=== PATIENT | male | born 1980 | race Caucasian/White ===

== ENCOUNTER 2017-08-23 13:15 | Emergency (ER) | payer MEDICAID, SELFPAY ==
[2017-08-23 13:16] VITALS: BP 111/90; PULSE 103; RESP 16; TEMP 36.7; O2SAT 97; BMI 48.2
--- NOTE | 2017-08-23 13:40 | ED.VISSUMM ---
- ER Visit Summary Date of Service: 08/23/17 Chief Complaint: Lump on chest and left hip pain History of Present Illness: The patient is a 37 M no primary care physician. Who reports that he has left hip pain began approximately 5 days ago after helping a friend move heavy stuff. Describes pain is 7 out of 10 severity and aching. It is increased with flexion of his hip. He is not taking anything for pain. He is able to ambulate without any difficulty. He denies any fall or MVA. Patient also complains of a swollen area just below his left pectoralis muscle that he first noticed 2 nights ago. Reports his pain is 6 out of 10 with pushing on is pain-free at rest. He denies any injury. No shortness of breath. No fever, chills, cough, or other complaints. Physical Examination: Vitals: Stable. Afebrile. General: Well-nourished and well-developed. Head: Normocephalic atraumatic. Neck: Supple, no lymphadenopathy. No JVD. Nontender. Cardiovascular: Regular rate and rhythm. No murmurs. Respiratory: No respiratory distress. Clear to auscultation bilaterally. There is a light contusion just inferior to his left pectoralis muscle. There is minimal soft tissue swelling. There is no erythema, warmth, or induration to suggest infection. Abdominal: Soft, nontender, nondistended, normal bowel sounds. No guarding, rebound, or peritoneal signs. Back: Nontender. Extremities: Minimal tenderness to palpation over the left greater trochanter. No pain with internal/external rotation of his hip. Normal gait. Skin: Normal color, no rash. Neurologic: Alert and oriented ?3. Cranial nerves II through XII are intact. Normal strength and sensation. Psych: Normal affect. Emergency Department Course and Treatment: I do not feel x-rays are indicated at this time. The patient is treated with naproxen and is resting comfortably. He ambulated out without any difficulty. Treatment Plan: Patient will be discharged naproxen instructed to follow-up the [facility] 1 week if not improving. Return to the emergency department for any worsening symptoms. Disposition: To home in improved and stable condition. Impression: 1. Chest wall pain. 2. Left hip strain. This note was generated with [employer] software. It may contain incorrect words, spelling, and punctuation that were not noted in review of the chart prior to signing ED Disposition - Plan for ED Patient: Disposition: Home or Assisted Living Chief Complaint: Chest Other Instructions: ED Sprain Hip Prescriptions: Naproxen [Naprosyn] 500 mg PO BID PRN #20 tablet Referrals: [facility] [NON-STAFF] - 1 Week if not improving
[2017-08-23] MEDS: Naproxen 250 MG Tablet 500 MG PO (13:51)
== END 2017-08-23 14:07 | disposition home or self-care (01) ==
PROVIDERS: Emergency Provider Emergency Medicine
DX: R07.89 Other chest pain (principal); S76.012A Strain of muscle, fascia and tendon of left hip, initial encounter; X50.0XXA Overexertion from strenuous movement or load, initial encounter; Y93.9 Activity, unspecified; Y92.9 Unspecified place or not applicable; Y99.9 Unspecified external cause status; Z72.0 Tobacco use
CPT/HCPCS: 99283

== ENCOUNTER 2017-09-23 21:37 | Emergency (ER) | payer MEDICAID, SELFPAY ==
[2017-09-23 21:38] VITALS: BP 163/101; PULSE 101; RESP 18; TEMP 36.7; O2SAT 94; BMI 48.2
--- NOTE | 2017-09-23 22:49 | ED.DCSUM_ITS ---
- ER Visit Summary Date of Service: 09/23/17 Chief Complaint: [Eye redness and swelling] History of Present Illness: The patient is a 37 M [presents to the emergency department with swelling to both eyes that he noticed this morning. Patient states initially he had a lot of itching associated with it. Patient subsequently developed edema of the eyelids. Complaint of some mild hearing and now has a burning sensation to the canthus and upper eyelid on the right. Patient denies any exposures to chemicals or new soaps or detergents. Patient denies any foreign body sensation or significant photophobia. Patient has not had symptoms like this before. Patient does not wear contacts but does wear glasses.] Physical Examination: [HEENT-PERRLA, EOMI. Cranial nerves II through XII grossly intact. TMs clear. Mucous membranes moist. No adenopathy. Patient does have edema of the right upper eyelid with some faint erythema noted to the lateral canthus. Patient has minimal edema of the left upper eyelid. There is no significant conjunctivitis. Cardiovascular-regular rate and rhythm without murmur or ectopy Lungs-clear to auscultation, chest wall stable without crepitus or subcu emphysema Abdomen-normoactive bowel sounds, soft, nontender, no rebound or rigidity, no peritoneal signs. Extremities-intact ?4, normal range of motion, normal pulses, atraumatic] Test Results: [None indicated] Emergency Department Course and Treatment: [Patient was given Benadryl and prednisone.] Treatment Plan: [I suspect an allergic reaction therefore patient will be treated with Benadryl and prednisone. Patient will be referred to ophthalmology for follow-up.] Disposition: [Discharged home in stable condition] Impression: [Allergic reaction] This note was generated with [employer] dictation software. It may contain incorrect words, spelling, and punctuation that were not noted in review of the chart prior to signing ED Disposition - Plan for ED Patient: Chief Complaint: Eye Problem Referrals: Care Physician,No Primary [Primary Care Provider] -
--- NOTE | 2017-09-23 22:49 | ED.DEP ---
ED Disposition - Plan for ED Patient: Chief Complaint: Eye Problem Instructions: ED Allergic Conjunctivitis Prescriptions: Prednisone [Deltasone] 20 mg PO BID #10 tab Referrals: Care Physician,No Primary [Primary Care Provider] - Edgar Olvera MD [STAFF PHYSICIAN] - 3-5 Days
[2017-09-23] MEDS: DiphenhydrAMINE 25 MG Capsule PO (22:54)
[2017-09-23] MEDS: predniSONE 20 MG Tablet 40 MG PO (22:54)
[2017-09-23 22:56] VITALS: BP 151/89; PULSE 89; RESP 14; O2SAT 99
== END 2017-09-23 22:56 | disposition home or self-care (01) ==
LOC: ED 22:52
PROVIDERS: Emergency Provider Emergency Medicine
DX: H02.841 Edema of right upper eyelid (principal); H02.844 Edema of left upper eyelid; T78.40XA Allergy, unspecified, initial encounter; X58.XXXA Exposure to other specified factors, initial encounter; Z86.39 Personal history of other endocrine, nutritional and metabolic disease; Z72.0 Tobacco use
CPT/HCPCS: 99283

== ENCOUNTER → 2017-11-26 16:13 | Outpatient (CLI) | payer MEDICAID, SELFPAY ==
--- NOTE | 2017-11-26 16:20 | RAD_ITS ---
STUDY: X-RAY CHEST REASON FOR EXAM: Male, 37 years old. Cough. TECHNIQUE: PA and lateral views of the chest. COMPARISON: January 10, 2016. FINDINGS: There is a minimally improved inspiratory effort when compared to prior study. There is no new infiltrate or mass. There is no demonstrated pleural abnormality. Normal size heart. Normal mediastinum and ibrahima. Normal visualized pulmonary arteries. Normal visualized aortic arch and descending thoracic aorta. Normal visualized thoracic spine. Normal visualized ribs, clavicles, and shoulders. There is no demonstrated abnormality of the visualized soft tissue structures of the upper abdomen. RAD/Chest PA and Lateral IMPRESSION: No acute cardiopulmonary disease or interval change. Electronically Signed: Reese Juárez DO at 20:47 EDT Tel [phone], Service support ,
== END ==
DX: R05 Cough (principal)
CPT/HCPCS: 71046

== ENCOUNTER 2017-12-01 17:49 | Emergency (ER) | payer MEDICAID, SELFPAY ==
[2017-12-01 17:50] VITALS: BP 160/104; PULSE 108; RESP 22; TEMP 36.3; BMI 50.2
[2017-12-01 17:55] VITALS: BP 173/98; PULSE 104; RESP 18; O2SAT 95
--- NOTE | 2017-12-01 18:25 | RAD_ITS ---
STUDY: X-RAY - LEFT FOOT CLINICAL: Male, 37 years old. A traumatic lateral foot pain. TECHNIQUE: The view(s) of the foot. COMPARISON: None. FINDINGS: Normal talus, calcaneus, and tarsal bones. Normal visualized subtalar, talonavicular, calcaneocuboid, tarsal and tarsometatarsal articulations. There is a separate ossification center for the base of the fifth metatarsal, a normal variant. Normal metatarsophalangeal joint of the great toe. Normal tibial and fibular sesamoid bones. Normal interphalangeal joint of the great toe. Normal phalanges of the great toe. Normal second through fifth metatarsophalangeal joints. Normal interphalangeal joints and phalanges of the lesser toes. The soft tissue structures are unremarkable. RAD/Foot min 3 Views IMPRESSION: No acute osseous abnormality. Electronically Signed: Cosme Lacey MD at 18:56 EDT , Service support ,
--- NOTE | 2017-12-01 19:04 | ED.VISSUMM ---
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 States his hurt all day. He is done no home treatment. Patient states that he thinks that hurt him the other day when he was walking into the shower but he does not recall a specific injury Physical Examination: Afebrile vital signs stable Patient is texting on his phone and chewing tobacco as I attempt to interview him. Patient is tenderness palpation along the fifth metatarsal and then up posterior to lateral malleolus. Neurovascular intact. No significant swelling. Test Results: Foot x-rays were negative for fracture Emergency Department Course and Treatment: Suspect this is more of a strain of his muscle/tendon. Will use Nilesh wrap to help limit motion. I suggest anti-inflammatories. Follow-up with podiatry if not improving Impression: 1. Left foot strain This note was generated with [employer] dictation software. It may contain incorrect words, spelling, and punctuation that were not noted in review of the chart prior to signing ED Disposition - Plan for ED Patient: Disposition: Home or Assisted Living Chief Complaint: Lower Extremity Injury Instructions: ED Sprain Foot Referrals: Marcell Dennis DPM [STAFF PHYSICIAN] - 10-14 Days if not better Additional Instructions: 1. Wear good supportive shoes 2. Nilesh wrap to help limit motion at the ankle joint 3. Motrin 800 mg 3 times a day as needed for pain.
--- NOTE | 2017-12-01 19:07 | ED.DCSUM_ITS ---
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 States his hurt all day. He is done no home treatment. Patient states that he thinks that hurt him the other day when he was walking into the shower but he does not recall a specific injury Physical Examination: Afebrile vital signs stable Patient is texting on his phone and chewing tobacco as I attempt to interview him. Patient is tenderness palpation along the fifth metatarsal and then up posterior to lateral malleolus. Neurovascular intact. No significant swelling. Test Results: Foot x-rays were negative for fracture Emergency Department Course and Treatment: Suspect this is more of a strain of his muscle/tendon. Will use Nilesh wrap to help limit motion. I suggest anti- inflammatories. Follow-up with podiatry if not improving Impression: 1. Left foot strain This note was generated with [employer] dictation software. It may contain incorrect words, spelling, and punctuation that were not noted in review of the chart prior to signing ED Disposition - Plan for ED Patient: Disposition: Home or Assisted Living Chief Complaint: Lower Extremity Injury Instructions: ED Sprain Foot Referrals: Marcell Dennis DPM [STAFF PHYSICIAN] - 10-14 Days if not better Additional Instructions: 1. Wear good supportive shoes 2. Nilesh wrap to help limit motion at the ankle joint 3. Motrin 800 mg 3 times a day as needed for pain.
[2017-12-01 19:17] VITALS: BP 145/94; PULSE 98; RESP 18; O2SAT 99
== END 2017-12-01 19:18 | disposition home or self-care (01) ==
PROVIDERS: Emergency Provider Emergency Medicine
DX: S96.912A Strain of unspecified muscle and tendon at ankle and foot level, left foot, initial encounter (principal); X58.XXXA Exposure to other specified factors, initial encounter; Y93.01 Activity, walking, marching and hiking; Y92.9 Unspecified place or not applicable; Y99.9 Unspecified external cause status; F17.220 Nicotine dependence, chewing tobacco, uncomplicated; E66.9 Obesity, unspecified
CPT/HCPCS: 73630; 99282

== ENCOUNTER 2018-04-07 12:41 | Emergency (ER) | payer MEDICAID, SELFPAY ==
[2018-04-07 12:42] VITALS: BP 141/92; PULSE 97; RESP 16; TEMP 36.6; O2SAT 97; BMI 51.6
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
--- NOTE | 2018-04-07 14:03 | ED.DEP ---
ED Disposition - Plan for ED Patient: Chief Complaint: Headache Instructions: ED Head Injury Closed Prescriptions: Ibuprofen [Motrin] 800 mg PO TID PRN PRN #20 tab PRN Reason: Pain
[2018-04-07 14:07] VITALS: PULSE 93; RESP 18; O2SAT 99
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
== END 2018-04-07 14:10 | disposition home or self-care (01) ==
PROVIDERS: Emergency Provider Emergency Medicine
DX: S06.0X0A Concussion without loss of consciousness, initial encounter (principal); V49.50XA Passenger injured in collision with unspecified motor vehicles in traffic accident, initial encounter; Y93.9 Activity, unspecified; Y92.9 Unspecified place or not applicable; Y99.9 Unspecified external cause status; Z72.0 Tobacco use; Z79.899 Other long term (current) drug therapy
CPT/HCPCS: 70450; 99282

== ENCOUNTER 2018-08-18 00:33 | Emergency (ER) | payer MEDICAID, SELFPAY ==
[2018-07-03 14:34] VITALS: BMI 51.6
[2018-08-18 00:34] VITALS: BP 205/119; PULSE 89; RESP 18; TEMP 36.8; O2SAT 96; BMI 54.2
--- NOTE | 2018-08-18 00:39 | EKG12_ITS ---
Test Reason : CP Blood Pressure : / mmHG Vent. Rate : 094 BPM Atrial Rate : 094 BPM P-R Int : 186 ms QRS Dur : 092 ms QT Int : 342 ms P-R-T Axes : 048 044 046 degrees QTc Int : 427 ms Normal sinus rhythm Normal ECG Confirmed by LEISA CLIFFORD, CAROLYN ([id number]), marketing editor ANGELA RUIZ ([id number]) on 08/21/2018 9:01:59 AM Referred By: COLLEEN Confirmed By:CAROLYN DE LA FUENTE MD
--- NOTE | 2018-08-18 00:39 | RAD_ITS ---
STUDY: X-RAY CHEST REASON FOR EXAM: Male, 38 years old. Chest pain TECHNIQUE: Single frontal view COMPARISON: November 26, 2017 FINDINGS: The lungs are clear and expanded. There is no demonstrated pleural abnormality. Normal size heart. Normal mediastinum and ibrahima. Normal visualized pulmonary arteries. Normal visualized aortic arch and descending thoracic aorta. Normal visualized thoracic spine. Normal visualized ribs, clavicles, and shoulders. There is no demonstrated abnormality of the visualized soft tissue structures of the upper abdomen. RAD/Chest 1 View (Portable) IMPRESSION: Normal x-ray examination of the chest. Electronically Signed: Darryl Roach MD at 1:32 EDT , Service support ,
[2018-08-18 00:46] LABS: Absolute Lymphocyte Count 2.89 X10^3/ul (0.83-4.51); Basophil# 0.08 X10^3/uL; Basophil% 0.7 % (0-1); Eosinophils% 1.8 % (0-5); Hematocrit 47.6 % (40-54); Hemoglobin 16.5 g/dl (13.0-16.5); Lymphocyte # 2.89 X10^3/ul (4.0); Lymphocyte % 26.5 % (19-41); Mean Corp Hgb Conc 34.7 g/gl (32-36); Mean Corpuscular Hgb 30.2 pg (27.0-32.0); Mean Corpuscular Volume 87.2 fL (80-94); Mean Platelet Vol. 9.6 fl (6.2-12.0); Monocyte# 0.74 X10^3/uL; Monocyte% 6.8 % (0-10); Neutrophil # 6.96 X10^3/uL (2.7-7.7); Platelet Count 196 K/mm3 (150-450); RBC Distribution Width CV 13.2 % (11.6-14.6); RBC Distribution Width SD 41.4 fl (35.1-43.9); Red Blood Count 5.46 M/mm3 (4.6-6.2); White Blood Count 10.9 K/mm3 (4.4-11.0)
[2018-08-18 00:51] LABS: POSITIVE COUNT NO; POSITIVE DIFFERENTIAL NO; POSITIVE MORPHOLOGY NO
[2018-08-18 01:08] LABS: Anion Gap 5 (5-15); BUN 12 mg/dL (7-18); BUN/Creat Ratio 11.8 RATIO (10-20); Calcium,Total 8.9 mg/dL (8.5-10.1); Chloride 105 mmol/L (98-107); Creatinine, Serum 1.02 mg/dL (0.70-1.30); EST Glomerular Filtration Rate 88 mL/min (>60); Est Glom Filt Rate - Afr Amer 106 mL/min (>60); Estimated Creatinine Clearance 100.12 ml/min; Glucose 105 mg/dL (74-106); Potassium 3.9 mmol/L (3.5-5.1); Sodium Level 139 mmol/L (136-145)
[2018-08-18 01:24] LABS: Prothrombin Time (Protime)PT. 12.8 SECONDS (11.7-14.9)
--- NOTE | 2018-08-18 02:03 | ED.VISSUMM ---
- ER Visit Summary Date of Service: 08/18/18 Chief Complaint: Chest pain History of Present Illness: The patient is a 38 M who presents with chest pain that began approximately half hour prior to arrival. Patient states the pain is over the right upper chest. Patient describes the pain as stabbing. Patient states the pain is intermittent and lasts for approximately 30-60 minutes. Patient states nothing makes the pain better or worse. Patient admits to some shortness of breath and palpitations with the pain. Patient also admits to a chronic cough. Cardiac risk factors include hypertension, hypercholesterolemia, and smoking. Patient denies any PE risk factors. Physical Examination: Vital signs are stable except for an elevated blood pressure 205/119. Patient is afebrile. Patient is in no acute distress. Oral mucosa is pink and moist. Neck is supple. Trachea is midline. There is no JVD noted. Heart was regular rate and rhythm. Lungs are clear and equal bilateral. There is some mild right upper chest wall tenderness. This is different than the pain that made him come to the emergency department tonight. Abdomen is soft and nontender. Bowel sounds are normal. Cranial nerves II through XII are intact. There are no focal motor or sensory deficits noted. Test Results: EKG showed a sinus rhythm with a rate of 94. There are no acute ST or T wave changes. This was unchanged compared to previous EKG dated 12/22/2015. Portable chest x-ray does not show any acute cardiopulmonary process. CBC, metabolic profile, troponin, PT with INR, were obtained and were all within normal limits. Emergency Department Course and Treatment: Patient was sleeping on reevaluation. Patient's blood pressure improved without treatment. Patient has a HEART score of 2. Patient was advised that this is low risk for acute cardiac event. Patient was advised to follow-up with his primary care physician in 5-7 days for further evaluation. Patient understood and was agreeable with the plan. All questions were answered. Disposition: Discharge home Impression: Chest pain This note was generated with [employer] dictation software. It may contain incorrect words, spelling, and punctuation that were not noted in review of the chart prior to signing ED Disposition - Plan for ED Patient: Disposition: Home or Assisted Living Diagnosis: Right-sided chest pain Instructions: ED Chest Pain Atypical Unkn Cause Referrals: Care Physician,No Primary [Primary Care Provider] - Sanam Barbosa [NON-STAFF] - 3-5 Days
[2018-08-18 02:17] VITALS: BP 166/97; PULSE 84; RESP 16; O2SAT 95
== END 2018-08-18 02:20 | disposition home or self-care (01) ==
PROVIDERS: Emergency Provider Emergency Medicine
DX: R07.9 Chest pain, unspecified (principal); R00.2 Palpitations; R06.00 Dyspnea, unspecified; I10 Essential (primary) hypertension; E78.00 Pure hypercholesterolemia, unspecified; E66.9 Obesity, unspecified; F17.200 Nicotine dependence, unspecified, uncomplicated; Z79.899 Other long term (current) drug therapy
CPT/HCPCS: 71045; 80048; 84484; 85025; 85610; 93005; 99284; A4216

== ENCOUNTER 2018-09-20 21:04 | Emergency (ER) | payer MEDICAID, SELFPAY ==
[2018-09-20 21:06] VITALS: BP 148/83; PULSE 108; RESP 17; TEMP 36.4; O2SAT 96; BMI 50.9
[2018-09-20 21:39] VITALS: RESP 18
--- NOTE | 2018-09-20 21:59 | ED.VISSUMM ---
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 No other injury. Physical Examination: There is superior shoulder tenderness, pain with abduction greater than 90 degrees, pain with placing his hand in his back, neurovascularly intact. Test Results: [] Emergency Department Course and Treatment: [This is rotator cuff syndrome, I will treat as such. Kenalog was given, anti-inflammatories for home.] Treatment Plan: [] Disposition: [Discharge stable condition] Impression: Rotator cuff tendinitis This note was generated with [employer] dictation software. It may contain incorrect words, spelling, and punctuation that were not noted in review of the chart prior to signing ED Disposition - Plan for ED Patient: Disposition: Home or Assisted Living Instructions: ED Tendinitis Rotator Cuff Prescriptions: Naproxen [Naprosyn] 500 mg PO BID PRN #20 tab Referrals: Care Physician,No Primary [Primary Care Provider] - 3-5 Days
[2018-09-20] MEDS: Triamcinolone Acetonide 40 MG/ML Vial IM (22:07)
[2018-09-20 22:26] VITALS: PULSE 103; RESP 18; O2SAT 95
== END 2018-09-20 22:27 | disposition home or self-care (01) ==
PROVIDERS: Emergency Provider Emergency Medicine
DX: M75.102 Unspecified rotator cuff tear or rupture of left shoulder, not specified as traumatic (principal); M75.92 Shoulder lesion, unspecified, left shoulder; X58.XXXA Exposure to other specified factors, initial encounter; Y93.H2 Activity, gardening and landscaping; Y92.9 Unspecified place or not applicable; Y99.9 Unspecified external cause status; F31.9 Bipolar disorder, unspecified; Z79.899 Other long term (current) drug therapy; Z72.0 Tobacco use
CPT/HCPCS: 96374; 99282

== ENCOUNTER 2019-09-12 21:13 | Emergency (ER) | payer MEDICAID, SELFPAY ==
[2019-09-12 21:14] VITALS: BP 173/98; PULSE 105; RESP 20; TEMP 36.4; O2SAT 99; BMI 51.6
--- NOTE | 2019-09-12 21:50 | RAD_ITS ---
STUDY: X-RAY - RIGHT WRIST REASON FOR EXAM: Male, 39 years old. PAIN ALONG THUMB AND DOWN INTO WRIST . NO KNOWN INJURY TECHNIQUE: 3 view(s) of the wrist were obtained. COMPARISON: None. FINDINGS: Normal visualized distal radius and ulna. Normal radiocarpal articulation. Normal distal radioulnar articulation. Normal carpal bones. Normal carpal articulations. Normal carpometacarpal articulation of the thumb. Normal second through fifth carpometacarpal articulations. Normal visualized metacarpal bones. The soft tissue structures are unremarkable. RAD/Wrist min 3 Views IMPRESSION: Normal x-ray examination of the wrist. Electronically Signed: Garrison Sullivan MD at 22:12 EDT , Service support ,
--- NOTE | 2019-09-12 22:11 | ED.VISSUMM ---
- ER Visit Summary Date of Service: 09/12/19 Chief Complaint: Atraumatic right wrist pain History of Present Illness: The patient is a 39 M history of hypertension, bipolar and high cholesterol. [id number]. Denies any falls, injury, trauma, fever or redness. States the last week he has had discomfort, dull ache in his right wrist. No prior history. No prior fracture. No prior surgery. He denies any other complaints. States he is currently not working. He has not been using his hand or wrist more than normally. Physical Examination: Middle-aged male no acute distress vital signs stable afebrile. HEENT exam unremarkable. Neck nontender no lymphadenopathy. Lungs are clear equal symmetrical bilaterally. Heart regular rate and rhythm no murmur. Abdomen soft nontender normal bowel sounds no peritoneal signs. Extremities moves all 4 neurovascular intact. Calves nontender without edema or cords. Specifically right shoulder, right elbow and right wrist no significant tenderness. No redness or warmth. No swelling. No effusions. He has full range of motion to his right elbow and right wrist without any difficulty. Full flexion-extension of the right wrist. There is no redness or warmth. No signs of septic joint or gout. He has a normal radial pulse. 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 Normal sensation. Normal cap refill. There is no gross bony deformity. Neurologically is awake and alert with no focal motor deficits. Test Results: Right wrist x-ray 3 views read by myself shows no acute abnormality. No fracture or dislocation. Emergency Department Course and Treatment: Patient with atraumatic right wrist pain. Clinically does not seem to be a tendinitis. It also does not appear to be a infection. X-ray was obtained and was negative. Treatment Plan: Ice and elevate his right wrist. Motrin for pain. Follow-up if not improving return if worse. Disposition: Discharge Impression: Acute atraumatic right wrist pain musculoskeletal etiology This note was generated with [employer] dictation software. It may contain incorrect words, spelling, and punctuation that were not noted in review of the chart prior to signing ED Disposition - Plan for ED Patient: Referrals: Care Physician,No Primary [Primary Care Provider] -
--- NOTE | 2019-09-12 22:13 | ED.DEP ---
ED Disposition - Plan for ED Patient: Disposition: Home or Assisted Living Referrals: Isaac Dean MD [STAFF PHYSICIAN] - 1 Week if not improving Additional Instructions: Your x-ray was normal. Ice and elevate your right wrist. Motrin and Tylenol for pain and swelling. Follow-up if not improving. Return to the emergency department if increasing pain, swelling, redness or fever.
== END 2019-09-12 22:20 | disposition home or self-care (01) ==
PROVIDERS: Emergency Provider Emergency Medicine
DX: M25.531 Pain in right wrist (principal); I10 Essential (primary) hypertension; E78.00 Pure hypercholesterolemia, unspecified; F31.9 Bipolar disorder, unspecified; Z72.0 Tobacco use; Z79.899 Other long term (current) drug therapy
CPT/HCPCS: 73110; 99282

== ENCOUNTER 2019-11-01 18:19 | Emergency (ER) | payer MEDICAID, SELFPAY ==
[2019-11-01 18:22] VITALS: BP 125/71; PULSE 92; RESP 17; TEMP 36.5; O2SAT 98; BMI 55.3
--- NOTE | 2019-11-01 18:45 | ED.DCSUM_ITS ---
History of Present Illness Chief Complaint: Edema Informant: Patient Onset: Days Context: Gradual Onset Current Severity: Moderate Maximum Severity: Moderate Narrative: Patient presents with bilateral lower extremity edema. He tells me is been ongoing for the last several days to a week or so. He told nursing staff that is been an ongoing chronic issue. Patient does have a few small blisters on his right leg that are covered with bandages. He denies fever or chills. He does report some dyspnea with exertion. - Past Medical History (1) Hypertension Status: Chronic (2) High cholesterol Status: Chronic Past Medical History - Allergies and Home Meds Allergies/Adverse Reactions: Allergies No Known Allergies Allergy (Verified 11/01/19 18:21) Primary Care Physician: Sanam Tapia [Primary Care Provider] - Prior records reviewed: Yes Smoking Status: Current every day smoker Review of Systems General: Denies: Chills, Fever Eyes: Denies: Visual changes - bilaterally ENT: Denies: Bilateral ear pain Cardiovascular: Denies: Chest pain Respiratory: Reports: Dyspnea. Denies: Cough Gastrointestinal: Denies: Abdominal pain, Nausea, Vomiting, Diarrhea Genitourinary: Denies: Dysuria Musculoskeletal: Reports: Swelling Skin: Reports: Wounds Neurological: Denies: Headache Hematologic: Denies: Easy bruising, Easy bleeding Allergy: Denies: Uticaria Physical Exam Vital Signs/Narrative: Vital Signs Temp Pulse Resp BP Pulse Ox 11/01/19 18:22 97.7 F L 92 17 125/71 H 98 Inital Vital Signs reviewed: Yes General: Well nourished, Well developed Head: Normocephalic ENT: Moist mucous membranes Neck: Supple Cardiovascular: Regular rate, Regular rhythm Respiratory: No distress, CTA bilaterally Abdomen: Soft, Nontender Extremities: - - Patient with 3+ edema bilateral lower extremities. Legs are symmetric. There are 3 small (approximate 3 mm diameter) open blisters on the right lower leg. No surrounding cellulitis. Strong distal pulses are noted. Neurological: Alert, Oriented x3 Psychological: Normal affect Diagnostic/Tx/Re-eval Impressions Chest CTA 11/01/19 20:20 IMPRESSION: 1. There is limited enhancement of the main pulmonary artery and right and left pulmonary arteries. There is poor/suboptimal enhancement of the bilateral peripheral pulmonary arteries. No large embolus is seen in the main arteries, but smaller emboli cannot be excluded. Normal thoracic aorta and visualized great vessels. 2. Mild bilateral pulmonary edema. No visualized consolidation. Electronically Signed: Tye Rivera MD at 21:37 EDT , Service support , 11/01/19 20:20 CTA Chest W/WO Contrast [CT] Stat Laboratory Results 11/01/19 11/01/19 11/01/19 18:58 18:58 18:58 WBC 8.3 RBC 4.78 Hgb 14.5 Hct 44.4 MCV 92.9 MCH 30.3 MCHC 32.7 RDW Std Deviation 43.8 RDW Coeff of Thu 13.0 Plt Count 175 MPV 9.0 Immature Gran % (Auto) 0.200 Neut % (Auto) 67.7 Lymph % (Auto) 21.1 [place] % (Auto) 7.6 Eos % (Auto) 2.7 Baso % (Auto) 0.7 Absolute Neuts (auto) 5.6 Absolute Lymphs (auto) 1.75 Nucleated RBC % 0 D-Dimer Quant (PE/DVT) 1.00 H* Sodium 141 Potassium 3.8 Chloride 104 Carbon Dioxide 33.0 H Anion Gap 4 L BUN 13 Creatinine 0.84 Estim Creat Clear Calc 124.32 Est GFR (MDRD) Af Amer 131 Est GFR (MDRD) Non-Af 108 BUN/Creatinine Ratio 15.4 Glucose 106 Calcium 8.5 B-Natriuretic Peptide 11/01/19 18:58 WBC RBC Hgb Hct MCV MCH MCHC RDW Std Deviation RDW Coeff of Thu Plt Count MPV Immature Gran % (Auto) Neut % (Auto) Lymph % (Auto) [place] % (Auto) Eos % (Auto) Baso % (Auto) Absolute Neuts (auto) Absolute Lymphs (auto) Nucleated RBC % D-Dimer Quant (PE/DVT) Sodium Potassium Chloride Carbon Dioxide Anion Gap BUN Creatinine Estim Creat Clear Calc Est GFR (MDRD) Af Amer Est GFR (MDRD) Non-Af BUN/Creatinine Ratio Glucose Calcium B-Natriuretic Peptide 29.1 - Medical Decision Making Test results are discussed with the patient at bedside. He does have a mildly elevated d-dimer. CTA does not reveal obvious central PE. Mild pulmonary edema is noted. Patient will be given a prescription for 3 days of Lasix at home. I will write an outpatient order for a venous ultrasound of his legs that he will come back for tomorrow, Sunday. Patient is to follow with his doctor this week for further treatment and evaluation. ED Disposition - Plan for ED Patient: Disposition: Home or Assisted Living Diagnosis: Edema Instructions: ED Peripheral Edema, Bilateral Prescriptions: Furosemide [Lasix] 40 mg PO DAILY #3 tab Transmission Status: Pending to [facility]/pharmacy #[id number] Referrals: Robb Valdez,Sanam Barbosa [Primary Care Provider] - As soon as possible
[2019-11-01 19:03] LABS: Absolute Lymphocyte Count 1.75 X10^3/uL (0.83-4.51); Absolute Neutrophil Count 5.6 X10^3/uL (2.0-7.7); Basophil# 0.06 X10^3/uL; Basophil% 0.7 % (0-1); Eosinophil# 0.22 X10^3/uL; Eosinophils% 2.7 % (0-5); Hematocrit 44.4 % (40-54); Hemoglobin 14.5 g/dL (13.0-16.5); Lymphocyte # 1.75 X10^3/ul (4.0); Lymphocyte % 21.1 % (19-41); Mean Corp Hgb Conc 32.7 g/dL (32-36); Mean Corpuscular Hgb 30.3 pg (27.0-32.0); Mean Corpuscular Volume 92.9 fL (80-94); Monocyte# 0.63 X10^3/uL; Monocyte% 7.6 % (0-10); NRBC Flagged by Analyzer 0 % (0-5); Neutrophil % 67.7 % (47-70); Platelet Count 175 K/mm3 (150-450); RBC Distribution Width SD 43.8 fl (35.1-43.9); Red Blood Count 4.78 M/mm3 (4.6-6.2); White Blood Count 8.3 K/mm3 (4.4-11.0)
[2019-11-01 19:16] LABS: Anion Gap 4 (5-15); BUN 13 mg/dL (7-18); BUN/Creat Ratio 15.4 RATIO (10-20); Calcium,Total 8.5 mg/dL (8.5-10.1); Chloride 104 mmol/L (98-107); Creatinine, Serum 0.84 mg/dL (0.70-1.30); EST Glomerular Filtration Rate 108 mL/min (>60); Est Glom Filt Rate - Afr Amer 131 mL/min (>60); Estimated Creatinine Clearance 124.32 ml/min; Glucose 106 mg/dL (74-106); Potassium 3.8 mmol/L (3.5-5.1); Sodium Level 141 mmol/L (136-145)
[2019-11-01 19:22] LABS: BNP,B-Type NATRIURETIC PEPTIDE 29.1 pg/mL (0-100)
--- NOTE | 2019-11-01 20:04 | ED.RN ---
D-DIMER OF 1.[address] ROSADO. VERBALIZES UNDERSTANDING
--- NOTE | 2019-11-01 20:20 | CT_ITS ---
STUDY: CTA CHEST REASON FOR EXAM: Male, 39 years old. INCREASED B/L LOWER EXT EDEMA WITH WEIGHT GAIN, -- NO C/O CP OR SOB,HX HTN RADIATION DOSAGE (If Supplied By Facility): CTDIvol = ( 22.08 ) mGy, DLP = ( 486.30 ) mGycm TECHNIQUE: The examination was performed with the intravenous administration of IV 100mL Isovue-370. Post-processing of the angiographic images was performed, with multiplanar reformation and 3D reconstruction. Individualized dose optimization techniques were used for this CT. COMPARISON: None. FINDINGS: There is limited enhancement of the main pulmonary artery and right and left pulmonary arteries. There is poor/suboptimal enhancement of the bilateral peripheral pulmonary arteries. No large embolus is seen in the main arteries, but smaller emboli cannot be excluded. Normal thoracic aorta and visualized great vessels. There is no demonstrated aortic dissection. Normal heart and pericardium. Normal mediastinum. Normal hilar regions. Normal visualized trachea and bronchi. The lungs are well expanded. Mild bilateral pulmonary edema is present. No visualized consolidation. Normal chest wall structures. There are degenerative changes of thoracic spine. Normal visualized upper abdomen. CT/CTA Chest W/WO Contrast IMPRESSION: 1. There is limited enhancement of the main pulmonary artery and right and left pulmonary arteries. There is poor/suboptimal enhancement of the bilateral peripheral pulmonary arteries. No large embolus is seen in the main arteries, but smaller emboli cannot be excluded. Normal thoracic aorta and visualized great vessels. 2. Mild bilateral pulmonary edema. No visualized consolidation. Electronically Signed: Tye Rivera MD at 21:37 EDT , Service support ,
[2019-11-01 21:12] VITALS: BP 122/63; PULSE 88; RESP 17; O2SAT 97
[2019-11-01 22:17] VITALS: BP 128/73; PULSE 78; RESP 16; O2SAT 98
== END 2019-11-01 22:18 | disposition home or self-care (01) ==
PROVIDERS: Emergency Provider Emergency Medicine
DX: R60.0 Localized edema (principal); S80.821A Blister (nonthermal), right lower leg, initial encounter; R79.89 Other specified abnormal findings of blood chemistry; J81.1 Chronic pulmonary edema; X58.XXXA Exposure to other specified factors, initial encounter; Y93.9 Activity, unspecified; Y92.9 Unspecified place or not applicable; I10 Essential (primary) hypertension; E78.00 Pure hypercholesterolemia, unspecified; Z79.899 Other long term (current) drug therapy; F17.200 Nicotine dependence, unspecified, uncomplicated
CPT/HCPCS: 71275; 80048; 83880; 85025; 85379; 99283; Q9967; A4216

== ENCOUNTER 2020-03-16 15:30 | Emergency (ER) | payer MEDICAID, SELFPAY ==
[2020-03-16 15:30] VITALS: BP 139/113; PULSE 93; RESP 19; TEMP 36.4; O2SAT 95; BMI 56.0
--- NOTE | 2020-03-16 15:35 | EKG12_ITS ---
Test Reason : Blood Pressure : / mmHG Vent. Rate : 094 BPM Atrial Rate : 094 BPM P-R Int : 184 ms QRS Dur : 098 ms QT Int : 338 ms P-R-T Axes : 055 050 035 degrees QTc Int : 422 ms Normal sinus rhythm Normal ECG Confirmed by LEISA CLIFFORD, CAROLYN ([id number]), manager editorial SABRINA ROSEN ([id number]) on 03/17/2020 8:38:39 AM Referred By: DEISY Confirmed By:CAROLYN DE LA FUENTE MD
--- NOTE | 2020-03-16 15:35 | RAD_ITS ---
STUDY: X-RAY CHEST REASON FOR EXAM: Male, 40 years old. CHEST PAIN TECHNIQUE: Single AP portable view of the chest. COMPARISON: Comparison is made with prior study dated 08/18/2018. FINDINGS: EKG electrodes are seen. The lungs are clear and expanded. There is no demonstrated pleural abnormality. Normal size heart. Normal mediastinum and ibrahima. Normal visualized pulmonary arteries. Normal visualized aortic arch and descending thoracic aorta. Normal visualized thoracic spine. Normal visualized ribs, clavicles, and shoulders. There is no demonstrated abnormality of the visualized soft tissue structures of the upper abdomen. RAD/Chest 1 View (Portable) IMPRESSION: Normal x-ray examination of the chest. Electronically Signed: Koffi Cortes, at 15:52 EST , Service support ,
--- NOTE | 2020-03-16 16:02 | ED.DCSUM_ITS ---
- ER Visit Summary Date of Service: 03/16/20 Chief Complaint: Chest pain History of Present Illness: The patient is a 40 M 3 of hypertension, high cholesterol bipolar. Mom reportedly had MA at 58. Patient has no known cardiac disease. No prior history of DVT or PE. He denies any recent travel, surgery or immobilization. Denies any leg pain or swelling. He denies any pleuritic chest pain or hemoptysis. States today around 315 while watching TV he got pain develop in his jaw and his chest. He states almost gone currently. He denies any radiation to his arm or back. He denies any abdominal pain. He denies any nausea or vomiting or dyspnea. No recent exertional chest pain. Physical Examination: Middle-aged male vital signs stable initial blood pressure 139/113 however when I am in the room is 121/88. Pulse ox 95% on room air no signs hypoxia. H EENT exam unremarkable. Neck nontender no lymphadenopathy. Lungs clear to auscultation bilaterally. Chest wall nontender. Heart regular rhythm rate about 95 no murmur. Abdomen soft nontender normal bowel sounds no peritoneal signs. No right upper quadrant tenderness. Morbidly obese. Extremities moves all 4. Calves nontender without edema or cords. Equal symmetrical radial pulses. Neurologically is awake alert with no focal motor deficits. Test Results: EKG shows normal sinus rhythm rate of 94 with no acute signs of MA or ischemia. CBC white count 9 hemoglobin 15. Normal. Chemistries unremarkable normal creatinine gap. Troponin normal. D-dimer just above normal footing and abnormal range of 0.50. Chest x-ray normal normal cardiac silhouette mediastinum read both by myself and the radiologist. CTA of the chest shows no acute abnormality. It was read as normal by the radiologist. Reviewed by me. Emergency Department Course and Treatment: Patient with atypical nonexertional chest pain. Not reproducible. No recent travel surgery immobilization or history of DVT or PE. Family history of mom with an MA at 58. Will undergo cardiac work-up. Repeat exam patient is doing well at 5:19 PM. We discussed all his test results. He is awaiting his CTA of the chest. Patient doing well at 6:05 PM will be discharged. Treatment Plan: Follow-up with the [facility]. Return if worse. Disposition: Discharge Impression: Acute chest pain of uncertain etiology This note was generated with [employer] dictation software. It may contain incorrect words, spelling, and punctuation that were not noted in review of the chart prior to signing ED Disposition - Plan for ED Patient: Referrals: [facility],Sanam Barbosa [NON-STAFF] -
[2020-03-16 16:07] VITALS: O2SAT 98
[2020-03-16] MEDS: Aspirin 325 MG Tablet PO (16:10)
[2020-03-16 16:13] LABS: Anion Gap 2 (5-15); BUN 20 mg/dL (7-18); BUN/Creat Ratio 23.8 RATIO (10-20); Calcium,Total 9.6 mg/dL (8.5-10.1); Chloride 107 mmol/L (98-107); Creatinine, Serum 0.84 mg/dL (0.70-1.30); EST Glomerular Filtration Rate 109 mL/min (>60); Est Glom Filt Rate - Afr Amer 131 mL/min (>60); Estimated Creatinine Clearance 119.24 ml/min; Glucose 100 mg/dL (74-106); Potassium 4.3 mmol/L (3.5-5.1); Sodium Level 140 mmol/L (136-145)
[2020-03-16 16:16] LABS: Absolute Lymphocyte Count 2.04 X10^3/uL (0.83-4.51); Absolute Neutrophil Count 6.7 X10^3/uL (2.0-7.7); Basophil# 0.06 X10^3/uL; Basophil% 0.6 % (0-1); Eosinophil# 0.22 X10^3/uL; Eosinophils% 2.3 % (0-5); Hematocrit 47.4 % (40-54); Hemoglobin 15.6 g/dL (13.0-16.5); Lymphocyte # 2.04 X10^3/ul (4.0); Lymphocyte % 20.9 % (19-41); Mean Corp Hgb Conc 32.9 g/dL (32-36); Mean Corpuscular Hgb 29.7 pg (27.0-32.0); Mean Corpuscular Volume 90.1 fL (80-94); Monocyte# 0.67 X10^3/uL; Monocyte% 6.9 % (0-10); NRBC Flagged by Analyzer 0 % (0-5); Neutrophil # 6.72 X10^3/uL (2.7-7.7); Neutrophil % 68.7 % (47-70); Platelet Count 211 K/mm3 (150-450); RBC Distribution Width CV 12.6 % (11.6-14.6); RBC Distribution Width SD 41.1 fl (35.1-43.9); Red Blood Count 5.26 M/mm3 (4.6-6.2); White Blood Count 9.8 K/mm3 (4.4-11.0)
--- NOTE | 2020-03-16 17:18 | CT_ITS ---
STUDY: CTA CHEST REASON FOR EXAM: Male, 40 years old. Chest and jaw pain, elevated D-dimer, HTN RADIATION DOSAGE (If Supplied By Facility): CTDIvol = ( 28.2 ) mGy, DLP = ( 1460.29 ) mGycm TECHNIQUE: The examination was performed with the intravenous administration of IV 100mL Isovue-370. Post-processing of the angiographic images was performed, with multiplanar reformation and 3D reconstruction. Individualized dose optimization techniques were used for this CT. COMPARISON: 11/01/2019 FINDINGS: Normal enhancement of the main pulmonary artery and right and left pulmonary arteries. Normal enhancement of the bilateral peripheral pulmonary arteries. There is no demonstrated pulmonary embolism. Normal thoracic aorta and visualized great vessels. There is no demonstrated aortic dissection. Normal heart and pericardium. Normal mediastinum. Normal hilar regions. Normal visualized trachea and bronchi. The lungs are well expanded. Normal pulmonary parenchyma. Normal pleura. Normal chest wall structures. Normal osseous structures. Cholecystectomy. Stable bilateral adrenal adenomas. CT/CTA Chest W/WO Contrast IMPRESSION: Normal CTA chest examination, without a demonstrated pulmonary embolism or aortic dissection. Electronically Signed: Luis Pichardo MD at 17:57 EST Tel , Service support ,
--- NOTE | 2020-03-16 17:22 | EKG12_ITS ---
Test Reason : Blood Pressure : / mmHG Vent. Rate : 089 BPM Atrial Rate : 089 BPM P-R Int : 204 ms QRS Dur : 084 ms QT Int : 352 ms P-R-T Axes : 051 055 039 degrees QTc Int : 428 ms Normal sinus rhythm Low voltage QRS Borderline ECG Confirmed by LEISA CLIFFORD, CAROLYN ([id number]), restaurant expeditor SABRINA ROSEN ([id number]) on 03/17/2020 8:38:52 AM Referred By: DEISY Confirmed By:CAROLYN DE LA FUENTE MD
--- NOTE | 2020-03-16 18:07 | DCINST.ED_ITS ---
ED Disposition - Plan for ED Patient: Disposition: Home or Assisted Living Instructions: ED Chest Pain Atypical Unkn Cause Referrals: [facility],Sanam Barbosa [NON-STAFF] - 3-5 Days Additional Instructions: Follow-up with your primary care provider. All your test results today were negative. Return if you are feeling worse. Stop smoking.
[2020-03-16 18:17] VITALS: BP 148/74; PULSE 86; PULSE 90; RESP 18; RESP 24; O2SAT 96
== END 2020-03-16 18:21 | disposition home or self-care (01) ==
PROVIDERS: Emergency Provider Emergency Medicine
DX: R07.9 Chest pain, unspecified (principal); I10 Essential (primary) hypertension; E78.00 Pure hypercholesterolemia, unspecified; F31.9 Bipolar disorder, unspecified; Z72.0 Tobacco use; Z79.899 Other long term (current) drug therapy
CPT/HCPCS: 71045; 71275; 80048; 84484; 85025; 85379; 93005; 99285; Q9967; A4216

== ENCOUNTER → 2020-06-15 13:28 | Outpatient (CLI) | payer MEDICAID, SELFPAY ==
[2020-06-15 14:14] LABS: Absolute Lymphocyte Count 1.67 X10^3/uL (0.83-4.51); Absolute Neutrophil Count 5.7 X10^3/uL (2.0-7.7); Basophil# 0.08 X10^3/uL; Eosinophil# 0.25 X10^3/uL; Hematocrit 49.6 % (40-54); Hemoglobin 15.6 g/dL (13.0-16.5); Lymphocyte # 1.67 X10^3/ul (4.0); Lymphocyte % 20.1 % (19-41); Mean Corp Hgb Conc 31.5 g/dL (32-36); Mean Corpuscular Hgb 28.6 pg (27.0-32.0); Mean Corpuscular Volume 90.8 fL (80-94); Mean Platelet Vol. 9.8 fl (6.2-12.0); Monocyte# 0.61 X10^3/uL; Monocyte% 7.4 % (0-10); NRBC Flagged by Analyzer 0 % (0-5); Neutrophil # 5.66 X10^3/uL (2.7-7.7); Neutrophil % 68.3 % (47-70); Platelet Count 185 K/mm3 (150-450); RBC Distribution Width CV 12.7 % (11.6-14.6); RBC Distribution Width SD 42.3 fl (35.1-43.9); Red Blood Count 5.46 M/mm3 (4.6-6.2); White Blood Count 8.3 K/mm3 (4.4-11.0)
[2020-06-15 14:32] LABS: Vitamin D,25 Hydroxy 32.3 ng/mL
[2020-06-15 14:33] LABS: Carbamazepine (Tegretol) 2.1 ug/mL (4.0-12.0)
[2020-06-15 14:35] LABS: Hemoglobin A1c 5.8 % (3.8-5.6)
[2020-06-15 14:43] LABS: ALB/GLOB Ratio 0.9 RATIO (0.9-2.4); AST(SGOT) 23 U/L (15-37); Alanine Aminotransfer ALT/SGPT 53 U/L (16-61); Albumin, Serum 3.6 g/dL (3.2-5.0); Alkaline Phosphatase 97 U/L (45-117); Anion Gap 2 (5-15); BUN 15 mg/dL (7-18); Calcium,Total 8.8 mg/dL (8.5-10.1); Chloride 104 mmol/L (98-107); Cholesterol 210 mg/dL (200); Creatinine, Serum 0.88 mg/dL (0.70-1.30); EST Glomerular Filtration Rate 103 mL/min (>60); Est Glom Filt Rate - Afr Amer 124 mL/min (>60); Globulin 3.9 g/dL (2.2-4.2); Glucose 82 mg/dL (74-106); High Density Lipoprotein 35 mg/dL; Potassium 4.5 mmol/L (3.5-5.1); Protein, Total 7.5 g/dL (6.4-8.2); Sodium Level 140 mmol/L (136-145); Thyroid Stim Hormone (TSH) 1.24 uIU/mL (0.358-3.74); Triglycerides 233 mg/dL; Very Low Density Lipoprotein 47 mg/dL (5-40)
[2020-06-15 15:08] LABS: Microalbumin:Creatinine Ratio 150.2 mg/g CRE (<30 mg/g CRE)
== END ==
PROVIDERS: Referring Provider Registered Nurse; Visit Provider Registered Nurse
DX: F31.9 Bipolar disorder, unspecified (principal); I10 Essential (primary) hypertension; E78.5 Hyperlipidemia, unspecified; E55.9 Vitamin D deficiency, unspecified; R73.03 Prediabetes
CPT/HCPCS: 36415; 80053; 80061; 80156; 82043; 82306; 82570; 83036; 84443; 85025

== ENCOUNTER 2021-10-24 20:15 | Emergency (ER) | payer MEDICAID, SELFPAY ==
[2021-10-24 20:16] VITALS: BP 179/119; PULSE 98; RESP 18; TEMP 36.6; O2SAT 96; BMI 52.4
--- NOTE | 2021-10-24 20:42 | EDS_ITS ---
HPI History of Present Illness Chief Complaint: Back Narrative Narrative: 41-year-old male presenting with right-sided rib pain and right-sided chest wall pain. He states has been working at [employer] trying to work off some of his food stamps. States that a couple of long days there. 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 He states he helped cleaned out a storage unit yesterday. He took ibuprofen today with minimal relief. He does not have any shortness of breath, lightheadedness, diaphoresis, nausea. Patient states he feels he pulled something. Patient denies any direct trauma to his ribs or chest. [facility] Medical History Depression Hypertension Home Medications cyclobenzaprine 10 mg tablet 10 mg PO BID PRN muscle spasm #14 tabs 10/24/21 [Rx Last Taken Unknown] naproxen 500 mg tablet (Naprosyn) 500 mg PO BID PRN pain #20 tabs 10/24/21 [Rx Last Taken Unknown] Allergy/AdvReac Type Severity Reaction Status Date / Time No Known Allergies Allergy Verified 10/24/21 20:16 Family History Brother Asthma Hypertension Sister Asthma Diabetes Mother Asthma Father Asthma Surgical History surgery for undescended testicle Social History Smoking Status: Current every day smoker tobacco type: cigarettes alcohol intake: current alcohol intake frequency: a few times a month substance use type: does not use ROS ROS ED Constitutional Constitutional ED: Denies chills or fever(s) Eyes Eyes: Denies change in vision ENT ENT ED: Denies rhinorrhea or sore throat Cardiovascular Cardiovascular: Reports other Details: Right rib pain/right chest pain Respiratory/Chest Respiratory/Chest: Denies dyspnea or dyspnea on exertion Gastrointestinal Gastrointestinal: Denies abdominal pain or constipation Genitourinary Genitourinary ED: Denies dysuria or hematuria Musculoskeletal Musculoskeletal: Denies arthralgias or back pain Integumentary Denies abscess Neurologic Neurologic: Denies headache(s) or paresthesias Psychiatric Psychiatric: Denies anxiety or depression EXAM Physical Exam Const Vital Signs: 10/24/21 20:16 Temperature 97.8 F Temperature Source Temporal Pulse Rate 98 Respiratory Rate 18 Blood Pressure 179/119 H Blood Pressure Mean 139 Pulse Ox 96 Oxygen Delivery Method Room Air Positive well nourished and obese General Appearance ED: NAD Nutritional Appearance: obese HEENT Reports moist mucous membranes and dry mucous membranes Mouth ED: Yes dry mucous membranes Mouth: dry mucous membranes Eyes PERRL and EOMs intact bilaterally Resp normal respiratory effort Resp Narrative: Tenderness palpation right pectoralis and right ribs in the midaxillary line. No crepitance, deformity. Equal symmetric breath sounds or chest wall rise. Effort and Inspection: pain with movement RUE Auscultation: Negative for rales, rhonchi or wheezes Cardio regular rate and regular rhythm GI normal to inspection, nondistended, normoactive bowel sounds Extremity normal to inspection Neuro Sensorium / Orientation: alert Motor Exam: strength 5/5 throughout Psych mental status grossly normal Skin no rashes or lesions noted MDM MDM MDM Narrative Medical decision making narrative: 18 right rib series and on my interpretation this is negative for acute findings. I believe the patient's pain is likely musculoskeletal given his lifting over the last couple of days. He was given Norflex and Toradol in the ED. He had some relief from this. He is given instructions on using ice and heat and stretching exercises. He will be given Naprosyn and Flexeril for home. Return precautions discussed. Impression: 1. Chest wall strain Lab Data Attestation: I reviewed the patient's lab results. Radiography Diagnostic Testing: Clinical Impression(s) from Imaging Studies Ribs w/Chest X-Ray 10/24/21 21:03 IMPRESSION: Negative chest and right ribs series. Electronically Signed: Sukh Rasmussen MD at 21:29 EDT , Discharge Plan Triage Chief Complaint: Back ED Provider: Scott Lagunas Dx/Rx/DC Orders Instructions: ED Chest Wall Pain, Costochondritis Prescriptions: New naproxen [Naprosyn] 500 mg tablet 500 mg PO BID PRN (Reason: pain) Qty: 20 0RF cyclobenzaprine 10 mg tablet 10 mg PO BID PRN (Reason: muscle spasm) Qty: 14 0RF Primary Care Provider: Medical Sanam Jackson Referrals: [facility] [Primary Care Provider] - Disposition Disposition: Home, Self Care
--- NOTE | 2021-10-24 20:50 | EKG12_ITS ---
Test Reason : BACK PAIN Blood Pressure : / mmHG Vent. Rate : 094 BPM Atrial Rate : 094 BPM P-R Int : 182 ms QRS Dur : 090 ms QT Int : 340 ms P-R-T Axes : 059 048 047 degrees QTc Int : 425 ms Normal sinus rhythm Normal ECG Confirmed by DAMIEN CLIFFORD, THADDEUS ([id number]), clinical editor SABRINA ROSEN ([id number]) on 10/25/2021 9:04:28 AM Referred By: BRIGHT Confirmed By:THADDEUS QUEZADA MD
--- NOTE | 2021-10-24 21:03 | RAD_ITS ---
EXAM: XR RIGHT RIBS AND AP CHEST, 3 OR MORE VIEWS CLINICAL INDICATION: pain TECHNIQUE: Frontal and oblique views of the right ribs and frontal view of the chest. This report was created using [employer] report generation technology. COMPARISON: None. FINDINGS: LUNGS AND PLEURAL SPACES: Unremarkable. No consolidation or edema. No pneumothorax. No effusion. HEART: Unremarkable. Cardiac silhouette not enlarged. MEDIASTINUM: Central airways and mediastinal contour are unremarkable. BONES/JOINTS: Unremarkable. No evidence of displaced rib fractures. RAD/Ribs Uni Min 3V w/PA Chest IMPRESSION: Negative chest and right ribs series. Electronically Signed: Sukh Rasmussen MD at 21:29 EDT ,
[2021-10-24] MEDS: Ketorolac 15 MG/ML Vial IM (21:16)
[2021-10-24] MEDS: Orphenadrine 60 MG/2 ML Ampul IM (21:17)
[2021-10-24] MEDS: Lidocaine 5% Patch 1 PATCH TOPICAL (21:18)
[2021-10-24 21:37] VITALS: PULSE 74; RESP 17; TEMP 36.3; O2SAT 98
== END 2021-10-24 21:41 | disposition home or self-care (01) ==
PROVIDERS: Emergency Provider Student in an Organized Health Care Education/Training Program; Visit Provider Student in an Organized Health Care Education/Training Program
DX: S29.011A Strain of muscle and tendon of front wall of thorax, initial encounter (principal); X50.0XXA Overexertion from strenuous movement or load, initial encounter; Y92.512 Supermarket, store or market as the place of occurrence of the external cause; Y99.0 Civilian activity done for income or pay; I10 Essential (primary) hypertension; F32.A Depression, unspecified; E66.9 Obesity, unspecified; F17.210 Nicotine dependence, cigarettes, uncomplicated; Z79.899 Other long term (current) drug therapy
CPT/HCPCS: 71101; 93005; 96372; 99282

== ENCOUNTER 2021-12-12 09:52 | Emergency (ER) | payer MEDICAID, SELFPAY ==
[2021-12-12 09:54] VITALS: BP 164/108; PULSE 106; RESP 17; TEMP 35.9; O2SAT 97; BMI 52.6
--- NOTE | 2021-12-12 10:41 | EX.ED.UPPERE ---
HPI History of Present Illness HPI Narrative: Patient presents with laceration to his right index finger that occurred today. Patient states he was working at the [employer] when he cut his finger. Patient states he took a piece of tissue off the tip of his finger. Patient is unsure of his last tetanus. Patient states nothing makes it better nothing makes it worse. Patient describes the pain as aching. Patient states the bleeding stopped after several minutes of pressure. Patient denies any fevers or chills. Chief Complaint: Upper Extremity Injury Informant: patient Occured/Mechanism Mechanism/Context: Yes injury and Yes work related Onset/Context/Timing Onset: Today Context: Sudden Onset Timing: Continuous Quality of Pain: Aching Location: Right index finger Associated Symptoms Associated Symptoms: Negative for Parasthesia, Weakness or Loss of Funtion Narrative Tetanus Immunization: Unknown [facility] Medical History Depression Hypertension Home Medications cyclobenzaprine 10 mg tablet 10 mg PO BID PRN muscle spasm #14 tabs 10/24/21 [Rx Last Taken Unknown] naproxen 500 mg tablet (Naprosyn) 500 mg PO BID PRN pain #20 tabs 10/24/21 [Rx Last Taken Unknown] Allergy/AdvReac Type Severity Reaction Status Date / Time No Known Allergies Allergy Verified 12/12/21 09:53 Family History Brother Asthma Hypertension Sister Asthma Diabetes Mother Asthma Father Asthma Surgical History surgery for undescended testicle Social History Smoking Status: Current every day smoker tobacco type: cigarettes alcohol intake: current alcohol intake frequency: a few times a month substance use type: does not use ROS ROS ED Constitutional Constitutional ED: Denies chills or fever(s) Eyes Eyes: Denies blurry vision or change in vision ENT ENT ED: Denies rhinorrhea or sore throat Cardiovascular Cardiovascular: Denies chest pain or palpitations Respiratory/Chest Respiratory/Chest: Denies cough or dyspnea Gastrointestinal Gastrointestinal: Denies nausea or vomiting Genitourinary Genitourinary ED: Denies dysuria or hematuria Musculoskeletal Musculoskeletal: Denies back pain or neck pain Integumentary Denies abscess or rash Neurologic Neurologic: Denies headache(s) or weakness Allergic/Immunologic Allergic/Immunologic ED: Denies mouth swelling or urticaria EXAM Physical Exam Const Vital Signs: 12/12/21 09:54 Temperature 96.6 F L Temperature Source Temporal Pulse Rate 106 H Respiratory Rate 17 Blood Pressure 164/108 H Blood Pressure Mean 126 Pulse Ox 97 Oxygen Delivery Method Room Air Positive well nourished, well developed and obese General Appearance ED: well developed and NAD Nutritional Appearance: obese HEENT Reports moist mucous membranes Extremity Extremity Narrative: There is a 1 cm diameter avulsion laceration over the tip of the right index finger. There is no active bleeding. There are no foreign bodies noted. There is no gapping of the wound margins. Sensation was intact to light touch in all digits. Capillary refill was less than 2 seconds in all digits. Strength is 5/5 in flexion and extension of the MP, PIP, and DIP joints of the right index finger. Neuro oriented x3, CN's II-XII intact bilaterally, moves all extremities, no focal motor deficits and no sensory deficits noted Sensorium / Orientation: alert Motor Exam: strength 5/5 throughout Psych mental status grossly normal MDM MDM MDM Narrative Medical decision making narrative: Patient was given tetanus booster here. The wound was cleaned and dressed with bacitracin dressing. Patient was advised to change the dressing twice daily. Patient was instructed to keep the area clean. Patient was instructed to take Tylenol or ibuprofen as needed for pain. Patient was instructed to follow-up with his primary care physician in 5 to 7 days. Patient understood and was agreeable with the plan. All questions were answered. Discharge Plan Triage Chief Complaint: Upper Extremity Injury ED Provider: Anup Olvera Dx/Rx/DC Orders Clinical Impression: Laceration of right index finger, Morbid obesity with BMI of 50.0-59.9, adult Instructions: ED Laceration Small or ... Prescriptions: No Action naproxen [Naprosyn] 500 mg tablet 500 mg PO BID PRN (Reason: pain) Qty: 20 0RF cyclobenzaprine 10 mg tablet 10 mg PO BID PRN (Reason: muscle spasm) Qty: 14 0RF Primary Care Provider: [facility] Referrals: [facility] Sanam Jackson [Primary Care Provider] - 5-7 Days Disposition Disposition: Home, Self Care
[2021-12-12] MEDS: Diphth,Pertuss(Acell),Tet Vac 0.5 ML Vial IM (10:56)
== END 2021-12-12 11:11 | disposition home or self-care (01) ==
PROVIDERS: Emergency Provider Emergency Medicine; Visit Provider Emergency Medicine
DX: S61.210A Laceration without foreign body of right index finger without damage to nail, initial encounter (principal); E66.01 Morbid (severe) obesity due to excess calories; Z68.43 Body mass index [BMI] 50.0-59.9, adult; Z23 Encounter for immunization; W26.8XXA Contact with other sharp object(s), not elsewhere classified, initial encounter; Y92.512 Supermarket, store or market as the place of occurrence of the external cause; Y99.0 Civilian activity done for income or pay; I10 Essential (primary) hypertension; F17.210 Nicotine dependence, cigarettes, uncomplicated
CPT/HCPCS: 90471; 90715; 99282

== ENCOUNTER 2022-05-19 16:35 | Emergency (ER) | payer MEDICAID, SELFPAY ==
[2022-05-19 16:38] VITALS: BP 175/106; PULSE 97; RESP 17; TEMP 36.7; O2SAT 98; BMI 49.9
--- NOTE | 2022-05-19 17:20 | EKG12_ITS ---
Test Reason : ABD PAIN Blood Pressure : / mmHG Vent. Rate : 084 BPM Atrial Rate : 084 BPM P-R Int : 184 ms QRS Dur : 092 ms QT Int : 358 ms P-R-T Axes : 057 055 032 degrees QTc Int : 423 ms Normal sinus rhythm Low voltage QRS Borderline ECG Confirmed by LEISA CLIFFORD, CAROLYN ([id number]), associate entertainment editor SABRINA ROSEN ([id number]) on 05/22/2022 11:49:44 AM Referred By: Confirmed By:CAROLYN DE LA FUENTE MD
--- NOTE | 2022-05-19 17:20 | US_ITS ---
EXAM: US ABDOMEN LIMITED, RIGHT UPPER QUADRANT CLINICAL INDICATION: PAIN TECHNIQUE: Real-time ultrasound of the right upper quadrant with image documentation. This report was created using [employer] report generation technology. COMPARISON: CT abdomen 09/19/2015. FINDINGS: LIVER: Liver is enlarged, measuring 24.5 cm. Echogenicity is heterogeneous. No focal lesion. No duct dilation. GALLBLADDER: Shadowing stones and sludge in the gallbladder including stone or stones in the gallbladder neck. No gallbladder wall thickening is demonstrated. No pericholecystic fluid. Negative sonographic Byrd''s sign. COMMON BILE DUCT: Unremarkable as visualized. The proximal common bile duct is within normal limits for the patient''s age. PANCREAS: Poorly visualized due to bowel gas.. RIGHT KIDNEY: Right kidney is normal in size and echogenicity measuring 12.2 x 6.7 x 7.3 cm. Renal cortical thickness is normal. No mass, stone, or hydronephrosis. US/Gallbladder IMPRESSION: 1. Cholelithiasis. No evidence of acute cholecystitis. 2. Hepatomegaly. Electronically Signed: Joslyn Sweeney MD at 18:57 EST Reading Location ID and State: [id number] / Tel , Service support ,
--- NOTE | 2022-05-19 17:21 | EDS_ITS ---
HPI History of Present Illness Chief Complaint: Abd Pain Informant: patient Narrative Narrative: Patient states he had an episode at about 330 this afternoon. Where he got pain in the right upper quadrant. It radiated up toward his right shoulder and base of the neck. He denies lightheadedness or presyncope. He denies nausea vomiting diaphoresis or any dyspnea. He states now the only area that is hurting is the right upper quadrant. His shoulder area is normal. He states all of this was in the front and none of it was in his back. He never had numbness tingling weakness. No headaches. No neurologic symptoms. He is not on any blood thinners. Patient states that this is the fifth or sixth episode of this pain he has had just this year. He cannot necessarily associated with any activity or eating. Shortly before this he did eat a barbecue fried chicken wrap and cereal. The pain is improving now on its own but is not completely gone. He is not sure if there is a family history of biliary disease. He denies any abdominal surgeries. He did have surgery as a child for undescended testes. He does have a history of high blood pressure and cholesterol but has not been taking his meds regularly. [facility] Medical History Depression Hypertension Home Medications cyclobenzaprine 10 mg tablet 10 mg PO BID PRN muscle spasm #14 tabs 10/24/21 [Rx Last Taken Unknown] naproxen 500 mg tablet (Naprosyn) 500 mg PO BID PRN pain #20 tabs 10/24/21 [Rx Last Taken Unknown] lisinopril 20 mg-hydrochlorothiazide 12.5 mg tablet 1 tab PO DAILY #30 tabs 05/19/22 [Rx Last Taken Unknown] Allergy/AdvReac Type Severity Reaction Status Date / Time No Known Allergies Allergy Verified 05/19/22 16:37 Family History Brother Asthma Hypertension Sister Asthma Diabetes Mother Asthma Father Asthma Surgical History surgery for undescended testicle Social History Smoking Status: Current every day smoker tobacco type: cigarettes alcohol intake: current alcohol intake frequency: a few times a month substance use type: does not use ROS ROS ED Constitutional Constitutional ED: Denies chills or fever(s) Eyes Eyes: Denies change in vision or diplopia ENT ENT ED: Denies rhinorrhea or sore throat Cardiovascular Cardiovascular: Denies chest pain or palpitations Respiratory/Chest Respiratory/Chest: Denies cough, dyspnea or dyspnea on exertion Gastrointestinal Gastrointestinal: Reports abdominal pain; Denies nausea or vomiting Genitourinary Genitourinary ED: Denies hematuria Musculoskeletal Musculoskeletal: Reports other Details: Pain in the region of his right shoulder and base of the neck as in history of present illness peer Integumentary Denies Abrasions or rash Neurologic Neurologic: Denies headache(s), paresthesias or weakness Endocrine Endocrinology: Denies polydipsia or polyuria Hematologic/Lymphatic Hematologic/Lymphatic: Denies easy bleeding or easy bruising Allergic/Immunologic Allergic/Immunologic ED: Denies urticaria EXAM Physical Exam Const Vital Signs: 05/19/22 16:38 Temperature 98.1 F Temperature Source Temporal Pulse Rate 97 Respiratory Rate 17 Blood Pressure 175/106 H Blood Pressure Mean 129 Pulse Ox 98 Oxygen Delivery Method Room Air Positive well nourished and well developed Constitutional Narrative: Patient is sitting comfortably in bed. He looks nontoxic. He carries on a normal conversation. General Appearance ED: well developed and NAD; Negative for cyanotic or diaphoretic HEENT Reports moist mucous membranes HEENT Narrative: No facial rash or tenderness. Eyes General Eye ED: Negative for scleral icterus Neck no JVD Neck Narrative: No JVD pain with palpation or pain with range of motion. No rash or vesicles noted. No subcu air at the base of the neck. No swelling mass or lymphadenopathy noted. Chest Wall inspection of chest normal Resp normal respiratory effort and clear to auscultation bilaterally Resp Narrative: No pain with a deep breath. His breath sounds are clear. Auscultation: Negative for rales, rhonchi or wheezes Cardio regular rate, regular rhythm and no murmurs Rate: other Other Details: Peripheral pulses are equal x4. GI normal to inspection, nondistended, normoactive bowel sounds GI Narrative: Abdomen is obese but does not appear to be distended. He does have some right upper quadrant tenderness but no rebound or guarding. He has an equivocal Byrd sign. I do not see rashes in the area. Palpation: soft Narrative: No CVA tenderness Back/Spine no CVA tenderness Neuro Sensorium / Orientation: alert Psych mental status grossly normal Skin no rashes or lesions noted and no wounds MDM MDM MDM Narrative Medical decision making narrative: Patient's ultrasound read by radiology and shows cholelithiasis but no evidence of acute cholecystitis. His white count was normal at 10.2. Remainder of CBC is normal. Electrolytes show no acute abnormalities. His glucose was mildly elevated at 136. This can be managed as an outpatient. Liver function test and lipase are normal. Patient was rechecked. His symptoms are gone. This is approximately the sixth episode of this that he has had. I think this is likely biliary in origin's. He is 42-year-old with a BMI of almost 50. It was primary right upper quadrant pain. He has gallstones. But I do not think he needs his gallbladder taken out at this time. He he can follow-up and have HIDA scan or further evaluation. Of note, patient is out of his lisinopril hydrochlorothiazide. I will refill this for him. I will also refer him to primary physician. We discussed reasons to return to the emergency department. Lab Data Attestation: I reviewed the patient's lab results. Labs: Laboratory Results - last 24 hr 05/19/22 05/19/22 16:47 16:47 WBC 10.2 RBC 5.23 Hgb 15.0 Hct 45.8 MCV 87.6 MCH 28.7 MCHC 32.8 RDW Std Deviation 42.6 RDW Coeff of Thu 13.2 Plt Count 218 MPV 10.0 Immature Gran % (Auto) 0.300 Neut % (Auto) 69.3 Lymph % (Auto) 19.6 Leon % (Auto) 7.1 Eos % (Auto) 2.8 Baso % (Auto) 0.9 Absolute Neuts (auto) 7.1 Absolute Lymphs (auto) 2.00 Nucleated RBC % 0 Sodium 139 Potassium 3.9 Chloride 105 Carbon Dioxide 28.0 Anion Gap 6 BUN 15 Creatinine 0.82 Estim Creat Clear Calc 123.64 Est GFR (MDRD) Af Amer 135 Est GFR (MDRD) Non-Af 111 BUN/Creatinine Ratio 18.4 Glucose 136 H Calcium 8.6 Total Bilirubin 0.20 AST 19 ALT 45 Alkaline Phosphatase 91 Troponin I High Sens 15 Total Protein 7.1 Albumin 3.4 Globulin 3.7 Albumin/Globulin Ratio 0.9 Lipase 179 Radiography Diagnostic Testing: Clinical Impression(s) from Imaging Studies Gallbladder Ultrasound 05/19/22 17:20 IMPRESSION: 1. Cholelithiasis. No evidence of acute cholecystitis. 2. Hepatomegaly. Electronically Signed: Joslyn Sweeney MD at 18:57 EST Reading Location ID and State: [id number] / Tel , Service support , EKG Initial EKG: Comments: Independent interpretation was done of the EKG that was done for right upper quadrant pain. This EKG shows a normal sinus rhythm. Overall rate is 84. I see no ectopy. There is no acute ST elevation or depression. This is done during symptomatology. CA interval, QRS duration and QTc are normal. Discharge Plan Triage Chief Complaint: Abd Pain ED Provider: Demetrius Silva Dx/Rx/DC Orders Clinical Impression: Biliary colic, Hypertension, Cholelithiasis Instructions: ED Gallstones with Biliary Colic Prescriptions: New lisinopril-hydrochlorothiazide 20-12.5 mg tablet 1 tab PO DAILY Qty: 30 1RF No Action naproxen [Naprosyn] 500 mg tablet 500 mg PO BID PRN (Reason: pain) Qty: 20 0RF cyclobenzaprine 10 mg tablet 10 mg PO BID PRN (Reason: muscle spasm) Qty: 14 0RF Primary Care Provider: Care Physician,No Primary Referrals: Nay Quinonez DO [Med Staff - Active Staff] - 3-5 Days Care Physician,No Primary [Primary Care Provider] - Disposition Disposition: Home, Self Care
[2022-05-19] MEDS: Ketorolac 15 MG/ML Vial IV (17:30)
[2022-05-19 17:42] LABS: Absolute Neutrophil Count 7.1 X10^3/uL (2.0-7.7); Basophil# 0.09 X10^3/uL; Basophil% 0.9 % (0-1); Eosinophil# 0.29 X10^3/uL; Eosinophils% 2.8 % (0-5); Hematocrit 45.8 % (40-54); Lymphocyte % 19.6 % (19-41); Mean Corp Hgb Conc 32.8 g/dL (32-36); Mean Corpuscular Hgb 28.7 pg (27.0-32.0); Mean Corpuscular Volume 87.6 fL (80-94); Monocyte# 0.72 X10^3/uL; Monocyte% 7.1 % (0-10); NRBC Flagged by Analyzer 0 % (0-5); Neutrophil # 7.08 X10^3/uL (2.7-7.7); Neutrophil % 69.3 % (47-70); Platelet Count 218 K/mm3 (150-450); RBC Distribution Width CV 13.2 % (11.6-14.6); RBC Distribution Width SD 42.6 fl (35.1-43.9); Red Blood Count 5.23 M/mm3 (4.6-6.2); White Blood Count 10.2 K/mm3 (4.4-11.0)
[2022-05-19 18:22] LABS: ALB/GLOB Ratio 0.9 RATIO (0.9-2.4); AST(SGOT) 19 U/L (15-37); Alanine Aminotransfer ALT/SGPT 45 U/L (16-61); Albumin, Serum 3.4 g/dL (3.2-5.0); Alkaline Phosphatase 91 U/L (45-117); Anion Gap 6 (5-15); BUN 15 mg/dL (7-18); BUN/Creat Ratio 18.4 RATIO (10-20); Calcium,Total 8.6 mg/dL (8.5-10.1); Chloride 105 mmol/L (98-107); Creatinine, Serum 0.82 mg/dL (0.70-1.30); EST Glomerular Filtration Rate 111 mL/min (>60); Est Glom Filt Rate - Afr Amer 135 mL/min (>60); Estimated Creatinine Clearance 123.64 ml/min; Globulin 3.7 g/dL (2.2-4.2); Glucose 136 mg/dL (74-106); Lipase 179 U/L (73-393); Potassium 3.9 mmol/L (3.5-5.1); Protein, Total 7.1 g/dL (6.4-8.2); Sodium Level 139 mmol/L (136-145); Troponin-I HS 15 pg/mL (3.0-78.0)
== END 2022-05-19 20:08 | disposition home or self-care (01) ==
PROVIDERS: Emergency Provider Emergency Medicine; Visit Provider Emergency Medicine
DX: K80.70 Calculus of gallbladder and bile duct without cholecystitis without obstruction (principal); K80.50 Calculus of bile duct without cholangitis or cholecystitis without obstruction; F17.210 Nicotine dependence, cigarettes, uncomplicated; I10 Essential (primary) hypertension; R10.11 Right upper quadrant pain; Z79.899 Other long term (current) drug therapy
CPT/HCPCS: 76705; 80053; 83690; 84484; 85025; 93005; 96374; 99283; A4216

== ENCOUNTER 2022-09-07 20:26 | Emergency (ER) | payer MEDICAID, SELFPAY ==
[2022-09-07 20:27] VITALS: BP 167/90; PULSE 102; RESP 18; TEMP 36.6; O2SAT 96; BMI 54.9
--- NOTE | 2022-09-07 20:48 | EX.ED.UPPERE ---
HPI History of Present Illness Chief Complaint: Laceration Informant: patient Narrative Narrative: Patient presents with a laceration of the dorsum of his right dominant hand and ring finger. He got this while washing some dishes and accidentally cut it on the edge of a knife. Tetanus is up-to-date as of the end of 2021. He has no numbness tingling or loss of function with this. Had mild bleeding but that is now stopped. He is not on blood thinners. He has no other injury. [facility] Medical History Depression Hypertension Home Medications cyclobenzaprine 10 mg tablet 10 mg PO BID PRN muscle spasm #14 tabs 10/24/21 [Rx Last Taken Unknown] naproxen 500 mg tablet (Naprosyn) 500 mg PO BID PRN pain #20 tabs 10/24/21 [Rx Last Taken Unknown] lisinopril 20 mg-hydrochlorothiazide 12.5 mg tablet 1 tab PO DAILY #30 tabs 05/19/22 [Rx Last Taken Unknown] Allergy/AdvReac Type Severity Reaction Status Date / Time No Known Allergies Allergy Verified 09/07/22 20:29 Family History Brother Asthma Hypertension Sister Asthma Diabetes Mother Asthma Father Asthma Surgical History surgery for undescended testicle Social History Smoking Status: Current every day smoker tobacco type: cigarettes alcohol intake: current alcohol intake frequency: a few times a month substance use type: does not use ROS ROS ED Constitutional Constitutional ED: Denies chills or fever(s) Gastrointestinal Gastrointestinal: Denies nausea or vomiting Integumentary Reports other Details: Laceration right ring finger as in history of present illness. Neurologic Neurologic: Denies paresthesias or weakness Hematologic/Lymphatic Hematologic/Lymphatic: Denies easy bleeding or easy bruising EXAM Physical Exam Narrative Exam Narrative: Patient is awake alert sitting quietly in bed. No acute distress carries on normal conversation. HEENT shows no sign of trauma Cardiorespiratory shows easy unlabored breathing. Abdomen is obese but not benign. Aches extremities examination of his right hand shows a laceration really right across the dorsal aspect of his right ring finger overlying the proximal interphalangeal joint. But his extensor is fully intact. Capillary refill is normal and sensation is all normal. There is no bleeding. But this laceration is about 1.5 cm wide. It does open up when he contracts his fingers. I cannot see any tendon but this will be looked at more closely after we anesthetize and irrigate the area. Const Vital Signs: 09/07/22 20:27 Temperature 97.8 F Temperature Source Temporal Pulse Rate 102 H Respiratory Rate 18 Blood Pressure 167/90 H Blood Pressure Mean 115 Pulse Ox 96 Oxygen Delivery Method Room Air MDM MDM MDM Narrative Medical decision making narrative: Procedure note: Suture laceration right ring finger: Discussed risk benefits and options with the patient. I explained that suturing would be better in this area than tissue adhesive which I do not think would hold. The area was soaked. It was cleansed. I then anesthetized it with 1.5 cc of 1% lidocaine without epi locally. Good anesthesia was achieved. I then thoroughly scrubbed it. I irrigated it with about 70 cc of saline. It was clean. We examined it clean and bloodless. I do not see any extensor tendon involvement. It was then sutured with 4 interrupted 4-0 Ethilon watching each pass of the stool suture to avoid attachment of tendon or or deeper tissues. He tolerated this well. He had excellent range of motion afterwards. I explained signs of infection and reasons to return as well as timing of suture removal. I do not think any blood work or x-rays are needed. This was cut on the edge of a sharp knife and there is no concern for foreign body. Discharge Plan Triage Chief Complaint: Laceration ED Provider: Demetrius Silva Dx/Rx/DC Orders Clinical Impression: Laceration of right ring finger Instructions: ED Laceration, Hand: All Closures Prescriptions: No Action naproxen [Naprosyn] 500 mg tablet 500 mg PO BID PRN (Reason: pain) Qty: 20 0RF cyclobenzaprine 10 mg tablet 10 mg PO BID PRN (Reason: muscle spasm) Qty: 14 0RF lisinopril-hydrochlorothiazide 20-12.5 mg tablet 1 tab PO DAILY Qty: 30 1RF Primary Care Provider: Care Physician,No Primary Referrals: Nhan Garcia MD [Med Staff - [employer] Rep[employer] Technician] - 10-14 Days suture removal Care Physician,No Primary [Primary Care Provider] - Disposition Disposition: Home, Self Care
--- NOTE | 2022-09-07 21:13 | CM.ED ---
Social Work Note Referral Source: CARIN Domínguez Referral Reason: resources CARIN Domínguez informed SW patient reports he is homeless but living with his mother. SW met with patient and introduced herself and role as [facility] Residential Property Consultant. Patient was lying in hospital bed and agreeable to speak with drug abuse social worker. SW inquired about patient's insurance and PCP as his chart indicates he doesn't have a PCP. Patient verified insurance and reports no PCP. SW provided patient with a list of in network providers within 10 miles of [place]. SW then utilized open ended questions to discuss patient's current living arrangements. Patient reports he is living with his mother temporarily. SW reviewed [facility] resources, highlighting the housing resources and provided the phone number for the homeless navigator. SW also reviewed food resources including locations providing free hot meals. Patient was receptive towards information and reports no other needs. SW remains available if additional needs arise. Tammy Rose MSW, MARIA L
[2022-09-07] MEDS: Lidocaine 1% (20 ml mdv) 20 ML Vial INFILT (21:18)
== END 2022-09-07 21:45 | disposition home or self-care (01) ==
PROVIDERS: Emergency Provider Emergency Medicine; Visit Provider Emergency Medicine
DX: S61.411A Laceration without foreign body of right hand, initial encounter (principal); S61.214A Laceration without foreign body of right ring finger without damage to nail, initial encounter; W26.0XXA Contact with knife, initial encounter; Y93.G1 Activity, food preparation and clean up; I10 Essential (primary) hypertension; F17.210 Nicotine dependence, cigarettes, uncomplicated
CPT/HCPCS: 12001; 99282

== ENCOUNTER 2023-03-28 14:47 | Emergency (ER) | payer MEDICAID, SELFPAY ==
[2023-03-28 14:48] VITALS: BP 194/116; PULSE 92; RESP 14; TEMP 37; O2SAT 97; BMI 54.5
--- NOTE | 2023-03-28 15:06 | ED.VIS.DENTA ---
HPI History of Present Illness Chief Complaint: Dental Detail of Chief Complaint: Dental pain Informant: patient Narrative Narrative: Patient presents to the emergency department with complaint of dental pain that started yesterday. He denies any fevers or chills or sweats. He denies any trauma to his teeth. [facility] Medical History Depression Hypertension Home Medications cyclobenzaprine 10 mg tablet 10 mg PO BID PRN muscle spasm #14 tabs 10/24/21 [Rx Last Taken Unknown] naproxen 500 mg tablet (Naprosyn) 500 mg PO BID PRN pain #20 tabs 10/24/21 [Rx Last Taken Unknown] lisinopril 20 mg-hydrochlorothiazide 12.5 mg tablet 1 tab PO DAILY #30 tabs 05/19/22 [Rx Last Taken Unknown] clindamycin HCl 300 mg capsule (Cleocin HCl) 300 mg PO Q6H #40 CAPSULES 03/28/23 [Rx Last Taken Unknown] hydrocodone-acetaminophen 5-325mg 5mg-325mg 1 tab PO Q4H PRN PRN Pain 2 days #10 TABLETS 03/28/23 [Rx Last Taken Unknown] Allergy/AdvReac Type Severity Reaction Status Date / Time No Known Allergies Allergy Verified 09/07/22 20:29 Family History Brother Asthma Hypertension Sister Asthma Diabetes Mother Asthma Father Asthma Surgical History surgery for undescended testicle Social History Smoking Status: Current every day smoker tobacco type: cigarettes alcohol intake: current alcohol intake frequency: a few times a month substance use type: does not use ROS ROS ED Review of Systems ROS Unobtainable: other Constitutional Constitutional ED: Reports lethargy; Denies chills, fever(s), sweats or weight loss Eyes Eyes: Denies blurry vision, change in vision or diplopia ENT ENT ED: Reports other Details: Dental pain ; Denies rhinorrhea or sore throat Cardiovascular Cardiovascular: Denies chest pain, orthopnea or racing heartbeat Respiratory/Chest Respiratory/Chest: Denies cough, dyspnea, dyspnea on exertion, orthopnea or sputum Gastrointestinal Gastrointestinal: Denies abdominal pain, diarrhea, nausea or vomiting Genitourinary Genitourinary ED: Denies dysuria, hematuria or urinary frequency Musculoskeletal Musculoskeletal: Denies arthralgias, back pain, myalgias or neck pain Integumentary Denies abscess, Abrasions or rash Neurologic Neurologic: Denies headache(s) or weakness Psychiatric Psychiatric: Denies anxiety, depression or suicidal thoughts Endocrine Endocrinology: Denies polydipsia, polyphagia or polyuria Hematologic/Lymphatic Hematologic/Lymphatic: Denies easy bleeding, easy bruising or lymphadenopathy Allergic/Immunologic Allergic/Immunologic ED: Denies mouth swelling, tongue swelling or urticaria EXAM Physical Exam Const Vital Signs: 03/28/23 14:48 Temperature 98.6 F Temperature Source Temporal Pulse Rate 92 Respiratory Rate 14 Blood Pressure 194/116 H Blood Pressure Mean 142 Pulse Ox 97 Oxygen Delivery Method Room Air Positive well nourished and well developed General Appearance ED: well developed and NAD HEENT Reports TM's clear and moist mucous membranes HEENT Narrative: Patient with tenderness palpation over right upper molar #2 that reproduces his pain. Minimal gingival erythema. No abscess. No trismus. No facial cellulitis. No adenopathy. normocephalic and atraumatic; Negative for trauma or tenderness Tympanic Membrane ED: Yes TM's clear Eyes PERRL and EOMs intact bilaterally General Eye ED: Negative for pale conjunctiva or scleral icterus Neck no lymphadenopathy, supple and no JVD General: Negative for tenderness Chest Wall inspection of chest normal and palpation of chest normal Chest: Negative for tenderness Resp normal respiratory effort and clear to auscultation bilaterally Effort and Inspection: Negative for respiratory distress or pain with movement Auscultation: Negative for rhonchi, wheezes or diminished lung sounds Cardio regular rate, regular rhythm, S1 normal heart sound, S2 normal heart sound and no murmurs Peripheral Pulses: pulses 2+ throughout GI normal to inspection, nondistended, normoactive bowel sounds, soft to palpation, non-tender, non-distended and no masses Back/Spine no CVA tenderness and no thoracic nor lumbar tenderness Extremity normal to inspection General Extremety ED: Negative for edema General Extremity: Negative for edema Neuro oriented x3, CN's II-XII intact bilaterally, no sensory deficits noted and gait normal Sensorium / Orientation: awake, alert, oriented to person, oriented to place and oriented to time Motor Exam: strength 5/5 throughout and strength abnormal Psych mental status grossly normal Skin no rashes or lesions noted and no wounds MDM MDM MDM Narrative Medical decision making narrative: Patient with 2-day history of dental pain. He will be given a list of dentists in town. Will start on clindamycin and write a prescription for few [place] for pain. Discharge Plan Triage Chief Complaint: Dental ED Provider: Malcolm Bennett Dx/Rx/DC Orders Clinical Impression: Pain, dental Instructions: ED Dental Pain Prescriptions: New clindamycin HCl [Cleocin HCl] 300 mg capsule 300 mg PO Q6H Qty: 40 0RF hydrocodone-acetaminophen [hydrocodone-acetaminophen] 5-325 mg tablet 1 tab PO Q4H PRN PRN (Reason: Pain) 2 Days Qty: 10 0RF No Action naproxen [Naprosyn] 500 mg tablet 500 mg PO BID PRN (Reason: pain) Qty: 20 0RF cyclobenzaprine 10 mg tablet 10 mg PO BID PRN (Reason: muscle spasm) Qty: 14 0RF lisinopril-hydrochlorothiazide 20-12.5 mg tablet 1 tab PO DAILY Qty: 30 1RF Primary Care Provider: Care Physician,No Primary Referrals: Care Physician,No Primary [Primary Care Provider] - Activity Restrictions/Additional Instructions: See a dentist at earliest possible time. Disposition Disposition: Home, Self Care
== END 2023-03-28 16:13 | disposition home or self-care (01) ==
PROVIDERS: Emergency Provider Emergency Medicine; Visit Provider Emergency Medicine
DX: K08.89 Other specified disorders of teeth and supporting structures (principal); I10 Essential (primary) hypertension; F17.210 Nicotine dependence, cigarettes, uncomplicated; Z79.899 Other long term (current) drug therapy
CPT/HCPCS: 99282

== ENCOUNTER 2024-05-03 13:21 | Emergency (ER) | payer MEDICAID, SELFPAY ==
[2024-05-03 13:22] VITALS: BP 185/102; PULSE 104; RESP 24; TEMP 36.8; O2SAT 98
[2024-05-03 13:39] VITALS: BMI 59.3
[2024-05-03 13:44] VITALS: BP 168/85; PULSE 97; RESP 17; O2SAT 96
--- NOTE | 2024-05-03 13:44 | EKG12_ITS ---
Test Reason : EDEMA Blood Pressure : */* mmHG Vent. Rate : 93 BPM Atrial Rate : 93 BPM P-R Int : 198 ms QRS Dur : 84 ms QT Int : 344 ms P-R-T Axes : 56 22 62 degrees QTcB Int : 427 ms Normal sinus rhythm Septal infarct , age undetermined Abnormal ECG Confirmed by CAROLYN DE LA FUENTE MD ([id number]), editor sound TEMITOPE PEREIRA ([id number]) on 05/05/2024 8:37:17 AM Referred By: Confirmed By: CAROLYN DE LA FUENTE MD
[2024-05-03] MEDS: Furosemide 40 MG/4 ML Vial IV (13:50)
[2024-05-03 13:52] VITALS: BP 141/94; PULSE 94; RESP 12; O2SAT 97
[2024-05-03 13:54] LABS: Absolute Lymphocyte Count 1.36 X10^3/uL (0.83-4.51); Absolute Neutrophil Count 5.6 X10^3/uL (2.0-7.7); Basophil# 0.06 X10^3/uL; Basophil% 0.7 % (0-1); Eosinophil# 0.39 X10^3/uL; Eosinophils% 4.7 % (0-5); Hematocrit 41.3 % (40-54); Hemoglobin 12.8 g/dL (13.0-16.5); Lymphocyte # 1.36 X10^3/ul (0.83-4.51); Lymphocyte % 16.5 % (19-41); Mean Corpuscular Hgb 25.9 pg (27.0-32.0); Mean Corpuscular Volume 83.6 fL (80-94); Mean Platelet Vol. 9.5 fl (6.2-12.0); Monocyte# 0.85 X10^3/uL; Monocyte% 10.3 % (0-10); NRBC Flagged by Analyzer 0 % (0-5); Neutrophil # 5.55 X10^3/uL (2.7-7.7); Neutrophil % 67.4 % (47-70); Platelet Count 226 K/mm3 (150-450); RBC Distribution Width CV 14.8 % (11.6-14.6); RBC Distribution Width SD 44.7 fl (35.1-43.9); Red Blood Count 4.94 M/mm3 (4.6-6.2); White Blood Count 8.2 K/mm3 (4.4-11.0)
--- NOTE | 2024-05-03 14:05 | RAD_ITS ---
INDICATION: SOB EXAMINATION/TECHNIQUE: X-RAY - XR Chest 2 Views COMPARISON: None. FINDINGS: Slight increase in interstitial markings. The heart is borderline enlarged. No pleural effusion or pneumothorax. No acute osseous abnormalities. RAD/Chest PA and Lateral IMPRESSION: Slight increase in interstitial markings may represent edema and/or infection. Electronically Signed: Amaury Mueller MD at 16:00 EST ,
--- NOTE | 2024-05-03 14:11 | ED.VIS.LOWEX ---
HPI <AELENA Sullivan - Last Filed: 05/03/24 19:17> History of Present Illness Chief Complaint: Edema Narrative Narrative: Patient presenting today due to lower extremity edema and dyspnea on exertion that have both been going on for years. He does not follow with a PCP, he has not seen a doctor in over 2 years, he did take Lasix for this at one time but has been out of it for a few years. He reports that his mom came to visit him today and saw how large his legs were and encouraged that he come in to be seen. He reports that his dyspnea is not any worse than his baseline, he is a smoker. He denies any history of blood clots or recent surgeries/procedures/travel. He denies fevers, chills, and chest pain. PFSH <ALEENA Sullivan - Last Filed: 05/03/24 19:17> [facility] Medical History Depression Hypertension Home Medications ?Medication ?Instructions ?Recorded ?Last Taken ?Type furosemide 40 mg tablet (Lasix) 40 mg PO QODAY #7 tabs 05/03/24 Unknown Rx Allergy/AdvReac Type Severity Reaction Status Date / Time No Known Allergies Allergy Verified 05/03/24 13:22 Family History Brother Asthma Hypertension Sister Asthma Diabetes Mother Asthma Father Asthma Surgical History surgery for undescended testicle Social History Smoking Status: Current every day smoker tobacco type: cigarettes alcohol intake: current alcohol intake frequency: a few times a month substance use type: does not use ROS <ALEENA Sullivan - Last Filed: 05/03/24 19:17> ROS ED Constitutional Constitutional ED: Denies chills or fever(s) Cardiovascular Cardiovascular: Denies chest pain Respiratory/Chest Respiratory/Chest: Reports dyspnea on exertion; Denies cough Gastrointestinal Gastrointestinal: Denies abdominal pain, nausea or vomiting Musculoskeletal Musculoskeletal: Denies arthralgias or myalgias Integumentary Denies rash Neurologic Neurologic: Denies weakness EXAM <ALEENA Sullivan - Last Filed: 05/03/24 19:17> Physical Exam Const Vital Signs: 05/03/24 13:22 05/03/24 13:44 05/03/24 13:52 Temperature 98.2 F Temperature Source Oral Pulse Rate 104 H 97 94 Respiratory Rate 24 H 17 12 Blood Pressure 185/102 H 168/85 H 141/94 H Blood Pressure Mean 129 112 109 Pulse Ox 98 96 97 Oxygen Delivery Method Room Air Room Air Room Air 05/03/24 16:32 Temperature 97.6 F L Temperature Source Pulse Rate 78 Respiratory Rate 24 H Blood Pressure 139/80 H Blood Pressure Mean 99 Pulse Ox 96 Oxygen Delivery Method Positive well nourished, well developed and no apparent distress General Appearance ED: well developed HEENT Reports normocephalic and head/scalp atraumatic Mouth ED: Yes moist mucous membranes normal Eyes PERRL and EOMs intact bilaterally Neck full ROM and supple Chest Wall inspection of chest normal Resp normal respiratory effort and clear to auscultation bilaterally Cardio regular rate and regular rhythm GI soft to palpation, non-tender, non-distended and no masses Back/Spine normal ROM and normal to inspection Extremity full ROM Extremity Narrative: 4+ pitting edema to the bilateral lower extremities with chronic venous stasis changes, multiple blisters to the anterior lower extremities, no open wounds, lymphangitic streaking, warmth, or signs of infection/cellulitis. Neuro oriented x3, CN's II-XII intact bilaterally, moves all extremities, no focal motor deficits and no sensory deficits noted Sensorium / Orientation: awake and alert Psych mental status grossly normal and thought process normal Skin no rashes or lesions noted and no wounds <Dr. Maria M Tomlin DO - Last Filed: 05/04/24 13:19> Physical Exam Const Vital Signs: 05/03/24 13:22 05/03/24 13:44 05/03/24 13:52 Temperature 98.2 F Temperature Source Oral Pulse Rate 104 H 97 94 Respiratory Rate 24 H 17 12 Blood Pressure 185/102 H 168/85 H 141/94 H Blood Pressure Mean 129 112 109 Pulse Ox 98 96 97 Oxygen Delivery Method Room Air Room Air Room Air 05/03/24 16:32 Temperature 97.6 F L Temperature Source Pulse Rate 78 Respiratory Rate 24 H Blood Pressure 139/80 H Blood Pressure Mean 99 Pulse Ox 96 Oxygen Delivery Method MDM <ALEENA Sullivan - Last Filed: 05/03/24 19:17> [facility] Narrative Medical decision making narrative: Patient presenting today due to bilateral lower extremity edema he has had chronically for years, he has also had chronic dyspnea on exertion for years. Today his mom came to visit him and saw how swollen his legs were and urged him to come in to be seen. He was seen here about 4 years ago for similar symptoms and was given a prescription for Lasix but never followed up after this. He does not currently have a PCP. He has a low Wells score, low suspicion for PE/DVT. Labs obtained, CBC shows a hemoglobin of 12.8, this is slightly decreased from previous labs, he has had no stool changes, melena, or hematochezia. His BMP is unremarkable aside from a glucose of 150, his troponin is negative and BNP is WNL. Patient was given 40 mg IV Lasix here. I will give him a prescription for Lasix for home. Chest x-ray shows slight increase in interstitial markings representing edema versus infiltrate. He is not coughing, he does not have leukocytosis or any infectious symptoms to indicate pneumonia. He has never been worked up for CHF or had an echo, I will refer him to cardiology to have this done. Given the blisters on his legs, I referred him to the wound care center. I have also referred him to a PCP. Discussed the importance of following up with the specialist. Return instructions discussed and patient discharged home in stable condition. Lab Data Attestation: I reviewed the patient's lab results. Labs: Laboratory Results - last 24 hr 05/03/24 13:45 WBC 8.2 RBC 4.94 Hgb 12.8 L Hct 41.3 MCV 83.6 MCH 25.9 L MCHC 31.0 L RDW Std Deviation 44.7 H RDW Coeff of Thu 14.8 H Plt Count 226 MPV 9.5 Immature Gran % (Auto) 0.400 Neut % (Auto) 67.4 Lymph % (Auto) 16.5 L [place] % (Auto) 10.3 H Eos % (Auto) 4.7 Baso % (Auto) 0.7 Absolute Neuts (auto) 5.6 Absolute Lymphs (auto) 1.36 Nucleated RBC % 0 Sodium 138 Potassium 3.9 Chloride 103 Carbon Dioxide 32.0 Anion Gap 3 L BUN 18 Creatinine 0.94 Estim Creat Clear Calc 172.19 Est GFR (MDRD) Af Amer 113 Est GFR (MDRD) Non-Af 93 BUN/Creatinine Ratio 19.1 Glucose 150 H Calcium 9.2 Troponin I High Sens 60 B-Natriuretic Peptide 24.5 Radiography Diagnostic Testing: Clinical Impression(s) from Imaging Studies Chest X-Ray 05/03/24 14:05 IMPRESSION: Slight increase in interstitial markings may represent edema and/or infection. Electronically Signed: Amaury Mueller MD at 16:00 EST , EKG Initial EKG: Comments: 93 bpm, normal sinus rhythm, no ST elevation, interpreted by attending ED physician <Dr. Maria M Tomlin, DO - Last Filed: 05/04/24 13:19> [facility] Lab Data Labs: Laboratory Results - last 24 hr 05/03/24 13:45 WBC 8.2 RBC 4.94 Hgb 12.8 L Hct 41.3 MCV 83.6 MCH 25.9 L MCHC 31.0 L RDW Std Deviation 44.7 H RDW Coeff of Thu 14.8 H Plt Count 226 MPV 9.5 Immature Gran % (Auto) 0.400 Neut % (Auto) 67.4 Lymph % (Auto) 16.5 L [place] % (Auto) 10.3 H Eos % (Auto) 4.7 Baso % (Auto) 0.7 Absolute Neuts (auto) 5.6 Absolute Lymphs (auto) 1.36 Nucleated RBC % 0 Sodium 138 Potassium 3.9 Chloride 103 Carbon Dioxide 32.0 Anion Gap 3 L BUN 18 Creatinine 0.94 Estim Creat Clear Calc 172.19 Est GFR (MDRD) Af Amer 113 Est GFR (MDRD) Non-Af 93 BUN/Creatinine Ratio 19.1 Glucose 150 H Calcium 9.2 Troponin I High Sens 60 B-Natriuretic Peptide 24.5 Radiography Diagnostic Testing: Clinical Impression(s) from Imaging Studies Chest X-Ray 05/03/24 14:05 IMPRESSION: Slight increase in interstitial markings may represent edema and/or infection. Electronically Signed: Amaury Mueller MD at 16:00 EST , Treatment and Re-Evaluation Narrative: I have personally performed a face to face assessment of the patient and have reviewed the DAVIDE Note. I performed a substantive portion of the visit including all aspects of the following. My syed findings include: History is patient is a 44-year-old male with history of chronic lower extremity edema and hypertension presenting for persistent lower extremity edema. This is been going on for years and patient is actually evaluated for this 4 years ago. At that time he had a CTA of the chest which showed mild bilateral pulmonary edema and no PE. He was given a 3-day course of Lasix and encouraged to follow-up outpatient for further evaluation. Patient notes that he never followed up. He is continue to have this leg swelling. He denies any acute change in his breathing, dyspnea on exertion and states he came in today because his mother was concerned. Upon arrival patient is hypertensive and mildly tachycardic. He is 98% on room air. Blood pressure is improved/normalizes in the ER as well as his heart rate with no intervention. Patient has clear breath sounds and no conversational dyspnea. No JVD appreciated. Patient has significant edema of his lower extremities with chronic venous stasis changes, thickening of the skin and intermittent serous filled blisters. It is quite chronic appearing. There is no associated warmth or lymphangitic streaking. A cardiac workup for the cause of his leg swelling is obtained. Patient's is low at 12.8 and below his baseline from a year ago. Patient denies any change in his stools and his abdomen is not had any black or blood in his stools. I question if he is anemia from his chronic wounds of his legs. Platelets are normal as well as his white blood cell count. BMP normal with a normal potassium as well as creatinine. Glucose mildly elevated at 150. He has a normal anion gap and normal bicarb. High sensitive troponin normal at 60. He denies any chest pain. His BNP is normal at 24.5. Chest x-ray reviewed by myself as well as radiology shows slight increased interstitial markings and the heart is borderline enlarged. Patient is ambulated with no hypoxia in the emergency room. Patient is given a dose of Lasix in the ER and we put on a course of Lasix. Is counseled extensively that he needs to follow-up outpatient with cardiology and is also given referral for plastics for wound care for his legs. Concerned that he could have undiagnosed heart failure, diastolic heart failure, pulmonary hypertension or lymphedema. Patient is agreeable with this. Given the chronicity of his complaint with no acute changes or signs of decompensation do not think he requires admission at this time. Other additions or changes: [None] Discharge Plan Triage Chief Complaint: Edema ED Midlevel Provider: Genesis Brown ED Provider: Maria M Tomlin Dx/Rx/DC Orders Clinical Impression: Bilateral lower extremity edema, Tobacco use, PARR (dyspnea on exertion) Instructions: ED Dyspnea, ED Lymphedema Prescriptions: New furosemide [Lasix] 40 mg tablet 40 mg PO QODAY Qty: 7 0RF Primary Care Provider: Care Physician,No Primary Referrals: Kenneth Ruiz MD [Med Staff - Active Staff] - 3-5 Days Care Physician,No Primary [Primary Care Provider] - [facility] [Non-Staff] - 5-7 Days Activity Restrictions/Additional Instructions: Follow up with [facility] and the wound care center. Return for any worsening symptoms. Print Language: Persian Disposition Disposition: Home, Self Care Discharge Date/Time: 05/03/24 16:33
[2024-05-03 14:13] LABS: Anion Gap 3 (5-15); BUN 18 mg/dL (7-18); BUN/Creat Ratio 19.1 RATIO (10-20); Calcium,Total 9.2 mg/dL (8.5-10.1); Chloride 103 mmol/L (98-107); Creatinine, Serum 0.94 mg/dL (0.70-1.30); EST Glomerular Filtration Rate 93 mL/min (>60); Est Glom Filt Rate - Afr Amer 113 mL/min (>60); Estimated Creatinine Clearance 172.19 ml/min; Glucose 150 mg/dL (74-106); Potassium 3.9 mmol/L (3.5-5.1); Sodium Level 138 mmol/L (136-145); Troponin-I HS 60 pg/mL (3.0-78.0)
[2024-05-03 14:34] LABS: BNP,B-Type NATRIURETIC PEPTIDE 24.5 pg/mL (0-100)
[2024-05-03 14:43] VITALS: O2SAT 97
[2024-05-03 16:32] VITALS: BP 139/80; PULSE 78; RESP 24; TEMP 36.4; O2SAT 96
== END 2024-05-03 16:33 | disposition home or self-care (01) ==
PROVIDERS: Physician Assistant; Emergency Provider Emergency Medicine; Visit Provider Emergency Medicine
DX: R60.0 Localized edema (principal); S80.821A Blister (nonthermal), right lower leg, initial encounter; S80.822A Blister (nonthermal), left lower leg, initial encounter; X58.XXXA Exposure to other specified factors, initial encounter; I10 Essential (primary) hypertension; F17.210 Nicotine dependence, cigarettes, uncomplicated
CPT/HCPCS: 71046; 80048; 83880; 84484; 85025; 93005; 96372; 96374; 99284; A4216; J1940

== ENCOUNTER → 2024-06-03 | Outpatient (CLI) | payer MEDICAID, SELFPAY ==
[2024-06-03 17:13] LABS: Absolute Neutrophil Count 8.7 X10^3/uL (2.0-7.7); Basophil# 0.11 X10^3/uL; Eosinophil# 0.33 X10^3/uL; Eosinophils% 2.9 % (0-5); Hematocrit 43.2 % (40-54); Hemoglobin 13.2 g/dL (13.0-16.5); Lymphocyte % 13.2 % (19-41); Mean Corp Hgb Conc 30.6 g/dL (32-36); Mean Corpuscular Hgb 24.7 pg (27.0-32.0); Mean Corpuscular Volume 80.9 fL (80-94); Mean Platelet Vol. 9.2 fl (6.2-12.0); Monocyte# 0.69 X10^3/uL; Monocyte% 6.1 % (0-10); NRBC Flagged by Analyzer 0 % (0-5); Neutrophil # 8.68 X10^3/uL (2.7-7.7); Neutrophil % 76.4 % (47-70); Platelet Count 233 K/mm3 (150-450); RBC Distribution Width CV 15.1 % (11.6-14.6); RBC Distribution Width SD 44.5 fl (35.1-43.9); Red Blood Count 5.34 M/mm3 (4.6-6.2); White Blood Count 11.4 K/mm3 (4.4-11.0)
[2024-06-03 18:56] LABS: ALB/GLOB Ratio 0.8 RATIO (0.9-2.4); AST(SGOT) 29 U/L (15-37); Alanine Aminotransfer ALT/SGPT 46 U/L (16-61); Albumin, Serum 3.3 g/dL (3.2-5.0); Alkaline Phosphatase 93 U/L (45-117); Anion Gap 5 (5-15); BUN 12 mg/dL (7-18); BUN/Creat Ratio 12.8 RATIO (10-20); Calcium,Total 9.3 mg/dL (8.5-10.1); Chloride 101 mmol/L (98-107); Cholesterol 197 mg/dL (200); Creatinine, Serum 0.94 mg/dL (0.70-1.30); EST Glomerular Filtration Rate 94 mL/min (>60); Est Glom Filt Rate - Afr Amer 113 mL/min (>60); Globulin 4.1 g/dL (2.2-4.2); Glucose 123 mg/dL (74-106); High Density Lipoprotein 33 mg/dL; Potassium 4.3 mmol/L (3.5-5.1); Protein, Total 7.4 g/dL (6.4-8.2); Sodium Level 137 mmol/L (136-145); Triglycerides 151 mg/dL; Very Low Density Lipoprotein 30 mg/dL (5-40)
[2024-06-03 20:52] LABS: Hemoglobin A1c 6.1 % (3.8-5.6)
== END | disposition home or self-care (01) ==
DX: Z13.220 Encounter for screening for lipoid disorders (principal); Z13.1 Encounter for screening for diabetes mellitus; I10 Essential (primary) hypertension
CPT/HCPCS: 36415; 80053; 80061; 83036; 84443; 85025

== ENCOUNTER 2024-06-04 12:45 | Outpatient (RCR) | payer MEDICAID, SELFPAY ==
[2024-05-14 12:27] VITALS: BP 181/108; PULSE 102; RESP 18; TEMP 37
--- NOTE | 2024-05-14 13:18 | PN.PCM_ITS ---
History of Present Illness Date of Service: 05/14/24 Subjective Subjective Mr. Saini is a 44-year-old male presented wound care center today for a chief complaint of bilateral leg pain. Patient has full-thickness wounds to bilateral legs that he see is had on and off for the past few months. Patient is currently homeless but able to sleep at his sister's house due to the cold weather outside. Patient does not work. He does not have a job. He is not compliant with his medical care or treatment. He admits his pain to bilateral lower extremity is 4 out of 10 on the pain scale. No treatment thus far to the full-thickness wounds. He denies any trauma. Denies constitutional symptoms. No other pedal complaints at this time. Objective Data Objective Data Vital Signs: Vital Signs Temp Pulse Resp BP 98.6 F 102 H 18 181/108 H 05/14/24 12:27 05/14/24 12:27 05/14/24 12:27 05/14/24 12:27 Physical Exam Narrative Vascular: DP and PT pulses are faintly palpable due to edema. CFT is brisk. +1 pitting edema appreciated bilateral lower extremity. Skin temperature gradient is warm to warm from proximal ankles to distal digits bilateral. No erythema is appreciated. Neurological: Light touch intact. Patient does respond to painful stimuli. Dermatological: Full-thickness ulceration to the right walsh measuring 4.8 x 11.0 x 0.1 cm. Full-thickness ulceration to the left walsh measuring 4.8 x 3.7 x 0.2 cm, left calf measures 0.9 x 0.9 x 0.2 cm. All wounds are fibrogranular nature to bilateral lower extremity. No drainage appreciated. No malodor or probe to bone. No sign of infection. Excisional debridement down to and including subcutaneous tissue with a number 5 mm dermal curette to the right walsh full-thickness wound without incident. Predebridement measurement was 4.5 x 10.8 x 0.1 cm. Postdebridement measurement is 4.8 x 11.0 x 0.1 cm. Excisional debridement down to and including subcutaneous tissue with a number 5 mm dermal curette to the left walsh full-thickness wound without incident. Predebridement measurement is 4.5 x 3.5 x 0.1 cm. Postdebridement measurement is 4.8 x 3.7 x 0.2 cm. Excisional debridement down to and including subcutaneous tissue with a number 5 mm dermal curette to the left calf full-thickness wound without incident. Predebridement measurement was 0.7 x 0.7 x 0.1 cm. Postdebridement measurement is 0.9 x 0.9 x 0.2 cm. Musculoskeletal: Muscle strength is 5 out of 5 in all quadrants bilateral. Mild to moderate palpatory tenderness appreciated bilateral lower extremity full- thickness wound. No pain with calf pressure. Debridement Note Debridement Note Post-Debridement Measurements and Additional Note: Post-Debridement Measurements/Treatment - Nurse 1 - General Ulcer Assessment Start: 05/14/24 12:26 Freq: Status: Active Protocol: DAVID Activity Type Activity Date Activity User E-sign Co-sign Detail Recorded Client Recorded Date Recorded By Document 05/14/24 12:27 [place] [id number] 05/14/24 12:37 [place] 05/14/24 12:27 - Today's Visit Information Type of service Follow-up Visit (Physician/[employer] ) Arrival Mode Ambulatory Accompanied by sister Patient Identification Verified (Name & Yes ) Safety Precautions Fall Prevention Vital Signs Temperature (97.8 F-99.1 F) 98.6 F Temperature Source Temporal Pulse Rate (60-100) 102 H Pulse Location Monitor Respiratory Rate (12-18) 18 Respiratory rate source Observation Blood Pressure (90/60-120/80) 181/108 H Blood Pressure Mean (mm Hg) 132 Source Monitor Position Sitting Blood Pressure Location Left Arm History Since Last Visit- (Skip if this is Patient's initial visit) Has dressing in place as prescribed Yes Has compression in place as prescribed Yes Has offloadiing in place as prescribed Yes Experienced any changes in pain level or Yes management Left Footwear Regular Shoe Right Footwear Regular Shoe Pain Scale: 0-10 Numeric Is Patient Pain Free? Yes - Nurse 1 - General Ulcer Measurement Start: 05/14/24 12:26 Freq: Status: Active Protocol: Activity Type Activity Date Activity User E-sign Co-sign Detail Recorded Client Recorded Date Recorded By Document 05/14/24 12:27 [place] [id number] 05/14/24 12:37 [place] 05/14/24 12:27 Wound Center Nurse 1 #3 Right Walsh Cluster -Current Size (cm) - Length 6 -Current Size (cm) - Width 9.5 -Current Size (cm) - Depth 0.1 -Total Square Cm 57.0 -Date of Last Picture (Recall this 05/14/24 field) -Photo Taken Yes -Tunneling No -Undermining/Tunneling No -Circular Undermining No -Exudate Amt Medium -Exudate Type Serosanguineous -Wound Margin Flat & Intact -Granulation Amt Large (67-100%) -Granulation Quality Pale,[place] -Necrosis Amt Small (1-33%) -Necrotic Tissue Type Adherent Slough -Texture (Lety-wound Skin Appearance) Assessed, Localized Edema -Moisture (Lety-wound Skin Appearance) Assessed, Maceration, Weeping -Color (Lety-wound Skin Appearance) Assessed -Temperature (Lety-wound Skin No Abnormality Appearance) (Pt Warm) -Tenderness on Palpation (Lety-wound No Skin Appearance) -Ulcer Cleansing Soap and Water -Foul Odor after Cleansing No -Anesthetic Used 5% Lidocaine Gel #2 Left Walsh Cluster -Current Size (cm) - Length 5 -Current Size (cm) - Width 8 -Current Size (cm) - Depth 0.1 -Total Square Cm 40 -Date of Last Picture (Recall this 05/14/24 field) -Photo Taken Yes -Tunneling No -Undermining/Tunneling No -Circular Undermining No -Exudate Amt Medium -Exudate Type Serosanguineous -Wound Margin Flat & Intact -Granulation Amt Large (67-100%) -Granulation Quality Pale,[place] -Slough/Fibrin Yes -Necrosis Amt Small (1-33%) -Texture (Lety-wound Skin Appearance) Assessed, Localized Edema -Moisture (Lety-wound Skin Appearance) Assessed, Maceration, Weeping -Color (Lety-wound Skin Appearance) Assessed -Temperature (Lety-wound Skin No Abnormality Appearance) (Pt Warm) -Tenderness on Palpation (Lety-wound No Skin Appearance) -Ulcer Cleansing Soap and Water -Foul Odor after Cleansing No -Anesthetic Used 4% Lidocaine Solution #1 Left posterior calf -Current Size (cm) - Length 1 -Current Size (cm) - Width 1.3 -Current Size (cm) - Depth 0.1 -Total Square Cm 1.3 -Date of Last Picture (Recall this 05/14/24 field) -Photo Taken Yes -Tunneling No -Undermining/Tunneling No -Circular Undermining No -Exudate Amt Small -Exudate Type Serosanguineous -Wound Margin Flat & Intact -Granulation Amt Large (67-100%) -Granulation Quality Pale,[place] -Necrosis Amt Small (1-33%) -Necrotic Tissue Type Adherent Slough -Texture (Lety-wound Skin Appearance) Assessed, Localized Edema -Moisture (Lety-wound Skin Appearance) Assessed, Maceration, Weeping -Color (Lety-wound Skin Appearance) Assessed, Erythema -Temperature (Lety-wound Skin No Abnormality Appearance) (Pt Warm) -Tenderness on Palpation (Lety-wound No Skin Appearance) -Ulcer Cleansing Soap and Water -Foul Odor after Cleansing No -Anesthetic Used 4% Lidocaine Solution Right Calf (cm) 63.2 Right Ankle (cm) 36.2 Left Calf (cm) 63.5 Left Ankle (cm) 39.5 WC - Nurse 2 - General Ulcer CM Notes Start: 05/14/24 12:26 Freq: Status: Active Protocol: Activity Type Activity Date Activity User E-sign Co-sign Detail Recorded Client Recorded Date Recorded By Document 05/14/24 12:42 SHELLIE [id number] 05/14/24 12:48 SHELLIE 05/14/24 12:42 Wound Center Nurse 2 #3 Right Walsh Cluster -Time 12:43 -Correct Patient Yes -Correct Side, Site, Position Yes -Correct Procedure Yes -Procedure Performed Yes -Type of Procedure Debridement -Clinical Debridement Subcutaneous -Tissue Removed Subcutaneous -Post Debridement (cm) - Length 4.8 -Post Debridement (cm) - Width 11 -Post Debridement (cm) - Depth 0.1 -Total Square (Post) (cm) 52.8 -Area of Debridement (cm) - Length 4.8 -Area of Debridement (cm) - Width 11 -Total Square (Area) (cm) 52.8 -Tunneling No -Undermining/Tunneling No -Circular Undermining No -Wound/Ulcer Outcome Not Healed -Ulcer Cleansing Rinsed/ Irrigated with Saline -Foul Odor after Cleansing No -Bioengineered Tissue No -Bleeding Controlled with Pressure -Treatment Response Procedure Tolerated Well -Offloading No -Debridement - Subq, 1st 20sq cm No #2 Left Walsh Cluster -Time 12:43 -Correct Patient Yes -Correct Side, Site, Position Yes -Correct Procedure Yes -Procedure Performed Yes -Type of Procedure Debridement -Clinical Debridement Subcutaneous -Tissue Removed Subcutaneous -Post Debridement (cm) - Length 4.8 -Post Debridement (cm) - Width 3.7 -Post Debridement (cm) - Depth 0.2 -Total Square (Post) (cm) 17.76 -Area of Debridement (cm) - Length 4.8 -Area of Debridement (cm) - Width 3.7 -Total Square (Area) (cm) 17.76 -Tunneling No -Undermining/Tunneling No -Circular Undermining No -Wound/Ulcer Outcome Not Healed -Ulcer Cleansing Rinsed/ Irrigated with Saline -Foul Odor after Cleansing No -Bioengineered Tissue No -Bleeding Controlled with Pressure -Treatment Response Procedure Tolerated Well -Offloading No -Debridement - Subq, 1st 20sq cm No #1 Left posterior calf -Time 12:43 -Correct Patient Yes -Correct Side, Site, Position Yes -Correct Procedure Yes -Procedure Performed Yes -Type of Procedure Debridement -Clinical Debridement Subcutaneous -Tissue Removed Subcutaneous -Post Debridement (cm) - Length 0.9 -Post Debridement (cm) - Width 0.9 -Post Debridement (cm) - Depth 0.2 -Total Square (Post) (cm) 0.81 -Area of Debridement (cm) - Length 0.9 -Area of Debridement (cm) - Width 0.9 -Total Square (Area) (cm) 0.81 -Tunneling No -Undermining/Tunneling No -Circular Undermining No -Wound/Ulcer Outcome Not Healed -Ulcer Cleansing Rinsed/ Irrigated with Saline -Foul Odor after Cleansing No -Bioengineered Tissue No -Bleeding Controlled with Pressure -Treatment Response Procedure Tolerated Well -Offloading No -Debridement - Subq, 1st 20sq cm Yes -Apply Skin Sub - 1st 25 sq cm - Feet 1 -Apply Skin Sub - each addt'l 25 sq cm 3 - Feet Pain Scale: 0-10 Numeric Is Patient Pain Free? Yes WC - Nurse 3 - General Ulcer D/C NN Start: 05/14/24 12:26 Freq: Status: Active Protocol: Activity Type Activity Date Activity User E-sign Co-sign Detail Recorded Client Recorded Date Recorded By Document 05/14/24 13:01 [place] [id number] 05/14/24 13:05 [place] 05/14/24 13:01 Wound Care Center Nurse 3 #3 Right Walsh Cluster -Ulcer Cleansing Soap and Water -Foul Odor after Cleansing No -Negative Pressure Wound Therapy N/A -Primary Dressing Applied Optilok 6.5x10, Silvercel -Primary Dressing Covered/Secured with Dry Gauze, Secured with Tape -Optilok 6.5x10 2 -Silvercel 2 Bilateral Lower leg -Multi-Layered Wrap Application Multi-Layer Comp - Bilat ($ ) Pain Scale: 0-10 Numeric Is Patient Pain Free? Yes WC - Visit Discharge Discharge Condition Stable Ambulatory Status Ambulatory Transportation Private Auto Medication Reconcilliation completed & No provided to patient/care provider Clinical Summary of Care Provided Yes Assessment/Plan Assessment/Plan (1) Non-pressure chronic ulcer of other part of right lower leg with fat layer exposed: CODE(S): L97.812 - Non-pressure chronic ulcer of other part of right lower leg with fat layer exposed PLAN: Patient was examined and evaluated. All findings were discussed with the patient. All questions were answered to the patient's satisfaction. Excisional debridement down to and including subcutaneous tissue with a number 5 mm dermal curette to the right walsh full-thickness wound without incident. Predebridement measurement was 4.5 x 10.8 x 0.1 cm. Postdebridement measurement is 4.8 x 11.0 x 0.1 cm. Excisional debridement down to and including subcutaneous tissue with a number 5 mm dermal curette to the left walsh full-thickness wound without incident. Predebridement measurement is 4.5 x 3.5 x 0.1 cm. Postdebridement measurement is 4.8 x 3.7 x 0.2 cm. Excisional debridement down to and including subcutaneous tissue with a number 5 mm dermal curette to the left calf full-thickness wound without incident. Predebridement measurement was 0.7 x 0.7 x 0.1 cm. Postdebridement measurement is 0.9 x 0.9 x 0.2 cm. Bilateral lower extremities were cleaned and patted dry. Silver alginate was applied to all full-thickness wounds of bilateral lower extremity followed by multilayer compression bandage by per the plant protection guard's recommendation. The patient will leave them clean dry and intact and not get them wet. He will follow-up for nursing visit as scheduled. Educated the patient that he will need to make sure to get his life in order so that he will prevent any continued or further breakdown of his legs which can cause infection resulting in loss of limb versus loss of life which she is understanding of. Also educated the patient and he is to follow-up with his primary doctor to be reevaluated to make sure that he is on all the correct medication. Follow-up at the wound care center with Dr. Sommer in 1 week. (2) Non-pressure chronic ulcer of other part of left lower leg with fat layer exposed: CODE(S): L97.822 - Non-pressure chronic ulcer of other part of left lower leg with fat layer exposed (3) Non-pressure chronic ulcer of left calf with fat layer exposed: CODE(S): L97.222 - Non-pressure chronic ulcer of left calf with fat layer exposed
--- NOTE | 2024-05-15 12:29 | WC ---
PHOTO 05/14/24 RIGHT MEDINA CLUSTER
--- NOTE | 2024-05-15 12:30 | WC ---
PHOTO 05/14/24 LEFT MEDINA CLUSTER
--- NOTE | 2024-05-15 12:31 | WC ---
PHOTO 05/14/24 LEFT POST
[2024-05-16 12:10] VITALS: BP 194/100; PULSE 99; RESP 18; TEMP 35.7
[2024-05-21 12:15] VITALS: RESP 18
--- NOTE | 2024-05-21 13:14 | PCM.WC.PN ---
History of Present Illness Date of Service: 05/14/24 Subjective Subjective Mr. Saini is a 44-year-old male presented wound care center today for a chief complaint of bilateral leg pain. Patient has been compliant with his dressings and has left him on clean dry and intact. He does elevate when he remembers. He is walking a little bit but due to the weather is a little difficult. He denies any trauma. Denies constitutional symptoms. No other pedal complaints at this time. Objective Data Objective Data Vital Signs: Vital Signs Temp Pulse Resp BP O2 Del Method 96.2 F L 99 18 194/100 H Room Air 05/16/24 12:10 05/16/24 12:10 05/21/24 12:15 05/16/24 12:10 05/21/24 12:15 Oxygen Delivery Method Room Air Physical Exam Narrative Vascular: DP and PT pulses are faintly palpable due to edema. CFT is brisk. +1 pitting edema appreciated bilateral lower extremity. Skin temperature gradient is warm to warm from proximal ankles to distal digits bilateral. No erythema is appreciated. Neurological: Light touch intact. Patient does respond to painful stimuli. Dermatological: Full-thickness ulceration to the right walsh measuring 4.8 x 11.2 x 0.1 cm. Full-thickness ulceration to the left walsh measuring 3.5 x 2.5 x 0.2 cm left calf measures 1.0 x 1.0 x 0.2 cm. all wounds are fibrogranular nature to bilateral lower extremity. No drainage appreciated. No malodor or probe to bone. No sign of infection. Excisional debridement down to and including subcutaneous tissue with a number 5 mm dermal curette to the right walsh full-thickness wound without incident. Predebridement measurement was 4.5 x 11.0 x 0.1 cm. Postdebridement measurement is 4.8 x 11.2 x 0.1 cm. Excisional debridement down to and including subcutaneous tissue with a number 5 mm dermal curette to the left walsh full-thickness wound without incident. Predebridement measurement is 4 by 3.3 x 2.3 x 0.1 cm. Postdebridement measurement is 3.5 x 2.5 x 0.2 cm. Excisional debridement down to and including subcutaneous tissue with a number 5 mm dermal curette to the left calf full-thickness wound without incident. Predebridement measurement was 0.8 x 0.6 x 0.1 cm. Postdebridement measurement is 1.0 x 1.0 x 0.2 cm. Musculoskeletal: Muscle strength is 5 out of 5 in all quadrants bilateral. Mild to moderate palpatory tenderness appreciated bilateral lower extremity full-thickness wound. No pain with calf pressure. Debridement Note Debridement Note Debridement Free Text: Excisional debridement down to and including subcutaneous tissue with a number 5 mm dermal curette to the right walsh full-thickness wound without incident. Predebridement measurement was 4.5 x 11.0 x 0.1 cm. Postdebridement measurement is 4.8 x 11.2 x 0.1 cm. Excisional debridement down to and including subcutaneous tissue with a number 5 mm dermal curette to the left walsh full-thickness wound without incident. Predebridement measurement is 4 by 3.3 x 2.3 x 0.1 cm. Postdebridement measurement is 3.5 x 2.5 x 0.2 cm. Excisional debridement down to and including subcutaneous tissue with a number 5 mm dermal curette to the left calf full-thickness wound without incident. Predebridement measurement was 0.8 x 0.6 x 0.1 cm. Postdebridement measurement is 1.0 x 1.0 x 0.2 cm. Post-Debridement Measurements and Additional Note: Post-Debridement Measurements/Treatment - Nurse 1 - General Ulcer Assessment Start: 05/14/24 12:26 Freq: Status: Active Protocol: [email or web address].[email or web address] Activity Type Activity Date Activity User E-sign Co-sign Detail Recorded Client Recorded Date Recorded By Document 05/14/24 12:27 MT [id number] 05/14/24 12:37 MT Document 05/16/24 12:10 RB WOUND 05/16/24 12:12 RB Document 05/21/24 12:15 KW [id number] 05/21/24 12:21 KW 05/14/24 05/16/24 05/21/24 12:27 12:10 12:15 - Today's Visit Information Type of service Follow-up Visit Nurse-only Follow-up Visit (Physician/MULTIMEDIA INSTRUCTIONAL DESIGNER Visit (Physician/MULTIMEDIA INSTRUCTIONAL DESIGNER ) ) Arrival Mode Ambulatory Ambulatory Ambulatory Transfer Assistance None Accompanied by sister Patient Identification Verified (Name & Yes Yes Yes ) Patient Requires Transmission-Based No Precautions Safety Precautions Fall Prevention Vital Signs Temperature (97.8 F-99.1 F) 98.6 F 96.2 F L Temperature Source Temporal Temporal Pulse Rate (60-100) 102 H 99 Pulse Location Monitor Monitor Respiratory Rate (12-18) 18 18 18 Respiratory rate source Observation Observation Observation Oxygen Delivery Method Room Air Blood Pressure (90/60-120/80) 181/108 H 194/100 H Blood Pressure Mean (mm Hg) 132 131 Source Monitor Monitor Position Sitting Sitting Blood Pressure Location Left Arm Left Arm History Since Last Visit- (Skip if this is Patient's initial visit) Have you changed medications since your No No last visit? Any new allergies or adverse reactions No No Had a fall/change in ADL's that may No No increase risk of falls Signs or symptoms of abuse and/or No No neglect since last visit Have you been in the hospital since your No No last visit? Has dressing in place as prescribed Yes Yes Yes Has compression in place as prescribed Yes Yes Yes Has offloadiing in place as prescribed Yes N/A N/A Experienced any changes in pain level or Yes No No management Left Footwear Regular Shoe Regular Shoe Right Footwear Regular Shoe Regular Shoe Pain Scale: 0-10 Numeric Is Patient Pain Free? Yes Yes Yes WC - Nurse 1 - General Ulcer Measurement Start: 05/14/24 12:26 Freq: Status: Active Protocol: Activity Type Activity Date Activity User E-sign Co-sign Detail Recorded Client Recorded Date Recorded By Document 05/14/24 12:27 MT [id number] 05/14/24 12:37 MT Document 05/16/24 12:10 RB WOUND 05/16/24 12:12 RB Document 05/21/24 12:15 KW [id number] 05/21/24 12:21 KW 05/14/24 05/16/24 05/21/24 12:27 12:10 12:15 Wound Center Nurse 1 #3 Right Walsh Cluster -Current Size (cm) - Length 6 7 -Current Size (cm) - Width 9.5 10.3 -Current Size (cm) - Depth 0.1 0.1 -Total Square Cm 57.0 72.1 -Date of Last Picture (Recall this 05/14/24 field) -Photo Taken Yes -Tunneling No -Undermining/Tunneling No -Circular Undermining No -Exudate Amt Medium Medium -Exudate Type Serosanguineous Serosanguineous -Wound Margin Flat & Intact Distinct, Outline Attached -Granulation Amt Large (67-100%) Large (67-100%) -Granulation Quality Pale,Rainbow Rainbow,Red -Necrosis Amt Small (1-33%) -Necrotic Tissue Type Adherent Slough -Texture (Lety-wound Skin Appearance) Assessed, Assessed Localized Edema -Moisture (Lety-wound Skin Appearance) Assessed, Assessed Maceration, Weeping -Color (Lety-wound Skin Appearance) Assessed Assessed, Erythema -Temperature (Lety-wound Skin No Abnormality No Abnormality Appearance) (Pt Warm) (Pt Warm) -Tenderness on Palpation (Lety-wound No No Skin Appearance) -Ulcer Cleansing Soap and Water Soap and Water -Foul Odor after Cleansing No No -Anesthetic Used 5% Lidocaine 4% Lidocaine Gel Solution #2 Left Walsh Cluster -Current Size (cm) - Length 5 8 -Current Size (cm) - Width 8 13 -Current Size (cm) - Depth 0.1 0.2 -Total Square Cm 40 104 -Date of Last Picture (Recall this 05/14/24 field) -Photo Taken Yes -Tunneling No -Undermining/Tunneling No -Circular Undermining No -Exudate Amt Medium Medium -Exudate Type Serosanguineous Serosanguineous -Wound Margin Flat & Intact Distinct, Outline Attached -Granulation Amt Large (67-100%) Large (67-100%) -Granulation Quality Pale,Rainbow Rainbow,Red -Slough/Fibrin Yes -Necrosis Amt Small (1-33%) Small (1-33%) -Necrotic Tissue Type Adherent Slough -Texture (Lety-wound Skin Appearance) Assessed, Assessed Localized Edema -Moisture (Lety-wound Skin Appearance) Assessed, Assessed, Maceration, Maceration Weeping -Color (Lety-wound Skin Appearance) Assessed Assessed, Erythema -Temperature (Lety-wound Skin No Abnormality No Abnormality Appearance) (Pt Warm) (Pt Warm) -Tenderness on Palpation (Lety-wound No No Skin Appearance) -Ulcer Cleansing Soap and Water Soap and Water -Foul Odor after Cleansing No No -Anesthetic Used 4% Lidocaine 4% Lidocaine Solution Solution #1 Left posterior calf -Current Size (cm) - Length 1 1 -Current Size (cm) - Width 1.3 1 -Current Size (cm) - Depth 0.1 0.2 -Total Square Cm 1.3 1 -Date of Last Picture (Recall this 05/14/24 field) -Photo Taken Yes -Tunneling No -Undermining/Tunneling No -Circular Undermining No -Exudate Amt Small Medium -Exudate Type Serosanguineous Serosanguineous -Wound Margin Flat & Intact Distinct, Outline Attached -Granulation Amt Large (67-100%) Medium (34-66%) -Granulation Quality Pale,Rainbow Rainbow,Red -Necrosis Amt Small (1-33%) Medium (34-66%) -Necrotic Tissue Type Adherent Slough Adherent Slough -Texture (Lety-wound Skin Appearance) Assessed, Assessed Localized Edema -Moisture (Lety-wound Skin Appearance) Assessed, Assessed Maceration, Weeping -Color (Lety-wound Skin Appearance) Assessed, Assessed Erythema -Temperature (Lety-wound Skin No Abnormality No Abnormality Appearance) (Pt Warm) (Pt Warm) -Tenderness on Palpation (Lety-wound No No Skin Appearance) -Ulcer Cleansing Soap and Water Soap and Water -Foul Odor after Cleansing No No -Anesthetic Used 4% Lidocaine 4% Lidocaine Solution Solution Lower Limb Edema Present Yes Right Calf (cm) 63.2 57 57 Right Ankle (cm) 36.2 35 36 Left Calf (cm) 63.5 63.2 61 Left Ankle (cm) 39.5 35 36 WC - Nurse 2 - General Ulcer CM Notes Start: 05/14/24 12:26 Freq: Status: Active Protocol: Activity Type Activity Date Activity User E-sign Co-sign Detail Recorded Client Recorded Date Recorded By Document 05/14/24 12:42 SHELLIE [id number] 05/14/24 12:48 JF Edit Result 05/14/24 12:42 JF (1) [id number] 05/20/24 14:19 JF Document 05/21/24 12:51 JF [id number] 05/21/24 12:57 JF (1) #1 Left posterior calf - Debridement, SubQ, ea addt'l 20sq cm => 3 or part thereof - Apply Skin Sub - 1st 25 sq cm - Feet 1 => - Apply Skin Sub - each addt'l 25 sq cm 3 => - Feet 05/14/24 05/21/24 12:42 12:51 Wound Center Nurse 2 #3 Right Walsh Cluster -Time 12:43 12:52 -Correct Patient Yes Yes -Correct Side, Site, Position Yes Yes -Correct Procedure Yes Yes -Procedure Performed Yes Yes -Type of Procedure Debridement Debridement -Clinical Debridement Subcutaneous Subcutaneous -Tissue Removed Subcutaneous Subcutaneous -Post Debridement (cm) - Length 4.8 4.8 -Post Debridement (cm) - Width 11 11.2 -Post Debridement (cm) - Depth 0.1 0.1 -Total Square (Post) (cm) 52.8 53.76 -Area of Debridement (cm) - Length 4.8 4.8 -Area of Debridement (cm) - Width 11 11.2 -Total Square (Area) (cm) 52.8 53.76 -Tunneling No No -Undermining/Tunneling No No -Circular Undermining No No -Wound/Ulcer Outcome Not Healed Not Healed -Ulcer Cleansing Rinsed/ Rinsed/ Irrigated with Irrigated with Saline Saline -Foul Odor after Cleansing No No -Bioengineered Tissue No No -Bleeding Controlled with Pressure Pressure -Treatment Response Procedure Procedure Tolerated Well Tolerated Well -Offloading No No -Debridement - Subq, 1st 20sq cm No No #2 Left Walsh Cluster -Time 12:43 12:52 -Correct Patient Yes Yes -Correct Side, Site, Position Yes Yes -Correct Procedure Yes Yes -Procedure Performed Yes Yes -Type of Procedure Debridement Debridement -Clinical Debridement Subcutaneous Subcutaneous -Tissue Removed Subcutaneous Subcutaneous -Post Debridement (cm) - Length 4.8 3.5 -Post Debridement (cm) - Width 3.7 2.5 -Post Debridement (cm) - Depth 0.2 0.2 -Total Square (Post) (cm) 17.76 8.75 -Area of Debridement (cm) - Length 4.8 3.5 -Area of Debridement (cm) - Width 3.7 2.5 -Total Square (Area) (cm) 17.76 8.75 -Tunneling No No -Undermining/Tunneling No No -Circular Undermining No No -Wound/Ulcer Outcome Not Healed Not Healed -Ulcer Cleansing Rinsed/ Rinsed/ Irrigated with Irrigated with Saline Saline -Foul Odor after Cleansing No No -Bioengineered Tissue No No -Bleeding Controlled with Pressure Pressure -Treatment Response Procedure Procedure Tolerated Well Tolerated Well -Offloading No No -Debridement - Subq, 1st 20sq cm No No #1 Left posterior calf -Time 12:43 12:53 -Correct Patient Yes Yes -Correct Side, Site, Position Yes Yes -Correct Procedure Yes Yes -Procedure Performed Yes Yes -Type of Procedure Debridement Debridement -Clinical Debridement Subcutaneous Subcutaneous -Tissue Removed Subcutaneous Subcutaneous -Post Debridement (cm) - Length 0.9 1 -Post Debridement (cm) - Width 0.9 1 -Post Debridement (cm) - Depth 0.2 0.2 -Total Square (Post) (cm) 0.81 1 -Area of Debridement (cm) - Length 0.9 1 -Area of Debridement (cm) - Width 0.9 1 -Total Square (Area) (cm) 0.81 1 -Tunneling No No -Undermining/Tunneling No No -Circular Undermining No No -Wound/Ulcer Outcome Not Healed Not Healed -Ulcer Cleansing Rinsed/ Rinsed/ Irrigated with Irrigated with Saline Saline -Foul Odor after Cleansing No No -Bioengineered Tissue No No -Bleeding Controlled with Pressure Pressure -Treatment Response Procedure Procedure Tolerated Well Tolerated Well -Offloading No No -Debridement - Subq, 1st 20sq cm Yes Yes -Debridement, SubQ, ea addt'l 20sq cm 3 3 or part thereof Pain Scale: 0-10 Numeric Is Patient Pain Free? Yes Yes - Nurse 3 - General Ulcer D/C NN Start: 05/14/24 12:26 Freq: Status: Active Protocol: Activity Type Activity Date Activity User E-sign Co-sign Detail Recorded Client Recorded Date Recorded By Document 05/14/24 13:01 CO [id number] 05/14/24 13:05 CO Document 05/16/24 12:12 RB WOUND 05/16/24 12:14 RB 05/14/24 05/16/24 13:01 12:12 Wound Care Center Nurse 3 #3 Right Walsh Cluster -Ulcer Cleansing Soap and Water -Foul Odor after Cleansing No -Negative Pressure Wound Therapy N/A -Primary Dressing Applied Optilok 6.5x10, Optilok 8x12, Silvercel Silvercel -Primary Dressing Covered/Secured with Dry Gauze, Secured with Tape -Optilok 6.5x10 2 -Optilok 8x12 1 -Silvercel 2 1 #2 Left Walsh Cluster -Primary Dressing Applied Optilok 8x12, Silvercel -Optilok 8x12 1 -Silvercel 1 #1 Left posterior calf -Other Dressing SILVERCEL / GAUZE Lety-Wound Care Lotion Bilateral Lower leg -Multi-Layered Wrap Application Multi-Layer Multi-Layer Comp - Bilat ($ Comp - Bilat ($ ) ) Pain Scale: 0-10 Numeric Is Patient Pain Free? Yes Yes Teaching: Wound Center Compression Wraps & Stockings -Person Taught Patient -Teaching Method Discussion -Response to teaching Verbalize Understanding WC - Visit Discharge Discharge Condition Stable Stable Ambulatory Status Ambulatory Ambulatory Transportation Private Auto Private Auto Medication Reconcilliation completed & No No provided to patient/care provider Clinical Summary of Care Provided Yes Yes Assessment/Plan Assessment/Plan (1) Non-pressure chronic ulcer of other part of right lower leg with fat layer exposed: CODE(S): L97.812 - Non-pressure chronic ulcer of other part of right lower leg with fat layer exposed PLAN: Patient was examined and evaluated. All findings were discussed with the patient. All questions were answered to the patient's satisfaction. Excisional debridement down to and including subcutaneous tissue with a number 5 mm dermal curette to the right walsh full-thickness wound without incident. Predebridement measurement was 4.5 x 11.0 x 0.1 cm. Postdebridement measurement is 4.8 x 11.2 x 0.1 cm. Excisional debridement down to and including subcutaneous tissue with a number 5 mm dermal curette to the left walsh full-thickness wound without incident. Predebridement measurement is 4 by 3.3 x 2.3 x 0.1 cm. Postdebridement measurement is 3.5 x 2.5 x 0.2 cm. Excisional debridement down to and including subcutaneous tissue with a number 5 mm dermal curette to the left calf full-thickness wound without incident. Predebridement measurement was 0.8 x 0.6 x 0.1 cm. Postdebridement measurement is 1.0 x 1.0 x 0.2 cm. Bilateral lower extremities were cleaned and patted dry. Silver alginate was applied to all full-thickness wounds of bilateral lower extremity followed by multilayer compression bandage by per the dipper clock and watch hands's recommendation. The patient will leave them clean dry and intact and not get them wet. He will follow-up for nursing visit as scheduled. Patient states he has not followed up with primary doctor but recommended for him to do that soon as possible. Educated patient continue to elevate his feet as instructed. The patient will follow-up to wound care center with nursing staff and then with Dr. Sommer in 2 weeks. (2) Non-pressure chronic ulcer of other part of left lower leg with fat layer exposed: CODE(S): L97.822 - Non-pressure chronic ulcer of other part of left lower leg with fat layer exposed (3) Non-pressure chronic ulcer of left calf with fat layer exposed: CODE(S): L97.222 - Non-pressure chronic ulcer of left calf with fat layer exposed (4) Other specified peripheral vascular diseases: CODE(S): I73.89 - Other specified peripheral vascular diseases
[2024-05-28 13:04] VITALS: BP 180/100; PULSE 98; RESP 18; TEMP 36.1
[2024-06-04 12:44] VITALS: BP 162/109; PULSE 96; RESP 18
--- NOTE | 2024-06-04 13:33 | PN.PCM_ITS ---
History of Present Illness Date of Service: 06/04/24 Chief Complaint: Bilateral leg swelling and ulceration. History of Wound: Bilateral leg swelling and ulceration chronic Progress of Wound: Stable bilateral leg ulceration and chronic swelling Subjective Subjective Mr. Saini is a 44-year-old male presented wound care center today for a chief complaint of bilateral leg pain. Patient has been compliant with his dressings and has left him on clean dry and intact. He does elevate when he remembers. He is walking a little bit but due to the weather is a little difficult. He denies any trauma. Denies constitutional symptoms. No other pedal complaints at this time. Objective Data Objective Data Vital Signs: Vital Signs Temp Pulse Resp BP O2 Del Method 97 F L 96 18 162/109 H Room Air 05/28/24 13:04 06/04/24 12:44 06/04/24 12:44 06/04/24 12:44 06/04/24 12:44 Oxygen Delivery Method Room Air Physical Exam Narrative Vascular: DP and PT pulses are faintly palpable due to edema. CFT is brisk. +1 pitting edema appreciated bilateral lower extremity. Skin temperature gradient is warm to warm from proximal ankles to distal digits bilateral. No erythema is appreciated. Neurological: Light touch intact. Patient does respond to painful stimuli. Dermatological: Full-thickness ulceration to the right walsh measuring 4.2 x 7.0 x 0.1 cm. Full-thickness ulceration to the left walsh measuring 2.6 x 2.8 x 0.1 cm, left calf full-thickness wound is healed. All wounds are fibrogranular nature to bilateral lower extremity. No drainage appreciated. No malodor or probe to bone. No sign of infection. Excisional debridement down to and including subcutaneous tissue with a number 5 mm dermal curette to the right walsh full-thickness wound without incident. Predebridement measurement was 4.0 x 6.8 x 0.1 cm. Postdebridement measurement is 4.2 x 7.0 x 0.1 cm. Excisional debridement down to and including subcutaneous tissue with a number 5 mm dermal curette to the left walsh full-thickness wound without incident. Predebridement measurement is 4 by 2.4 x 2.6 x 0.1 cm. Postdebridement measurement is 2.6 x 2.8 x 0.1 cm. Musculoskeletal: Muscle strength is 5 out of 5 in all quadrants bilateral. Mild to moderate palpatory tenderness appreciated bilateral lower extremity full- thickness wound. No pain with calf pressure. Debridement Note Debridement Note Debridement Free Text: Excisional debridement down to and including subcutaneous tissue with a number 5 mm dermal curette to the right walsh full-thickness wound without incident. Predebridement measurement was 4.0 x 6.8 x 0.1 cm. Postdebridement measurement is 4.2 x 7.0 x 0.1 cm. Excisional debridement down to and including subcutaneous tissue with a number 5 mm dermal curette to the left walsh full-thickness wound without incident. Predebridement measurement is 4 by 2.4 x 2.6 x 0.1 cm. Postdebridement measurement is 2.6 x 2.8 x 0.1 cm. Post-Debridement Measurements and Additional Note: Post-Debridement Measurements/Treatment - Nurse 1 - General Ulcer Assessment Start: 05/14/24 12:26 Freq: Status: Active Protocol: DAVID Activity Type Activity Date Activity User E-sign Co-sign Detail Recorded Client Recorded Date Recorded By Document 05/14/24 12:27 MT [id number] 05/14/24 12:37 MT Document 05/16/24 12:10 RB WOUND 05/16/24 12:12 RB Document 05/21/24 12:15 KW [id number] 05/21/24 12:21 KW Document 05/28/24 13:04 RB [id number] 05/28/24 13:09 RB Document 06/04/24 12:44 KW [id number] 06/04/24 12:53 KW 05/14/24 05/16/24 05/21/24 12:27 12:10 12:15 - Today's Visit Information Type of service Follow-up Visit Nurse-only Follow-up Visit (Physician/PHARMACY BILLING ADJUDICATOR Visit (Physician/PHARMACY BILLING ADJUDICATOR ) ) Arrival Mode Ambulatory Ambulatory Ambulatory Transfer Assistance None Accompanied by sister Patient Identification Verified (Name & Yes Yes Yes ) Patient Requires Transmission-Based No Precautions Safety Precautions Fall Prevention Vital Signs Temperature (97.8 F-99.1 F) 98.6 F 96.2 F L Temperature Source Temporal Temporal Pulse Rate (60-100) 102 H 99 Pulse Location Monitor Monitor Respiratory Rate (12-18) 18 18 18 Respiratory rate source Observation Observation Observation Oxygen Delivery Method Room Air Blood Pressure (90/60-120/80) 181/108 H 194/100 H Blood Pressure Mean (mm Hg) 132 131 Source Monitor Monitor Position Sitting Sitting Blood Pressure Location Left Arm Left Arm History Since Last Visit- (Skip if this is Patient's initial visit) Have you changed medications since your No No last visit? Any new allergies or adverse reactions No No Had a fall/change in ADL's that may No No increase risk of falls Signs or symptoms of abuse and/or No No neglect since last visit Have you been in the hospital since your No No last visit? Has dressing in place as prescribed Yes Yes Yes Has compression in place as prescribed Yes Yes Yes Has offloadiing in place as prescribed Yes N/A N/A Experienced any changes in pain level or Yes No No management Left Footwear Regular Shoe Regular Shoe Right Footwear Regular Shoe Regular Shoe Pain Scale: 0-10 Numeric Is Patient Pain Free? Yes Yes Yes 05/28/24 06/04/24 13:04 12:44 WC - Today's Visit Information Type of service Nurse-only Follow-up Visit Visit (Physician/PHARMACY BILLING ADJUDICATOR ) Arrival Mode Ambulatory Ambulatory Transfer Assistance None Accompanied by Patient Identification Verified (Name & Yes Yes ) Patient Requires Transmission-Based No Precautions Safety Precautions Vital Signs Temperature (97.8 F-99.1 F) 97 F L Temperature Source Temporal Pulse Rate (60-100) 98 96 Pulse Location Monitor Monitor Respiratory Rate (12-18) 18 18 Respiratory rate source Observation Observation Oxygen Delivery Method Room Air Blood Pressure (90/60-120/80) 180/100 H 162/109 H Blood Pressure Mean (mm Hg) 126 126 Source Monitor Monitor Position Semi-Fowlers Semi-Fowlers Blood Pressure Location Left Arm Left Arm History Since Last Visit- (Skip if this is Patient's initial visit) Have you changed medications since your No No last visit? Any new allergies or adverse reactions No No Had a fall/change in ADL's that may No No increase risk of falls Signs or symptoms of abuse and/or No No neglect since last visit Have you been in the hospital since your No No last visit? Has dressing in place as prescribed Yes Yes Has compression in place as prescribed Yes Yes Has offloadiing in place as prescribed N/A N/A Experienced any changes in pain level or No No management Left Footwear Regular Shoe Slipper Right Footwear Regular Shoe Slipper Pain Scale: 0-10 Numeric Is Patient Pain Free? Yes Yes WC - Nurse 1 - General Ulcer Measurement Start: 05/14/24 12:26 Freq: Status: Active Protocol: Activity Type Activity Date Activity User E-sign Co-sign Detail Recorded Client Recorded Date Recorded By Document 05/14/24 12:27 MT [id number] 05/14/24 12:37 MT Document 05/16/24 12:10 RB WOUND 05/16/24 12:12 RB Document 05/21/24 12:15 KW [id number] 05/21/24 12:21 KW Document 05/28/24 13:04 RB [id number] 05/28/24 13:09 RB Document 06/04/24 12:44 KW [id number] 06/04/24 12:53 KW 05/14/24 05/16/24 05/21/24 12:27 12:10 12:15 Wound Center Nurse 1 #1 Left posterior calf -Current Size (cm) - Length 1 1 -Current Size (cm) - Width 1.3 1 -Current Size (cm) - Depth 0.1 0.2 -Total Square Cm 1.3 1 -Date of Last Picture (Recall this 05/14/24 field) -Photo Taken Yes -Tunneling No -Undermining/Tunneling No -Circular Undermining No -Exudate Amt Small Medium -Exudate Type Serosanguineous Serosanguineous -Wound Margin Flat & Intact Distinct, Outline Attached -Granulation Amt Large (67-100%) Medium (34-66%) -Granulation Quality Pale,[place],Red -Necrosis Amt Small (1-33%) Medium (34-66%) -Necrotic Tissue Type Adherent Slough Adherent Slough -Texture (Lety-wound Skin Appearance) Assessed, Assessed Localized Edema -Moisture (Lety-wound Skin Appearance) Assessed, Assessed Maceration, Weeping -Color (Lety-wound Skin Appearance) Assessed, Assessed Erythema -Temperature (Lety-wound Skin No Abnormality No Abnormality Appearance) (Pt Warm) (Pt Warm) -Tenderness on Palpation (Lety-wound No No Skin Appearance) -Ulcer Cleansing Soap and Water Soap and Water -Foul Odor after Cleansing No No -Anesthetic Used 4% Lidocaine 4% Lidocaine Solution Solution #3 Right Walsh Cluster -Current Size (cm) - Length 6 7 -Current Size (cm) - Width 9.5 10.3 -Current Size (cm) - Depth 0.1 0.1 -Total Square Cm 57.0 72.1 -Date of Last Picture (Recall this 05/14/24 field) -Photo Taken Yes -Tunneling No -Undermining/Tunneling No -Circular Undermining No -Exudate Amt Medium Medium -Exudate Type Serosanguineous Serosanguineous -Wound Margin Flat & Intact Distinct, Outline Attached -Granulation Amt Large (67-100%) Large (67-100%) -Granulation Quality Pale,[place],Red -Necrosis Amt Small (1-33%) -Necrotic Tissue Type Adherent Slough -Texture (Lety-wound Skin Appearance) Assessed, Assessed Localized Edema -Moisture (Lety-wound Skin Appearance) Assessed, Assessed Maceration, Weeping -Color (Lety-wound Skin Appearance) Assessed Assessed, Erythema -Temperature (Lety-wound Skin No Abnormality No Abnormality Appearance) (Pt Warm) (Pt Warm) -Tenderness on Palpation (Lety-wound No No Skin Appearance) -Ulcer Cleansing Soap and Water Soap and Water -Foul Odor after Cleansing No No -Anesthetic Used 5% Lidocaine 4% Lidocaine Gel Solution #2 Left Walsh Cluster -Current Size (cm) - Length 5 8 -Current Size (cm) - Width 8 13 -Current Size (cm) - Depth 0.1 0.2 -Total Square Cm 40 104 -Date of Last Picture (Recall this 05/14/24 field) -Photo Taken Yes -Tunneling No -Undermining/Tunneling No -Circular Undermining No -Exudate Amt Medium Medium -Exudate Type Serosanguineous Serosanguineous -Wound Margin Flat & Intact Distinct, Outline Attached -Granulation Amt Large (67-100%) Large (67-100%) -Granulation Quality Pale,[place],Red -Slough/Fibrin Yes -Necrosis Amt Small (1-33%) Small (1-33%) -Necrotic Tissue Type Adherent Slough -Texture (Lety-wound Skin Appearance) Assessed, Assessed Localized Edema -Moisture (Lety-wound Skin Appearance) Assessed, Assessed, Maceration, Maceration Weeping -Color (Lety-wound Skin Appearance) Assessed Assessed, Erythema -Temperature (Lety-wound Skin No Abnormality No Abnormality Appearance) (Pt Warm) (Pt Warm) -Tenderness on Palpation (Lety-wound No No Skin Appearance) -Ulcer Cleansing Soap and Water Soap and Water -Foul Odor after Cleansing No No -Anesthetic Used 4% Lidocaine 4% Lidocaine Solution Solution Lower Limb Edema Present Yes Right Calf (cm) 63.2 57 57 Right Ankle (cm) 36.2 35 36 Left Calf (cm) 63.5 63.2 61 Left Ankle (cm) 39.5 35 36 05/28/24 06/04/24 13:04 12:44 Wound Center Nurse 1 #1 Left posterior calf -Current Size (cm) - Length 1.5 -Current Size (cm) - Width 2 -Current Size (cm) - Depth 0.1 -Total Square Cm 3.0 -Date of Last Picture (Recall this field) -Photo Taken -Tunneling -Undermining/Tunneling -Circular Undermining -Exudate Amt Large Small -Exudate Type Serosanguineous Serosanguineous -Wound Margin Distinct, Outline Attached -Granulation Amt -Granulation Quality -Necrosis Amt -Necrotic Tissue Type -Texture (Lety-wound Skin Appearance) Assessed -Moisture (Lety-wound Skin Appearance) Assessed,Dry/ Scaly -Color (Lety-wound Skin Appearance) Assessed -Temperature (Lety-wound Skin No Abnormality Appearance) (Pt Warm) -Tenderness on Palpation (Lety-wound No Skin Appearance) -Ulcer Cleansing Soap and Water -Foul Odor after Cleansing No -Anesthetic Used 5% Lidocaine Gel #3 Right Walsh Cluster -Current Size (cm) - Length 5.3 -Current Size (cm) - Width 10.5 -Current Size (cm) - Depth 0.1 -Total Square Cm 55.65 -Date of Last Picture (Recall this field) -Photo Taken -Tunneling -Undermining/Tunneling -Circular Undermining -Exudate Amt Large Small -Exudate Type Serosanguineous Serosanguineous -Wound Margin -Granulation Amt Large (67-100%) -Granulation Quality [place] -Necrosis Amt -Necrotic Tissue Type -Texture (Lety-wound Skin Appearance) Assessed -Moisture (Lety-wound Skin Appearance) Assessed,Dry/ Scaly -Color (Lety-wound Skin Appearance) Assessed -Temperature (Lety-wound Skin No Abnormality Appearance) (Pt Warm) -Tenderness on Palpation (Lety-wound No Skin Appearance) -Ulcer Cleansing Soap and Water -Foul Odor after Cleansing -Anesthetic Used 4% Lidocaine Solution #2 Left Walsh Cluster -Current Size (cm) - Length 5.3 -Current Size (cm) - Width 8 -Current Size (cm) - Depth 0.1 -Total Square Cm 42.4 -Date of Last Picture (Recall this field) -Photo Taken -Tunneling -Undermining/Tunneling -Circular Undermining -Exudate Amt Large Small -Exudate Type Serosanguineous Serosanguineous -Wound Margin Distinct, Outline Attached -Granulation Amt -Granulation Quality -Slough/Fibrin -Necrosis Amt -Necrotic Tissue Type -Texture (Lety-wound Skin Appearance) Assessed -Moisture (Lety-wound Skin Appearance) Assessed,Dry/ Scaly -Color (Lety-wound Skin Appearance) Assessed -Temperature (Lety-wound Skin No Abnormality Appearance) (Pt Warm) -Tenderness on Palpation (Lety-wound No Skin Appearance) -Ulcer Cleansing Soap and Water -Foul Odor after Cleansing No -Anesthetic Used 4% Lidocaine Solution Lower Limb Edema Present Yes Right Calf (cm) 62 61 Right Ankle (cm) 36.2 30.5 Left Calf (cm) 64.5 65.5 Left Ankle (cm) 37.1 35.5 WC - Nurse 2 - General Ulcer CM Notes Start: 05/14/24 12:26 Freq: Status: Active Protocol: Activity Type Activity Date Activity User E-sign Co-sign Detail Recorded Client Recorded Date Recorded By Document 05/14/24 12:42 SHELLIE [id number] 05/14/24 12:48 Edit Result 05/14/24 12:42 JF (1) [id number] 05/20/24 14:19 Document 05/21/24 12:51 [id number] 05/21/24 12:57 Document 06/04/24 13:03 [id number] 06/04/24 13:06 JF (1) #1 Left posterior calf - Debridement, SubQ, ea addt'l 20sq cm => 3 or part thereof - Apply Skin Sub - 1st 25 sq cm - Feet 1 => - Apply Skin Sub - each addt'l 25 sq cm 3 => - Feet 05/14/24 05/21/24 06/04/24 12:42 12:51 13:03 Wound Center Nurse 2 #1 Left posterior calf -Time 12:43 12:53 -Correct Patient Yes Yes No -Correct Side, Site, Position Yes Yes No -Correct Procedure Yes Yes No -Procedure Performed Yes Yes No -Type of Procedure Debridement Debridement -Clinical Debridement Subcutaneous Subcutaneous -Tissue Removed Subcutaneous Subcutaneous -Post Debridement (cm) - Length 0.9 1 0 -Post Debridement (cm) - Width 0.9 1 0 -Post Debridement (cm) - Depth 0.2 0.2 0 -Total Square (Post) (cm) 0.81 1 0 -Area of Debridement (cm) - Length 0.9 1 0 -Area of Debridement (cm) - Width 0.9 1 0 -Total Square (Area) (cm) 0.81 1 0 -Tunneling No No -Undermining/Tunneling No No -Circular Undermining No No -Wound/Ulcer Outcome Not Healed Not Healed Healed- Epithelialized -Ulcer Cleansing Rinsed/ Rinsed/ Irrigated with Irrigated with Saline Saline -Foul Odor after Cleansing No No -Bioengineered Tissue No No -Bleeding Controlled with Pressure Pressure -Treatment Response Procedure Procedure Tolerated Well Tolerated Well -Offloading No No -Debridement - Subq, 1st 20sq cm Yes Yes -Debridement, SubQ, ea addt'l 20sq cm 3 3 or part thereof #3 Right Walsh Cluster -Time 12:43 12:52 13:04 -Correct Patient Yes Yes Yes -Correct Side, Site, Position Yes Yes Yes -Correct Procedure Yes Yes Yes -Procedure Performed Yes Yes Yes -Type of Procedure Debridement Debridement Debridement -Clinical Debridement Subcutaneous Subcutaneous Subcutaneous -Tissue Removed Subcutaneous Subcutaneous Subcutaneous -Post Debridement (cm) - Length 4.8 4.8 4.2 -Post Debridement (cm) - Width 11 11.2 7 -Post Debridement (cm) - Depth 0.1 0.1 0.1 -Total Square (Post) (cm) 52.8 53.76 29.4 -Area of Debridement (cm) - Length 4.8 4.8 4.2 -Area of Debridement (cm) - Width 11 11.2 7 -Total Square (Area) (cm) 52.8 53.76 29.4 -Tunneling No No No -Undermining/Tunneling No No No -Circular Undermining No No No -Wound/Ulcer Outcome Not Healed Not Healed Not Healed -Ulcer Cleansing Rinsed/ Rinsed/ Rinsed/ Irrigated with Irrigated with Irrigated with Saline Saline Saline -Foul Odor after Cleansing No No No -Bioengineered Tissue No No No -Bleeding Controlled with Pressure Pressure Pressure -Treatment Response Procedure Procedure Procedure Tolerated Well Tolerated Well Tolerated Well -Offloading No No No -Debridement - Subq, 1st 20sq cm No No No #2 Left Walsh Cluster -Time 12:43 12:52 13:04 -Correct Patient Yes Yes Yes -Correct Side, Site, Position Yes Yes Yes -Correct Procedure Yes Yes Yes -Procedure Performed Yes Yes Yes -Type of Procedure Debridement Debridement Debridement -Clinical Debridement Subcutaneous Subcutaneous Subcutaneous -Tissue Removed Subcutaneous Subcutaneous Subcutaneous -Post Debridement (cm) - Length 4.8 3.5 2.6 -Post Debridement (cm) - Width 3.7 2.5 2.8 -Post Debridement (cm) - Depth 0.2 0.2 0.1 -Total Square (Post) (cm) 17.76 8.75 7.28 -Area of Debridement (cm) - Length 4.8 3.5 2.6 -Area of Debridement (cm) - Width 3.7 2.5 2.8 -Total Square (Area) (cm) 17.76 8.75 7.28 -Tunneling No No No -Undermining/Tunneling No No No -Circular Undermining No No No -Wound/Ulcer Outcome Not Healed Not Healed Not Healed -Ulcer Cleansing Rinsed/ Rinsed/ Rinsed/ Irrigated with Irrigated with Irrigated with Saline Saline Saline -Foul Odor after Cleansing No No No -Bioengineered Tissue No No No -Bleeding Controlled with Pressure Pressure Pressure -Treatment Response Procedure Procedure Procedure Tolerated Well Tolerated Well Tolerated Well -Offloading No No No -Debridement - Subq, 1st 20sq cm No No Yes -Debridement, SubQ, ea addt'l 20sq cm 1 or part thereof Pain Scale: 0-10 Numeric Is Patient Pain Free? Yes Yes Yes WC - Nurse 3 - General Ulcer D/C NN Start: 05/14/24 12:26 Freq: Status: Active Protocol: Activity Type Activity Date Activity User E-sign Co-sign Detail Recorded Client Recorded Date Recorded By Document 05/14/24 13:01 IN [id number] 05/14/24 13:05 MT Document 05/16/24 12:12 RB WOUND 05/16/24 12:14 RB Document 05/21/24 13:09 IN [id number] 05/21/24 13:30 MT Document 05/28/24 13:04 RB [id number] 05/28/24 13:09 RB 05/14/24 05/16/24 05/21/24 13:01 12:12 13:09 Wound Care Center Nurse 3 #1 Left posterior calf -Other Dressing SILVERCEL / GAUZE -Primary Dressing Covered/Secured with #3 Right Walsh Cluster -Ulcer Cleansing Soap and Water Soap and Water -Foul Odor after Cleansing No No -Negative Pressure Wound Therapy N/A N/A -Primary Dressing Applied Optilok 6.5x10, Optilok 8x12, Silvercel Silvercel -Primary Dressing Applied Optilok 6.5x10, Silvercel -Primary Dressing Covered/Secured with Dry Gauze, Dry Gauze, Secured with Secured with Tape Tape -Optilok 6.5x10 2 3 -Optilok 8x12 1 -Silvercel 2 1 1 #2 Left Walsh Cluster -Primary Dressing Applied Optilok 8x12, Silvercel -Primary Dressing Applied -Other Dressing -Optilok 8x12 1 -Silvercel 1 Lety-Wound Care Lotion Bilateral Lower leg -Multi-Layered Wrap Application Multi-Layer Multi-Layer Multi-Layer Comp - Bilat ($ Comp - Bilat ($ Comp - Bilat ($ ) ) ) Treatment Response Vital Signs Temperature (97.8 F-99.1 F) Temperature Source Pulse Rate (60-100) Pulse Location Respiratory Rate (12-18) Respiratory rate source Blood Pressure (90/60-120/80) Blood Pressure Mean (mm Hg) Source Position Blood Pressure Location Pain Scale: 0-10 Numeric Is Patient Pain Free? Yes Yes Yes Teaching: Wound Center Compression Wraps & Stockings -Person Taught Patient -Teaching Method Discussion -Response to teaching Verbalize Understanding WC - Visit Discharge Discharge Condition Stable Stable Ambulatory Status Ambulatory Ambulatory Transportation Private Auto Private Auto Medication Reconcilliation completed & No No provided to patient/care provider Clinical Summary of Care Provided Yes Yes 05/28/24 13:04 Wound Care Center Nurse 3 #1 Left posterior calf -Other Dressing SILVERCEL -Primary Dressing Covered/Secured with Dry Gauze & Roll Gauze, Secured with Tape #3 Right Walsh Cluster -Ulcer Cleansing Rinsed/ Irrigated with Saline -Foul Odor after Cleansing -Negative Pressure Wound Therapy -Primary Dressing Applied -Primary Dressing Applied Optilok 8x12, Silvercel -Primary Dressing Covered/Secured with -Optilok 6.5x10 -Optilok 8x12 1 -Silvercel 1 #2 Left Walsh Cluster -Primary Dressing Applied -Primary Dressing Applied Optilok 8x12 -Other Dressing SILVERCEL -Optilok 8x12 1 -Silvercel Lety-Wound Care Bilateral Lower leg -Multi-Layered Wrap Application Multi-Layer Comp - Bilat ($ ) Treatment Response Procedure Tolerated Well Vital Signs Temperature (97.8 F-99.1 F) 97 F L Temperature Source Temporal Pulse Rate (60-100) 98 Pulse Location Monitor Respiratory Rate (12-18) 18 Respiratory rate source Observation Blood Pressure (90/60-120/80) 180/100 H Blood Pressure Mean (mm Hg) 126 Source Monitor Position Semi-Fowlers Blood Pressure Location Left Arm Pain Scale: 0-10 Numeric Is Patient Pain Free? Yes Teaching: Wound Center Compression Wraps & Stockings -Person Taught -Teaching Method -Response to teaching WC - Visit Discharge Discharge Condition Stable Ambulatory Status Ambulatory Transportation Private Auto Medication Reconcilliation completed & No provided to patient/care provider Clinical Summary of Care Provided Yes Assessment/Plan Assessment/Plan (1) Non-pressure chronic ulcer of other part of right lower leg with fat layer exposed: CODE(S): L97.812 - Non-pressure chronic ulcer of other part of right lower leg with fat layer exposed PLAN: Patient was examined and evaluated. All findings were discussed with the patient. All questions were answered to the patient's satisfaction. Excisional debridement down to and including subcutaneous tissue with a number 5 mm dermal curette to the right walsh full-thickness wound without incident. Predebridement measurement was 4.0 x 6.8 x 0.1 cm. Postdebridement measurement is 4.2 x 7.0 x 0.1 cm. Excisional debridement down to and including subcutaneous tissue with a number 5 mm dermal curette to the left walsh full-thickness wound without incident. Predebridement measurement is 4 by 2.4 x 2.6 x 0.1 cm. Postdebridement measurement is 2.6 x 2.8 x 0.1 cm. Bilateral lower extremities were cleaned and patted dry. Silver alginate was applied to all full-thickness wounds of bilateral lower extremity followed by multilayer compression bandage by per the web page designer's recommendation. The patient will leave them clean dry and intact and not get them wet. He will follow-up for nursing visit as scheduled. Educated patient continue to elevate his feet as instructed. The patient will follow-up to wound care center with nursing staff and then with Dr. Sommer in 2 weeks. (2) Non-pressure chronic ulcer of other part of left lower leg with fat layer exposed: CODE(S): L97.822 - Non-pressure chronic ulcer of other part of left lower leg with fat layer exposed (3) Other specified peripheral vascular diseases: CODE(S): I73.89 - Other specified peripheral vascular diseases
== END 2024-06-06 23:59 | disposition home or self-care (01) ==
LOC: WC 12:45
PROVIDERS: Visit Provider Podiatrist Foot & Ankle Surgery
DX: L97.222 Non-pressure chronic ulcer of left calf with fat layer exposed (principal); L97.822 Non-pressure chronic ulcer of other part of left lower leg with fat layer exposed; L97.812 Non-pressure chronic ulcer of other part of right lower leg with fat layer exposed; M79.89 Other specified soft tissue disorders; Z79.899 Other long term (current) drug therapy; Z59.01 Sheltered homelessness
CPT/HCPCS: 11042; 11045; 15275; 15276; 29581; 99213; G0463

== ENCOUNTER 2024-07-02 12:45 | Outpatient (RCR) | payer MEDICAID, SELFPAY ==
[2024-06-07 01:35] VITALS: BP 162/109; PULSE 96; RESP 18; TEMP 36.1
[2024-06-11 12:32] VITALS: BP 160/100; PULSE 94; RESP 18; TEMP 36.1
[2024-06-18 12:37] VITALS: BP 165/109; PULSE 109; RESP 18
--- NOTE | 2024-06-18 14:57 | PN.PCM_ITS ---
History of Present Illness Date of Service: 06/18/24 Chief Complaint: Bilateral leg swelling and ulceration. History of Wound: Bilateral leg swelling and ulceration chronic Progress of Wound: Stable full-thickness wound to the left lower extremity. Has been following up for nursing visits for changing of multilayer compression bandage to bilateral extremity. Subjective Subjective Mr. Saini is a 44-year-old male presented wound care center today for follow-up evaluation of full-thickness wound to the bilateral extremity. He has been presenting for nursing visits for changing of his multilayer compression bandage. He notices great improvement to his swelling and wounds. Denies trauma. Denies constitutional symptoms. No other pedal complaints at this time. Objective Data Objective Data Vital Signs: Vital Signs Temp Pulse Resp BP O2 Del Method 97 F L 109 H 18 165/109 H Room Air 06/11/24 12:32 06/18/24 12:37 06/18/24 12:37 06/18/24 12:37 06/18/24 12:37 Oxygen Delivery Method Room Air Physical Exam Narrative Vascular: DP and PT pulses are faintly palpable due to edema. CFT is brisk. +1 pitting edema appreciated bilateral lower extremity. Skin temperature gradient is warm to warm from proximal ankles to distal digits bilateral. No erythema is appreciated. Neurological: Light touch intact. Patient does respond to painful stimuli. Dermatological: Full-thickness ulceration to the right walsh is healed. Full-thickness ulceration to the left walsh measuring 0.7 x 0.7 x 0.1 cm. Wound is fibrogranular nature to bilateral lower extremity. No drainage appreciated. No malodor or probe to bone. No sign of infection. Excisional debridement down to and including subcutaneous tissue with a number 5 mm dermal curette to the left walsh full-thickness wound without incident. Predebridement measurement is callus postdebridement measurement is 0.7 x 0.7 x 0.1 cm. Musculoskeletal: Muscle strength is 5 out of 5 in all quadrants bilateral. Mild to moderate palpatory tenderness appreciated bilateral lower extremity full- thickness wound. No pain with calf pressure. Debridement Note Debridement Note Debridement Free Text: Excisional debridement down to and including subcutaneous tissue with a number 5 mm dermal curette to the left walsh full-thickness wound without incident. Predebridement measurement is callus postdebridement measurement is 0.7 x 0.7 x 0.1 cm. 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 ) Arrival Mode Ambulatory Ambulatory Transfer Assistance None Patient Identification Verified (Name & Yes Yes ) Patient Requires Transmission-Based No Precautions Vital Signs Temperature (97.8 F-99.1 F) 97 F L Temperature Source Temporal Pulse Rate (60-100) 94 109 H Pulse Location Monitor Monitor Respiratory Rate (12-18) 18 18 Respiratory rate source Observation Observation Oxygen Delivery Method Room Air Blood Pressure (90/60-120/80) 160/100 H 165/109 H Blood Pressure Mean (mm Hg) 120 127 Source Monitor Monitor Position Sitting Semi-Fowlers Blood Pressure Location Right Arm Left Forearm History Since Last Visit- (Skip if this is Patient's initial visit) Have you changed medications since your No last visit? Any new allergies or adverse reactions No Had a fall/change in ADL's that may No increase risk of falls Signs or symptoms of abuse and/or No neglect since last visit Have you been in the hospital since your No last visit? Has dressing in place as prescribed Yes Has compression in place as prescribed Yes Has offloadiing in place as prescribed N/A Experienced any changes in pain level or No management Left Footwear Regular Shoe Right Footwear Regular Shoe Pain Scale: 0-10 Numeric Is Patient Pain Free? Yes Yes - Nurse 1 - General Ulcer Measurement Start: 06/11/24 12:32 Freq: Status: Active Protocol: Activity Type Activity Date Activity User E-sign Co-sign Detail Recorded Client Recorded Date Recorded By Document 06/11/24 12:32 RB [id number] 06/11/24 13:00 RB Document 06/18/24 12:37 KW [id number] 06/18/24 12:49 KW 06/11/24 06/18/24 12:32 12:37 Wound Center Nurse 1 #3 Right Walsh Cluster -Current Size (cm) - Length 0.1 -Current Size (cm) - Width 0.1 -Current Size (cm) - Depth 0 -Total Square Cm 0.01 -Date of Last Picture (Recall this 06/18/24 field) -Epithelialization Large 67-100% -Exudate Amt None Present -Texture (Lety-wound Skin Appearance) Assessed -Moisture (Lety-wound Skin Appearance) Assessed -Color (Lety-wound Skin Appearance) Assessed -Temperature (Lety-wound Skin No Abnormality Appearance) (Pt Warm) -Tenderness on Palpation (Lety-wound No Skin Appearance) -Ulcer Cleansing Soap and Water -Foul Odor after Cleansing No -Anesthetic Used 4% Lidocaine Solution #2 Left Walsh Cluster -Current Size (cm) - Length 0.1 -Current Size (cm) - Width 0.1 -Current Size (cm) - Depth 0 -Total Square Cm 0.01 -Date of Last Picture (Recall this 06/18/24 field) -Epithelialization Large 67-100% -Exudate Amt None Present -Texture (Lety-wound Skin Appearance) Assessed -Moisture (Lety-wound Skin Appearance) Assessed -Color (Lety-wound Skin Appearance) Assessed -Temperature (Lety-wound Skin No Abnormality Appearance) (Pt Warm) -Tenderness on Palpation (Lety-wound No Skin Appearance) -Ulcer Cleansing Soap and Water -Foul Odor after Cleansing No -Anesthetic Used 4% Lidocaine Solution Lower Limb Edema Present Yes Right Calf (cm) 61 54.5 Right Ankle (cm) 30.5 33 Left Calf (cm) 65 61.5 Left Ankle (cm) 33.2 33 WC - Nurse 2 - General Ulcer CM Notes Start: 06/11/24 12:32 Freq: Status: Active Protocol: Activity Type Activity Date Activity User E-sign Co-sign Detail Recorded Client Recorded Date Recorded By Document 06/18/24 13:16 [facility] [id number] 06/18/24 13:22 [facility] 06/18/24 13:16 Wound Center Nurse 2 #3 Right Walsh Cluster -Time 13:17 -Post Debridement (cm) - Length 0 -Post Debridement (cm) - Width 0 -Post Debridement (cm) - Depth 0 -Total Square (Post) (cm) 0 -Area of Debridement (cm) - Length 0 -Area of Debridement (cm) - Width 0 -Total Square (Area) (cm) 0 -Wound/Ulcer Outcome Healed- Epithelialized #2 Left Walsh Cluster -Time 13:17 -Correct Patient Yes -Correct Side, Site, Position Yes -Correct Procedure Yes -Procedure Performed Yes -Type of Procedure Debridement -Clinical Debridement Subcutaneous -Tissue Removed Subcutaneous -Post Debridement (cm) - Length 0.7 -Post Debridement (cm) - Width 0.7 -Post Debridement (cm) - Depth 0.1 -Total Square (Post) (cm) 0.49 -Area of Debridement (cm) - Length 0.7 -Area of Debridement (cm) - Width 0.7 -Total Square (Area) (cm) 0.49 -Tunneling No -Undermining/Tunneling No -Circular Undermining No -Wound/Ulcer Outcome Not Healed -Ulcer Cleansing Rinsed/ Irrigated with Saline -Foul Odor after Cleansing No -Bioengineered Tissue No -Bleeding Controlled with Pressure -Treatment Response Procedure Tolerated Well -Debridement - Subq, 1st 20sq cm Yes Pain Scale: 0-10 Numeric Is Patient Pain Free? Yes - Nurse 3 - General Ulcer D/C NN Start: 06/11/24 12:32 Freq: Status: Active Protocol: Activity Type Activity Date Activity User E-sign Co-sign Detail Recorded Client Recorded Date Recorded By Document 06/11/24 13:00 RB [id number] 06/11/24 13:01 RB Document 06/18/24 13:49 DS [id number] 06/18/24 13:49 DS 06/11/24 06/18/24 13:00 13:49 Wound Care Center Nurse 3 #3 Right Walsh Cluster -Ulcer Cleansing Wound Cleanser -Primary Dressing Applied Silvercel -Other Dressing ABD -Primary Dressing Covered/Secured with Dry Gauze & Roll Gauze -Silvercel 1 #2 Left Walsh Cluster -Primary Dressing Applied Aquacel AG 2x2 -Other Dressing sivercel/ABD abd -Primary Dressing Covered/Secured with Dry Gauze & Secured with Roll Gauze Tape -Aquacel AG 2x2 1 Lety-Wound Care Lotion Bilateral Lower leg -Multi-Layered Wrap Application Multi-Layer Multi-Layer Comp - Bilat ($ Comp - Bilat ($ ) ) Pain Scale: 0-10 Numeric Is Patient Pain Free? 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 All findings were discussed with the patient. All questions were answered to the patient's satisfaction. Excisional debridement down to and including subcutaneous tissue with a number 5 mm dermal curette to the left walsh full-thickness wound without incident. Predebridement measurement is callus postdebridement measurement is 0.7 x 0.7 x 0.1 cm. Left lower extremities are clean and patted dry. Aquacel Ag followed by dry sterile dressing and 3M multilayer compression wrap was donned to the bilateral lower extremity. The patient will follow-up for nursing visits weekly Follow-up at the wound care center with Dr. Sommer in 2 week.
--- NOTE | 2024-06-18 15:26 | NURSING ---
PHOTO 06/18/24 RIGHT MEDINA CLUSTER
--- NOTE | 2024-06-18 15:27 | NURSING ---
PHOTO 06/18/24 LEFT MEDINA CLUSTER
[2024-06-25 12:18] VITALS: BP 188/108; PULSE 94; RESP 20; TEMP 36.6
[2024-07-02 12:30] VITALS: BP 180/100; PULSE 85; RESP 18; TEMP 35.7
--- NOTE | 2024-07-02 13:25 | PN.PCM_ITS ---
History of Present Illness Date of Service: 07/02/24 Chief Complaint: Bilateral leg swelling and ulceration. History of Wound: Bilateral leg swelling and ulceration chronic Progress of Wound: Stable full-thickness wound to the left lower extremity. Has been following up for nursing visits for changing of multilayer compression bandage to bilateral extremity. Subjective Subjective Mr. Saini is a 44-year-old male presenting to wound care center follow-up evaluation of full-thickness wound to left leg. Has been compliant with compression wraps. Denies any trauma. Denies constitutional symptoms. No pedal complaints at this time. Objective Data Objective Data Vital Signs: Vital Signs Temp Pulse Resp BP O2 Del Method 96.2 F L 85 18 180/100 H Room Air 07/02/24 12:30 07/02/24 12:30 07/02/24 12:30 07/02/24 12:30 06/18/24 12:37 Oxygen Delivery Method Room Air Physical Exam Narrative Vascular: DP and PT pulses are faintly palpable due to edema. CFT is brisk. +1 pitting edema appreciated bilateral lower extremity. Skin temperature gradient is warm to warm from proximal ankles to distal digits bilateral. No erythema is appreciated. Neurological: Light touch intact. Patient does respond to painful stimuli. Dermatological: Full-thickness ulceration to the left walsh measuring 0.3 x 0.2 x 0.1 cm. Wound is fibrogranular nature to bilateral lower extremity. No drainage appreciated. No malodor or probe to bone. No sign of infection. Excisional debridement down to and including subcutaneous tissue with a number 5 mm dermal curette to the left walsh full-thickness wound without incident. Predebridement measurement is callus postdebridement measurement is 0.3 x 0.2 x 0.1 cm. Musculoskeletal: Muscle strength is 5 out of 5 in all quadrants bilateral. Mild to moderate palpatory tenderness appreciated bilateral lower extremity full- thickness wound. No pain with calf pressure. Debridement Note Debridement Note Post-Debridement Measurements and Additional Note: Post-Debridement Measurements/Treatment WC - Nurse 1 - General Ulcer Assessment Start: 06/11/24 12:32 Freq: Status: Active Protocol: HUMPHREYEXT Activity Type Activity Date Activity User E-sign Co-sign Detail Recorded Client Recorded Date Recorded By Document 06/11/24 12:32 RB [id number] 06/11/24 13:00 RB Document 06/18/24 12:37 KW [id number] 06/18/24 12:49 KW Document 06/25/24 12:18 DL [id number] 06/25/24 12:46 DL Document 07/02/24 12:30 RB [id number] 07/02/24 12:31 RB 06/11/24 06/18/24 06/25/24 12:32 12:37 12:18 WC - Today's Visit Information Type of service Nurse-only Follow-up Visit 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 ) Arrival Mode Ambulatory Ambulatory Ambulatory Transfer Assistance None None Patient Identification Verified (Name & Yes Yes Yes ) Patient Requires Transmission-Based No No Precautions Vital Signs Temperature (97.8 F-99.1 F) 97 F L 97.8 F Temperature Source Temporal Temporal Pulse Rate (60-100) 94 109 H 94 Pulse Location Monitor Monitor Apical Respiratory Rate (12-18) 18 18 20 H Respiratory rate source Observation Observation Observation Oxygen Delivery Method Room Air Blood Pressure (90/60-120/80) 160/100 H 165/109 H 188/108 H Blood Pressure Mean (mm Hg) 120 127 134 Source Monitor Monitor Monitor Position Sitting Semi-Fowlers Blood Pressure Location Right Arm Left Forearm History Since Last Visit- (Skip if this is Patient's initial visit) Have you changed medications since your No No last visit? Any new allergies or adverse reactions No No Had a fall/change in ADL's that may No No increase risk of falls Signs or symptoms of abuse and/or No No neglect since last visit Have you been in the hospital since your No No last visit? Has dressing in place as prescribed Yes Yes Has compression in place as prescribed Yes Yes Has offloadiing in place as prescribed N/A N/A Experienced any changes in pain level or No No management Left Footwear Regular Shoe Right Footwear Regular Shoe Pain Scale: 0-10 Numeric Is Patient Pain Free? 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 ) Arrival Mode Ambulatory Transfer Assistance None Patient Identification Verified (Name & Yes ) Patient Requires Transmission-Based No Precautions Vital Signs Temperature (97.8 F-99.1 F) 96.2 F L Temperature Source Temporal Pulse Rate (60-100) 85 Pulse Location Monitor Respiratory Rate (12-18) 18 Respiratory rate source Observation Oxygen Delivery Method Blood Pressure (90/60-120/80) 180/100 H Blood Pressure Mean (mm Hg) 126 Source Monitor Position Sitting Blood Pressure Location Right Arm History Since Last Visit- (Skip if this is Patient's initial visit) Have you changed medications since your No last visit? Any new allergies or adverse reactions No Had a fall/change in ADL's that may No increase risk of falls Signs or symptoms of abuse and/or No neglect since last visit Have you been in the hospital since your No last visit? Has dressing in place as prescribed Yes Has compression in place as prescribed Yes Has offloadiing in place as prescribed N/A Experienced any changes in pain level or No management Left Footwear Right Footwear Pain Scale: 0-10 Numeric Is Patient Pain Free? Yes WC - Nurse 1 - General Ulcer Measurement Start: 06/11/24 12:32 Freq: Status: Active Protocol: Activity Type Activity Date Activity User E-sign Co-sign Detail Recorded Client Recorded Date Recorded By Document 06/11/24 12:32 RB [id number] 06/11/24 13:00 RB Document 06/18/24 12:37 KW [id number] 06/18/24 12:49 KW Document 06/25/24 12:18 DL [id number] 06/25/24 12:46 DL Document 07/02/24 12:30 RB [id number] 07/02/24 12:31 RB 06/11/24 06/18/24 06/25/24 12:32 12:37 12:18 Wound Center Nurse 1 #3 Right Walsh Cluster -Current Size (cm) - Length 0.1 -Current Size (cm) - Width 0.1 -Current Size (cm) - Depth 0 -Total Square Cm 0.01 -Date of Last Picture (Recall this 06/18/24 field) -Epithelialization Large 67-100% -Exudate Amt None Present -Texture (Lety-wound Skin Appearance) Assessed -Moisture (Lety-wound Skin Appearance) Assessed -Color (Lety-wound Skin Appearance) Assessed -Temperature (Lety-wound Skin No Abnormality Appearance) (Pt Warm) -Tenderness on Palpation (Lety-wound No Skin Appearance) -Ulcer Cleansing Soap and Water -Foul Odor after Cleansing No -Anesthetic Used 4% Lidocaine Solution #2 Left Walsh Cluster -Combined with other wound -Current Size (cm) - Length 0.1 -Current Size (cm) - Width 0.1 -Current Size (cm) - Depth 0 -Total Square Cm 0.01 -Date of Last Picture (Recall this 06/18/24 field) -Photo Taken -Epithelialization Large 67-100% -Tunneling -Undermining/Tunneling -Circular Undermining -Exudate Amt None Present None Present -Exudate Type -Wound Margin Distinct, Outline Attached -Granulation Amt None Present (0 %) -Granulation Quality -Slough/Fibrin -Necrosis Amt Small (1-33%) -Necrotic Tissue Type Eschar -Structure Exposed N/A -Texture (Lety-wound Skin Appearance) Assessed Scarring -Moisture (Lety-wound Skin Appearance) Assessed No Abnormality, Dry/Scaly -Color (Lety-wound Skin Appearance) Assessed No Abnormality -Temperature (Lety-wound Skin No Abnormality No Abnormality Appearance) (Pt Warm) (Pt Warm) -Tenderness on Palpation (Lety-wound No No Skin Appearance) -Ulcer Cleansing Soap and Water Soap and Water -Foul Odor after Cleansing No No -Anesthetic Used 4% Lidocaine Solution Lower Limb Edema Present Yes Right Calf (cm) 61 54.5 61 Right Ankle (cm) 30.5 33 35 Left Calf (cm) 65 61.5 66 Left Ankle (cm) 33.2 33 37.5 07/02/24 12:30 Wound Center Nurse 1 #3 Right Walsh Cluster -Current Size (cm) - Length -Current Size (cm) - Width -Current Size (cm) - Depth -Total Square Cm -Date of Last Picture (Recall this field) -Epithelialization -Exudate Amt -Texture (Lety-wound Skin Appearance) -Moisture (Lety-wound Skin Appearance) -Color (Lety-wound Skin Appearance) -Temperature (Lety-wound Skin Appearance) -Tenderness on Palpation (Lety-wound Skin Appearance) -Ulcer Cleansing -Foul Odor after Cleansing -Anesthetic Used #2 Left Walsh Cluster -Combined with other wound No -Current Size (cm) - Length 0.1 -Current Size (cm) - Width 0.1 -Current Size (cm) - Depth 0.1 -Total Square Cm 0.01 -Date of Last Picture (Recall this field) -Photo Taken Yes -Epithelialization -Tunneling No -Undermining/Tunneling No -Circular Undermining No -Exudate Amt Medium -Exudate Type Serosanguineous -Wound Margin Distinct, Outline Attached -Granulation Amt Medium (34-66%) -Granulation Quality [place] -Slough/Fibrin Yes -Necrosis Amt Medium (34-66%) -Necrotic Tissue Type Adherent Slough -Structure Exposed N/A -Texture (Lety-wound Skin Appearance) Assessed -Moisture (Lety-wound Skin Appearance) Dry/Scaly -Color (Lety-wound Skin Appearance) Assessed -Temperature (Lety-wound Skin No Abnormality Appearance) (Pt Warm) -Tenderness on Palpation (Lety-wound No Skin Appearance) -Ulcer Cleansing Wound Cleanser -Foul Odor after Cleansing No -Anesthetic Used 5% Lidocaine Gel Lower Limb Edema Present Yes Right Calf (cm) 57.5 Right Ankle (cm) 36.3 Left Calf (cm) 65.5 Left Ankle (cm) 37.2 WC - Nurse 2 - General Ulcer CM Notes Start: 06/11/24 12:32 Freq: Status: Active Protocol: Activity Type Activity Date Activity User E-sign Co-sign Detail Recorded Client Recorded Date Recorded By Document 06/18/24 13:16 [facility] [id number] 06/18/24 13:22 [facility] Document 07/02/24 12:54 [id number] 07/02/24 12:55 06/18/24 07/02/24 13:16 12:54 Wound Center Nurse 2 #3 Right Walsh Cluster -Time 13:17 -Post Debridement (cm) - Length 0 -Post Debridement (cm) - Width 0 -Post Debridement (cm) - Depth 0 -Total Square (Post) (cm) 0 -Area of Debridement (cm) - Length 0 -Area of Debridement (cm) - Width 0 -Total Square (Area) (cm) 0 -Wound/Ulcer Outcome Healed- Epithelialized #2 Left Walsh Cluster -Time 13:17 12:55 -Correct Patient Yes Yes -Correct Side, Site, Position Yes Yes -Correct Procedure Yes Yes -Procedure Performed Yes Yes -Type of Procedure Debridement Debridement -Clinical Debridement Subcutaneous Subcutaneous -Tissue Removed Subcutaneous Subcutaneous -Post Debridement (cm) - Length 0.7 0.3 -Post Debridement (cm) - Width 0.7 0.2 -Post Debridement (cm) - Depth 0.1 0.1 -Total Square (Post) (cm) 0.49 0.06 -Area of Debridement (cm) - Length 0.7 0.3 -Area of Debridement (cm) - Width 0.7 0.2 -Total Square (Area) (cm) 0.49 0.06 -Tunneling No No -Undermining/Tunneling No No -Circular Undermining No No -Wound/Ulcer Outcome Not Healed Not Healed -Ulcer Cleansing Rinsed/ Rinsed/ Irrigated with Irrigated with Saline Saline -Foul Odor after Cleansing No No -Bioengineered Tissue No No -Bleeding Controlled with Pressure Pressure -Treatment Response Procedure Procedure Tolerated Well Tolerated Well -Offloading No -Debridement - Subq, 1st 20sq cm Yes Yes Pain Scale: 0-10 Numeric Is Patient Pain Free? Yes Yes WC - Nurse 3 - General Ulcer D/C NN Start: 06/11/24 12:32 Freq: Status: Active Protocol: Activity Type Activity Date Activity User E-sign Co-sign Detail Recorded Client Recorded Date Recorded By Document 06/11/24 13:00 RB [id number] 06/11/24 13:01 RB Document 06/18/24 13:49 DS [id number] 06/18/24 13:49 DS Document 06/25/24 12:18 DL [id number] 06/25/24 12:46 DL 06/11/24 06/18/24 06/25/24 13:00 13:49 12:18 Wound Care Center Nurse 3 #3 Right Walsh Cluster -Ulcer Cleansing Wound Cleanser -Primary Dressing Applied Silvercel -Other Dressing ABD -Primary Dressing Covered/Secured with Dry Gauze & Roll Gauze -Silvercel 1 #2 Left Walsh Cluster -Ulcer Cleansing Soap and Water -Foul Odor after Cleansing No -Primary Dressing Applied Aquacel AG 2x2 Silvercel -Other Dressing sivercel/ABD abd -Primary Dressing Covered/Secured with Dry Gauze & Secured with Dry Gauze Roll Gauze Tape -Aquacel AG 2x2 1 -Silvercel 1 Lety-Wound Care Lotion Left -Multi-Layered Wrap Application Multi-Layer Comp - Left ($) Bilateral Lower leg -Multi-Layered Wrap Application Multi-Layer Multi-Layer Multi-Layer Comp - Bilat ($ Comp - Bilat ($ Comp - Bilat ($ ) ) ) Treatment Response Procedure Tolerated Well Vital Signs Temperature (97.8 F-99.1 F) 97.8 F Temperature Source Temporal Pulse Rate (60-100) 94 Pulse Location Apical Respiratory Rate (12-18) 20 H Respiratory rate source Observation Blood Pressure (90/60-120/80) 188/108 H Blood Pressure Mean (mm Hg) 134 Source Monitor Pain Scale: 0-10 Numeric Is Patient Pain Free? Yes Yes Yes WC - Visit Discharge Discharge Condition Stable Stable Stable Ambulatory Status Ambulatory Ambulatory Ambulatory Transportation Private Auto Private Auto Private Auto Medication Reconcilliation completed & No provided to patient/care provider Clinical Summary of Care Provided Yes Notes: Used 3 3M wraps today due to size of legs . Assessment/Plan Assessment/Plan (1) Non-pressure chronic ulcer of other part of left lower leg with fat layer exposed: CODE(S): L97.822 - Non-pressure chronic ulcer of other 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 All findings were discussed with the patient. All questions were answered to the patient's satisfaction. Excisional debridement down to and including subcutaneous tissue with a number 5 mm dermal curette to the left walsh full-thickness wound without incident. Predebridement measurement is callus postdebridement measurement is 0.3 x 0.2 x 0.1 cm. Left lower extremities are clean and patted dry. Betadine paint followed by dry sterile dressing and 3M multilayer compression wrap was donned to the bilateral lower extremity. Will begin authorization for a CircAid to the left lower extremity. Did educate patient that he will need to either purchase or procure a compression stocking/wrap to the right lower extremity. The patient will follow-up for nursing visits weekly Follow-up at the wound care center with Dr. Sommer in 2 week.
--- NOTE | 2024-07-03 09:37 | WC ---
PHOTO 07/02/24 LEFT MEDINA
== END 2024-07-04 23:59 | disposition home or self-care (01) ==
LOC: WC 12:45
PROVIDERS: Visit Provider Podiatrist Foot & Ankle Surgery
DX: L97.822 Non-pressure chronic ulcer of other part of left lower leg with fat layer exposed (principal); M79.89 Other specified soft tissue disorders; R60.0 Localized edema; Z79.899 Other long term (current) drug therapy
CPT/HCPCS: 11042; 29581; 99213; G0463

== ENCOUNTER 2024-07-30 10:30 | Outpatient (RCR) | payer MEDICAID, SELFPAY ==
[2024-07-05 01:01] VITALS: BP 180/100; PULSE 85; RESP 18; TEMP 35.7
[2024-07-16 10:08] VITALS: BP 157/85; PULSE 111; RESP 22; TEMP 36.1
[2024-07-23 09:50] VITALS: BP 165/105; PULSE 87; RESP 18; TEMP 36.6
--- NOTE | 2024-07-23 11:29 | PCM.WC.PN ---
History of Present Illness Date of Service: 07/23/24 Chief Complaint: Bilateral leg swelling and ulceration. History of Wound: Bilateral leg swelling and ulceration chronic Subjective Subjective Mr. Saini is a 44-year-old male presenting the wound care center today for follow-up evaluation of bilateral edema and full-thickness wound to the right lower extremity. Patient has been compliant with his multilayer compression bandage to left lower extremity. He was wearing his CircAid on the right which should be for the left leg. Patient states that he has some breakdown of skin and new wounds that needs to be treated today. Patient has not found a place to live and is still residing in his sister's house but will most likely be released in the next 30 days or sooner. He denies trauma. Denies constitutional symptoms. No other pedal complaints at this time. Objective Data Objective Data Vital Signs: Vital Signs Temp Pulse Resp BP O2 Del Method 98 F 87 18 165/105 H Room Air 07/23/24 09:50 07/23/24 09:50 07/23/24 09:50 07/23/24 09:50 07/23/24 09:50 Oxygen Delivery Method Room Air Physical Exam Narrative Vascular: DP and PT pulses are faintly palpable due to edema. CFT is brisk. +1 pitting edema appreciated bilateral lower extremity. Skin temperature gradient is warm to warm from proximal ankles to distal digits bilateral. No erythema is appreciated. Neurological: Light touch intact. Patient does respond to painful stimuli. Dermatological: Full-thickness ulceration cluster to the right leg measuring 3.0 x 2.8 x 0.1 cm wound is fibrogranular nature to bilateral lower extremity. No drainage appreciated. No malodor or probe to bone. No sign of infection. Excisional debridement down to and including subcutaneous tissue with a number 5 mm dermal curette to the left walsh full-thickness wound without incident. Predebridement measurement is 1.5 x 1.0 x 0.1 cm. Postdebridement measurement is 3.0 x 2.8 x 0.1 cm. Musculoskeletal: Muscle strength is 5 out of 5 in all quadrants bilateral. Mild to moderate palpatory tenderness appreciated bilateral lower extremity full-thickness wound. No pain with calf pressure. Debridement Note Debridement Note Debridement Free Text: Excisional debridement down to and including subcutaneous tissue with a number 5 mm dermal curette to the left walsh full-thickness wound without incident. Predebridement measurement is 1.5 x 1.0 x 0.1 cm. Postdebridement measurement is 3.0 x 2.8 x 0.1 cm. Post-Debridement Measurements and Additional Note: Post-Debridement Measurements/Treatment WC - Nurse 1 - General Ulcer Assessment Start: 07/09/24 12:11 Freq: Status: Active Protocol: DAVID Activity Type Activity Date Activity User E-sign Co-sign Detail Recorded Client Recorded Date Recorded By Document 07/16/24 10:08 DL [id number] 07/16/24 10:13 DL Document 07/23/24 09:50 CP [id number] 07/23/24 10:04 CP 07/16/24 07/23/24 10:08 09:50 WC - Today's Visit Information Type of service Nurse-only Follow-up Visit Visit (Physician/TANNING [employer]UTION [employer]KER ) Arrival Mode Ambulatory Ambulatory Transfer Assistance None Patient Identification Verified (Name & Yes Yes ) Patient Requires Transmission-Based No No Precautions Vital Signs Temperature (97.8 F-99.1 F) 97 F L 98 F Temperature Source Temporal Temporal Pulse Rate (60-100) 111 H 87 Pulse Location Monitor Monitor Respiratory Rate (12-18) 22 H 18 Respiratory rate source Observation Observation Oxygen Delivery Method Room Air Blood Pressure (90/60-120/80) 157/85 H 165/105 H Blood Pressure Mean (mm Hg) 109 125 Source Monitor Monitor Position Sitting Blood Pressure Location Right Forearm History Since Last Visit- (Skip if this is Patient's initial visit) Have you changed medications since your No No last visit? Any new allergies or adverse reactions No No Had a fall/change in ADL's that may No No increase risk of falls Signs or symptoms of abuse and/or No No neglect since last visit Have you been in the hospital since your No No last visit? Has dressing in place as prescribed No Yes Has compression in place as prescribed Yes Yes Has offloadiing in place as prescribed N/A N/A Experienced any changes in pain level or No No management Pain Scale: 0-10 Numeric Is Patient Pain Free? Yes Yes [email or web address] - Nurse 1 - General Ulcer Measurement Start: 07/09/24 12:11 Freq: Status: Active Protocol: Activity Type Activity Date Activity User E-sign Co-sign Detail Recorded Client Recorded Date Recorded By Document 07/16/24 10:08 DL [id number] 07/16/24 10:13 DL Document 07/23/24 09:50 CP [id number] 07/23/24 10:04 CP 07/16/24 07/23/24 10:08 09:50 Wound Center Nurse 1 #2 Left Walsh Cluster -Current Size (cm) - Length 0 0 -Current Size (cm) - Width 0 0 -Current Size (cm) - Depth 0 0 -Total Square Cm 0 0 -Epithelialization Large 67-100% -Exudate Amt None Present -Wound Margin Flat & Intact -Granulation Amt None Present (0 %) -Necrosis Amt None Present (0 %) -Texture (Lety-wound Skin Appearance) Scarring No Abnormality -Moisture (Lety-wound Skin Appearance) Dry/Scaly No Abnormality -Color (Lety-wound Skin Appearance) No Abnormality No Abnormality -Temperature (Lety-wound Skin No Abnormality Appearance) (Pt Warm) -Tenderness on Palpation (Lety-wound No Skin Appearance) -Ulcer Cleansing Soap and Water Soap and Water -Foul Odor after Cleansing No Right Calf (cm) 54 Right Ankle (cm) 38 Left Calf (cm) 59 Left Ankle (cm) 37.5 WC - Nurse 2 - General Ulcer CM Notes Start: 07/09/24 12:11 Freq: Status: Active Protocol: Activity Type Activity Date Activity User E-sign Co-sign Detail Recorded Client Recorded Date Recorded By Document 07/23/24 10:18 [id number] 07/23/24 10:22 07/23/24 10:18 Wound Center Nurse 2 #3 Right Walsh Cluster -Time 10:20 -Correct Patient Yes -Correct Side, Site, Position Yes -Correct Procedure Yes -Procedure Performed Yes -Type of Procedure Debridement -Clinical Debridement Subcutaneous -Tissue Removed Subcutaneous -Post Debridement (cm) - Length 3.0 -Post Debridement (cm) - Width 2.8 -Post Debridement (cm) - Depth 0.1 -Total Square (Post) (cm) 8.40 -Area of Debridement (cm) - Length 3.0 -Area of Debridement (cm) - Width 2.8 -Total Square (Area) (cm) 8.40 -Tunneling No -Undermining/Tunneling No -Circular Undermining No -Wound/Ulcer Outcome Not Healed -Ulcer Cleansing Rinsed/ Irrigated with Saline -Foul Odor after Cleansing No -Bioengineered Tissue No -Bleeding Controlled with Pressure -Treatment Response Procedure Tolerated Well -Offloading No -Debridement - Subq, 1st 20sq cm Yes Pain Scale: 0-10 Numeric Is Patient Pain Free? Yes - Nurse 3 - General Ulcer D/C NN Start: 07/09/24 12:11 Freq: Status: Active Protocol: Activity Type Activity Date Activity User E-sign Co-sign Detail Recorded Client Recorded Date Recorded By Document 07/09/24 12:11 ML [id number] 07/09/24 12:12 ML Edit Result 07/09/24 12:11 ML (1) [id number] 07/15/24 10:37 ML Document 07/16/24 10:08 DL [id number] 07/16/24 10:13 DL Document 07/23/24 10:39 GM [id number] 07/23/24 10:40 GM (1) LEFT LEG - Multi-Layer Compression Left (Qty 2 => 1 applied) 07/09/24 07/16/24 07/23/24 12:11 10:08 10:39 Wound Care Center Nurse 3 #2 Left Walsh Cluster -Ulcer Cleansing Soap and Water -Foul Odor after Cleansing No -Other Dressing betadine betadine #3 Right Walsh Cluster -Ulcer Cleansing Not Cleansed -Foul Odor after Cleansing No -Primary Dressing Applied Aquacel AG 4x4, Optilok 8x12 -Primary Dressing Covered/Secured with Dry Gauze & Roll Gauze, Secured with Tape -Aquacel AG 4x4 1 -Optilok 8x12 1 RLE -Lotion applied to leg before No compression wrap -Multi-Layered Wrap Application Multi-Layer Comp - Right ($ ) -Multi-Layer Compression Right (Qty 1 applied) LEFT LEG -Lotion applied to leg before No compression wrap -Multi-Layered Wrap Application Multi-Layer Comp - Left ($) -Compression Wrap Nilesh Wrap -Stockings Yes -Multi-Layer Compression Left (Qty 1 1 applied) Treatment Response Procedure Tolerated Well Pain Scale: 0-10 Numeric Is Patient Pain Free? Yes Yes Yes - Visit Discharge Discharge Condition Stable Stable Ambulatory Status Ambulatory Ambulatory Transportation [facility] Trans Private Auto Notes: Applied 3M to LLE only today, pt has obtained CircAid for RLE . Pt Did not wear CircAid this morning, instructed to apply this as soon has he gets home. Pt confused on when he was supposed to wear them, was educated on when to apply his CircAid. Waiting on another pair for LLE. Assessment/Plan Assessment/Plan (1) Non-pressure chronic ulcer of other part of right lower leg with fat layer exposed: CODE(S): L97.812 - Non-pressure chronic ulcer of other part of right lower leg with fat layer exposed PLAN: Patient was examined and evaluated. All findings were discussed with the patient. All questions were answered to the patient's satisfaction. Excisional debridement down to and including subcutaneous tissue with a number 5 mm dermal curette to the left walsh full-thickness wound without incident. Predebridement measurement is 1.5 x 1.0 x 0.1 cm. Postdebridement measurement is 3.0 x 2.8 x 0.1 cm. Right lower extremities are clean and patted dry. The patient ulceration were dressed with Aquacel Ag, superabsorber and a 3M multilayer compression bandage donned to right lower extremity. CircAid was donned to left lower extremity. Will begin authorization to the patient insurance for a new CircAid to the right lower extremity. Follow-up at the wound care center with Dr. Sommer in 1 week.
--- NOTE | 2024-07-24 08:43 | WC ---
PHOTO 07/23/24 RIGHT LEG
--- NOTE | 2024-07-24 08:45 | WC ---
PHOTO 07/23/24 LEFT LEG
[2024-07-30 10:22] VITALS: BP 180/96; PULSE 92; RESP 18; TEMP 36.2
--- NOTE | 2024-07-30 14:10 | PCM.WC.PN ---
History of Present Illness Date of Service: 07/30/24 Chief Complaint: Bilateral leg swelling and ulceration. History of Wound: Bilateral leg swelling and ulceration chronic Progress of Wound: Bilateral leg swelling with full-thickness wound to the right leg stable no sign of infection. Subjective Subjective Mr. Saini is a 44-year-old male presented wound care center today for follow-up evaluation of bilateral leg swelling and full-thickness wound to the right leg. He has been compliant with his multilayer compression bandage to the left lower extremity. He is also been compliant with the 3M multilayer compression bandage to the right leg. Patient does not elevate is much as he should. He has not secured a dwelling when he leaves his sister's house in the next few weeks to few months. He denies trauma. Denies constitutional symptoms. No other pedal complaints at this time. Objective Data Objective Data Vital Signs: Vital Signs Temp Pulse Resp BP O2 Del Method 97.2 F L 92 18 180/96 H Room Air 07/30/24 10:22 07/30/24 10:22 07/30/24 10:22 07/30/24 10:22 07/30/24 10:22 Oxygen Delivery Method Room Air Physical Exam Narrative Vascular: DP and PT pulses are faintly palpable due to edema. CFT is brisk. +1 pitting edema appreciated bilateral lower extremity. Skin temperature gradient is warm to warm from proximal ankles to distal digits bilateral. No erythema is appreciated. Neurological: Light touch intact. Patient does respond to painful stimuli. Dermatological: Full-thickness ulceration cluster to the right leg measuring 6.0 x 2.0 x 0.1 cm. Wound base is granular in nature to the right lower extremity. No drainage appreciated. No malodor or probe to bone. No sign of infection. Excisional debridement down to and including subcutaneous tissue with a number 5 mm dermal curette to the left walsh full-thickness wound without incident. Predebridement measurement is 5.0 x 1.5 x 0.1 cm. Postdebridement measurement is 6.0 x 2.0 x 0.1 cm. Musculoskeletal: Muscle strength is 5 out of 5 in all quadrants bilateral. Mild to moderate palpatory tenderness appreciated bilateral lower extremity full-thickness wound. No pain with calf pressure. Debridement Note Debridement Note Debridement Free Text: Excisional debridement down to and including subcutaneous tissue with a number 5 mm dermal curette to the left walsh full-thickness wound without incident. Predebridement measurement is 5.0 x 1.5 x 0.1 cm. Postdebridement measurement is 6.0 x 2.0 x 0.1 cm. Post-Debridement Measurements and Additional Note: Post-Debridement Measurements/Treatment WC - Nurse 1 - General Ulcer Assessment Start: 07/09/24 12:11 Freq: Status: Active Protocol: DAVID Activity Type Activity Date Activity User E-sign Co-sign Detail Recorded Client Recorded Date Recorded By Document 07/16/24 10:08 DL [id number] 07/16/24 10:13 DL Document 07/23/24 09:50 CP [id number] 07/23/24 10:04 CP Document 07/30/24 10:22 KW [id number] 07/30/24 10:34 KW 07/16/24 07/23/24 07/30/24 10:08 09:50 10:22 WC - Today's Visit Information Type of service Nurse-only Follow-up Visit Follow-up Visit Visit (Physician/CABIN SERVICE AGENT (Physician/CABIN SERVICE AGENT ) ) Arrival Mode Ambulatory Ambulatory Ambulatory Transfer Assistance None Patient Identification Verified (Name & Yes Yes Yes ) Patient Requires Transmission-Based No No Precautions Vital Signs Temperature (97.8 F-99.1 F) 97 F L 98 F 97.2 F L Temperature Source Temporal Temporal Temporal Pulse Rate (60-100) 111 H 87 92 Pulse Location Monitor Monitor Monitor Respiratory Rate (12-18) 22 H 18 18 Respiratory rate source Observation Observation Observation Oxygen Delivery Method Room Air Room Air Blood Pressure (90/60-120/80) 157/85 H 165/105 H 180/96 H Blood Pressure Mean (mm Hg) 109 125 124 Source Monitor Monitor Monitor Position Sitting Semi-Fowlers Blood Pressure Location Right Forearm Right Forearm History Since Last Visit- (Skip if this is Patient's initial visit) Have you changed medications since your No No No last visit? Any new allergies or adverse reactions No No No Had a fall/change in ADL's that may No No No increase risk of falls Signs or symptoms of abuse and/or No No No neglect since last visit Have you been in the hospital since your No No No last visit? Has dressing in place as prescribed No Yes Yes Has compression in place as prescribed Yes Yes Yes Has offloadiing in place as prescribed N/A N/A N/A Experienced any changes in pain level or No No No management Left Footwear Regular Shoe Right Footwear Regular Shoe Pain Scale: 0-10 Numeric Is Patient Pain Free? Yes Yes Yes WC - Nurse 1 - General Ulcer Measurement Start: 07/09/24 12:11 Freq: Status: Active Protocol: Activity Type Activity Date Activity User E-sign Co-sign Detail Recorded Client Recorded Date Recorded By Document 07/16/24 10:08 DL [id number] 07/16/24 10:13 DL Document 07/23/24 09:50 CP [id number] 07/23/24 10:04 CP Document 07/30/24 10:22 KW [id number] 07/30/24 10:34 KW 07/16/24 07/23/24 07/30/24 10:08 09:50 10:22 Wound Center Nurse 1 #2 Left Walsh Cluster -Current Size (cm) - Length 0 0 -Current Size (cm) - Width 0 0 -Current Size (cm) - Depth 0 0 -Total Square Cm 0 0 -Epithelialization Large 67-100% -Exudate Amt None Present -Wound Margin Flat & Intact -Granulation Amt None Present (0 %) -Necrosis Amt None Present (0 %) -Texture (Lety-wound Skin Appearance) Scarring No Abnormality -Moisture (Lety-wound Skin Appearance) Dry/Scaly No Abnormality -Color (Lety-wound Skin Appearance) No Abnormality No Abnormality -Temperature (Lety-wound Skin No Abnormality Appearance) (Pt Warm) -Tenderness on Palpation (Lety-wound No Skin Appearance) -Ulcer Cleansing Soap and Water Soap and Water -Foul Odor after Cleansing No #3 Right Walsh Cluster -Current Size (cm) - Length 0.1 -Current Size (cm) - Width 0.1 -Current Size (cm) - Depth 0.1 -Total Square Cm 0.01 -Date of Last Picture (Recall this 07/30/24 field) -Exudate Amt Medium -Exudate Type Serosanguineous -Wound Margin Distinct, Outline Attached -Granulation Amt Large (67-100%) -Granulation Quality [place],Red -Necrosis Amt Small (1-33%) -Necrotic Tissue Type Adherent Slough -Texture (Lety-wound Skin Appearance) Assessed -Moisture (Lety-wound Skin Appearance) Assessed, Maceration -Color (Lety-wound Skin Appearance) Assessed, Erythema -Temperature (Lety-wound Skin No Abnormality Appearance) (Pt Warm) -Tenderness on Palpation (Lety-wound No Skin Appearance) -Ulcer Cleansing Soap and Water -Foul Odor after Cleansing No -Anesthetic Used 5% Lidocaine Gel -Wound Comment(s) not measured during nurse 1 Right Calf (cm) 54 58.5 Right Ankle (cm) 38 36 Left Calf (cm) 59 63 Left Ankle (cm) 37.5 41 - Nurse 2 - General Ulcer CM Notes Start: 07/09/24 12:11 Freq: Status: Active Protocol: Activity Type Activity Date Activity User E-sign Co-sign Detail Recorded Client Recorded Date Recorded By Document 07/23/24 10:18 [id number] 07/23/24 10:22 Document 07/30/24 10:56 [id number] 07/30/24 10:58 07/23/24 07/30/24 10:18 10:56 Wound Center Nurse 2 #3 Right Walsh Cluster -Time 10:20 -Correct Patient Yes Yes -Correct Side, Site, Position Yes Yes -Correct Procedure Yes Yes -Procedure Performed Yes Yes -Type of Procedure Debridement Debridement -Clinical Debridement Subcutaneous Subcutaneous -Tissue Removed Subcutaneous Subcutaneous -Post Debridement (cm) - Length 3.0 6 -Post Debridement (cm) - Width 2.8 2 -Post Debridement (cm) - Depth 0.1 0.1 -Total Square (Post) (cm) 8.40 12 -Area of Debridement (cm) - Length 3.0 6.0 -Area of Debridement (cm) - Width 2.8 2 -Total Square (Area) (cm) 8.40 12.0 -Tunneling No No -Undermining/Tunneling No No -Circular Undermining No No -Wound/Ulcer Outcome Not Healed Not Healed -Ulcer Cleansing Rinsed/ Rinsed/ Irrigated with Irrigated with Saline Saline -Foul Odor after Cleansing No No -Bioengineered Tissue No No -Bleeding Controlled with Pressure Pressure -Treatment Response Procedure Procedure Tolerated Well Tolerated Well -Offloading No No -Debridement - Subq, 1st 20sq cm Yes Yes Pain Scale: 0-10 Numeric Is Patient Pain Free? Yes Yes - Nurse 3 - General Ulcer D/C NN Start: 07/09/24 12:11 Freq: Status: Active Protocol: Activity Type Activity Date Activity User E-sign Co-sign Detail Recorded Client Recorded Date Recorded By Document 07/09/24 12:11 ML [id number] 07/09/24 12:12 ML Edit Result 07/09/24 12:11 ML (1) [id number] 07/15/24 10:37 ML Document 07/16/24 10:08 DL [id number] 07/16/24 10:13 DL Document 07/23/24 10:39 GM [id number] 07/23/24 10:40 GM Document 07/30/24 11:53 JF [id number] 07/30/24 11:54 JF (1) LEFT LEG - Multi-Layer Compression Left (Qty 2 => 1 applied) 07/09/24 07/16/24 07/23/24 12:11 10:08 10:39 Wound Care Center Nurse 3 #2 Left Walsh Cluster -Ulcer Cleansing Soap and Water -Foul Odor after Cleansing No -Other Dressing betadine betadine #3 Right Walsh Cluster -Ulcer Cleansing Not Cleansed -Foul Odor after Cleansing No -Primary Dressing Applied Aquacel AG 4x4, Optilok 8x12 -Other Dressing -Primary Dressing Covered/Secured with Dry Gauze & Roll Gauze, Secured with Tape -Aquacel AG 4x4 1 -Optilok 8x12 1 RLE -Lotion applied to leg before No compression wrap -Multi-Layered Wrap Application Multi-Layer Comp - Right ($ ) -Multi-Layer Compression Right (Qty 1 applied) LEFT LEG -Lotion applied to leg before No compression wrap -Multi-Layered Wrap Application Multi-Layer Comp - Left ($) -Compression Wrap Nilesh Wrap -Stockings Yes -Multi-Layer Compression Left (Qty 1 1 applied) Treatment Response Procedure Tolerated Well Pain Scale: 0-10 Numeric Is Patient Pain Free? Yes Yes Yes WC - Visit Discharge Discharge Condition Stable Stable Ambulatory Status Ambulatory Ambulatory Transportation [facility] Auto Medication Reconcilliation completed & provided to patient/care provider Clinical Summary of Care Provided Notes: Applied 3M to LLE only today, pt has obtained CircAid for RLE . Pt Did not wear CircAid this morning, instructed to apply this as soon has he gets home. Pt confused on when he was supposed to wear them, was educated on when to apply his CircAid. Waiting on another pair for LLE. 07/30/24 11:53 Wound Care Center Nurse 3 #2 Left Walsh Cluster -Ulcer Cleansing -Foul Odor after Cleansing -Other Dressing #3 Right Walsh Cluster -Ulcer Cleansing Rinsed/ Irrigated with Saline -Foul Odor after Cleansing No -Primary Dressing Applied -Other Dressing bacitracin -Primary Dressing Covered/Secured with -Aquacel AG 4x4 -Optilok 8x12 RLE -Lotion applied to leg before compression wrap -Multi-Layered Wrap Application Multi-Layer Comp - Right ($ ) -Multi-Layer Compression Right (Qty 2 applied) LEFT LEG -Lotion applied to leg before compression wrap -Multi-Layered Wrap Application Multi-Layer Comp - Left ($) -Compression Wrap -Stockings -Multi-Layer Compression Left (Qty 1 applied) Treatment Response Pain Scale: 0-10 Numeric Is Patient Pain Free? Yes WC - Visit Discharge Discharge Condition Stable Ambulatory Status Ambulatory Transportation Private Auto Medication Reconcilliation completed & Yes provided to patient/care provider Clinical Summary of Care Provided Yes Notes: Assessment/Plan Assessment/Plan (1) Non-pressure chronic ulcer of other part of right lower leg with fat layer exposed: CODE(S): L97.812 - Non-pressure chronic ulcer of other part of right lower leg with fat layer exposed PLAN: Patient was examined and evaluated. All findings were discussed with the patient. All questions were answered to the patient's satisfaction. Excisional debridement down to and including subcutaneous tissue with a number 5 mm dermal curette to the left walsh full-thickness wound without incident. Predebridement measurement is 5.0 x 1.5 x 0.1 cm. Postdebridement measurement is 6.0 x 2.0 x 0.1 cm. The right lower extremities are clean and patted dry. Triple antibiotic was applied to the full-thickness wound followed by dry sterile dressing and 3M compression wrap to right lower extremity. Left lower extremity was dressed with 3M multilayer compression wrap. He is leaving clean dry and intact. Follow-up at the wound care center with Dr. Sommer in 1 week. (2) Other specified peripheral vascular diseases: CODE(S): I73.89 - Other specified peripheral vascular diseases
--- NOTE | 2024-07-30 15:15 | WC ---
PHOTO 07/30/24 GLENYS ALATORRE
[2024-07-30 19:10] LABS: Anion Gap 11 (5-15); BUN 16 mg/dL (4-19); BUN/Creat Ratio 17.6 RATIO (10-20); Calcium,Total 8.2 mg/dL (7.6-11.0); Carbon Dioxide 27.7 mmol/L (21.0-32.0); Chloride 103 mmol/L (98-108); Creatinine, Serum 0.89 mg/dL (0.70-1.20); EST Glomerular Filtration Rate 110 (>60); Glucose 136 mg/dL (70-99); Potassium 3.9 mmol/L (3.3-5.1); Sodium Level 142 mmol/L (133-145)
== END 2024-08-04 23:59 | disposition home or self-care (01) ==
LOC: WC 10:30
PROVIDERS: Visit Provider Podiatrist Foot & Ankle Surgery
DX: I73.89 Other specified peripheral vascular diseases (principal); L97.812 Non-pressure chronic ulcer of other part of right lower leg with fat layer exposed; M79.89 Other specified soft tissue disorders; R60.0 Localized edema
CPT/HCPCS: 11042; 29581; 36415; 80048

== ENCOUNTER 2024-09-03 10:00 | Outpatient (RCR) | payer MEDICAID, SELFPAY ==
[2024-08-05 00:43] VITALS: BP 180/96; PULSE 92; RESP 18; TEMP 36.2
[2024-08-06 09:55] VITALS: BP 187/119; PULSE 85; RESP 18; TEMP 36.1
--- NOTE | 2024-08-06 11:44 | PN.PCM_ITS ---
History of Present Illness Date of Service: 08/06/24 Chief Complaint: Bilateral leg swelling and ulceration. History of Wound: Bilateral leg swelling and ulceration chronic Progress of Wound: Bilateral swelling and chronic ulceration stable with no sign of infection. Subjective Subjective Mr. Saini is a 44-year-old male presented wound care center today for follow-up evaluation of full-thickness wound and bilateral leg swelling. Patient is left his multilayer compression bandages clean dry and intact. He did get his other CircAid. Patient is not diabetic and has not followed up with primary doctor at this time. Denies trauma. Denies constitutional symptoms. No other pedal complaints at this time. Objective Data Objective Data Vital Signs: Vital Signs Temp Pulse Resp BP O2 Del Method 97.0 F L 85 18 187/119 H Room Air 08/06/24 09:55 08/06/24 09:55 08/06/24 09:55 08/06/24 09:55 08/06/24 09:55 Oxygen Delivery Method Room Air Physical Exam Narrative Vascular: DP and PT pulses are faintly palpable due to edema. CFT is brisk. +1 pitting edema appreciated bilateral lower extremity. Skin temperature gradient is warm to warm from proximal ankles to distal digits bilateral. No erythema is appreciated. Neurological: Light touch intact. Patient does respond to painful stimuli. Dermatological: Full-thickness ulceration cluster to the right leg measuring 5.0 x 4.5 x 0.1 cm. Wound base is granular with no drainage or sign of infection. Full-thickness wound to the left lateral leg measuring 1.5 x 0.2 x 0.1 cm. Wound base is granular. No sign of infection. Excisional debridement down to and including subcutaneous tissue with a number 5 mm dermal curette to the right leg full-thickness wound without incident. Predebridement measurement is 4.5 x 4.0 x 0.1 cm. Postdebridement measurement is 5.0 x 4.5 x 0.1 cm. Excisional debridement down to and including subcutaneous tissue with a number 5 mm dermal curette to the left lateral leg full-thickness wound without incident. Predebridement measurement was 1.0 x 0.1 x 0.1 cm. Post right measurement was 1.5 x 0.2 x 0.1 cm. Musculoskeletal: Muscle strength is 5 out of 5 in all quadrants bilateral. Mild to moderate palpatory tenderness appreciated bilateral lower extremity full- thickness wound. No pain with calf pressure. Debridement Note Debridement Note Debridement Free Text: Excisional debridement down to and including subcutaneous tissue with a number 5 mm dermal curette to the right leg full-thickness wound without incident. Predebridement measurement is 4.5 x 4.0 x 0.1 cm. Postdebridement measurement is 5.0 x 4.5 x 0.1 cm. Excisional debridement down to and including subcutaneous tissue with a number 5 mm dermal curette to the left lateral leg full-thickness wound without incident. Predebridement measurement was 1.0 x 0.1 x 0.1 cm. Post right measurement was 1.5 x 0.2 x 0.1 cm. Post-Debridement Measurements and Additional Note: Post-Debridement Measurements/Treatment WC - Nurse 1 - General Ulcer Assessment Start: 08/06/24 09:55 Freq: Status: Active Protocol: WOLFGANG.LOWEXT Activity Type Activity Date Activity User E-sign Co-sign Detail Recorded Client Recorded Date Recorded By Document 08/06/24 09:55 [id number] 08/06/24 10:04 08/06/24 09:55 WC - Today's Visit Information Type of service Follow-up Visit (Physician/TOLL TICKET CLERK ) Arrival Mode Ambulatory Patient Identification Verified (Name & Yes ) Vital Signs Temperature (97.8 F-99.1 F) 97.0 F L Temperature Source Temporal Pulse Rate (60-100) 85 Pulse Location Monitor Respiratory Rate (12-18) 18 Respiratory rate source Observation Oxygen Delivery Method Room Air Blood Pressure (90/60-120/80) 187/119 H Blood Pressure Mean (mm Hg) 141 Source Monitor Position Semi-Fowlers Blood Pressure Location Left Arm History Since Last Visit- (Skip if this is Patient's initial visit) Have you changed medications since your No last visit? Any new allergies or adverse reactions No Had a fall/change in ADL's that may No increase risk of falls Signs or symptoms of abuse and/or No neglect since last visit Have you been in the hospital since your No last visit? Has dressing in place as prescribed Yes Has compression in place as prescribed Yes Has offloadiing in place as prescribed N/A Experienced any changes in pain level or No management Left Footwear Slipper Right Footwear Slipper Pain Scale: 0-10 Numeric Is Patient Pain Free? Yes - Nurse 1 - General Ulcer Measurement Start: 08/06/24 09:55 Freq: Status: Active Protocol: Activity Type Activity Date Activity User E-sign Co-sign Detail Recorded Client Recorded Date Recorded By Document 08/06/24 09:55 ESPERANZA [id number] 08/06/24 10:04 08/06/24 09:55 Wound Center Nurse 1 #3 Right [place] Cluster -Current Size (cm) - Length 0.1 -Current Size (cm) - Width 0.1 -Current Size (cm) - Depth 0 -Total Square Cm 0.01 -Date of Last Picture (Recall this 08/06/24 field) -Exudate Amt None Present -Wound Margin Distinct, Outline Attached -Texture (Lety-wound Skin Appearance) Assessed -Moisture (Lety-wound Skin Appearance) Assessed -Color (Lety-wound Skin Appearance) Assessed, Erythema -Temperature (Lety-wound Skin No Abnormality Appearance) (Pt Warm) -Tenderness on Palpation (Lety-wound No Skin Appearance) -Ulcer Cleansing Soap and Water -Anesthetic Used 5% Lidocaine Gel Right Calf (cm) 57.5 Right Ankle (cm) 36.5 Left Calf (cm) 63.5 Left Ankle (cm) 36 WC - Nurse 2 - General Ulcer CM Notes Start: 08/06/24 09:55 Freq: Status: Active Protocol: Activity Type Activity Date Activity User E-sign Co-sign Detail Recorded Client Recorded Date Recorded By Document 08/06/24 10:34 SHELLIE [id number] 08/06/24 10:37 SHELLIE 08/06/24 10:34 Wound Center Nurse 2 4-left leg cluster -Time 10:36 -Correct Patient Yes -Correct Side, Site, Position Yes -Correct Procedure Yes -Procedure Performed Yes -Type of Procedure Debridement -Clinical Debridement Subcutaneous -Tissue Removed Subcutaneous -Post Debridement (cm) - Length 1.5 -Post Debridement (cm) - Width 0.2 -Post Debridement (cm) - Depth 0.1 -Total Square (Post) (cm) 0.30 -Area of Debridement (cm) - Length 1.5 -Area of Debridement (cm) - Width 0.2 -Total Square (Area) (cm) 0.30 -Tunneling No -Undermining/Tunneling No -Circular Undermining No -Wound/Ulcer Outcome Not Healed -Ulcer Cleansing Rinsed/ Irrigated with Saline -Foul Odor after Cleansing No -Bioengineered Tissue No -Bleeding Controlled with Pressure -Treatment Response Procedure Tolerated Well -Offloading No -Debridement - Subq, 1st 20sq cm No #3 Right [place] Cluster -Time 10:34 -Correct Patient Yes -Correct Side, Site, Position Yes -Correct Procedure Yes -Procedure Performed Yes -Type of Procedure Debridement -Clinical Debridement Subcutaneous -Tissue Removed Subcutaneous -Post Debridement (cm) - Length 5.0 -Post Debridement (cm) - Width 4.5 -Post Debridement (cm) - Depth 0.1 -Total Square (Post) (cm) 22.50 -Area of Debridement (cm) - Length 5 -Area of Debridement (cm) - Width 4.5 -Total Square (Area) (cm) 22.5 -Tunneling No -Undermining/Tunneling No -Circular Undermining No -Wound/Ulcer Outcome Not Healed -Ulcer Cleansing Rinsed/ Irrigated with Saline -Foul Odor after Cleansing No -Bioengineered Tissue No -Bleeding Controlled with Pressure -Treatment Response Procedure Tolerated Well -Offloading No -Debridement - Subq, 1st 20sq cm Yes -Debridement, SubQ, ea addt'l 20sq cm 1 or part thereof Pain Scale: 0-10 Numeric Is Patient Pain Free? Yes - Nurse 3 - General Ulcer D/C NN Start: 08/06/24 09:55 Freq: Status: Active Protocol: Activity Type Activity Date Activity User E-sign Co-sign Detail Recorded Client Recorded Date Recorded By Document 08/06/24 10:48 MT [id number] 08/06/24 10:52 MT Edit Result 08/06/24 10:48 MT (1) [id number] 08/06/24 10:53 MT (1) BLE - Multi-Layer Compression Bilat (Qty 2 => 3 applied) 08/06/24 10:48 Wound Care Center Nurse 3 4-left leg cluster -Other Dressing betadine to wounds than 3Ms -Primary Dressing Covered/Secured with Dry Gauze BLE -Multi-Layered Wrap Application Multi-Layer Comp - Bilat ($ ) -Multi-Layer Compression Bilat (Qty 3 applied) Pain Scale: 0-10 Numeric Is Patient Pain Free? Yes WC - Visit Discharge Discharge Condition Stable Ambulatory Status Ambulatory Transportation Private Auto Medication Reconcilliation completed & No provided to patient/care provider Clinical Summary of Care Provided Yes Assessment/Plan Assessment/Plan (1) Non-pressure chronic ulcer of other part of right lower leg with fat layer exposed: CODE(S): L97.812 - Non-pressure chronic ulcer of other part of right lower leg with fat layer exposed PLAN: Patient was examined and evaluated. All findings were discussed with the patient. All questions were answered to the patient's satisfaction. Excisional debridement down to and including subcutaneous tissue with a number 5 mm dermal curette to the right leg full-thickness wound without incident. Predebridement measurement is 4.5 x 4.0 x 0.1 cm. Postdebridement measurement is 5.0 x 4.5 x 0.1 cm. Excisional debridement down to and including subcutaneous tissue with a number 5 mm dermal curette to the left lateral leg full-thickness wound without incident. Predebridement measurement was 1.0 x 0.1 x 0.1 cm. Post right measurement was 1.5 x 0.2 x 0.1 cm. The bilateral lower extremities were cleaned and patted dry. Culture was taken from bilateral full-thickness wounds to be sent off for microbiology and culture sensitivity. Antibiotics will be prescribed as needed. Betadine soaked gauze followed by dry sterile dressing and 3M multilayer compression wrap was donned to the by the lower extremity. The patient will follow-up in 1 week for nursing visit. And follow-up with Dr. Carlson for evaluation in 2 weeks. Educated the patient needs to follow-up with a primary doctor to establish care. He is continue to rest and elevate his bilateral lower extremity is much as he can which she is also understanding of. Follow-up at the wound care center with Dr. Sommer in 2 week. (2) Non-pressure chronic ulcer of other part of left lower leg with fat layer exposed: CODE(S): L97.822 - Non-pressure chronic ulcer of other part of left lower leg with fat layer exposed
--- NOTE | 2024-08-07 10:14 | WC ---
PHOTO 08/06/24 LEFT POST CALF
--- NOTE | 2024-08-07 10:16 | WC ---
PHOTO 08/06/24 RIGHT MEDINA
[2024-08-13 11:29] VITALS: BP 180/100; PULSE 86; RESP 18; TEMP 36.8
[2024-08-20 10:06] VITALS: BP 192/119; PULSE 93; RESP 18; TEMP 36.8
--- NOTE | 2024-08-20 11:12 | PCM.WC.PN ---
History of Present Illness Date of Service: 08/20/24 Chief Complaint: Bilateral leg swelling and ulceration. History of Wound: Bilateral leg swelling and ulceration chronic Progress of Wound: Bilateral swelling and chronic ulceration stable with no sign of infection. Subjective Subjective Mr. Saini is a 44-year-old male presenting weakness and a follow-up evaluation of full-thickness wound to the lateral aspect of the left lower extremity. He has left the multilayer dressings clean dry and intact. He states that the left one was getting a little loose. He is presenting today with his CircAid's at bedside today. He has not worn them at this time. He denies trauma. Denies constitutional symptoms. No other pedal complaints at this time. Objective Data Objective Data Vital Signs: Vital Signs Temp Pulse Resp BP O2 Del Method 98.2 F 93 18 192/119 H Room Air 08/20/24 10:06 08/20/24 10:06 08/20/24 10:06 08/20/24 10:08/06/24 09:55 Oxygen Delivery Method Room Air Lab / Micro Data Micro: Microbiology 08/06/24 10:33 Ulcer, Decubitus - Other Gram Stain - Final 08/06/24 10:33 Ulcer, Decubitus - Other Wound Culture - Final Streptococcus agalactiae (B) Staphylococcus aureus 08/06/24 10:33 Ulcer, Decubitus - Other Anaerobic Culture - Final Anaerobic cocci Physical Exam Narrative Vascular: DP and PT pulses are faintly palpable due to edema. CFT is brisk. +1 pitting edema appreciated bilateral lower extremity. Skin temperature gradient is warm to warm from proximal ankles to distal digits bilateral. No erythema is appreciated. Neurological: Light touch intact. Patient does respond to painful stimuli. Dermatological: Full-thickness ulceration cluster to the left leg measuring 0.5 x 1.2 x 0.1 cm. Wound base is granular with no drainage or sign of infection. Full-thickness wound to the right leg is now healed. Evidence of moccasin distribution appreciated to plantar feet bilateral. Excisional debridement down to including subcutaneous tissue with a number 3 mm dermal curette to the left leg full-thickness wound and without incident. Predebridement measurement was callus. Postdebridement measurement was 0.5 x 1.2 x 0.1 cm. Musculoskeletal: Muscle strength is 5 out of 5 in all quadrants bilateral. Mild pain to palp patient to the full-thickness wound to left leg. No pain with calf pressure. Debridement Note Debridement Note Debridement Free Text: Excisional debridement down to including subcutaneous tissue with a number 3 mm dermal curette to the left leg full-thickness wound and without incident. Predebridement measurement was callus. Postdebridement measurement was 0.5 x 1.2 x 0.1 cm. Post-Debridement Measurements and Additional Note: Post-Debridement Measurements/Treatment - Nurse 1 - General Ulcer Assessment Start: 08/06/24 09:55 Freq: Status: Active Protocol: DAVID Activity Type Activity Date Activity User E-sign Co-sign Detail Recorded Client Recorded Date Recorded By Document 08/06/24 09:55 KW [id number] 08/06/24 10:04 KW Document 08/13/24 11:29 RB [id number] 08/13/24 11:34 RB Document 08/20/24 10:06 RB [id number] 08/20/24 10:10 RB 08/06/24 08/13/24 08/20/24 09:55 11:29 10:06 - Today's Visit Information Type of service Follow-up Visit Follow-up Visit Follow-up Visit (Physician/SUPERVISOR FURNACE ROOM (Physician/SUPERVISOR FURNACE ROOM (Physician/SUPERVISOR FURNACE ROOM ) ) ) Arrival Mode Ambulatory Ambulatory Ambulatory Transfer Assistance None None Patient Identification Verified (Name & Yes Yes Yes ) Patient Requires Transmission-Based No No Precautions Vital Signs Temperature (97.8 F-99.1 F) 97.0 F L 98.2 F 98.2 F Temperature Source Temporal Temporal Temporal Pulse Rate (60-100) 85 86 93 Pulse Location Monitor Monitor Monitor Respiratory Rate (12-18) 18 18 18 Respiratory rate source Observation Observation Observation Oxygen Delivery Method Room Air Blood Pressure (90/60-120/80) 187/119 H 180/100 H 192/119 H Blood Pressure Mean (mm Hg) 141 126 143 Source Monitor Monitor Monitor Position Semi-Fowlers Sitting Semi-Fowlers Blood Pressure Location Left Arm Left Arm Left Arm History Since Last Visit- (Skip if this is Patient's initial visit) Have you changed medications since your No No No last visit? Any new allergies or adverse reactions No No No Had a fall/change in ADL's that may No No No increase risk of falls Signs or symptoms of abuse and/or No No No neglect since last visit Have you been in the hospital since your No No No last visit? Has dressing in place as prescribed Yes Yes Yes Has compression in place as prescribed Yes Yes Yes Has offloadiing in place as prescribed N/A N/A N/A Experienced any changes in pain level or No No No management Left Footwear Slipper Regular Shoe Regular Shoe Right Footwear Slipper Regular Shoe Regular Shoe Pain Scale: 0-10 Numeric Is Patient Pain Free? Yes Yes Yes WC - Nurse 1 - General Ulcer Measurement Start: 08/06/24 09:55 Freq: Status: Active Protocol: Activity Type Activity Date Activity User E-sign Co-sign Detail Recorded Client Recorded Date Recorded By Document 08/06/24 09:55 KW [id number] 08/06/24 10:04 KW Document 08/13/24 11:29 RB [id number] 08/13/24 11:34 RB Document 08/20/24 10:06 RB [id number] 08/20/24 10:10 RB 08/06/24 08/13/24 08/20/24 09:55 11:29 10:06 Wound Center Nurse 1 #3 Right [place] Cluster -Combined with other wound No -Current Size (cm) - Length 0.1 0.1 -Current Size (cm) - Width 0.1 0.1 -Current Size (cm) - Depth 0 0.1 -Total Square Cm 0.01 0.01 -Date of Last Picture (Recall this 08/06/24 field) -Photo Taken Yes -Tunneling No -Undermining/Tunneling No -Circular Undermining No -Exudate Amt None Present Medium -Exudate Type Serosanguineous -Wound Margin Distinct, Distinct, Outline Outline Attached Attached -Granulation Amt Medium (34-66%) -Granulation Quality [place] -Slough/Fibrin Yes -Necrosis Amt Small (1-33%) -Necrotic Tissue Type Adherent Slough -Structure Exposed N/A -Texture (Lety-wound Skin Appearance) Assessed Assessed, Localized Edema -Moisture (Lety-wound Skin Appearance) Assessed Assessed -Color (Lety-wound Skin Appearance) Assessed, Assessed Erythema -Temperature (Lety-wound Skin No Abnormality No Abnormality Appearance) (Pt Warm) (Pt Warm) -Tenderness on Palpation (Lety-wound No No Skin Appearance) -Ulcer Cleansing Soap and Water Wound Cleanser -Foul Odor after Cleansing No -Anesthetic Used 5% Lidocaine 5% Lidocaine Gel Gel 4-left leg cluster -Combined with other wound No -Current Size (cm) - Length 0.1 -Current Size (cm) - Width 0.1 -Current Size (cm) - Depth 0.1 -Total Square Cm 0.01 -Photo Taken Yes -Tunneling No -Undermining/Tunneling No -Circular Undermining No -Exudate Amt Large Large -Exudate Type Serosanguineous Serosanguineous -Wound Margin Distinct, Outline Attached -Granulation Amt Medium (34-66%) -Granulation Quality [place] -Slough/Fibrin Yes -Necrosis Amt Medium (34-66%) -Necrotic Tissue Type Adherent Slough -Structure Exposed N/A -Texture (Lety-wound Skin Appearance) Localized Edema -Moisture (Lety-wound Skin Appearance) Assessed -Color (Lety-wound Skin Appearance) Assessed, Erythema -Temperature (Lety-wound Skin No Abnormality Appearance) (Pt Warm) -Tenderness on Palpation (Lety-wound No Skin Appearance) -Ulcer Cleansing Wound Cleanser -Foul Odor after Cleansing No -Anesthetic Used 5% Lidocaine Gel -Wound Comment(s) pt encouraged to to make appointment at PCP for elevated BP Lower Limb Edema Present Yes Yes Right Calf (cm) 57.5 52 60 Right Ankle (cm) 36.5 32.2 30.5 Left Calf (cm) 63.5 67 67.5 Left Ankle (cm) 36 35.5 34.6 WC - Nurse 2 - General Ulcer CM Notes Start: 08/06/24 09:55 Freq: Status: Active Protocol: Activity Type Activity Date Activity User E-sign Co-sign Detail Recorded Client Recorded Date Recorded By Document 08/06/24 10:34 SHELLIE [id number] 08/06/24 10:37 Document 08/20/24 10:18 JF [id number] 08/20/24 10:21 JF 08/06/24 08/20/24 10:34 10:18 Wound Center Nurse 2 #3 Right [place] Cluster -Time 10:34 -Correct Patient Yes Yes -Correct Side, Site, Position Yes No -Correct Procedure Yes No -Procedure Performed Yes No -Type of Procedure Debridement -Clinical Debridement Subcutaneous -Tissue Removed Subcutaneous -Post Debridement (cm) - Length 5.0 0 -Post Debridement (cm) - Width 4.5 0 -Post Debridement (cm) - Depth 0.1 0 -Total Square (Post) (cm) 22.50 0 -Area of Debridement (cm) - Length 5 0 -Area of Debridement (cm) - Width 4.5 0 -Total Square (Area) (cm) 22.5 0 -Tunneling No -Undermining/Tunneling No -Circular Undermining No -Wound/Ulcer Outcome Not Healed Healed- Epithelialized -Ulcer Cleansing Rinsed/ Irrigated with Saline -Foul Odor after Cleansing No -Bioengineered Tissue No -Bleeding Controlled with Pressure -Treatment Response Procedure Tolerated Well -Offloading No -Debridement - Subq, 1st 20sq cm Yes -Debridement, SubQ, ea addt'l 20sq cm 1 or part thereof 4-left leg cluster -Time 10:36 10:20 -Correct Patient Yes Yes -Correct Side, Site, Position Yes Yes -Correct Procedure Yes Yes -Procedure Performed Yes Yes -Type of Procedure Debridement Debridement -Clinical Debridement Subcutaneous Subcutaneous -Tissue Removed Subcutaneous Subcutaneous -Post Debridement (cm) - Length 1.5 0.5 -Post Debridement (cm) - Width 0.2 1.2 -Post Debridement (cm) - Depth 0.1 0.1 -Total Square (Post) (cm) 0.30 0.60 -Area of Debridement (cm) - Length 1.5 0.5 -Area of Debridement (cm) - Width 0.2 1.2 -Total Square (Area) (cm) 0.30 0.60 -Tunneling No No -Undermining/Tunneling No No -Circular Undermining No No -Wound/Ulcer Outcome Not Healed Not Healed -Ulcer Cleansing Rinsed/ Rinsed/ Irrigated with Irrigated with Saline Saline -Foul Odor after Cleansing No No -Bioengineered Tissue No No -Bleeding Controlled with Pressure Pressure -Treatment Response Procedure Procedure Tolerated Well Tolerated Well -Offloading No No -Debridement - Subq, 1st 20sq cm No Yes Pain Scale: 0-10 Numeric Is Patient Pain Free? Yes Yes WC - Nurse 3 - General Ulcer D/C NN Start: 08/06/24 09:55 Freq: Status: Active Protocol: Activity Type Activity Date Activity User E-sign Co-sign Detail Recorded Client Recorded Date Recorded By Document 08/06/24 10:48 MT [id number] 08/06/24 10:52 MT Edit Result 08/06/24 10:48 MT (1) [id number] 08/06/24 10:53 MT Edit Result 08/06/24 10:48 MT (2) [id number] 08/19/24 10:35 DS Document 08/13/24 11:29 RB [id number] 08/13/24 11:34 RB Document 08/20/24 10:42 CP [id number] 08/20/24 10:43 CP (1) BLE - Multi-Layer Compression Bilat (Qty 2 => 3 applied) (2) BLE - Multi-Layer Compression Bilat (Qty 3 => 1 applied) 08/06/24 08/13/24 08/20/24 10:48 11:29 10:42 Wound Care Center Nurse 3 #3 Right [place] Cluster -Other Dressing betadine moistened gauze /ABD 4-left leg cluster -Ulcer Cleansing Not Cleansed -Other Dressing betadine to betadine wounds than 3Ms moistened gauze /ABD -Primary Dressing Covered/Secured with Dry Gauze Dry Gauze & Roll Gauze, Secured with Tape BLE -Multi-Layered Wrap Application Multi-Layer Multi-Layer Comp - Bilat ($ Comp - Bilat ($ ) ) -Multi-Layer Compression Bilat (Qty 1 1 applied) Treatment Response Procedure Tolerated Well Pain Scale: 0-10 Numeric Is Patient Pain Free? Yes Yes Yes WC - Visit Discharge Discharge Condition Stable Stable Stable Ambulatory Status Ambulatory Ambulatory Ambulatory Transportation Private Auto Private Auto Private Auto Medication Reconcilliation completed & No No provided to patient/care provider Clinical Summary of Care Provided Yes Yes Yes Notes: 3 boxes of 3M used bilaterally Assessment/Plan Assessment/Plan (1) Non-pressure chronic ulcer of other part of left lower leg with fat layer exposed: CODE(S): L97.822 - Non-pressure chronic ulcer of other 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 All findings were discussed with the patient. All questions were answered to the patient's satisfaction. Excisional debridement down to including subcutaneous tissue with a number 3 mm dermal curette to the left leg full-thickness wound and without incident. Predebridement measurement was callus. Postdebridement measurement was 0.5 x 1.2 x 0.1 cm. The left lower extremities were cleaned and patted dry. Triple antibiotic was applied to the full-thickness wound followed by dry sterile dressing. The patient was wrapped in his CircAid's with nursing staff assistance. Patient educated on the importance of getting the compression right in a gradual compression from distal to proximal with the card provided by the third shift lieutenant. He was understanding this. The patient will follow-up with nursing visit on Sunday. Then he will follow-up with Dr. Carlson in 2 weeks. The patient will also be placed on Augmentin due to his wound culture growing strep agalactiae and Staph aureus. The patient will also be placed on clotrimazole antifungal medication to be applied twice daily to the plantar feet for 1 month. Follow-up at the wound care center with Dr. Sommer in 2 week. (2) Tinea pedis: CODE(S): B35.3 - Tinea pedis QUALIFIERS: Laterality: bilateral Qualified Code(s): B35.3 - Tinea pedis
--- NOTE | 2024-08-21 09:41 | WC ---
PHOTO 08/20/24 KIRK
--- NOTE | 2024-08-21 09:45 | WC ---
PHOTO 08/20/24 GLENYS
[2024-08-22 09:34] VITALS: BP 203/115; PULSE 91; RESP 20; TEMP 36.7
[2024-09-03 10:06] VITALS: BP 165/104; PULSE 95; RESP 18; TEMP 36.6
--- NOTE | 2024-09-08 12:10 | PCM.WC.PN ---
History of Present Illness Date of Service: 09/03/24 Chief Complaint: Bilateral leg swelling and ulceration. History of Wound: Bilateral leg swelling and ulceration chronic Progress of Wound: Bilateral swelling and chronic ulceration stable with no sign of infection. Subjective Subjective Patient is a 44-year-old male presenting to wound care center today for follow-up evaluation of bilateral leg swelling and full-thickness wound to the left leg. Patient has gotten his multilayer compression wraps and has been using them as instructed. He admits to some swelling left greater than right but overall is doing well. He has not followed up with his primary doctor nor has he secured a place to live once he leaves his sister's house. Denies trauma. Denies constitutional symptoms. No other pedal complaints at this time. Objective Data Objective Data Vital Signs: Vital Signs Temp Pulse Resp BP O2 Del Method 98 F 95 18 165/104 H Room Air 09/03/24 10:06 09/03/24 10:06 09/03/24 10:06 09/03/24 10:06 08/22/24 09:34 Oxygen Delivery Method Room Air Lab / Micro Data Micro: Microbiology 08/06/24 10:33 Ulcer, Decubitus - Other Gram Stain - Final 08/06/24 10:33 Ulcer, Decubitus - Other Wound Culture - Final Streptococcus agalactiae (B) Staphylococcus aureus 08/06/24 10:33 Ulcer, Decubitus - Other Anaerobic Culture - Final Anaerobic cocci Physical Exam Narrative Vascular: DP and PT pulses are faintly palpable due to edema. CFT is brisk. +1 pitting edema appreciated bilateral lower extremity. Skin temperature gradient is warm to warm from proximal ankles to distal digits bilateral. No erythema is appreciated. Neurological: Light touch intact. Patient does respond to painful stimuli. Dermatological: Full-thickness ulceration cluster to the left leg measuring 1.3 x 1.2 x 0.1 cm. Wound base is granular with no drainage or sign of infection. Excisional debridement down to including subcutaneous tissue with a number 3 mm dermal curette to the left leg full-thickness wound and without incident. Predebridement measurement was callus. Postdebridement measurement was 1.3 x 1.2 x 0.1 cm. Musculoskeletal: Muscle strength is 5 out of 5 in all quadrants bilateral. Mild pain to palp patient to the full-thickness wound to left leg. No pain with calf pressure. Debridement Note Debridement Note Debridement Free Text: Excisional debridement down to including subcutaneous tissue with a number 3 mm dermal curette to the left leg full-thickness wound and without incident. Predebridement measurement was callus. Postdebridement measurement was 1.3 x 1.2 x 0.1 cm. Assessment/Plan Assessment/Plan (1) Non-pressure chronic ulcer of other part of left lower leg with fat layer exposed: CODE(S): L97.822 - Non-pressure chronic ulcer of other 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 All findings were discussed with the patient. All questions were answered to the patient's satisfaction. Excisional debridement down to including subcutaneous tissue with a number 3 mm dermal curette to the left leg full-thickness wound and without incident. Predebridement measurement was callus. Postdebridement measurement was 1.3 x 1.2 x 0.1 cm. The left lower extremities were cleaned and patted dry. Triple antibiotic was applied to the full-thickness wound followed by dry sterile dressing. The patient was wrapped in his CircAid's with nursing staff assistance. Patient educated on the importance of getting the compression right in a gradual compression from distal to proximal with the card provided by the cutting department supervisor. He was understanding this. The patient will follow-up with nursing visits PRN until follow up with Dr Sommer. Follow-up at the wound care center with Dr. Sommer in 3 week.
== END 2024-09-03 23:59 | disposition home or self-care (01) ==
LOC: WC 10:00
PROVIDERS: Visit Provider Podiatrist Foot & Ankle Surgery
DX: L97.812 Non-pressure chronic ulcer of other part of right lower leg with fat layer exposed (principal); L97.822 Non-pressure chronic ulcer of other part of left lower leg with fat layer exposed; B35.3 Tinea pedis; R60.0 Localized edema; Z79.899 Other long term (current) drug therapy
CPT/HCPCS: G0463; 11042; 11045; 29581; 87070; 87075; 87077; 87186; 87205; 99212; 99213

== ENCOUNTER → 2024-09-05 | Outpatient (CLI) | payer MEDICAID, SELFPAY ==
--- NOTE | 2024-09-05 10:42 | ECHOCS_ITS ---
Reason For Study : Dyspnea Procedure This was a 2D Doppler, Color Flow transthoracic echocardiogram. The study was technically difficult. Contrast injection was performed. Exam performed in department. Left Ventricle Normal LV size. Mild concentric left ventricular hypertrophy. The left ventricular ejection fraction is 50 %. Left ventricular systolic function is lower limits of normal. Stage 1 diastolic dysfunction. The rest of the wall segments are normal. Right Ventricle Normal RV size. Normal systolic function. Mitral Valve Normal mitral valve. Tricuspid Valve Normal tricuspid valve. Mild tricuspid valve insufficiency. Aortic Valve Trisinus/trileaflet aortic valve. Pericardium/Pleural No pericardial effusion. Medication 22 gauge I.V. with prn adaptor inserted into right arm. Diluted definity 2.5ml given slow IV push to enhance endocardial definition. MMode/2D Measurements & Calculations LVIDd: 5.5 cm IVSd: 1.3 cm LA dimension: 4.9 cm LVIDs: 4.5 cm LVPWd: 1.3 cm FS: 18.9 % LAV(MOD-bp): 95.3 ml SV(MOD-sp4): 69.7 ml LVAd ap4: 40.3 cm2 LAV(MOD-bp) Indexed: 33.3 ml/m2 LVLd ap4: 9.3 cm SI(MOD-sp4): 24.4 ml/m2 LAV(MOD-sp2): 81.5 ml EDV(MOD-sp4): 135.1 ml LAV(MOD-sp4): 101.3 ml EDV(sp4-el): 147.5 ml LVAs ap4: 25.5 cm2 LVLs ap4: 7.9 cm ESV(MOD-sp4): 65.4 ml ESV(sp4-el): 70.1 ml EF(MOD-sp4): 51.6 % EF(sp4-el): 52.5 % SV(sp4-el): 77.4 ml TAPSE: 2.5 cm LA A4 area: 27.7 cm2 Doppler Measurements & Calculations MV E max izzy: 97.6 cm/sec MV V2 max: 128.3 cm/sec Ao V2 max: 111.7 cm/sec MV A max izzy: 111.2 cm/sec MV max P.6 mmHg Ao max P.0 mmHg MV E/A: 0.88 MV V2 mean: 90.6 cm/sec Ao V2 mean: 86.3 cm/sec MV mean P.9 mmHg Ao mean P.3 mmHg MV V2 VTI: 21.0 cm Ao V2 VTI: 21.9 cm AV (velocity ratio): 0.87 LV V1 max: 101.6 cm/sec PA V2 max: 108.7 cm/sec TR max izzy: 204.0 cm/sec LV V1 max P.1 mmHg TR max P.6 mmHg LV V1 mean P.4 mmHg LV V1 mean: 72.8 cm/sec LV V1 VTI: 19.0 cm ECHO/Echo Complete W/ Contrast Interpretation Summary Normal LV size. Mild concentric left ventricular hypertrophy. The left ventricular ejection fraction is 50 %. Left ventricular systolic function is lower limits of normal. Stage 1 diastolic dysfunction. Contrast injection was performed. Ordering Physician: Kellie Gudino Referring Physician: Kellie Gudino Performed By: Rafael Cheng RCS
== END | disposition home or self-care (01) ==
LOC: CVS 10:41
DX: R06.00 Dyspnea, unspecified (principal)
CPT/HCPCS: 93306; Q9957; A4216; C8929

== ENCOUNTER 2024-10-01 09:49 | Outpatient (RCR) | payer MEDICAID, SELFPAY ==
[2024-09-04 00:16] VITALS: BP 165/104; PULSE 95; RESP 18; TEMP 36.6
[2024-10-01 09:52] VITALS: BP 195/113; PULSE 94; RESP 18; TEMP 36.2
--- NOTE | 2024-10-01 18:23 | PCM.WC.PN ---
History of Present Illness Date of Service: 10/01/24 Chief Complaint: Bilateral leg swelling and ulceration. History of Wound: Bilateral leg swelling and ulceration chronic Progress of Wound: Bilateral swelling and chronic ulceration stable with no sign of infection. Subjective Subjective Patient is a 44-year-old male presenting to wound care center today for follow-up evaluation of bilateral leg swelling and full-thickness wound to the left leg. Excisional debridement down to and including subcutaneous tissue, fascia and muscle with a number 3 mm dermal curette to the left anterior leg without incident. Predebridement measurement was 0.5 x 0.1 x 0.8 cm. Postdebridement measurement is 0.7 x 0.2 x 1.2 cm. Objective Data Objective Data Vital Signs: Vital Signs Temp Pulse Resp BP 97.2 F L 94 18 195/113 H 10/01/24 09:52 10/01/24 09:52 10/01/24 09:52 10/01/24 09:52 Lab / Micro Data Micro: Microbiology 08/06/24 10:33 Ulcer, Decubitus - Other Gram Stain - Final 08/06/24 10:33 Ulcer, Decubitus - Other Wound Culture - Final Streptococcus agalactiae (B) Staphylococcus aureus 08/06/24 10:33 Ulcer, Decubitus - Other Anaerobic Culture - Final Anaerobic cocci Physical Exam Narrative Vascular: DP and PT pulses are faintly palpable due to edema. CFT is brisk. +1 pitting edema appreciated bilateral lower extremity. Skin temperature gradient is warm to warm from proximal ankles to distal digits bilateral. No erythema is appreciated. Neurological: Light touch intact. Patient does respond to painful stimuli. Dermatological: Full-thickness ulceration cluster to the left leg measuring 0.3 x 0.3 x 0.1 cm. Wound base is granular with no drainage or sign of infection. Excisional debridement down to including subcutaneous tissue with a number 3 mm dermal curette to the left leg full-thickness wound and without incident. Predebridement measurement was callus. Postdebridement measurement was 0.3 x 0.3 x 0.1 cm. Musculoskeletal: Muscle strength is 5 out of 5 in all quadrants bilateral. Mild pain to palp patient to the full-thickness wound to left leg. No pain with calf pressure. Debridement Note Debridement Note Debridement Free Text: Excisional debridement down to including subcutaneous tissue with a number 3 mm dermal curette to the left leg full-thickness wound and without incident. Predebridement measurement was callus. Postdebridement measurement was 0.3 x 0.3 x 0.1 cm. Post-Debridement Measurements and Additional Note: Post-Debridement Measurements/Treatment - Nurse 1 - General Ulcer Assessment Start: 10/01/24 09:51 Freq: Status: Active Protocol: DAVID Activity Type Activity Date Activity User E-sign Co-sign Detail Recorded Client Recorded Date Recorded By Document 10/01/24 09:52 ANIL [id number] 10/01/24 09:56 DL 10/01/24 09:52 - Today's Visit Information Type of service Follow-up Visit (Physician/UNIVERSITY ADMINISTRATIVE ASSISTANT ) Arrival Mode Ambulatory Transfer Assistance None Patient Identification Verified (Name & Yes ) Vital Signs Temperature (97.8 F-99.1 F) 97.2 F L Temperature Source Temporal Pulse Rate (60-100) 94 Pulse Location Monitor Respiratory Rate (12-18) 18 Blood Pressure (90/60-120/80) 195/113 H Blood Pressure Mean (mm Hg) 140 Source Monitor History Since Last Visit- (Skip if this is Patient's initial visit) Have you changed medications since your No last visit? Any new allergies or adverse reactions No Had a fall/change in ADL's that may No increase risk of falls Signs or symptoms of abuse and/or No neglect since last visit Have you been in the hospital since your No last visit? Has dressing in place as prescribed Yes Has compression in place as prescribed Yes Has offloadiing in place as prescribed Yes Experienced any changes in pain level or No management Pain Scale: 0-10 Numeric Is Patient Pain Free? Yes [facility] Nurse 1 - General Ulcer Measurement Start: 10/01/24 09:51 Freq: Status: Active Protocol: Activity Type Activity Date Activity User E-sign Co-sign Detail Recorded Client Recorded Date Recorded By Document 10/01/24 09:52 DL [id number] 10/01/24 09:56 DL 10/01/24 09:52 Wound Center Nurse 1 4-left leg cluster -Current Size (cm) - Length 0.1 -Current Size (cm) - Width 0.1 -Current Size (cm) - Depth 0.1 -Total Square Cm 0.01 -Photo Taken Yes -Exudate Amt None Present -Wound Margin Flat & Intact -Granulation Amt Small (1-33%) -Granulation Quality [place] -Necrosis Amt Small (1-33%) -Necrotic Tissue Type Eschar -Structure Exposed N/A -Texture (Lety-wound Skin Appearance) Scarring -Moisture (Lety-wound Skin Appearance) Dry/Scaly -Color (Lety-wound Skin Appearance) No Abnormality -Temperature (Lety-wound Skin No Abnormality Appearance) (Pt Warm) -Ulcer Cleansing Rinsed/ Irrigated with Saline -Foul Odor after Cleansing No -Anesthetic Used 5% Lidocaine Gel Right Calf (cm) 58.5 Right Ankle (cm) 41 Left Calf (cm) 64.5 Left Ankle (cm) 45.5 WC - Nurse 2 - General Ulcer CM Notes Start: 10/01/24 09:51 Freq: Status: Active Protocol: Activity Type Activity Date Activity User E-sign Co-sign Detail Recorded Client Recorded Date Recorded By Document 10/01/24 10:14 SHELLIE [id number] 10/01/24 10:15 SHELLIE 10/01/24 10:14 Wound Center Nurse 2 4-left leg cluster -Time 10:14 -Correct Patient Yes -Correct Side, Site, Position Yes -Correct Procedure Yes -Procedure Performed Yes -Type of Procedure Debridement -Clinical Debridement Subcutaneous -Tissue Removed Subcutaneous -Post Debridement (cm) - Length 0.3 -Post Debridement (cm) - Width 0.3 -Post Debridement (cm) - Depth 0.1 -Total Square (Post) (cm) 0.09 -Area of Debridement (cm) - Length 0.3 -Area of Debridement (cm) - Width 0.3 -Total Square (Area) (cm) 0.09 -Tunneling No -Undermining/Tunneling No -Circular Undermining No -Wound/Ulcer Outcome Not Healed -Ulcer Cleansing Rinsed/ Irrigated with Saline -Foul Odor after Cleansing No -Bioengineered Tissue No -Bleeding Controlled with Pressure -Treatment Response Procedure Tolerated Well -Offloading No -Debridement - Subq, 1st 20sq cm Yes Pain Scale: 0-10 Numeric Is Patient Pain Free? Yes - Nurse 3 - General Ulcer D/C NN Start: 10/01/24 09:51 Freq: Status: Active Protocol: Activity Type Activity Date Activity User E-sign Co-sign Detail Recorded Client Recorded Date Recorded By Document 10/01/24 10:31 DL [id number] 10/01/24 10:34 DL 10/01/24 10:31 Wound Care Center Nurse 3 4-left leg cluster -Ulcer Cleansing Soap and Water -Foul Odor after Cleansing No -Other Dressing Bacitracin/ABD -Primary Dressing Covered/Secured with Dry Gauze & Roll Gauze, Secured with Tape -Wound Comment(s) Dressing applied per Ngoc Barron today. BLE -Multi-Layered Wrap Application Multi-Layer Comp - Bilat ($ ) -Multi-Layer Compression Bilat (Qty 1 applied) Treatment Response Procedure Tolerated Well Pain Scale: 0-10 Numeric Is Patient Pain Free? Yes WC - Visit Discharge Discharge Condition Stable Ambulatory Status Ambulatory Transportation Private Auto Assessment/Plan Assessment/Plan (1) Non-pressure chronic ulcer of other part of left lower leg with fat layer exposed: CODE(S): L97.822 - Non-pressure chronic ulcer of other 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 All findings were discussed with the patient. All questions were answered to the patient's satisfaction. Excisional debridement down to including subcutaneous tissue with a number 3 mm dermal curette to the left leg full-thickness wound and without incident. Predebridement measurement was callus. Postdebridement measurement was 0.3 x 0.3 x 0.1 cm. Left lower extremities were cleaned and patted dry. Due to the patient's uncontrolled edema he will be placed in bilateral 3M multilayer compression wraps with nursing changes in between his next follow-up. Educated the patient to follow-up with a primary doctor at his next scheduled appointment which will be next month. Educated the patient on the importance of watching his caloric intake as well as to stop drinking soda which she was understanding of. We will send a referral over due to the patient's uncontrolled weight gain I will screen a hospital, program why weight. Follow-up at the wound care center with Dr. Sommer in 3 week. (2) Morbid obesity: CODE(S): E66.01 - Morbid (severe) obesity due to excess calories
--- NOTE | 2024-10-02 11:47 | WC ---
PHOTO 10/01/24 LEFT LEG CLUSTER
== END 2024-10-04 23:59 | disposition home or self-care (01) ==
LOC: WC 09:49
PROVIDERS: Visit Provider Podiatrist Foot & Ankle Surgery
DX: L97.822 Non-pressure chronic ulcer of other part of left lower leg with fat layer exposed (principal); E66.01 Morbid (severe) obesity due to excess calories; R60.0 Localized edema; Z79.899 Other long term (current) drug therapy
CPT/HCPCS: 11042; 29581

== ENCOUNTER 2024-10-15 10:00 | Outpatient (RCR) | payer MEDICAID, SELFPAY ==
[2024-10-05 00:30] VITALS: BP 195/113; PULSE 94; RESP 18; TEMP 36.2
[2024-10-08 10:12] VITALS: BP 225/114; PULSE 101; RESP 16
[2024-10-15 09:53] VITALS: BP 171/101; PULSE 88; RESP 18; TEMP 36.2
--- NOTE | 2024-10-15 13:16 | PN.PCM_ITS ---
History of Present Illness Date of Service: 10/15/24 Chief Complaint: Bilateral leg swelling and ulceration. History of Wound: Bilateral leg swelling and ulceration chronic Progress of Wound: Full-thickness wound left leg Subjective Subjective Mr. Saini is a 44-year-old male presented wound care center today for follow-up evaluation of full-thickness wound to the left leg. Patient is left his multilayer compression bandage clean dry and intact. He did find an appointment with a primary doctor and will be seeing them on the of this month. He has been very grateful for his care. Denies trauma. Denies constitutional symptoms. No other pedal complaints at this time. Objective Data Objective Data Vital Signs: Vital Signs Temp Pulse Resp BP O2 Del Method 97.2 F L 88 18 171/101 H Room Air 10/15/24 09:53 10/15/24 09:53 10/15/24 09:53 10/15/24 09:53 10/15/24 09:53 Oxygen Delivery Method Room Air Weight: 189.148 kg Lab / Micro Data Micro: Microbiology 08/06/24 10:33 Ulcer, Decubitus - Other Gram Stain - Final 08/06/24 10:33 Ulcer, Decubitus - Other Wound Culture - Final Streptococcus agalactiae (B) Staphylococcus aureus 08/06/24 10:33 Ulcer, Decubitus - Other Anaerobic Culture - Final Anaerobic cocci Physical Exam Narrative Vascular: DP and PT pulses are faintly palpable due to edema. CFT is brisk. +1 pitting edema appreciated bilateral lower extremity. Skin temperature gradient is warm to warm from proximal ankles to distal digits bilateral. No erythema is appreciated. Neurological: Light touch intact. Patient does respond to painful stimuli. Dermatological: Full-thickness wound to left leg is now healed. Musculoskeletal: Muscle strength is 5 out of 5 in all quadrants bilateral. Mild pain to palp patient to the full-thickness wound to left leg. No pain with calf pressure. Debridement Note Debridement Note Debridement Free Text: Excisional debridement down to including subcutaneous tissue with a number 3 mm dermal curette to the left leg full-thickness wound and without incident. Predebridement measurement was callus. Postdebridement measurement was 0.3 x 0.3 x 0.1 cm. Post-Debridement Measurements and Additional Note: Post-Debridement Measurements/Treatment WC - Nurse 1 - General Ulcer Assessment Start: 10/08/24 10:12 Freq: Status: Active Protocol: DAVID Activity Type Activity Date Activity User E-sign Co-sign Detail Recorded Client Recorded Date Recorded By Document 10/08/24 10:12 KW [id number] 10/08/24 10:38 KW Document 10/15/24 09:53 KW [id number] 10/15/24 09:55 KW 10/08/24 10/15/24 10:12 09:53 - Today's Visit Information Type of service Nurse-only Follow-up Visit Visit (Physician/MAINTENANCE PARTS TECHNICIAN ) Arrival Mode Ambulatory Ambulatory Patient Identification Verified (Name & Yes Yes ) Vital Signs Temperature (97.8 F-99.1 F) 97.2 F L Temperature Source Temporal Temporal Pulse Rate (60-100) 101 H 88 Pulse Location Monitor Monitor Respiratory Rate (12-18) 16 18 Respiratory rate source Observation Observation Oxygen Delivery Method Room Air Room Air Blood Pressure (90/60-120/80) 225/114 H 171/101 H Blood Pressure Mean (mm Hg) 151 124 Source Monitor Monitor Position Semi-Fowlers Semi-Fowlers Blood Pressure Location Left Forearm Left Arm History Since Last Visit- (Skip if this is Patient's initial visit) Have you changed medications since your No No last visit? Any new allergies or adverse reactions No No Had a fall/change in ADL's that may No No increase risk of falls Signs or symptoms of abuse and/or No No neglect since last visit Have you been in the hospital since your No No last visit? Has dressing in place as prescribed Yes Yes Has compression in place as prescribed Yes Yes Has offloadiing in place as prescribed N/A N/A Experienced any changes in pain level or No No management Left Footwear Regular Shoe Regular Shoe Right Footwear Regular Shoe Regular Shoe Pain Scale: 0-10 Numeric Is Patient Pain Free? Yes Yes - Nurse 1 - General Ulcer Measurement Start: 10/08/24 10:12 Freq: Status: Active Protocol: Activity Type Activity Date Activity User E-sign Co-sign Detail Recorded Client Recorded Date Recorded By Document 10/15/24 09:53 KW [id number] 10/15/24 09:55 KW 10/15/24 09:53 Wound Center Nurse 1 4-left leg cluster -Current Size (cm) - Length 0.1 -Current Size (cm) - Width 0.1 -Current Size (cm) - Depth 0 -Total Square Cm 0.01 -Date of Last Picture (Recall this 10/15/24 field) -Texture (Lety-wound Skin Appearance) Assessed -Moisture (Lety-wound Skin Appearance) Assessed,Dry/ Scaly -Color (Lety-wound Skin Appearance) Assessed -Ulcer Cleansing Soap and Water -Wound Comment(s) poss. healed Right Calf (cm) 65 Right Ankle (cm) 32 Left Calf (cm) 73.5 Left Ankle (cm) 35 - Nurse 2 - General Ulcer CM Notes Start: 10/08/24 10:12 Freq: Status: Active Protocol: Activity Type Activity Date Activity User E-sign Co-sign Detail Recorded Client Recorded Date Recorded By Document 10/15/24 10:40 SHELLIE [id number] 10/15/24 10:41 10/15/24 10:40 Wound Center Nurse 2 4-left leg cluster -Correct Patient Yes -Correct Side, Site, Position No -Correct Procedure No -Procedure Performed No -Post Debridement (cm) - Length 0 -Post Debridement (cm) - Width 0 -Post Debridement (cm) - Depth 0 -Total Square (Post) (cm) 0 -Area of Debridement (cm) - Length 0 -Area of Debridement (cm) - Width 0 -Total Square (Area) (cm) 0 -Wound/Ulcer Outcome Healed- Epithelialized Pain Scale: 0-10 Numeric Is Patient Pain Free? Yes - Nurse 3 - General Ulcer D/C NN Start: 10/08/24 10:12 Freq: Status: Active Protocol: Activity Type Activity Date Activity User E-sign Co-sign Detail Recorded Client Recorded Date Recorded By Document 10/08/24 10:12 [id number] 10/08/24 10:38 Document 10/15/24 10:49 [id number] 10/15/24 10:49 10/08/24 10/15/24 10:12 10:49 Pain Scale: 0-10 Numeric Is Patient Pain Free? Yes Yes Wound Care Center Nurse 3 4-left leg cluster -Ulcer Cleansing Soap and Water BLE -Multi-Layered Wrap Application Multi-Layer Comp - Bilat ($ ) -Compression Wrap Nilesh Wrap -Other 2.5 boxes needed -Multi-Layer Compression Bilat (Qty 1 applied) - Visit Discharge Discharge Condition Stable Stable Ambulatory Status Ambulatory Ambulatory Transportation Private Auto Private Auto Medication Reconcilliation completed & No Yes provided to patient/care provider Clinical Summary of Care Provided Yes Yes Assessment/Plan Assessment/Plan (1) Non-pressure chronic ulcer of other part of left lower leg with fat layer exposed: CODE(S): L97.822 - Non-pressure chronic ulcer of other 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 All findings were discussed with the patient. All questions were answered to the patient's satisfaction. At this time the patient's left lower extremity full-thickness wound is now healed. Patient will be placed in bilateral Nilesh wrap's for continued edema control while he washes his CircAid's and dons them later on today. I educated the patient that if he has any breakdown of skin he is to return to the wound care center as needed. He is grateful for his care be discharged today. (2) Morbid obesity: CODE(S): E66.01 - Morbid (severe) obesity due to excess calories
--- NOTE | 2024-10-15 14:25 | WC ---
PHOTO 10/15/24 LEFT LEG
== END 2024-11-03 23:59 | disposition home or self-care (01) ==
LOC: WC 10:00
PROVIDERS: Visit Provider Podiatrist Foot & Ankle Surgery
DX: Z09 Encounter for follow-up examination after completed treatment for conditions other than malignant neoplasm (principal); E66.01 Morbid (severe) obesity due to excess calories; R60.0 Localized edema; M79.89 Other specified soft tissue disorders; Z79.84 Long term (current) use of oral hypoglycemic drugs; Z79.899 Other long term (current) drug therapy
CPT/HCPCS: 29581; 97802; 99214; G0463

== ENCOUNTER → 2024-10-30 | Outpatient (CLI) | payer MEDICAID, SELFPAY ==
[2024-10-30 16:43] LABS: Absolute Lymphocyte Count 1.36 X10^3/uL (0.83-4.51); Absolute Neutrophil Count 6.2 X10^3/uL (2.0-7.7); Basophil# 0.08 X10^3/uL; Basophil% 0.9 % (0-1); Eosinophil# 0.39 X10^3/uL; Eosinophils% 4.5 % (0-5); Hematocrit 41.6 % (40-54); Hemoglobin 12.8 g/dL (13.0-16.5); Lymphocyte # 1.36 X10^3/ul (0.83-4.51); Lymphocyte % 15.6 % (19-41); Mean Corp Hgb Conc 30.8 g/dL (32-36); Mean Corpuscular Hgb 25.2 pg (27.0-32.0); Mean Corpuscular Volume 82.1 fL (80-94); Mean Platelet Vol. 9.3 fl (6.2-12.0); Monocyte# 0.67 X10^3/uL; Monocyte% 7.7 % (0-10); NRBC Flagged by Analyzer 0 % (0-5); Neutrophil # 6.18 X10^3/uL (2.7-7.7); Platelet Count 226 K/mm3 (150-450); Red Blood Count 5.07 M/mm3 (4.6-6.2); White Blood Count 8.7 K/mm3 (4.4-11.0)
[2024-10-30 16:54] LABS: ALB/GLOB Ratio 1.3 RATIO (0.9-2.4); AST(SGOT) 25 U/L (<=37); Alanine Aminotransfer ALT/SGPT 42 U/L (<=46); Albumin, Serum 3.8 g/dL (3.5-5.0); Alkaline Phosphatase 74 U/L (40-129); Anion Gap 11 (5-15); BUN 9 mg/dL (4-19); BUN/Creat Ratio 10.9 RATIO (10-20); Carbon Dioxide 24.6 mmol/L (21.0-32.0); Chloride 106 mmol/L (98-108); Creatinine, Serum 0.79 mg/dL (0.70-1.20); EST Glomerular Filtration Rate 114 (>60); Glucose 111 mg/dL (70-99); Potassium 4.4 mmol/L (3.3-5.1); Pro- Brain NATRIURETIC PEPTIDE 212 pg/mL (<=450); Protein, Total 6.8 g/dL (5.9-8.4); Sodium Level 141 mmol/L (133-145); Total Bilirubin 0.33 mg/dL (0.00-1.30)
== END | disposition home or self-care (01) ==
LOC: VSLAB 15:34
DX: I10 Essential (primary) hypertension (principal); R06.00 Dyspnea, unspecified
CPT/HCPCS: 36415; 80053; 83880; 84443; 85025

== ENCOUNTER → 2024-11-20 | Outpatient (CLI) | payer MEDICAID, SELFPAY | END | disposition home or self-care (01) | LOC: PSN 11:05 | DX: R06.00 Dyspnea, unspecified (principal) | CPT/HCPCS: 94060; 94726; 94729 ==

== ENCOUNTER → 2024-11-21 | Outpatient (CLI) | payer MEDICAID, SELFPAY ==
--- NOTE | 2024-11-21 15:43 | ECHOCS_ITS ---
Reason For Study Reason For Study: DYSPNEA Procedure This was a 2D Doppler, Color Flow transthoracic echocardiogram. The study was technically limited. The study was technically difficult. Due to body habitus. Contrast injection was performed. Exam performed in department. Left Ventricle Normal size and thickness. The LV ejection fraction is 60 %. Unable to assess diastolic function based on available data. Right Ventricle Normal right ventricle. Atria The left and right atria are normal. Mitral Valve Trivial mitral valve insufficiency. Tricuspid Valve Normal tricuspid valve. Aortic Valve The aortic valve is not well visualized in the short axis view. Pulmonic Valve The pulmonic valve is not well visualized. Great Vessels The aortic root is not well visualized. Pericardium/Pleural No pericardial effusion. Medication 22 gauge I.V. with prn adaptor inserted into left arm. Diluted definity 3.5ml given slow IV push to enhance endocardial definition. MMode/2D Measurements & Calculations LVIDd: 4.2 cm IVSd: 1.1 cm Ao root diam: 3.5 cm LVIDs: 3.4 cm LVPWd: 1.1 cm RVDd: 3.9 cm FS: 18.8 % LAV(MOD-bp): 44.0 ml LVAd ap4: 35.9 cm2 SV(MOD-sp4): 65.6 ml LAV(MOD-bp) Indexed: 15.4 ml/m2 LVLd ap4: 8.1 cm SI(MOD-sp4): 22.9 ml/m2 LAV(MOD-sp2): 49.8 ml EDV(MOD-sp4): 128.9 ml LAV(MOD-sp4): 41.7 ml EDV(sp4-el): 135.8 ml LVAs ap4: 23.6 cm2 LVLs ap4: 7.2 cm ESV(MOD-sp4): 63.4 ml ESV(sp4-el): 66.2 ml EF(MOD-sp4): 50.9 % EF(sp4-el): 51.3 % SV(sp4-el): 69.6 ml LA A4 area: 16.1 cm2 LA dimension(2D): 4.8 cm RA A4 area: 14.6 cm2 TAPSE: 2.7 cm Time Measurements MV dec time: 0.15 sec Doppler Measurements & Calculations MV E max izzy: 89.8 cm/sec MV V2 max: 103.5 cm/sec MV P1/2t max izzy: 102.5 cm/sec MV A max izzy: 52.7 cm/sec MV max P.3 mmHg MV P1/2t: 43.8 msec MV E/A: 1.7 MV V2 mean: 46.8 cm/sec MV dec slope: 684.9 cm/sec2 MV mean P.1 mmHg MV V2 VTI: 15.0 cm MVA(P1/2t): 5.0 cm2 Ao V2 max: 122.2 cm/sec LV V1 max: 82.2 cm/sec PA V2 max: 86.9 cm/sec Ao max P.0 mmHg LV V1 max P.7 mmHg PA V2 mean: 57.1 cm/sec Ao V2 mean: 85.2 cm/sec LV V1 mean P.3 mmHg Ao mean P.2 mmHg LV V1 mean: 53.9 cm/sec Ao V2 VTI: 19.0 cm LV V1 VTI: 14.6 cm AV (velocity ratio): 0.77 ECHO/Echo Complete W/ Contrast Interpretation Summary Technically difficult study with suboptimal images. The LV ejection fraction is 60 %. Ordering Physician: Kellie Gudino Referring Physician: Kellie Gudino Performed By: Prachi Knapp, RDCS, RVT
== END | disposition home or self-care (01) ==
LOC: CVS 15:41
DX: R06.00 Dyspnea, unspecified (principal); G47.10 Hypersomnia, unspecified
CPT/HCPCS: 93306; Q9957; A4216; C8929

== ENCOUNTER → 2024-11-25 | Outpatient (CLI) | payer MEDICAID, SELFPAY | END | disposition home or self-care (01) | LOC: SL 14:04 | DX: G47.10 Hypersomnia, unspecified (principal); R06.00 Dyspnea, unspecified | CPT/HCPCS: 95806 ==

== ENCOUNTER 2025-02-03 23:30 | Emergency (ER) | payer MEDICAID, SELFPAY ==
[2025-02-03 23:30] VITALS: BP 159/94; PULSE 100; RESP 18; TEMP 36.7; O2SAT 97; BMI 58.6
--- NOTE | 2025-02-03 23:40 | RAD_ITS ---
PROCEDURE: RIGHT ANKLE MIN 3 VIEWS 02/03/2025 REASON FOR EXAM: TRAUMA TECHNIQUE: Procedure Code: RADANK Modality: DX Procedure: ANKLE MIN 3 VIEWS Laterality: Right COMPARISON: None. FINDINGS: No acute fracture or dislocation. Alignment is anatomic. Preserved joint spaces. No aggressive osseous lesion. No marked focal soft tissue swelling or radiopaque foreign body. RAD/Ankle min 3 Views IMPRESSION: No acute fracture or dislocation. Reading Location: [id number]
--- NOTE | 2025-02-03 23:56 | EDS_ITS ---
HPI History of Present Illness Chief Complaint: Lower Extremity Injury Detail of Chief Complaint: Initial injury to ankle proximal a month ago. Rolled the ankle today walki Informant: patient Onset/Context/Timing Onset: Hours (Rolled ankle walking on railroad ties) and Month(s) (Initial injury 1 month ago.) Mechanism/Context: Blunt Injury (Plantar inversion mechanism of injury.) Location of pain/injuries: Right ankle Quality of Pain: Dull and Aching Location: Predominately lateral side of the right ankle Current Severity: Mild Maximum Severity: Moderate Worsened by: Weightbearing Relieved by: Nothing Associated Symptoms Associated Symptoms: Negative for Parasthesias, Weakness, Loss of function, Inability to ambulate or Loss of consciousness Narrative Narrative: Patient is a 44-year-old male. He has history of venous stasis dermatitis with bilateral lymphedema, hyperinsomnia, prediabetes, obstructive sleep apnea, hypertension, hypercholesterolemia and a BMI of 58.6. He presents because of reinjury to his right ankle. He complains of pain predominantly laterally. Prior similar symptoms: Yes Recent Illness/Hospitalization: No [facility] Medical History Depression Hypertension Home Medications ?Medication ?Instructions ?Recorded ?Last Taken ?Type albuterol sulfate 90 mcg/actuation 1 puff inhalation 0 01/06/25 Unknown History aerosol inhaler hydrochlorothiazide 12.5 mg capsule 12.5 mg PO DAILY 0 01/06/25 Unknown History lisinopril 40 mg tablet 40 mg PO DAILY 01/06/25 Unkn own History metformin 500 mg tablet,extended 500 mg PO DAILY 01/06 Unknown History release 24 hr rosuvastatin 20 mg tablet 20 mg PO QHS 01/06/25 Unknow n History amlodipine 10 mg tablet 10 mg PO QDAY 01/13/25 Unkno wn History varenicline tartrate 0.5 mg (11)-1 tab PO 01/13/25 Unk nown History mg (42) tablets in a dose pack hydrocodone-acetaminophen 5-325mg 1 tab PO Q6H PRN PRN Pain 3 days 02/04/25 Unknown Rx 5mg-325mg #10 TABLETS Allergy/AdvReac Type Severity Reaction Status Date / Time No Known Allergies Allergy Verified 02/03/25 23:31 Family History Brother Asthma Hypertension Sister Asthma Diabetes Hypertension Mother Asthma Cancer Myocardial infarction Father Asthma Surgical History surgery for undescended testicle Social History household members: family current occupational status: unemployed sexually active: Yes Smoking Status: Current every day smoker tobacco type: cigarettes alcohol intake: current alcohol intake frequency: a few times a month substance use type: does not use caffeine: Yes Type: coffee Number of servings: 2 seatbelt use: always ROS ROS ED Constitutional Constitutional ED: Denies chills, fever(s), subjective or sweats Musculoskeletal Musculoskeletal: Denies arthralgias or myalgias Integumentary Denies Abrasions or rash Neurologic Neurologic: Denies paresthesias or weakness EXAM Physical Exam Const Vital Signs: 02/03/25 23:30 Temperature 98.1 F Temperature Source Temporal Pulse Rate 100 Respiratory Rate 18 Blood Pressure 159/94 H Blood Pressure Mean 115 Pulse Ox 97 Oxygen Delivery Method Room Air Positive well nourished and well developed General Appearance ED: well developed and NAD HEENT HEENT Narrative: HEENT exam is grossly unremarkable. Resp normal respiratory effort Cardio regular rhythm Rate: regular rate Extremity full ROM; Negative for normal to inspection Extremity Narrative: Patient does have some swelling noted. There is evidence of dry skin. There is pain palpation over the anterior talofibular ligament and distal fibula. There is minimal tenderness over the deltoid ligament. There is no laxity with anterior drawer testing. There is no pain no patient over the base of the fifth metatarsal. There is no neurovascular compromise. Psych mental status grossly normal and thought process normal Skin no rashes or lesions noted and no wounds MDM MDM MDM Narrative Medical decision making narrative: Per ankle auto will rule per the [place] ankle rule imaging is required to rule out fracture versus sprain. Radiography Chest X-Ray - ED: Read by ED Physician (Three-view x-ray of the ankle was independently interpreted by me at midnight. There is significant soft tissue edema noted. There is no fracture, subluxation dislocation. There is no asymmetry of the mortise. The base of the fifth metatarsal appears normal.) Treatment and Re-Evaluation Narrative: Will treat as a stable ankle sprain of the anterior talofibular ligament. Discharge Plan Triage Chief Complaint: Lower Extremity Injury ED Provider: Vladimir Bustos Dx/Rx/DC Orders Clinical Impression: Sprain of anterior talofibular ligament of right ankle, Hypertension, Body mass index (BMI) greater than 50, Obstructive sleep apnea Instructions: Ankle Inversion (Strength), ED Ankle Sprain (Adult) Prescriptions: New hydrocodone-acetaminophen 5-325 mg tablet 1 tab PO Q6H PRN PRN (Reason: Pain) 3 Days Qty: 10 0RF No Action rosuvastatin 20 mg tablet 20 mg PO QHS metformin 500 mg tablet extended release 24 hr 500 mg PO DAILY lisinopril 40 mg tablet 40 mg PO DAILY hydrochlorothiazide 12.5 mg capsule 12.5 mg PO DAILY albuterol sulfate 90 mcg/actuation HFA aerosol inhaler 1 puff inhalation varenicline tartrate 0.5 mg (11)- 1 mg (42) tablets,dose pack PO amlodipine 10 mg tablet 10 mg PO QDAY Primary Care Provider: Kellie Gudino Referrals: Kellie Gudino, [employer]PERATOR-C [Primary Care Provider, Family Practice] - 1 Week if not improving Print Language: Occitan Disposition Disposition: Home, Self Care
[2025-02-04 00:10] VITALS: BP 131/89; PULSE 90; RESP 18; TEMP 36.6; O2SAT 97
== END 2025-02-04 00:11 | disposition home or self-care (01) ==
LOC: ED 02-04 00:10
PROVIDERS: Emergency Provider Emergency Medicine; Visit Provider Emergency Medicine
DX: S93.491A Sprain of other ligament of right ankle, initial encounter (principal); G47.33 Obstructive sleep apnea (adult) (pediatric); I10 Essential (primary) hypertension; F17.210 Nicotine dependence, cigarettes, uncomplicated; E78.00 Pure hypercholesterolemia, unspecified; X58.XXXA Exposure to other specified factors, initial encounter
CPT/HCPCS: 73610; 99284

== ENCOUNTER 2025-02-11 18:22 | Emergency (ER) | payer MEDICAID, SELFPAY ==
[2025-02-11 18:23] VITALS: BP 171/93; PULSE 99; RESP 22; TEMP 36.8; O2SAT 98; BMI 57.3
--- NOTE | 2025-02-11 18:28 | RAD_ITS ---
PROCEDURE: RIGHT FOOT MIN 3 VIEWS 02/11/2025 REASON FOR EXAM: PAIN TECHNIQUE: Procedure Code: RADFO Modality: DX Procedure: FOOT MIN 3 VIEWS Laterality: Right COMPARISON: None. FINDINGS: No acute fracture or dislocation. Alignment is anatomic. Preserved joint spaces. No aggressive osseous lesion. No marked focal soft tissue swelling or radiopaque foreign body. RAD/Foot min 3 Views IMPRESSION: No acute fracture or dislocation. Reading Location: [id number]
--- NOTE | 2025-02-11 19:49 | EDS_ITS ---
HPI History of Present Illness Chief Complaint: Lower Extremity Injury Narrative Narrative: Patient is a 44-year-old male presenting to the emergency department for right lateral foot pain. Patient has a past medical history of venous stasis dermatitis with bilateral lymphedema, hyperinsomnia, prediabetes, obstructive sleep apnea, HTN and HLD. Patient states that about 3 weeks ago he injured his right ankle/foot. States that has been having continued pain mainly in his right lateral foot. States he feels like he has been putting more weight on the lateral part of the foot causing the pain. He denies taking anything for pain prior to arrival. Denies any other injuries. Denies any numbness or weakness of his foot or leg. [facility] Medical History Depression Hypertension Home Medications ?Medication ?Instructions ?Recorded ?Last Taken ?Type albuterol sulfate 90 mcg/actuation 1 puff inhalation 0 01/06/25 Unknown History aerosol inhaler hydrochlorothiazide 12.5 mg capsule 12.5 mg PO DAILY 0 01/06/25 Unknown History lisinopril 40 mg tablet 40 mg PO DAILY 01/06/25 Unkn own History metformin 500 mg tablet,extended 500 mg PO DAILY 01/06 Unknown History release 24 hr rosuvastatin 20 mg tablet 20 mg PO QHS 01/06/25 Unknow n History amlodipine 10 mg tablet 10 mg PO QDAY 01/13/25 Unkno wn History varenicline tartrate 0.5 mg (11)-1 tab PO 01/13/25 Unk nown History mg (42) tablets in a dose pack hydrocodone-acetaminophen 5-325mg 1 tab PO Q6H PRN PRN Pain 3 days 02/04/25 Unknown Rx 5mg-325mg #10 TABLETS Allergy/AdvReac Type Severity Reaction Status Date / Time No Known Allergies Allergy Verified 02/11/25 18:23 Family History Brother Asthma Hypertension Sister Asthma Diabetes Hypertension Mother Asthma Cancer Myocardial infarction Father Asthma Surgical History surgery for undescended testicle Social History household members: family current occupational status: unemployed sexually active: Yes Smoking Status: Current every day smoker tobacco type: cigarettes alcohol intake: current alcohol intake frequency: a few times a month substance use type: does not use caffeine: Yes Type: coffee Number of servings: 2 seatbelt use: always ROS ROS ED ROS Narrative see HPI EXAM Physical Exam Narrative Exam Narrative: Vital signs: Reviewed General: Alert and orientedx3. No acute distress HEENT: Head is normocephalic and atraumatic, sinuses nontender, pupils equal round and reactive. Nares are patent. Oropharynx and throat exams normal. Neck: Supple without lymphadenopathy nontender Cardiovascular: Regular rate and rhythm, no murmurs. No rubs or gallops. Normal S1 and S2 Respiratory: Clear to auscultation bilaterally. No wheezes, rales, rhonchi Abdominal: Soft and nontender. Normal bowel sounds. No guarding or rebound. Nonsurgical abdomen Extremities: Some mild tenderness to palpation of the right lateral foot. No tenderness to palpation of the 1st or 5th metatarsals. No tenderness to palpation of the medial or lateral malleoli. No edema noted to the foot. No ecchymosis noted to the plantar side of the foot. No erythema. No crepitus. No wounds to the foot. DP and PT pulses intact. Sensation intact. Normal strength with plantar and dorsi flexion. No calf swelling or pain on palpation. Neurological: Cranial nerves II through XII are grossly intact. Normal strength and sensation. Normal cerebellar function The rest of the physical exam is unremarkable Const Vital Signs: 02/11/25 18:23 Temperature 98.3 F Temperature Source Oral Pulse Rate 99 Respiratory Rate 22 H Blood Pressure 171/93 H Blood Pressure Mean 119 Pulse Ox 98 Oxygen Delivery Method Room Air MDM MDM MDM Narrative Medical decision making narrative: Patient is a 44-year-old male presenting to the emergency department for right foot pain for the past 3 weeks. Patient was seen and examined. Vitals are stable. Patient resting in bed comfortably no acute distress. Physical exam is unremarkable. No bony tenderness to palpation. X-ray of the foot was ordered prior to my evaluation of the patient. I independently reviewed this. No fracture dislocations noted. Radiology read in agreement. Patient offered analgesia with Motrin. Offered a postop shoe to help with pain and ambulation. Able to ambulate here in the emergency department. Given podiatry follow-up. Patient discharged from the Emergency Department. I do not feel that the patient's evaluation reveals any acute reason for admission at this time. I instructed them to either follow-up with their primary care physician or promptly return to the Emergency Department for reevaluation should symptoms worsen or new symptoms develop. I explained what symptoms would indicate the need to return to the emergency department. Shared decision making was used. The patient voiced understanding of the treatment plan and is agreeable with it. Clinical impression: Foot pain History & Record Review Discussion w/independent historian: Patient Additional record(s) reviewed:: Prior ED visit Radiography X-Ray: Read by ED Physician, Normal and No Fracture Diagnostic Testing: Clinical Impression(s) from Imaging Studies Foot X-Ray 02/11/25 18:28 IMPRESSION: No acute fracture or dislocation. Reading Location: [facility] Discharge Plan Triage Chief Complaint: Lower Extremity Injury ED Provider: Rosangela Quezada Dx/Rx/DC Orders Clinical Impression: Foot pain, right Instructions: ED Foot Contusion, ED RICE Prescriptions: No Action rosuvastatin 20 mg tablet 20 mg PO QHS metformin 500 mg tablet extended release 24 hr 500 mg PO DAILY lisinopril 40 mg tablet 40 mg PO DAILY hydrochlorothiazide 12.5 mg capsule 12.5 mg PO DAILY albuterol sulfate 90 mcg/actuation HFA aerosol inhaler 1 puff inhalation varenicline tartrate 0.5 mg (11)- 1 mg (42) tablets,dose pack PO amlodipine 10 mg tablet 10 mg PO QDAY hydrocodone-acetaminophen 5-325 mg tablet 1 tab PO Q6H PRN PRN (Reason: Pain) 3 Days Qty: 10 0RF Primary Care Provider: Kellie Gudino Referrals: Marcell Dennis DPM [Med Staff - Active Staff, Podiatry] - As soon as possible Kellie Gudino, [employer]SMAN-C [Primary Care Provider, Family Practice] - As soon as possible Activity Restrictions/Additional Instructions: Refer to the RICE therapy for pain and swelling at home. Wear the postop shoe to help with your pain. I provided follow-up with a foot doctor below. Your evaluation in the Emergency Department did not reveal any acute reason for admission. However, I want to emphasize that you may be early in the course of a disease process or illness even if it is not present. For this reason you should follow-up within 24 hours for reevaluation with either your primary care physician or if necessary back here in the Emergency Department. You should return to the Emergency Department immediately if your symptoms worsen or new symptoms develop. Print Language: Cook Islander Disposition Disposition: Home, Self Care Discharge Date/Time: 02/11/25 19:55
[2025-02-11 19:53] VITALS: BP 159/89; PULSE 99; RESP 22; TEMP 36.8; O2SAT 98
== END 2025-02-11 19:55 | disposition home or self-care (01) ==
LOC: ED 19:54
PROVIDERS: Emergency Provider Student in an Organized Health Care Education/Training Program; Visit Provider Student in an Organized Health Care Education/Training Program
DX: M79.671 Pain in right foot (principal); I10 Essential (primary) hypertension; E78.5 Hyperlipidemia, unspecified; R73.03 Prediabetes; G47.33 Obstructive sleep apnea (adult) (pediatric); F17.210 Nicotine dependence, cigarettes, uncomplicated; Z79.84 Long term (current) use of oral hypoglycemic drugs; Z79.899 Other long term (current) drug therapy
CPT/HCPCS: 73630; 99283

== ENCOUNTER 2025-02-23 15:18 | Emergency (ER) | payer MEDICAID, SELFPAY ==
[2025-02-23 15:19] VITALS: BP 158/113; PULSE 116; RESP 22; TEMP 36.2; O2SAT 98; BMI 58.3
[2025-02-23 16:56] VITALS: BP 158/113; PULSE 116; RESP 22; TEMP 36.2; O2SAT 98
== END 2025-02-23 16:57 | disposition home or self-care (01) ==
LOC: ED 16:48
PROVIDERS: Emergency Provider Emergency Medicine; Visit Provider Emergency Medicine
DX: S92.354A Nondisplaced fracture of fifth metatarsal bone, right foot, initial encounter for closed fracture (principal); E11.9 Type 2 diabetes mellitus without complications; M79.671 Pain in right foot; W18.40XA Slipping, tripping and stumbling without falling, unspecified, initial encounter; I10 Essential (primary) hypertension; F17.200 Nicotine dependence, unspecified, uncomplicated; Z79.84 Long term (current) use of oral hypoglycemic drugs; Z79.899 Other long term (current) drug therapy
CPT/HCPCS: 73630; 99283

== ENCOUNTER 2025-03-01 12:23 | Emergency (ER) | payer MEDICAID, SELFPAY ==
[2025-03-01 12:25] VITALS: BP 160/100; PULSE 103; RESP 18; TEMP 36.4; O2SAT 98; BMI 60.1
--- NOTE | 2025-03-01 12:40 | ED.VIS.LOWEX ---
HPI History of Present Illness Chief Complaint: Lower Extremity Injury Informant: patient Narrative Narrative: 45-year-old male presenting to the emergency room requesting pain medicine for a fracture. Patient was diagnosed with a Trimble fracture of the right foot few days ago. He states he followed up with his primary care doctor. He has been using a cane to help offload his weight. He understands that he is not supposed to be bearing weight but has been doing it anyway as a way to get around. He states that he was not given any pain medication. Pharmacy found that he filled 10 Percocet pills 2 days ago. He states that he is out of those. That was for a 5-day supply. He states he plans on talking to his doctor about possibly getting a knee scooter to get around. He notes that he has been manipulating the splint to limit his feet air and has not been wrapping the legs the way that he should. [facility] Medical History Depression Hypertension Home Medications ?Medication ?Instructions ?Recorded ?Last Taken ?Type albuterol sulfate 90 mcg/actuation 1 puff inhalation 01/06/25 Unknown History aerosol inhaler hydrochlorothiazide 12.5 mg capsule 12.5 mg PO DAILY 01/06/25 Unknown History lisinopril 40 mg tablet 40 mg PO DAILY 01/06/25 Unknown History metformin 500 mg tablet,extended 500 mg PO DAILY 01/06/25 Unknown History release 24 hr rosuvastatin 20 mg tablet 20 mg PO QHS 01/06/25 Unknown History amlodipine 10 mg tablet 10 mg PO QDAY 01/13/25 Unknown History varenicline tartrate 0.5 mg (11)-1 tab PO 01/13/25 Unknown History mg (42) tablets in a dose pack oxycodone-acetaminophen 5 mg-325 1 tab PO BID PRN PRN pain 03/01/25 Unknown History mg tablet oxycodone-acetaminophen 5 mg-325 1 tab PO Q6H PRN pain 3 days #12 03/01/25 Unknown Rx mg tablet (Percocet) tabs Allergy/AdvReac Type Severity Reaction Status Date / Time No Known Allergies Allergy Verified 03/01/25 12:24 Family History Brother Asthma Hypertension Sister Asthma Diabetes Hypertension Mother Asthma Cancer Myocardial infarction Father Asthma Surgical History surgery for undescended testicle Social History household members: family current occupational status: unemployed sexually active: Yes Smoking Status: Heavy Smoker (>10/day) alcohol intake: current alcohol intake frequency: a few times a month substance use type: does not use caffeine: Yes Type: coffee Number of servings: 2 seatbelt use: always ROS ROS ED Constitutional Constitutional ED: Denies chills or weight loss Eyes Eyes: Denies change in vision or diplopia ENT ENT ED: Denies ear pain, rhinorrhea or sore throat Cardiovascular Cardiovascular: Denies chest pain, orthopnea, palpitations or racing heartbeat Respiratory/Chest Respiratory/Chest: Denies cough, dyspnea or orthopnea Gastrointestinal Gastrointestinal: Denies abdominal pain, diarrhea, nausea or vomiting Genitourinary Genitourinary ED: Denies dysuria, hematuria or urinary frequency Musculoskeletal Musculoskeletal: Reports other Details: R foot pain ; Denies arthralgias or myalgias Integumentary Denies abscess or rash Neurologic Neurologic: Denies headache(s) or weakness Psychiatric Psychiatric: Denies anxiety, depression, suicidal ideation or suicidal thoughts Endocrine Endocrinology: Denies polydipsia, polyphagia or polyuria Allergic/Immunologic Allergic/Immunologic ED: Denies mouth swelling, tongue swelling or urticaria EXAM Physical Exam Const Vital Signs: 03/01/25 12:25 Temperature 97.6 F L Temperature Source Temporal Pulse Rate 103 H Respiratory Rate 18 Blood Pressure 160/100 H Blood Pressure Mean 120 Pulse Ox 98 Oxygen Delivery Method Room Air Positive well nourished, well developed and obese General Appearance ED: well developed and NAD Nutritional Appearance: obese HEENT Reports normocephalic, head/scalp atraumatic and moist mucous membranes Eyes PERRL and EOMs intact bilaterally Neck no lymphadenopathy, supple and no JVD Resp normal respiratory effort and clear to auscultation bilaterally Cardio regular rate, regular rhythm and no murmurs GI normal to inspection, nondistended, normoactive bowel sounds and non-tender Palpation: soft Back/Spine no CVA tenderness and normal ROM Extremity Extremity Narrative: There is bilateral lower extremity lymphedema. The right lower leg has a postoperative shoe with a posterior Ortho-Glass splint. The Nilesh bandage has clearly been manipulated and is now antigravity by approximately 2 inches in which feels lymphedema is bulging in between the bands General Extremety ED: Negative for edema General Extremity: Negative for edema Neuro oriented x3 and CN's II-XII intact bilaterally Sensorium / Orientation: alert Motor Exam: strength 5/5 throughout Psych mental status grossly normal Mood & Affect: Negative for depressed or tearful Skin no rashes or lesions noted and no wounds MDM MDM MDM Narrative Medical decision making narrative: Differential diagnosis includes compartment syndrome fracture lymphedema medical noncompliance opioid abuse fracture blisters or skin breakdown neurovascular injury Patient appears neurovascularly intact. He has significant lymphedema. He has been walking on this admitted related to the splint. We will attempt to find in the boot as he plans on continuing to ambulate. Unfortunately we do not have a boot that we will fit the patient. I placed a well-padded posterior Ortho-Glass splint. Neurovascular intact pre and post application would encourage him to limit as much weightbearing as possible but again he does plan on continuing to ambulate. As far as his pain medication I can write for some additional [place] but he may not to be able to fill it till the 5 days is up as far as my understanding is at this time. I would encourage him to follow-up with podiatry as previously directed History & Record Review Discussion w/independent historian: Patient Additional record(s) reviewed:: Prior ED visit Discharge Plan Triage Chief Complaint: Lower Extremity Injury ED Provider: Romel Gunderson Dx/Rx/DC Orders Clinical Impression: Acute foot pain, Trimble fracture Instructions: ED Fracture, Foot Prescriptions: New oxycodone-acetaminophen [Percocet] 5-325 mg tablet 1 tab PO Q6H PRN (Reason: pain) 3 Days Qty: 12 0RF Rx Instructions: Patient filled Percocet prescription at [facility] on 02/27/25. This was a 5-day course. May fill this prescription after that date No Action rosuvastatin 20 mg tablet 20 mg PO QHS metformin 500 mg tablet extended release 24 hr 500 mg PO DAILY lisinopril 40 mg tablet 40 mg PO DAILY hydrochlorothiazide 12.5 mg capsule 12.5 mg PO DAILY albuterol sulfate 90 mcg/actuation HFA aerosol inhaler 1 puff inhalation varenicline tartrate 0.5 mg (11)- 1 mg (42) tablets,dose pack PO amlodipine 10 mg tablet 10 mg PO QDAY oxycodone-acetaminophen 5-325 mg tablet 1 tab PO BID PRN PRN (Reason: pain) Patient Comments: PT STATES TOOK ALL OF MED ALREADY Primary Care Provider: Kellie Gudino Referrals: Landon Gamez DPM [Med Staff - Courtesy Staff, Podiatry] - As soon as possible Kellie Gudino, [facility] [Primary Care Provider, Family Practice] Print Language: Czech Disposition Disposition: Home, Self Care
--- OUTSIDE RECORDS SUMMARY | 2025-03-01 12:40 | XMS RPT_ITS | CCD ---
Author Organization [facility] Care Team Providers Care Rabies Inspector Name Role Phone Care Physician, No Primary Primary Care Provider Unavailable Dr. Maria M Tomlin DO Attending Provider Dr. Maria M Tomlin DO Emergency Provider Beam SHOE REPAIRER HELPER-C, Zebulun Attending Provider Care Physician, No Primary Referring Provider Un available Sommer DPM, Dr. Mtz Attending Provider Care Physician, No Primary Primary Care Provider Unavailable Beam SHOE REPAIRER HELPER-C, Zebulun Primary Care Provider Beam SHOE REPAIRER HELPER-C, Zebulun Referring Provider Sara CLIFFORD, Dr. Cooper Attending Provider Care Physician, No Primary Primary Care Provider Unavailable Care Physician, No Primary Referring Provider Un available Sommer DPM, Dr. Mtz Attending Provider Beam SHOE REPAIRER HELPER-C, [place]ump Attending Provider Care Physician, No Primary Primary Care Provider Unavailable Care Physician, No Primary Referring Provider Un available Sommer DPM, Dr. Mtz Attending Provider Nelson CLIFFORD, Dr. Ly Attending Provider Care Physician, No Primary Referring Provider Un available Sommer DPM, Dr. Mtz Attending Provider Care Physician, No Primary Referring Provider Un available Sommer DPM, Dr. Mtz Attending Provider Beam SHOE REPAIRER HELPER-C, Zebulun Primary Care Provider Beam SHOE REPAIRER HELPER-C, Zebulun Attending Provider Beam SHOE REPAIRER HELPER-C, Zebulun Referring Provider Emani MARTIN-CAsmita Attending Provider Care Physician, No Primary Referring Provider Un available Kemal RASCON, Dr. Mtz Attending Physician Beam SHOE REPAIRER HELPER-C, Zebulun Primary Care Physician Beam SHOE REPAIRER HELPER-C, Zebulun Attending Physician Nelson CLIFFORD, Dr. Ly Attending Physician Emani SHOE REPAIRER HELPER-CAsmita Attending Physician Dr. Vladimir Bustos MD Emergency Department Physician Damien CLIFFORD, Dr. Adames Emergency Department Physici an Unavailable Vladimir Bustos Attending Unavailable Beam VSC, Zebulun Primary Care Unavailable Beam VSC, Zebulun Primary Care Unavailable Rosangela Quezada Attending Unavailable Beam VSC, Zebulun Primary Care Unavailable Kenneth Ruiz Attending Unavailable Smith Sommer Attending Unavailable Care Physician, No Primary Primary Care Unava ilable Care Physician, No Primary Referring Unava ilable Care Physician, No Primary Referring Unava ilable Beam VSC, Zebulun Primary Care Unavailable Smith Sommer Attending Unavailable Beam VSC, Kellie Attending Unavailable Care Physician, No Primary Primary Care Unava ilable Maria M Tomlin Attending Unavailable Care Physician, No Primary Primary Care Unava ilable Smith Sommer Attending Unavailable Care Physician, No Primary Primary Care Unava ilable Care Physician, No Primary Referring Unava ilable Beam VSC, Zebulun Referring Unavailable Michael Christian Attending Unavailable Beam VSC, Zebulun Primary Care Unavailable Aliyah Damon Attending Unavailable Beam VSC, Zebulun Primary Care Unavailable Smith Sommer Attending Unavailable Care Physician, No Primary Primary Care Unava ilable Care Physician, No Primary Referring Unava ilable Smith Sommer Attending Unavailable Beam VSC, Zebulun Primary Care Unavailable Care Physician, No Primary Referring Unava ilable Beam VSC, Zebulun Primary Care Unavailable Beam VSC, Zebulun Referring Unavailable Beam VSC, Zebulun Attending Unavailable Asmita Joaquin Attending Unavailable Beam VSC, Zebulun Referring Unavailable Beam VSC, Zebulun Primary Care Unavailable Care Physician, No Primary Referring Unava ilable Beam VSC, Zebulun Primary Care Unavailable Smith Sommer Attending Unavailable Care Physician, No Primary Referring Unava ilable Beam VSC, Zebulun Primary Care Unavailable Smith Sommer Attending Unavailable Beam VSC, Zebulump Primary Care Unavailable Beam VSC, Zebuwalter Attending Unavailable Beam VSC, Zebulun Attending Unavailable Beam VSC, Zebulun Referring Unavailable Beam VSC, Zebulun Primary Care Unavailable Beam VSC, Zebulun Attending Unavailable Beam VSC, Zebulun Referring Unavailable Beam VSC, Zebumaggyn Attending Unavailable Beam VSC, Zebulun Primary Care Unavailable Beam VSC, Zebulun Primary Care Unavailable Garrett Miller Attending Unavailable Medications Current Medications Medication Drug Class(es) Dates Sig (Normalized) Sig (Original) acetaminophen 325 mg / HYDROcodone bitartrate 5 mg oral tablet (14 sources) Opioid Agonist Start: 02-04-2025 take 1 tablet by mouth every six hours as needed for pain Start: 03-28-2023 End: 05-03-2024 Hydrocodone-Acetaminophen 5- 325 mg tablet Discontinued 1 {tbl} PO EVERY 4 HOURS NEEDED as needed for Pain 10 2 0 March 28, 2023 May 03, 2024 2:40pm Toothache Other specified disorders of teeth and supporting structures Start: 03-28-2023 take 1 tablet by imer th every four hours as needed Hydrocodone-Acetaminophen Active 1 TABLE T PO EVERY 4 HOURS NEEDED 10 2 March 28, 2023 [id number] 200 actuat albuterol 0.09 mg/actuat metered dose inhaler (3 sources) beta2-Adrenergic Agonist Start: 01-06-2025 amLODIPine 10 mg oral tablet (3 sources) Dihydropyridine Calcium Channel Cecille Start: 01-13-2025 take 1 tablet by mouth once daily hydroCHLOROthiazide 12.5 mg oral capsule (3 sources) Thiazide Diuretic Start: 01-06-2025 take 1 capsule by mouth once daily lisinopril 40 mg oral tablet (3 sources) Angiotensin Converting Enzyme Inhibitor Start: 01-06-2025 take 1 tablet by mouth once daily 24 hr metFORMIN hydrochloride 500 mg extended release oral tablet (3 sources) Biguanide Start: 01-06-2025 take 1 tablet by mouth once daily rosuvastatin calcium 20 mg oral tablet (3 sources) HMG-CoA Reductase Inhibitor Start: 01-06-2025 take 1 tablet by mouth at bedtime varenicline 1 mg oral tablet (2 sources) Partial Cholinergic Nicotinic Agonist Start: 01-13-2025 Varenicline Tartrate 0.5 mg (11)- 1 mg (42) tablets,dose pack (1 source) Start: 01-13-2025 Varenicline Tartrate 0.5 mg (11)- 1 mg (42) tablets,dose pack Active {tbl} PO January 13, 2025 12:00am Completed/Discontinued Medications Medication Drug Class(es) Dates Sig (Normalized) Sig (Original) amoxicillin 875 mg / clavulanate 125 mg oral tablet (10 sources) Penicillin-class Antibacterial Start: 08-20-2024 End: 01-06-2025 Amoxicillin-Pot Clavulanate 875-125 mg tablet Discontinued 1 {tbl} PO TWICE A DAY 28 14 0 August 20, 2024 12:00am January 06, 2025 4:06pm clindamycin 300 mg oral capsule (12 sources) Lincosamide Antibacterial Start: 03-28-2023 End: 05-03-2024 take 1 capsule by mouth every six hours Clindamycin Hcl (Cleocin Hcl) 300 mg capsule Discontinued 300 mg PO EVERY 6 HOURS 40 0 March 28, 2023 1:00am May 03, 2024 2:40pm clotrimazole 10 mg/ml topical cream (20 sources) Azole Antifungal Start: 08-20-2024 End: 01-13-2025 Clotrimazole 1 % cream Discontinued 1 NMA TOPICAL TWICE A DAY 30 28 August 20, 2024 12:00am January 13, 2025 2:53pm Start: 07-23-2024 End: 01-06-2025 Clotrimazole 1 % cream Disco ntinued 1 NMA TOPICAL TWICE A DAY 15 28 July 23, 2024 12:00am January 06, 2025 4:07pm Apply to bilateral webspaces 1 through 4, plantar feet bilateral twice daily for 30 days. cyclobenzaprine hydrochloride 10 mg oral tablet (16 sources) Muscle Relaxant Start: 10-24-2021 End: 05-03-2024 take 1 tablet by mouth twice daily as needed for muscle spasms Cyclobenzaprine 10 mg tablet Discontinued 10 mg PO TWICE A DAY as needed for muscle spasm 14 October 24, 2021 12:00am May 03, 2024 2:40pm furosemide 40 mg oral tablet (11 sources) Loop Diuretic Start: 05-03-2024 End: 01-06-2025 take 1 tablet by mouth every other day Furosemide (Lasix) 40 mg tablet Discontinued 40 mg PO EVERY OTHER DAY 7 May 03, 2024 1:00am January 06, 2025 4:07pm hydroCHLOROthiazide 12.5 mg / lisinopril 20 mg oral tablet (14 sources) Thiazide Diuretic, Angiotensin Converting Enzyme Inhibitor Start: 05-19-2022 End: 05-03-2024 Lisinopril-Hydrochl orothiazide 20-12.5 mg tablet Discontinued 1 {tbl} PO DAILY 30 May 19, 2022 1:00am May 03, 2024 2:40pm Start: 05-19-2022 take 1 tablet by imer once daily Lisinopril-Hydrochlorothiazide Active 1 TABLET PO DAILY May 19, 2022 12:00am naproxen 500 mg oral tablet (20 sources) Nonsteroidal Anti-inflammatory Drug Start: 10-24-2021 End: 05-03-2024 take 1 tablet by mouth twice daily as needed for pain Naproxen (Naprosyn) 500 mg tablet Discontinued 500 mg PO TWICE A DAY as needed for pain 20 October 24, 2021 12:00am May 03, 2024 2:40pm Start: 01-18-2017 End: 02-09-2017 take 1 tablet by mouth twice daily as needed Naproxen 500 MG tablet Discontinued 500 mg PO TWICE DAILY NEEDED January 18, 2017 12:00am February 09, 2017 12:42am Problems Active Problems Problem Classification Problem Date Documented Date Episodic/Chronic Biliary tract disease (20 sources) Biliary calculus; Translations: [Calculus of gallbladder without cholecystitis without obstruction] 05-27-2022 Episodic Chronic ulcer of skin (20 sources) Non-pressure chronic ulcer of other part of left lower leg with fat layer exposed; Translations: [Non-pressure chronic ulcer of other part of left lower leg with fat layer exposed] Onset: 07-11-2024 05-14-2024 Chronic Diabetes mellitus without complication (3 sources) Prediabetes; Translations: [Prediabetes] 01-06-2025 Episodic Disorders of lipid metabolism (16 sources) Hypercholesterolemia; Translations: [Pure hypercholesterolemia, unspecified] 11-01-2019 Chronic Disorders of teeth and jaw (12 sources) Toothache; Translations: [Other specified disorders of teeth and supporting structures] 03-28-2023 Episodic Essential hypertension (20 sources) Hypertensive disorder; Translations: [Essential (primary) hypertension] Onset: 11-04-2024 11-01-2019 Chronic Headache; including migraine (16 sources) Headache; Translations: [Headache] 02-11-2016 Episodic Inflammation; infection of eye (except that caused by tuberculosis or sexually transmitteddisease) (16 sources) Conjunctivitis due to adenovirus; Translations: [Conjunctivitis due to adenovirus] 10-25-2015 Episodic Nonspecific chest pain (16 sources) Right sided chest pain; Translations: [Chest pain, unspecified] 08-19-2018 Episodic Open wounds of extremities (20 sources) Laceration of right index finger; Translations: [Laceration without foreign body of right index finger without damage to nail, initial encounter] 12-20-2021 Episodic Other circulatory disease (19 sources) Peripheral vascular disease; Translations: [Other specified peripheral vascular diseases] 05-21-2024 Chronic Other circulatory disease (2 sources) Other specified peripheral vascular diseases; Translations: [Other specified peripheral vascular diseases] Onset: 10-08-2024 Chronic Other connective tissue disease (16 sources) Biceps tendinitis; Translations: [Bicipital tendinitis, left shoulder] 02-14-2017 Episodic Other connective tissue disease (1 source) Pain in right foot; Translations: [Pain in right foot] 02-11-2025 Episodic Other injuries and conditions due to external causes (1 source) Unspecified injury of unspecified lower leg, initial encounter; Translations: [Unspecified injury of unspecified lower leg, initial encounter] Onset: 2025 Episodic Other lower respiratory disease (11 sources) Dyspnea on exertion; Translations: [Other forms of dyspnea] 05-11-2024 Episodic Other lower respiratory disease (3 sources) Dyspnea; Translations: [Dyspnea, unspecified] 01-06-2025 Episodic Other lower respiratory disease (1 source) Dyspnea, unspecified; Translations: [Dyspnea, unspecified] Onset: 01-01-2025 Episodic Other nutritional; endocrine; and metabolic disorders (17 sources) Body mass index 40+ - severely obese; Translations: [Morbid (severe) obesity due to excess calories] 12-20-2021 Chronic Other nutritional; endocrine; and metabolic disorders (20 sources) Morbid obesity; Translations: [Morbid (severe) obesity due to excess calories] 10-01-2024 Chronic Other nutritional; endocrine; and metabolic disorders (1 source) Morbid (severe) obesity due to excess calories; Translations: [Morbid (severe) obesity due to excess calories] Onset: 11-04-2024 Chronic Other skin disorders (16 sources) Disorder of skin; Translations: [Disorder of the skin and subcutaneous tissue, unspecified] 07-08-2018 Episodic Other upper respiratory infections (16 sources) Pharyngitis; Translations: [Acute pharyngitis, unspecified] 10-07-2016 Episodic Residual codes; unclassified (6 sources) Obstructive sleep apnea syndrome; Translations: [Obstructive sleep apnea (adult) (pediatric)] 01-13-2025 Chronic Comment on above: AHI 41.9/h Residual codes; unclassified (3 sources) Hypersomnia; Translations: [Hypersomnia, unspecified] 01-06-2025 Chronic Residual codes; unclassified (1 source) Hypersomnia, unspecified; Translations: [Hypersomnia, unspecified] Onset: 12-01-2024 Chronic Residual codes; unclassified (16 sources) Edema; Translations: [Edema, unspecified] 11-02-2019 Episodic Residual codes; unclassified (11 sources) Bilateral lower limb edema; Translations: [Localized edema] 05-11-2024 Episodic Residual codes; unclassified (11 sources) Tobacco use and exposure - finding; Translations: [Tobacco use] 05-11-2024 Episodic Residual codes; unclassified (3 sources) Bilateral lower leg edema; Translations: [Localized edema] 01-06-2025 Episodic Sprains and strains (3 sources) Sprain of talofibular ligament of right ankle; Translations: [Sprain of other ligament of right ankle, initial encounter] Onset: 02-04-2025 02-04-2025 Episodic Past or Other Problems Problem Classification Problem Date Documented Da te Episodic/Chronic Mycoses (18 sources) Tinea pedis; Translations: [Tinea pedis] Onset: 11-04-2024 08-20-2024 Episodic Other screening for suspected conditions (not mental disorders or infectious disease) (1 source) Encounter for screening for lipoid disorders; Translations: [Encounter for screening for lipoid disorders] Onset: 06-20-2024 Episodic Residual codes; unclassified (1 source) Localized edema; Translations: [Localized edema] Onset: 05-27-2024 Episodic Unclassified (15 sources) surgery for undescended testicle 12-01-2021 Results Test Name Value Interpretation Reference Range Facility Emergency Department Summary on 02-23-2025 Emergency Department Summary [facility] Medical Records Department [address] [place] [address] Emergency Department Summary 02/23/25 MR#: [id number] Acct: [id number] Name: BILLY LOWERY Rep #: [id number] : 1980 45 From: Garrett Miller MD PCP: Kellie Gudino SHOE REPAIRER HELPER-C Status:REG ER Location: ED HPI History of Present Illness HPI Narrative: 45-year-old male history of hypertension diabetes. Tripped on Sunday night causing pain in his right lateral midfoot. No prior history or surgery. No other complaints. Chief Complaint: Lower Extremity Injury Informant: patient Occured/Mechanism Mechanism/Context: Yes injury and Yes blunt trauma Onset/Context/Timing Onset: Days Context: Sudden Onset Timing: Continuous Quality of Pain: Sharp Current Severity: Moderate Maximum Severity: Moderate Associated Symptoms Associated Symptoms: Negative for Parasthesia, Weakness or Loss of Funtion Narrative Narrative: 45-year-old male tripped Sunday night causing pain in his right mid lateral foot at the metatarsal. No prior history or surgery. Prior similar symptoms: No Recent Illness/Hospitalization : No [facility] Medical History Depression Hypertension Home Medications ???Medication ???Instructions ???Recorded ???Last Taken ???Type albuterol sulfate 90 mcg/actuation 1 puff inhalation 01/06/25 Unkno wn History aerosol inhaler hydrochlorothiazide 12.5 mg capsule 12.5 mg PO DAILY 01/06/25 Unkno wn History lisinopril 40 mg tablet 40 mg PO DAILY 01/06/25 Unknown Hi story metformin 500 mg tablet,extended 500 mg PO DAILY 01/06/25 Unknown H istory release 24 hr rosuvastatin 20 mg tablet 20 mg PO QHS 01/06/25 Unknown Hist ory amlodipine 10 mg tablet 10 mg PO QDAY 01/13/25 Unknown His tory varenicline tartrate 0.5 mg (11)-1 tab PO 01/13/25 Unknown History mg (42) tablets in a dose pack hydrocodone-acetaminoph en 5-325mg 1 tab PO Q6H PRN PRN Pain 3 days 02/04/25 Unknown Rx 5mg-325mg #10 TABLETS Allergy/AdvReac Type Severity Reaction Status Date / Time No Known Allergies Allergy Verified 02/23/25 15:19 Family History Brother Asthma Hypertension Sister Asthma Diabetes Hypertension Mother Asthma Cancer Myocardial infarction Father Asthma Surgical History surgery for undescended testicle Social History household members: family current occupational status: unemployed sexually active: Yes Smoking Status: Heavy Smoker (>10/day) alcohol intake: current alcohol intake frequency: a few times a month substance use type: does not use caffeine: Yes Type: coffee Number of servings: 2 seatbelt use: always ROS ROS ED ROS Narrative Denies recent illness. Constitutional Constitutional ED: Denies fever(s) Eyes Eyes: Denies blurry vision ENT ENT ED: Denies ear pain Cardiovascular Cardiovascular: Denies chest pain Respiratory/Chest Respiratory/Chest: Denies cough or dyspnea Gastrointestinal Gastrointestinal: Denies abdominal pain Genitourinary Genitourinary ED: Denies dysuria or hematuria Musculoskeletal Musculoskeletal: Denies arthralgias or back pain Integumentary Denies abscess or Abrasions Neurologic Neurologic: Denies headache(s) Psychiatric Psychiatric: Denies anxiety or depression Endocrine Endocrinology: Denies polydipsia, polyphagia or polyuria Hematologic/Lymphatic Hematologic/Lymphatic: Denies easy bleeding, easy bruising or lymphadenopathy Allergic/Immunologic Allergic/Immunologic ED: Denies mouth swelling, tongue swelling or urticaria EXAM Physical Exam Narrative Exam Narrative: 45-year-old male sitting upright in bed vital signs are stable afebrile. Pressures elevated at 150 and 113. He is in no distress. H EENT exam pupils round react light. Moist mutes membranes. Neck nontender no JVD. Lungs clear to auscultation. Heart tachycardic 110 no murmur. Chest wall ribs nontender. Abdomen nontender. Pelvic girdle intact. Moving all 4 extremities. Right hip knee and ankle nontender nonswollen. He has chronic changes skin of his foot. He has tenderness to his right small toe proximal metatarsal. Skin is closed. He is able to wiggle his toes. Has touch sensation. Has a DP pulse. Skin is intact. Const Vital Signs: 02/23/25 15:19 Temperature 97.1 F L Temperature Source Temporal Pulse Rate 116 H Respiratory Rate 22 H Blood Pressure 158/113 H Blood Pressure Mean 128 Pulse Ox 98 Oxygen Delivery Method Room Air Positive well nourished, well developed and obese; Negative for cachectic, contractures or unkempt General Appearance ED: well developed and (more content not included)... Normal [facility] Foot min 3 Viewson 5 Foot min 3 Views [facility] [address] [place] [address] Foot min 3 Views MR#: [id number] Acct: [id number] Name: BILLY LOWERY Rep #: [id number] : 1980 M 45 From: Yaron Perry MD PCP: Kellie Gudino Linette SHOE REPAIRER HELPER-C Status: PRE ER Study: Foot min 3 Views Date of Exam: 02/23/25 Exam# [id number] Ordering Dr: Provider,Ed P. PROCEDURE: RIGHT FOOT MIN 3 VIEWS 02/23/2025 REASON FOR EXAM: PAIN TECHNIQUE: Procedure Code: RADFO Modality: DX Procedure: FOOT MIN 3 VIEWS Laterality: Right COMPARISON: 02/11/2025 FINDINGS: Acute nondisplaced transverse fracture of the proximal 5th metatarsal metadiaphyseal junction, 2.2 cm from the proximal base. No additional acute fracture or dislocation identified. Varus deformity of the foot. Mild nonspecific generalized soft tissue swelling about the ankle/foot. RAD/Foot min 3 Views IMPRESSION: Acute nondisplaced Trimble fracture of the proximal 5th metatarsal metadiaphysis. Varus foot deformity, unchanged. Reading Location: [facility] CC: ED PHYSICIAN PROVIDER; Kellie LOPEZ SHOE REPAIRER HELPER-C Terese Cable Operator: Signed Normal [facility] Emergency Department Summary on 02-11-2025 Emergency Department Summary [facility] Medical Records Department [address] [place] [address] Emergency Department Summary 02/11/25 MR#: [id number] Acct: [id number] Name: BILLY LOWERY Rep #: [id number] : 1980 44 From: Rosangela Quezada MD PCP: Kellie Gudino Status:DEP ER Location: ED HPI History of Present Illness Chief Complaint: Lower Extremity Injury Narrative Narrative: Patient is a 44-year-old male presenting to the emergency department for right lateral foot pain. Patient has a past medical history of venous stasis dermatitis with bilateral lymphedema, hyperins omnia, prediabetes, obstructive sleep apnea, HTN and HLD. Patient states that about 3 weeks ago he injured his right ankle/foot. States that has been having continued pain mainly in his right lateral foot. States he feels like he has been putting more weight on the lateral part of the foot causing the pain. He denies taking anything for pain prior to arrival. Denies any other injuries. Denies any numbness or weakness of his foot or leg. [facility] Medical History Depression Hypertension Home Medications ???Medication ???Instructions ???Recorded ???Last Taken ???Type albuterol sulfate 90 mcg/actuation 1 puff inhalation 01/06/25 Unkno wn History aerosol inhaler hydrochlorothiazide 12.5 mg capsule 12.5 mg PO DAILY 01/06/25 Unkno wn History lisinopril 40 mg tablet 40 mg PO DAILY 01/06/25 Unknown Hi story metformin 500 mg tablet,extended 500 mg PO DAILY 01/06/25 Unknown H istory release 24 hr rosuvastatin 20 mg tablet 20 mg PO QHS 01/06/25 Unknown Hist ory amlodipine 10 mg tablet 10 mg PO QDAY 01/13/25 Unknown His tory varenicline tartrate 0.5 mg (11)-1 tab PO 01/13/25 Unknown History mg (42) tablets in a dose pack hydrocodone-acetaminoph en 5-325mg 1 tab PO Q6H PRN PRN Pain 3 days 02/04/25 Unknown Rx 5mg-325mg #10 TABLETS Allergy/AdvReac Type Severity Reaction Status Date / Time No Known Allergies Allergy Verified 02/11/25 18:23 Family History Brother Asthma Hypertension Sister Asthma Diabetes Hypertension Mother Asthma Cancer Myocardial infarction Father Asthma Surgical History surgery for undescended testicle Social History household members: family current occupational status: unemployed sexually active: Yes Smoking Status: Current every day smoker tobacco type: cigarettes alcohol intake: current alcohol intake frequency: a few times a month substance use type: does not use caffeine: Yes Type: coffee Number of servings: 2 seatbelt use: always ROS ROS ED ROS Narrative see HPI EXAM Physical Exam Narrative Exam Narrative: Vital signs: Reviewed General: Alert and orientedx3. No acute distress HEENT: Head is normocephalic and atraumatic, sinuses nontender, pupils equal round and reactive. Nares are patent. Oropharynx and throat exams normal. Neck: Supple without lymphadenopathy nontender Cardiovascular: Regular rate and rhythm, no murmurs. No rubs or gallops. Normal S1 and S2 Respiratory: Clear to auscultation bilaterally. No wheezes, rales, rhonchi Abdominal: Soft and nontender. Normal bowel sounds. No guarding or rebound. Nonsurgical abdomen Extremities: Some mild tenderness to palpation of the right lateral foot. No tenderness to palpation of the 1st or 5th metatarsals. No tenderness to palpation of the medial or lateral malleoli. No edema noted to the foot. No ecchymosis noted to the plantar side of the foot. No erythema. No crepitus. No wounds to the foot. DP and PT pulses intact. Sensation intact. Normal strength with plantar and dorsi flexion. No calf swelling or pain on palpation. Neurological: Cranial nerves II through XII are grossly intact. Normal strength and sensation. Normal cerebellar function The rest of the physical exam is unremarkable Const Vital Signs: 02/11/25 18:23 Temperature 98.3 F Temperature Source Oral Pulse Rate 99 Respiratory Rate 22 H Blood Pressure 171/93 H Blood Pressure Mean 119 Pulse Ox 98 Oxygen Delivery Method Room Air MDM MDM MDM Narrative Medical decision making narrative: Patient is a 44-year-old male presenting to the emergency department for right foot pain for the past 3 weeks. Patient was seen and examined. Vitals are stable. Patient resting in bed comfortably no acute distress. Physical exam is unremarkable. No bony tenderness to palpation. X-ray of the foot was ordered prior to my evaluation of the patient. I independently reviewed this. No fracture dislocations noted. Radiology read in agreement. Patient offered analgesia w (more content not included)... Normal [facility] Foot min 3 Viewson Foot min 3 Views [facility] [address] [place] [address] [id number] Foot min 3 Views MR#: [id number] Acct: [id number] Name: BILLY LOWERY Rep #: [id number] : 1980 M 44 From: Yaron Perry MD PCP: Kellie Gudino Status: PRE ER Study: Foot min 3 Views Date of Exam: 02/11/25 Exam# [id number] Ordering Dr: Provider,Ed P. PROCEDURE: RIGHT FOOT MIN 3 VIEWS 02/11/2025 REASON FOR EXAM: PAIN TECHNIQUE: Procedure Code: RADFO Modality: DX Procedure: FOOT MIN 3 VIEWS Laterality: Right COMPARISON: None. FINDINGS: No acute fracture or dislocation. Alignment is anatomic. Preserved joint spaces. No aggressive osseous lesion. No marked focal soft tissue swelling or radiopaque foreign body. RAD/Foot min 3 Views IMPRESSION: No acute fracture or dislocation. Reading Location: [id number] CC: ED PHYSICIAN PROVIDER; Kellie LOPEZ SHOE REPAIRER HELPER-C Terese Cable Operator: Signed Normal [facility] Ankle min 3 Viewson 09-30-20 25 Ankle min 3 Views [facility] [address] [place] [address] Ankle min 3 Views MR#: [id number] Acct: [id number] Name: BILLY LOWERY Rep #: [id number] : 1980 M 44 From: Yaron Perry MD PCP: Kellie Gudino SHOE REPAIRER HELPER-C Status: PRE ER Study: Ankle min 3 Views Date of Exam: 02/03/25 Exam# [id number] Ordering Dr: Vladimir Bustos MD PROCEDURE: RIGHT ANKLE MIN 3 VIEWS 02/03/2025 REASON FOR EXAM: TRAUMA TECHNIQUE: Procedure Code: RADANK Modality: DX Procedure: ANKLE MIN 3 VIEWS Laterality: Right COMPARISON: None. FINDINGS: No acute fracture or dislocation. Alignment is anatomic. Preserved joint spaces. No aggressive osseous lesion. No marked focal soft tissue swelling or radiopaque foreign body. RAD/Ankle min 3 Views IMPRESSION: No acute fracture or dislocation. Reading Location: [id number] CC: Dr. Vladimir Bustos MD; Kellie LOPEZ NP-C Terese Cable Operator: Signed Normal [facility] Emergency Department Summary on 02-03-2025 Emergency Department Summary [facility] Medical Records Department [address] [place] [address] Emergency Department Summary 02/03/25 MR#: [id number] Acct: [id number] Name: BILLY LOWERY Rep #: [id number] : 1980 44 From: Vladimir Bustos MD PCP: Kellie Gudino SHOE REPAIRER HELPER-C Status:PRE ER Location: ED HPI History of Present Illness Chief Complaint: Lower Extremity Injury Detail of Chief Complaint: Initial injury to ankle proximal a month ago. Rolled the ankle today walki Informant: patient Onset/Context/Timing Onset: Hours (Rolled ankle walking on railroad ties) and Month(s) (Initial injury 1 month ago.) Mechanism/Context: Blunt Injury (Plantar inversion mechanism of injury.) Location of pain/injuries: Right ankle Quality of Pain: Dull and Aching Location: Predominately lateral side of the right ankle Current Severity: Mild Maximum Severity: Moderate Worsened by: Weightbearing Relieved by: Nothing Associated Symptoms Associated Symptoms: Negative for Parasthesias, Weakness, Loss of function, Inability to ambulate or Loss of consciousness Narrative Narrative: Patient is a 44-year-old male. He has history of venous stasis dermatitis with bilateral lymphedema, hyperinsomnia, prediabetes, obstructive sleep apnea, hypertension, hypercholesterolemia and a BMI of 58.6. He presents because of reinjury to his right ankle. He complains of pain predominantly laterally. Prior similar symptoms: Yes Recent Illness/Hospitalization : No PFSH PFS Medical History Depression Hypertension Home Medications ???Medication ???Instructions ???Recorded ???Last Taken ???Type albuterol sulfate 90 mcg/actuation 1 puff inhalation 01/06/25 Unkno wn History aerosol inhaler hydrochlorothiazide 12.5 mg capsule 12.5 mg PO DAILY 01/06/25 Unkno wn History lisinopril 40 mg tablet 40 mg PO DAILY 01/06/25 Unknown Hi story metformin 500 mg tablet,extended 500 mg PO DAILY 01/06/25 Unknown H istory release 24 hr rosuvastatin 20 mg tablet 20 mg PO QHS 01/06/25 Unknown Hist ory amlodipine 10 mg tablet 10 mg PO QDAY 01/13/25 Unknown His tory varenicline tartrate 0.5 mg (11)-1 tab PO 01/13/25 Unknown History mg (42) tablets in a dose pack hydrocodone-acetaminoph en 5-325mg 1 tab PO Q6H PRN PRN Pain 3 days 02/04/25 Unknown Rx 5mg-325mg #10 TABLETS Allergy/AdvReac Type Severity Reaction Status Date / Time No Known Allergies Allergy Verified 02/03/25 23:31 Family History Brother Asthma Hypertension Sister Asthma Diabetes Hypertension Mother Asthma Cancer Myocardial infarction Father Asthma Surgical History surgery for undescended testicle Social History household members: family current occupational status: unemployed sexually active: Yes Smoking Status: Current every day smoker tobacco type: cigarettes alcohol intake: current alcohol intake frequency: a few times a month substance use type: does not use caffeine: Yes Type: coffee Number of servings: 2 seatbelt use: always ROS ROS ED Constitutional Constitutional ED: Denies chills, fever(s), subjective or sweats Musculoskeletal Musculoskeletal: Denies arthralgias or myalgias Integumentary Denies Abrasions or rash Neurologic Neurologic: Denies paresthesias or weakness EXAM Physical Exam Const Vital Signs: 02/03/25 23:30 Temperature 98.1 F Temperature Source Temporal Pulse Rate 100 Respiratory Rate 18 Blood Pressure 159/94 H Blood Pressure Mean 115 Pulse Ox 97 Oxygen Delivery Method Room Air Positive well nourished and well developed General Appearance ED: well developed and NAD HEENT HEENT Narrative: HEENT exam is grossly unremarkable. Resp normal respiratory effort Cardio regular rhythm Rate: regular rate Extremity full ROM; Negative for normal to inspection Extremity Narrative: Patient does have some swelling noted. There is evidence of dry skin. There is pain palpation over the anterior talofibular ligament and distal fibula. There is minimal tenderness over the deltoid ligament. There is no laxity with anterior drawer testing. There is no pain no patient over the base of the fifth metatarsal. There is no neurovascular compromise. Psych mental status grossly normal and thought process normal Skin no rashes or lesions noted and no wounds MDM MDM MDM Narrative Medical decision making narrative: Per ankle auto will rule per the [place] ankle rule imaging is required to rule out fracture versus sprain. Radiography Chest X-Ray - ED: Read by ED Physician (Three-view x-ray of the ankle was independently interpreted (more content not included)... Normal [facility] Pulmonary Visit Reporton Pulmonary Visit Report [facility] Pulmonary Medicine of [address] [place] [address] OFFICE VISIT Date of Service: 01/13/25 MR#: [id number] Acct: [id number] Name: BILLY LOWERY Rep #: [id number] : 1980 Provider: Asmita Joaquin NP Age/Sex: 44/M Location: [facility].PMW Status: Signed Assessment and Plan Assessment and Plan (1) Obstructive sleep apnea: Status: Acute Comment: AHI 41.9/h Plan: Severe obstructive sleep apnea has been identified on the recent sleep study. The pathophysiology of obstructive sleep apnea was reviewed at length with patient today. The correlation between sleep apnea and comorbid diseases such as diabetes and hypertension were also reviewed at length with patient including A-fib and stroke. The patient is aware of the importance of treating this disease process. He reports that he is willing to utilize PAP therapy. This is the recommended treatment option. The patient will be set up with AutoPap at 8 to 20 cm. I recommend a follow-up in 8 weeks with a compliance download at that time. The patient is advance his follow-up if he has difficulty adapting to the device. Plan Continue to work on smoking cessation through [employer]. He has been encouraged to avoid all nicotine products. Plan Details Additional Comments: Thank you for your referral and allowing me to participate in this patient's plan of care. This note was generated with [employer] dictation software. It may contain incorrect words, spelling, and punctuation that were not noted in checking the note before signing. Follow Up: 8 Weeks (LMR) HPI HPI Comments Details: Patient is a 44-year-old male who presents today to establish for sleep apnea. He is ambulatory and currently on room air. He underwent an unattended sleep study on November 27, 2024 ordered by his PCP Kellie Gudino which showed an AHI of 41.9. The patient has comorbid history of hypertension, obesity, high cholesterol, STOP- BANG was 7. He is a current smoker at 3 cigarettes a day. He is working to quit smoking and has been utilizing [employer]. He has a [id number] history as he started smoking at age 12 and has smoked 1 pack/day. He has no history of pneumonia or bronchitis. 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 He has a sister who has sleep apnea along with a brother and nephew. His mother recently from lung disease. He reports that he awakens frequently at night to use the bathroom. Nocturia occurs x 5-6. He does nap during the day. He does experience a dry mouth. He is tired throughout the day with an ESS of 15. He does endorse use of a water pill for lower extremity swelling. Intake Vital Signs 10/09/24 10:08 01/13/25 05:29 Height 5 ft 10 in 5 ft 10 in Weight: 400 lb BMI 57.4 BP 131/79 H Blood Pressure Location Rt radial Position Sitting Respiration 22 H Pulse 102 H Pulse Source Monitor Temp 96.6 F L Temperature Source Temporal Artery Pulse Oximetry (%) 96 Oxygen Delivery Method room air Intake Visit Reasons: Sleep problems Automatic Lathe Setter Required: No DME Vendor: n/a Accompanied by: Self Is patient in pain?: No Allergies No Known Allergies Allergy (Verified 01/13/25 14:53) Medications ???Medication ???Instructions ???Recorded ???Confirmed ???Type albuterol sulfate 90 mcg/actuation inhalation 01/06/25 01/06/25 His tory aerosol inhaler hydrochlorothiazide 12.5 mg capsule 12.5 mg PO DAILY 01/06/2501/06 History lisinopril 40 mg tablet 40 mg PO DAILY 01/06/25 01/06/25 H istory metformin 500 mg tablet,extended 500 mg PO DAILY 01/06/25 01/06/25 History release 24 hr rosuvastatin 20 mg tablet 20 mg PO QHS 01/06/25 01/06/25 His tory amlodipine 10 mg tablet 10 mg PO QDAY 01/13/25 01/13/25 Hi story varenicline tartrate 0.5 mg (11)-1 tab PO 01/13/25 01/13/25 History mg (42) tablets in a dose pack PFSH Medical History Depression Hypertension Surgical History surgery for undescended testicle Family History Brother Asthma Hypertension Sister Asthma Diabetes Hypertension Mother Asthma Cancer Myocardial infarction Father Asthma Social History household members: family current occupational status: unemployed sexually active: Yes Smoking Status: Current every day smoker tobacco type: cigarettes alcohol intake: current alcohol intake frequency: a few times a month substance use type: does not use caffeine: Yes Type: coffee Number of servings: 2 seatbelt use: always Questionnaire Basye Sleepiness Scale Basye Sleepiness Scale Sitting a (more content not included)... Normal [facility] Echocardiogram study reportO rdered By: Aliyah Damon on 11-22-2024 Study report [facility] Cardiovascular [place] [address] Echo Complete W/ Contrast 11/21/24 1559 MR#: [id number] Acct: [id number] Name: BILLY LOWERY Rep #:[id number] : 1980 44 From: Aliyah Damon MD Attending Dr: Kellie Gudino Linette SHOE REPAIRER HELPER-C Status: REG CLI Ordering Dr: Kellie Gudino Linette SHOE REPAIRER HELPER-C Sal e: 11/21/24 Location: [facility] Sex: M C Admitted: Reason For Study Reason For Study: DYSPNEA Procedure This was a 2D Doppler, Color Flow transthoracic echocardiogram. The study was technically limited. The study was technically difficult. Due to body habitus. Contrast injection was performed. Exam performed in department. Left Ventricle Normal size and thickness. The LV ejection fraction is 60 %. Unable to assess diastolic function based on available data. Right Ventricle Normal right ventricle. Atria The left and right atria are normal. Mitral Valve Trivial mitral valve insufficiency. Tricuspid Valve Normal tricuspid valve. Aortic Valve The aortic valve is not well visualized in the short axis view. Pulmonic Valve The pulmonic valve is not well visualized. Great Vessels The aortic root is not well visualized. Pericardium/Pleural No pericardial effusion. Medication 22 gauge I.V. with prn adaptor inserted into left arm. Diluted definity 3.5ml given slow IV push to enhance endocardial definition. MMode/2D Measurements & Calculations LVIDd: 4.2 cm IVSd: 1.1 cm Ao root diam: 3.5 cm LVIDs: 3.4 cm LVPWd: 1.1 cm RVDd: 3.9 cm FS: 18.8 % LAV(MOD-bp): 44.0 ml LVAd ap4: 35.9 cm2 SV(MOD-sp4): 65.6 ml LAV(MOD-bp) Indexed: 15.4 ml/m2 LVLd ap4: 8.1 cm SI(MOD-sp4): 22.9 ml/m2 LAV(MOD-sp2): 49.8 ml EDV(MOD-sp4): 128.9 ml LAV(MOD-sp4): 41.7 ml EDV(sp4-el): 135.8 ml LVAs ap4: 23.6 cm2 LVLs ap4: 7.2 cm ESV(MOD-sp4): 63.4 ml ESV(sp4-el): 66.2 ml EF(MOD-sp4): 50.9 % EF(sp4-el): 51.3 % SV(sp4-el): 69.6 ml LA A4 area: 16.1 cm2 LA dimension(2D): 4.8 cm RA A4 area: 14.6 cm2 TAPSE: 2.7 cm Time Measurements MV dec time: 0.15 sec Doppler Measurements & Calculations MV E max izzy: 89.8 cm/sec MV V2 max: 103.5 cm/sec MV P1/2t max izzy: 102.5 cm/sec MV A max izzy: 52.7 cm/sec MV max P.3 mmHg MV P1/2t: 43.8 msec MV E/A: 1.7 MV V2 mean: 46.8 cm/sec MV decslope: 684.9 cm/sec2 MV mean P.1 mmHg MV V2 VTI: 15.0 cm MVA(P1/2t): 5.0 cm2 Ao V2 max: 122.2 cm/sec LV V1 max: 82.2 cm/sec PA V2 max: 86.9 cm/sec Ao max P.0 mmHg LV V1 max P.7 mmHg PA V2 mean: 57.1 cm/sec Ao V2 mean: 85.2 cm/sec LV V1 mean P.3 mmHg Ao mean P.2 mmHg LV V1 mean: 53.9 cm/sec Ao V2 VTI: 19.0 cm LV V1 VTI: 14.6 cm AV (velocity ratio): 0.77 ECHO/Echo Complete W/ Contrast Interpretation Summary Technically difficult study with suboptimal images. The LV ejection fraction is 60 %. Ordering Physician: Kellie Gudino Referring Physician: Kellie Gudino Performed By: Prachi Knapp RDCS, RVT 11/22/24 0933 Date _ Aliyah Damon MD CC: Kellie LOPEZ SHOE REPAIRER HELPER-C Beam ~ Date Dictated: 11/21/24 155 Date Transcribed: 11/22/24932 Cable Operator: Signed [facility] Work Phone: Echo Complete W/ Contraston 11-21-2024 Echo Complete W/ Contrast [facility] Cardiovascular Services [address] [place] [address] Echo Complete W/ Contrast 11/21/24 1559 MR#: [id number] Acct: [id number] Name: BILLY LOWERY Rep #: [id number] : 1980 44 From: Aliyah Damon MD Attending Dr: Kellie Gudino Status: REG CLI Ordering Dr: Kellie Gudino SHOE REPAIRER HELPER-C Date: 11/21/24 Location: [facility] Sex: M C Admitted: Reason For Study Reason For Study: DYSPNEA Procedure This was a 2D Doppler, Color Flow transthoracic echocardiogram. The study was technically limited. The study was technically difficult. Due to body habitus. Contrast injection was performed. Exam performed in department. Left Ventricle Normal size and thickness. The LV ejection fraction is 60 %. Unable to assess diastolic function based on available data. Right Ventricle Normal right ventricle. Atria The left and right atria are normal. Mitral Valve Trivial mitral valve insufficiency. Tricuspid Valve Normal tricuspid valve. Aortic Valve The aortic valve is not well visualized in the short axis view. Pulmonic Valve The pulmonic valve is not well visualized. Great Vessels The aortic root is not well visualized. Pericardium/Pleural No pericardial effusion. Medication 22 gauge I.V. with prn adaptor inserted into left arm. Diluted definity 3.5ml given slow IV push to enhance endocardial definition. MMode/2D Measurements Calculations LVIDd: 4.2 cm IVSd: 1.1 cm Ao root diam: 3.5 cm LVIDs: 3.4 cm LVPWd: 1.1 cm RVDd: 3.9 cm FS: 18.8 % LAV(MOD-bp): 44.0 ml LVAd ap4: 35.9 cm2 SV(MOD-sp4): 65.6 ml LAV(MOD-bp) Indexed: 15.4 ml/m2 LVLd ap4: 8.1 cm SI(MOD-sp4): 22.9 ml/m2 LAV(MOD-sp2): 49.8 ml EDV(MOD-sp4): 128.9 ml LAV(MOD-sp4): 41.7 ml EDV(sp4-el): 135.8 ml LVAs ap4: 23.6 cm2 LVLs ap4: 7.2 cm ESV(MOD-sp4): 63.4 ml ESV(sp4-el): 66.2 ml EF(MOD-sp4): 50.9 % EF(sp4-el): 51.3 % SV(sp4-el): 69.6 ml LA A4 area: 16.1 cm2 LA dimension(2D): 4.8 cm RA A4 area: 14.6 cm2 TAPSE: 2.7 cm Time Measurements MV dec time: 0.15 sec Doppler Measurements Calculations MV E max izzy: 89.8 cm/sec MV V2 max: 103.5 cm/sec MV P1/2t max izzy: 102.5 cm/sec MV A max izzy: 52.7 cm/sec MV max P.3 mmHg MV P1/2t: 43.8 msec MV E/A: 1.7 MV V2 mean: 46.8 cm/sec MV dec slope: 684.9 cm/sec2 MV mean P.1 mmHg MV V2 VTI: 15.0 cm MVA(P1/2t): 5.0 cm2 Ao V2 max: 122.2 cm/sec LV V1 max: 82.2 cm/sec PA V2 max: 86.9 cm/sec Ao max P.0 mmHg LV V1 max P.7 mmHg PA V2 mean: 57.1 cm/sec Ao V2 mean: 85.2 cm/sec LV V1 mean P.3 mmHg Ao mean P.2 mmHg LV V1 mean: 53.9 cm/sec Ao V2 VTI: 19.0 cm LV V1 VTI: 14.6 cm AV (velocity ratio): 0.77 ECHO/Echo Complete W/ Contrast Interpretation Summary Technically difficult study with suboptimal images. The LV ejection fraction is 60 %. Ordering Physician: Kellie Gudino Referring Physician: Kellie Gudino Performed By: Prachi Knapp, ANY, RVT 11/22/24932 Date Aliyah Damon MD CC: Kellie LOPEZ SHOE REPAIRER HELPER-C Beam Date Dictated: 11/21/24 155 Date Transcribed: 11/22/24932 Cable Operator: Signed Normal [facility] Absolute lymphocyte countOrd ered By: Zebulun Beam on 10-30-2024 Lymphocytes Auto (Unsp spec) [#/Vol] 1.36 10*3/uL 0.83-4.51 [facility] Absolute neutrophil countOrd ered By: bulun Beam on 10-30-2024 Neutrophils (Bld) [#/Vol] 6.2 10*3/uL 2.0-7.7 [facility] Anion gap in Serum or Plasma Ordered By: bulun Beam on 10-30-2024 Anion gap [Moles/Vol] 11 mmol/L 5-15 [facility] Automated lymphocyte count a s percentage of total leukocytesOrdered By: Zebulun Beam on 10-30-2024 Lymphocytes/100 WBC Auto (Unsp spec) 15.6 % Low 19-41 [facility] BUN/creatinine ratioOrdered By: bun Beam on 10-30-2024 Urea nitrogen/Creatinine [Mass ratio] 10.9 mg/mg 10-20 [facility] Basophil percentageOrdered B y: Zebulun Beam on 10-30-2024 Basophils/100 WBC (Bld) 0.9 % 0-[address] [facility] Bilirubin, totalOrdered By: bulun Beam on 10-30-2024 Bilirubin [Mass/Vol] 0.33 mg/dL 0.00-1.30 [facility] CBC W/Diff, Automatedon 10-06 Absolute Lymph 1.36 X10 3/uL Normal 0.83-4.51 [facility] Comment on above: Performed By: #### L 100.0100, L501.9520, L503.7505, L500.4050 ####[facility] [address] [place], [address] Absolute Neut 6.2 X10 3/uL Normal 2.0-7.7 [facility] Comment on above: Performed By: #### L 100.0100, L501.9520, L503.7505, L500.4050 ####[facility] [address] [place], [address] Basophils/100 WBC (Bld) 0.9 % Normal 0-[address] [facility] Comment on above: Performed By: #### L 100.0100, L501.9520, L503.7505, L500.4050 ####[facility] [address] [place], [address] Eosinophils/100 WBC (Bld) 4.5 % Normal 0-5 [facility] Comment on above: Performed By: #### L 100.0100, L501.9520, L503.7505, L500.4050 ####[facility] [address] [place], [address] Erythrocyte distribution width (RBC) [Ratio] 16.0 % High 11.6-14.6 [facility] Comment on above: Performed By: #### L 100.0100, L501.9520, L503.7505, L500.4050 ####[facility] [address] [place], [address] Hematocrit (Bld) [Volume fraction] 41.6 % Normal 40-54 [facility] Comment on above: Performed By: #### L 100.0100, L501.9520, L503.7505, L500.4050 ####[facility] [address] [place], [address] Hemoglobin (Bld) [Mass/Vol] 12.8 g/dL Low 13.0-16.5 [facility] Comment on above: Performed By: #### L 100.0100, L501.9520, L503.7505, L500.4050 ####[facility] [address] [place], [address] IG% 0.300 Normal 0.0-0.9 [facility] Comment on above: Result Comment: IG% - Immature Granulocytes (promyelocytes, myelocytes and metamyelocytes) > 1% indicates that a LEFT SHIFT is Present. Performed By: #### L 100.0100, L501.9520, L503.7505, L500.4050 ####[facility] [address] [place], [address] Lymphocytes/100 WBC (Bld) 15.6 % Low 19-41 [facility] Comment on above: Performed By: #### L 100.0100, L501.9520, L503.7505, L500.4050 ####[facility] [address] [place], [address] MCH (RBC) [Entitic mass] 25.2 pg Low 27.0-32.0 [facility] Comment on above: Performed By: #### L 100.0100, L501.9520, L503.7505, L500.4050 ####[facility] [address] [place], [address] MCHC (RBC) [Mass/Vol] 30.8 g/dL Low 32-36 [facility] Comment on above: Performed By: #### L 100.0100, L501.9520, L503.7505, L500.4050 ####[facility] [address] [place], [address] MCV (RBC) [Entitic vol] 82.1 fL Normal 80-[address] [facility] Comment on above: Performed By: #### L 100.0100, L501.9520, L503.7505, L500.4050 ####[facility] [address] [place], [address] Monocytes/100 WBC (Bld) 7.7 % Normal 0-[address] [facility] Comment on above: Performed By: #### L 100.0100, L501.9520, L503.7505, L500.4050 ####[facility] [address] [place], [address] Neutrophils/100 WBC (Bld) 71.0 % High 47-70 [facility] Comment on above: Performed By: #### L 100.0100, L501.9520, L503.7505, L500.4050 ####[facility] [address] [place], [address] Nucleated RBC (Bld) [#/Vol] 0 10*3/uL Normal 0-5 [facility] Comment on above: Performed By: #### L 100.0100, L501.9520, L503.7505, L500.4050 ####[facility] [address] [place], [address] Platelet mean volume (Bld) [Entitic vol] 9.3 fL Normal 6.2-12.0 [facility] Comment on above: Performed By: #### L 100.0100, L501.9520, L503.7505, L500.4050 ####[facility] [address] [place], [address] Platelets (Bld) [#/Vol] 226 10*3/uL Normal 150-450 [facility] Comment on above: Performed By: #### L 100.0100, L501.9520, L503.7505, L500.4050 ####[facility] [address] [place], [address] RBC (Bld) [#/Vol] 5.07 10*6/uL Normal 4.6-6.2 [facility] Comment on above: Performed By: #### L 100.0100, L501.9520, L503.7505, L500.4050 ####[facility] [address] [place], [address] RDW SD 48.0 fl High 35.1-43.9 [facility] Comment on above: Performed By: #### L 100.0100, L501.9520, L503.7505, L500.4050 ####[facility] [address] [place], [address] WBC (Bld) [#/Vol] 8.7 10*3/uL Normal 4.4-11.0 [facility] Comment on above: Performed By: #### L 100.0100, L501.9520, L503.7505, L500.4050 ####[facility] [address] [place], [address] Carbon dioxide, total [Moles /volume] in Central venous bloodOrdered By: Kellie Gudino on 10-30-2024 CO2 [Moles/Vol] 24.6 mmol/L 21.0-32.0 [facility] Chloride assayOrdered By: Praneeth Gudino on 10-30-2024 Chloride [Moles/Vol] 106 mmol/L 98-108 [facility] Comprehensive Metabolic Prof ilon 10-30-2024 Albumin [Mass/Vol] 3.8 g/dL Normal 3.5-5.0 [facility] Comment on above: Performed By: #### L 100.0100, L501.9520, L503.7505, L500.4050 ####[facility] [address] [place], [address] Albumin/Globulin [Mass ratio] 1.3 {ratio} Normal 0.9-2.4 [facility] Comment on above: Performed By: #### L 100.0100, L501.9520, L503.7505, L500.4050 ####[facility] [address] [place], [address] ALK PHOS 74 U/L Normal 40-129 [facility] Comment on above: Performed By: #### L 100.0100, L501.9520, L503.7505, L500.4050 ####[facility] [address] [place], [address] ALT [Catalytic activity/Vol] 42 U/L Normal <=46 [facility] Comment on above: Performed By: #### L 100.0100, L501.9520, L503.7505, L500.4050 ####[facility] [address] [place], [address] AST [Catalytic activity/Vol] 25 U/L Normal <=37 [facility] Comment on above: Performed By: #### L 100.0100, L501.9520, L503.7505, L500.4050 ####[facility] [address] [place], [address] Bilirubin [Mass/Vol] 0.33 mg/dL Normal 0.00-1.30 [facility] Comment on above: Performed By: #### L 100.0100, L501.9520, L503.7505, L500.4050 ####[facility] [address] [place], [address] BUN/CRE 10.9 RATIO Normal 10-20 [facility] Comment on above: Performed By: #### L 100.0100, L501.9520, L503.7505, L500.4050 ####[facility] [address] [place], [address] Calcium [Mass/Vol] 9.0 mg/dL Normal 7.6-11.0 [facility] Comment on above: Performed By: #### L 100.0100, L501.9520, L503.7505, L500.4050 ####[facility] [address] [place], [address] Chloride [Moles/Vol] 106 mmol/L Normal 98-108 [facility] Comment on above: Performed By: #### L 100.0100, L501.9520, L503.7505, L500.4050 ####[facility] [address] [place], [address] CO2 [Moles/Vol] 24.6 mmol/L Normal 21.0-32.0 [facility] Comment on above: Performed By: #### L 100.0100, L501.9520, L503.7505, L500.4050 ####[facility] [address] [place], [address] Creatinine [Mass/Vol] 0.79 mg/dL Normal 0.70-1.20 [facility] Comment on above: Performed By: #### L 100.0100, L501.9520, L503.7505, L500.4050 ####[facility] [address] [place], [address] GAP 11 Normal 5-15 [facility] Comment on above: Performed By: #### L 100.0100, L501.9520, L503.7505, L500.4050 ####[facility] [address] [place], [address] GFR/1.73 sq M.predicted among non-blacks MDRD (S/P/Bld) [Vol rate/Area] 114 mL/min/{1.73_m2} Normal >60 [facility] Comment on above: Result Comment: mL/m in/1.73m2 CKD-EPI Creatinine Equation (2020) Performed By: #### L 100.0100, L501.9520, L503.7505, L500.4050 ####[facility] [address] [place], [address] Globulin (S) [Mass/Vol] 3.0 g/dL Normal 2.2-4.2 [facility] Comment on above: Performed By: #### L 100.0100, L501.9520, L503.7505, L500.4050 ####[facility] [address] [place], [address] Glucose [Mass/Vol] 111 mg/dL High 70-99 [facility] Comment on above: Performed By: #### L 100.0100, L501.9520, L503.7505, L500.4050 ####[facility] [address] [place], [address] Potassium [Moles/Vol] 4.4 mmol/L Normal 3.3-5.1 [facility] Comment on above: Performed By: #### L 100.0100, L501.9520, L503.7505, L500.4050 ####[facility] [address] [place], [address] Sodium [Moles/Vol] 141 mmol/L Normal 133-145 [facility] Comment on above: Performed By: #### L 100.0100, L501.9520, L503.7505, L500.4050 ####[facility] [address] [place], [address] T PROT 6.8 g/dL Normal 5.9-8.4 [facility] Comment on above: Performed By: #### L 100.0100, L501.9520, L503.7505, L500.4050 ####[facility] [address] [place], [address] Urea nitrogen [Mass/Vol] 9 mg/dL Normal 4-19 [facility] Comment on above: Performed By: #### L 100.0100, L501.9520, L503.7505, L500.4050 ####[facility] [address] [place], [address] Eosinophil percentageOrdered By: lillian Gudino on 10-30-2024 Eosinophils/100 WBC (Bld) 4.5 % 0-5 [facility] Erythrocyte distribution wid th ratioOrdered By: [facility] Gudino on 10-30-2024 Erythrocyte distribution width (RBC) [Ratio] 16.0 % High 11.6-14.6 [facility] Erythrocyte distribution wid th standard deviationOrdered By: [facility] Gudino on 10-30-2024 Erythrocyte distribution width (RBC) [Ratio] 48.0 fl High 35.1-43.9 [facility] Glomerular filtration rate ( GFR) estimation/1.73 sq m using serum, plasma, or whole bOrdered By: [facility] Gudino on 10-30-2024 GFR/1.73 sq M.predicted among non-blacks MDRD (S/P/Bld) [Vol rate/Area] 114 mL/min/{1.73_m2} >60 [facility] Comment on above: mL/min/1.73m2 CKD-EP I Creatinine Equation (2020) Hematocrit Auto (Bld) [Volum e fraction]Ordered By: [facility] Gudino on 10-30-2024 Hematocrit (Bld) [Volume fraction] 41.6 % 40-54 [facility] Hemoglobin measurementOrdere d By: lillian Gudino on 10-30-2024 Hemoglobin (Bld) [Mass/Vol] 12.8 g/dL Low 13.0-16.5 [facility] Immature granulocytes/100 WB C Auto (Bld)Ordered By: Kellie Gudino on 10-30-2024 Immature granulocytes/100 WBC (Bld) 0.300 % 0.0-0.9 [facility] Comment on above: IG% - Immature Granu locytes (promyelocytes, myelocytes and metamyelocytes) > 1% indicates that a LEFT SHIFT is Present. L503.7505on 10-30-2024 Natriuretic peptide B (Bld) [Mass/Vol] 212 pg/mL Normal <=450 [facility] Comment on above: Result Comment: Hear t Failure Unlikely: < 300 pg/mL Heart Failure Likely < 50 Years: > 450 pg/mL 50-75 Years: > 900 pg/mL >75 Years: > 1800 pg/mL Performed By: #### L 100.0100, L501.9520, L503.7505, L500.4050 ####[facility] [address] [place], [address] Laboratory - Chemistry and C hemistry - challengeOrdered By: Zebulun Beam on 10-30-2024 AST [Catalytic activity/Vol] 25 U/L <38 [facility] MCV (mean corpuscular volume ) determinationOrdered By: bulun Beam on 10-30-2024 MCV (RBC) [Entitic vol] 82.1 fL 80-[address] [facility] Mean corpuscular hemoglobin (MCH) determinationOrdered By: bulun Beam on 10-30-2024 MCH (RBC) [Entitic mass] 25.2 pg Low 27.0-32.0 [facility] Mean corpuscular hemoglobin concentration (MCHC) determinationOrdered By: bulun Beam on 10-30-2024 MCHC (RBC) [Mass/Vol] 30.8 g/dL Low 32-36 [facility] Mean platelet volume determi nationOrdered By: [facility] Beam on 10-30-2024 Platelet mean volume (Bld) [Entitic vol] 9.3 fL 6.2-12.0 [facility] Monocyte percentageOrdered B y: bulun Beam on 10-30-2024 Monocytes/100 WBC (Bld) 7.7 % 0-[address] [facility] Natriuretic peptide.B prohor diana N-Terminal [Mass/volume] in Serum or PlasmaOrdered By: bulun Beam on 10-30-2024 Natriuretic peptide.B prohormone N-Terminal [Mass/Vol] 212 pg/mL <450 [facility] Comment on above: Heart Failure Unlike ly: < 300 pg/mLHeart Failure Likely< 50 Years: > 450 pg/mL50-75 Years: > 900 pg/mL>75 Years: > 1800 pg/mL Neutrophil percentageOrdered By: bulun Beam on 10-30-2024 Neutrophils/100 WBC (Bld) 71.0 % High 47-70 [facility] Nucleated red blood cell per centageOrdered By: Kellie Gudino on 10-30-2024 Nucleated RBC/100 WBC (Bld) [Ratio] 0 % 0-5 [facility] Platelet countOrdered By: Praneeth Gudino on 10-30-2024 Platelets (Bld) [#/Vol] 226 10*3/uL 150-450 [facility] Potassium measurement (mass/ volume)Ordered By: Kellie Gudino on 10-30-2024 Potassium (Unsp spec) [Mass/Vol] 4.4 mmol/L 3.3-5.1 [facility] RBC Auto (Bld) [#/Vol]Ordere d By: Kellie Gudino on 10-30-2024 RBC (Bld) [#/Vol] 5.07 10*6/uL 4.6-6.2 [facility] Serum creatinine measurement (mass/volume)Ordered By: Kellie Gudino on 10-30-2024 Creatinine [Mass/Vol] 0.79 mg/dL 0.70-1.20 [facility] Serum globulin measurementOr dered By: Kellie Gudino on 10-30-2024 Globulin (S) [Mass/Vol] 3.0 g/dL 2.2-4.[address] [facility] Serum glucose measurement (m ass/volume)Ordered By: Kellie Gudino on 10-30-2024 Glucose [Mass/Vol] 111 mg/dL High 70-99 [facility] Serum or plasma alanine monge otransferase (ALT) measurementOrdered By: Kellie Gudino on 10-30-2024 ALT [Catalytic activity/Vol] 42 U/L <47 [facility] Serum or plasma albumin juanjo urement (mass/volume)Ordered By: Kellie Gudino on 10-30-2024 Albumin [Mass/Vol] 3.8 g/dL 3.5-5.0 [facility] Serum or plasma albumin/glob ulin mass ratioOrdered By: Kellie Gudino on 10-30-2024 Albumin/Globulin [Mass ratio] 1.3 {ratio} 0.9-2.4 [facility] Serum or plasma alkaline solitario sphatase measurementOrdered By: Kellie Gudino on 10-30-2024 ALP [Catalytic activity/Vol] 74 U/L 40-129 [facility] Serum or plasma calcium juanjo urement (mass/volume)Ordered By: Kellie Gudino on 10-30-2024 Calcium [Mass/Vol] 9.0 mg/dL 7.6-11.0 [facility] Serum or plasma urea nitroge n measurement (mass/volume)Ordered By: Kellie Gudino on 10-30-2024 Urea nitrogen [Mass/Vol] 9 mg/dL 4-19 [facility] Sodium levelOrdered By: Vinicius Gudino on 10-30-2024 Sodium [Moles/Vol] 141 mmol/L 133-145 [facility] TSH DL <= 0.005 mIU/L QnOrde red By: Kellie Gudino on 10-30-2024 TSH Qn 1.260 uIU/mL 0.300-4.200 [facility] Thyroid Stim Hormone (TSH)on 10-30-2024 TSH 1.260 uIU/mL Normal 0.300-4.200 [facility] Comment on above: Performed By: #### L 100.0100, L501.9520, L503.7505, L500.4050 ####[facility] [address] [place], [address] Total proteinOrdered By: Jay Gudino on 10-30-2024 Protein [Mass/Vol] 6.8 g/dL 5.9-8.4 [facility] White blood cell (WBC) count Ordered By: Kellie Gudino on 10-30-2024 WBC (Bld) [#/Vol] 8.7 10*3/uL 4.4-11.0 [facility] Echo Complete W/ Contraston 09-05-2024 Echo Complete W/ Contrast [facility] [address] [place] [address] Echo Complete W/ Contrast 09/05/24 1046 MR#: [id number] Acct: [id number] Name: BILLY LOWERY Rep #: [id number] : 1980 44 From: Kenneth Ruiz MD Attending Dr: Kellie Gudino [facility] SHOE REPAIRER HELPER-C Status: REG CLI Ordering Dr: Kellie Gudino [facility] SHOE REPAIRER HELPER-C Date: 09/05/24 Location: [facility] Sex: M C Admitted: Reason For Study : Dyspnea Procedure This was a 2D Doppler, Color Flow transthoracic echocardiogram. The study was technically difficult. Contrast injection was performed. Exam performed in department. Left Ventricle Normal LV size. Mild concentric left ventricular hypertrophy. The left ventricular ejection fraction is 50 %. Left ventricular systolic function is lower limits of normal. Stage 1 diastolic dysfunction. The rest of the wall segments are normal. Right Ventricle Normal RV size. Normal systolic function. Mitral Valve Normal mitral valve. Tricuspid Valve Normal tricuspid valve. Mild tricuspid valve insufficiency. Aortic Valve Trisinus/trileaflet aortic valve. Pericardium/Pleural No pericardial effusion. Medication 22 gauge I.V. with prn adaptor inserted into right arm. Diluted definity 2.5ml given slow IV push to enhance endocardial definition. MMode/2D Measurements Calculations LVIDd: 5.5 cm IVSd: 1.3 cm LA dimension: 4.9 cm LVIDs: 4.5 cm LVPWd: 1.3 cm FS: 18.9 % LAV(MOD-bp): 95.3 ml SV(MOD-sp4): 69.7 ml LVAd ap4: 40.3 cm2 LAV(MOD-bp) Indexed: 33.3 ml/m2 LVLd ap4: 9.3 cm SI(MOD-sp4): 24.4 ml/m2 LAV(MOD-sp2): 81.5 ml EDV(MOD-sp4): 135.1 ml LAV(MOD-sp4): 101.3 ml EDV(sp4-el): 147.5 ml LVAs ap4: 25.5 cm2 LVLs ap4: 7.9 cm ESV(MOD-sp4): 65.4 ml ESV(sp4-el): 70.1 ml EF(MOD-sp4): 51.6 % EF(sp4-el): 52.5 % SV(sp4-el): 77.4 ml TAPSE: 2.5 cm LA A4 area: 27.7 cm2 Doppler Measurements Calculations MV E max izzy: 97.6 cm/sec MV V2 max: 128.3 cm/sec Ao V2 max: 111.7 cm/sec MV A max izzy: 111.2 cm/sec MV max P.6 mmHg Ao max P.0 mmHg MV E/A: 0.88 MV V2 mean: 90.6 cm/sec Ao V2 mean: 86.3 cm/sec MV mean P.9 mmHg Ao mean P.3 mmHg MV V2 VTI: 21.0 cm Ao V2 VTI: 21.9 cm AV (velocity ratio): 0.87 LV V1 max: 101.6 cm/sec PA V2 max: 108.7 cm/sec TR max izzy: 204.0 cm/sec LV V1 max P.1 mmHg TR max P.6 mmHg LV V1 mean P.4 mmHg LV V1 mean: 72.8 cm/sec LV V1 VTI: 19.0 cm ECHO/Echo Complete W/ Contrast Interpretation Summary Normal LV size. Mild concentric left ventricular hypertrophy. The left ventricular ejection fraction is 50 %. Left ventricular systolic function is lower limits of normal. Stage 1 diastolic dysfunction. Contrast injection was performed. Ordering Physician: Kellie Gudino Referring Physician: Kellie Gudino Performed By: Rafael Cheng RCS 09/05/24 1250 Date Kenneth Ruiz MD CC: Kellie LOPEZ SHOE REPAIRER HELPER-C Terese Date Dictated: 09/05/24 1046 Date Transcribed: 09/05/24 1249 Cable Operator: Signed Normal [facility] Echocardiogram study reportO rdered By: Kenneth Ruiz on 09-05-2024 Study report [facility] [address] [place] [id number] Echo Complete W/ Contrast 09/05/24 104 MR#: [id number] Acct: [id number] Name: BILLY LOWERY Rep #:[id number] : 1980 44 From: Kenneth Roque Attending Dr: Kellie Gudino SHOE REPAIRER HELPER-C Status: REG CLI Ordering Dr: Kellie Gudino NP-C Sal e: 09/05/24 Location: [facility] Sex: M C Admitted: Reason For Study : Dyspnea Procedure This was a 2D Doppler, Color Flow transthoracic echocardiogram. The study was technically difficult. Contrast injection was performed. Exam performed in department. Left Ventricle Normal LV size. Mild concentric left ventricular hypertrophy. The left ventricular ejection fraction is 50 %. Left ventricular systolic function is lower limits of normal. Stage 1 diastolic dysfunction. The rest of the wall segments are normal. Right Ventricle Normal RV size. Normal systolic function. Mitral Valve Normal mitral valve. Tricuspid Valve Normal tricuspid valve. Mild tricuspid valve insufficiency. Aortic Valve Trisinus/trileaflet aortic valve. Pericardium/Pleural No pericardial effusion. Medication 22 gauge I.V. with prn adaptor inserted into right arm. Diluted definity 2.5ml given slow IV push to enhance endocardial definition. MMode/2D Measurements & Calculations LVIDd: 5.5 cm IVSd: 1.3 cm LA dimension: 4.9 cm LVIDs: 4.5 cm LVPWd: 1.3 cm FS: 18.9 % LAV(MOD-bp): 95.3 ml SV(MOD-sp4): 69.7 ml LVAd ap4: 40.3 cm2 LAV(MOD-bp) Indexed: 33.3 ml/m2 LVLd ap4: 9.3 cm SI(MOD-sp4): 24.4 ml/m2 LAV(MOD-sp2): 81.5 ml EDV(MOD-sp4): 135.1 ml LAV(MOD-sp4): 101.3 ml EDV(sp4-el): 147.5 ml LVAs ap4: 25.5 cm2 LVLs ap4: 7.9 cm ESV(MOD-sp4): 65.4 ml ESV(sp4-el): 70.1 ml EF(MOD-sp4): 51.6 % EF(sp4-el): 52.5 % SV(sp4-el): 77.4 ml TAPSE: 2.5 cm LA A4 area: 27.7 cm2 Doppler Measurements & Calculations MV E max izzy: 97.6 cm/sec MV V2 max: 128.3 cm/sec AoV2 max: 111.7 cm/sec MV A max izzy: 111.2 cm/sec MV max P.6 mmHg Aomax P.0 mmHg MV E/A: 0.88 MV V2 mean: 90.6 cm/sec AoV2 mean: 86.3 cm/sec MV mean P.9 mmHg Aomean P.3 mmHg MV V2 VTI: 21.0 cm AoV2 VTI: 21.9 cm AV(velocity ratio): 0.87 LV V1 max: 101.6 cm/sec PA V2 max: 108.7 cm/sec TRmax izzy: 204.0 cm/sec LV V1 max P.1 mmHg TRmax P.6 mmHg LV V1 mean P.4 mmHg LV V1 mean: 72.8 cm/sec LV V1 VTI: 19.0 cm ECHO/Echo Complete W/ Contrast Interpretation Summary Normal LV size. Mild concentric left ventricular hypertrophy. The left ventricular ejection fraction is 50 %. Left ventricular systolic function is lower limits of normal. Stage 1 diastolic dysfunction. Contrast injection was performed. Ordering Physician: Kellie Gudino Referring Physician: Kellie Gudino Performed By: Rafael Cheng RCS 09/05/24 1250 Date _ Kenneth Ruiz MD CC: Kellie LOPEZ SHOE REPAIRER HELPER-C Beam ~ Date Dictated: 09/05/24 1046 Date Transcribed: 09/05/24 1249 Cable Operator: Signed [facility] Work Phone: Culture, Anaerobic Any Sourc deanna 08-10-2024 CUAN BILATERAL LEG ULCERS Studies have confirmed that Anaerobic Gram Positive Cocci are routinely SUSCEPTABLE to Penicillin and generally susceptible to Beta-lactams and Beta-lactamase inhibitors, Cephalosporins, Carbapenems and Metronidazole. They are showing increased RESISTANCE to Clindamycin Anaerobic cocci Normal [facility] Comment on above: Performed By: #### M 100.3000, M100.1999, M100.4001 ####[facility] [address] [place], [address] Wound Cultureon 08-09-2024 WC BILATERAL LEG ULCERS Streptococcus agalactiae (B) Amount Growth Rare Staphylococcus aureus Staphylococcus aureus Streptococcus agalactiae (B): REACTION Ampicillin Islt BHAVIN <=0.25 S cefTRIAXone Islt BHAVIN <=0.12 Clindamycin Islt BHAVIN <=0.25 S Clindamycin.induced Susc Islt NEG Linezolid Islt BHAVIN <=2 S Vancomycin Islt BHAVIN 0.5 S Staphylococcus aureus: REACTION cefOXitin Susc Islt NEG Doxycycline Islt BHAVIN <=0.5 Clindamycin Islt BHAVIN 0.25 S Clindamycin.induced Susc Islt NEG Erythromycin Islt BHAVIN <=0.25 S Gentamicin Islt BHAVIN <=0.5 S Linezolid Islt BHAVIN 2 S Moxifloxacin Islt BHAVIN <=0.25 S Oxacillin Susc Islt 0.5 S Tetracycline Islt BHAVIN <=1 S TMP SMX Islt BHAVIN <=10 S Vancomycin Islt BHAVIN 1 S Normal [facility] Comment on above: Performed By: #### M 100.3000, M100.1999, M100.4001 ####[facility] [address] [place], [address] Gram Stainon 08-08-2024 GS BILATERAL LEG ULCERS Gram Stain No organisms seen No cells seen Normal [facility] Comment on above: Performed By: #### M 100.3000, M100.2000, M100.4001 ####[facility] [address] [place], [address] Anaerobic cultureOrdered By: Smith Sommer on 08-06-2024 Bacteria identified Anaer cx Nom (Unsp spec) Anaerobic cocci Abnormal [facility] Gram stainOrdered By: Rosmery Sommer on 08-06-2024 Microscopic observation Gram stain Nom (Unsp spec) [facility] Routine wound cultureOrdered By: Smith Sommer on 08-06-2024 Microbial culture, routine Streptococcus agalactiae (B) Abnormal [facility] Anion gap in Serum or Plasma Ordered By: Smith Sommer on 07-30-2024 Anion gap [Moles/Vol] 11 mmol/L 5-15 [facility] BUN/creatinine ratioOrdered By: Smith Sommer on 07-30-2024 Urea nitrogen/Creatinine [Mass ratio] 17.6 mg/mg - [facility] Basic Metabolic Profile (BMP )on 07-30-2024 BUN/CRE 17.6 RATIO Normal - [facility] Comment on above: Performed By: #### L 500.2500 #### [facility] [address] [facility] [place], [address] Calcium [Mass/Vol] 8.2 mg/dL Normal 7.6-11.0 [facility] Comment on above: Performed By: #### L 500.2500 #### [facility] [address] [place], [address] Chloride [Moles/Vol] 103 mmol/L Normal 98-108 [facility] Comment on above: Performed By: #### L 500.2500 #### [facility] [address] [place], [address] CO2 [Moles/Vol] 27.7 mmol/L Normal 21.0-32.0 [facility] Comment on above: Performed By: #### L 500.2500 #### [facility] [address] [place], [address] Creatinine [Mass/Vol] 0.89 mg/dL Normal 0.70-1.20 [facility] Comment on above: Performed By: #### L 500.2500 #### [facility] [address] [place], [address] GAP 11 Normal 5-15 [facility] Comment on above: Performed By: #### L 500.2500 #### [facility] [address] [place], [address] GFR/1.73 sq M.predicted among non-blacks MDRD (S/P/Bld) [Vol rate/Area] 110 mL/min/{1.73_m2} Normal >60 [facility] Comment on above: Result Comment: mL/m in/1.73m2 CKD-EPI Creatinine Equation (2020) Performed By: #### L 500.2500 #### [facility] [address] [place], [address] Glucose [Mass/Vol] 136 mg/dL High 70-99 [facility] Comment on above: Performed By: #### L 500.2500 #### [facility] [address] [place], [address] Potassium [Moles/Vol] 3.9 mmol/L Normal 3.3-5.1 [facility] Comment on above: Performed By: #### L 500.2500 #### [facility] [address] [place], [address] Sodium [Moles/Vol] 142 mmol/L Normal 133-145 [facility] Comment on above: Performed By: #### L 500.2500 #### [facility] [address] [place], [address] Urea nitrogen [Mass/Vol] 16 mg/dL Normal 4-19 [facility] Comment on above: Performed By: #### L 500.2500 #### [facility] [address] [place], [address] Carbon dioxide, total [Moles /volume] in Central venous bloodOrdered By: Smith Sommer on 07-30-2024 CO2 [Moles/Vol] 27.7 mmol/L 21.0-32.0 [facility] Chloride assayOrdered By: Tati Sommer on 07-30-2024 Chloride [Moles/Vol] 103 mmol/L 98-108 [facility] GFR/1.73 sq M.predicted dione g non-blacks MDRD (S/P/Bld) [Vol rate/Area]Ordered By: Smith Sommer on 07-30-2024 Estimated GFR (MDRD) Non-Af Amer 110 >60 [facility] Comment on above: mL/min/1.73m2 CKD-EP I Creatinine Equation (2020) Glomerular filtration rate ( GFR) estimation/1.73 sq m using serum, plasma, or whole bOrdered By: Smith Sommer on 07-30-2024 GFR/1.73 sq M.predicted among non-blacks MDRD (S/P/Bld) [Vol rate/Area] 110 mL/min/{1.73_m2} >60 [facility] Comment on above: mL/min/1.73m2 CKD-EP I Creatinine Equation (2020) Potassium (Unsp spec) [Mass/ Vol]Ordered By: Smith Sommer on 07-30-2024 Potassium [Moles/Vol] 3.9 mmol/L 3.3-5.1 [facility] Potassium measurement (mass/ volume)Ordered By: Smith Sommer on 07-30-2024 Potassium (Unsp spec) [Mass/Vol] 3.9 mmol/L 3.3-5.1 [facility] Serum creatinine measurement (mass/volume)Ordered By: Smith Sommer on 07-30-2024 Creatinine [Mass/Vol] 0.89 mg/dL 0.70-1.20 [facility] Serum glucose measurement (m ass/volume)Ordered By: Smith Sommer on 07-30-2024 Glucose [Mass/Vol] 136 mg/dL High 70-99 [facility] Serum or plasma calcium juanjo urement (mass/volume)Ordered By: Smith Sommer on 07-30-2024 Calcium [Mass/Vol] 8.2 mg/dL 7.6-11.0 [facility] Serum or plasma urea nitroge n measurement (mass/volume)Ordered By: Smith Smomer on 07-30-2024 Urea nitrogen [Mass/Vol] 16 mg/dL 4-19 [facility] Sodium levelOrdered By: Shon Sommer on 07-30-2024 Sodium [Moles/Vol] 142 mmol/L 133-145 [facility] Absolute lymphocyte countOrd ered By: Kellie Gudino on 06-03-2024 Lymphocytes Auto (Unsp spec) [#/Vol] 1.50 10*3/uL 0.83-4.51 [facility] Absolute neutrophil countOrd ered By: Kellie Gudino on 06-03-2024 Neutrophils (Bld) [#/Vol] 8.7 10*3/uL High 2.0-7.7 [facility] Albumin to globulin ratioOrd ered By: Kellie Gudino on 06-03-2024 Albumin/Globulin [Mass ratio] 0.8 {ratio} Low 0.9-2.4 [facility] Automated lymphocyte count a s percentage of total leukocytesOrdered By: Kellie Gudino on 06-03-2024 Lymphocytes/100 WBC Auto (Unsp spec) 13.2 % Low 19-41 [facility] Basophil percentageOrdered B y: Kellie Gudino on 06-03-2024 Basophils/100 WBC (Bld) 1.0 % 0-[address] [facility] Bilirubin, totalOrdered By: Kellie Gudino on 06-03-2024 Bilirubin [Mass/Vol] 0.30 mg/dL 0.20-1.00 [facility] Comment on above: For patients on eltr ombopag therapy, use of Dimension [place] TBIL is not recommended. Blood urea nitrogen (BUN)/cr eatinine ratioOrdered By: Kellie Beam on 06-03-2024 Urea nitrogen/Creatinine [Mass ratio] 12.8 mg/mg 10- [facility] CBC W/Diff, Automatedon 05-08 Absolute Lymph 1.50 X10 3/uL Normal 0.83-4.51 [facility] Comment on above: Performed By: #### L 100.0100, L500.4050, L501.9520, L501.9985, L500.4100 #### [facility] [address] [place], [place], [address] Absolute Neut 8.7 X10 3/uL High 2.0-7.7 [facility] Comment on above: Performed By: #### L 100.0100, L500.4050, L501.9520, L501.9985, L500.4100 #### [facility] [address] [place], [address] Basophils/100 WBC (Bld) 1.0 % Normal 0-[address] [facility] Comment on above: Performed By: #### L 100.0100, L500.4050, L501.9520, L501.9985, L500.4100 #### [facility] [address] [place], [address] Eosinophils/100 WBC (Bld) 2.9 % Normal 0-5 [facility] Comment on above: Performed By: #### L 100.0100, L500.4050, L501.9520, L501.9985, L500.4100 #### [facility] [address] [place], [address] Erythrocyte distribution width (RBC) [Ratio] 15.1 % High 11.6-14.6 [facility] Comment on above: Performed By: #### L 100.0100, L500.4050, L501.9520, L501.9985, L500.4100 #### [facility] [address] [place], [address] Hematocrit (Bld) [Volume fraction] 43.2 % Normal 40-54 [facility] Comment on above: Performed By: #### L 100.0100, L500.4050, L501.9520, L501.9985, L500.4100 #### [facility] [address] [place], [address] Hemoglobin (Bld) [Mass/Vol] 13.2 g/dL Normal 13.0-16.5 [facility] Comment on above: Performed By: #### L 100.0100, L500.4050, L501.9520, L501.9985, L500.4100 #### [facility] [address] [place], [address] IG% 0.400 Normal 0.0-0.9 [facility] Comment on above: Result Comment: IG% - Immature Granulocytes (promyelocytes, myelocytes and metamyelocytes) > 1% indicates that a LEFT SHIFT is Present. Performed By: #### L 100.0100, L500.4050, L501.9520, L501.9985, L500.4100 #### [facility] [address] [place], [address] Lymphocytes/100 WBC (Bld) 13.2 % Low 19-41 [facility] Comment on above: Performed By: #### L 100.0100, L500.4050, L501.9520, L501.9985, L500.4100 #### [facility] [address] [place], [address] MCH (RBC) [Entitic mass] 24.7 pg Low 27.0-32.0 [facility] Comment on above: Performed By: #### L 100.0100, L500.4050, L501.9520, L501.9985, L500.4100 #### [facility] [address] [place], [address] MCHC (RBC) [Mass/Vol] 30.6 g/dL Low 32-36 [facility] Comment on above: Performed By: #### L 100.0100, L500.4050, L501.9520, L501.9985, L500.4100 #### [facility] [address] [place], [address] MCV (RBC) [Entitic vol] 80.9 fL Normal 80-[address] [facility] Comment on above: Performed By: #### L 100.0100, L500.4050, L501.9520, L501.9985, L500.4100 #### [facility] [address] [place], [address] Monocytes/100 WBC (Bld) 6.1 % Normal 0-[address] [facility] Comment on above: Performed By: #### L 100.0100, L500.4050, L501.9520, L501.9985, L500.4100 #### [facility] [address] [place], [address] Neutrophils/100 WBC (Bld) 76.4 % High 47-70 [facility] Comment on above: Performed By: #### L 100.0100, L500.4050, L501.9520, L501.9985, L500.4100 #### [facility] [address] [place], [address] Nucleated RBC (Bld) [#/Vol] 0 10*3/uL Normal 0-5 [facility] Comment on above: Performed By: #### L 100.0100, L500.4050, L501.9520, L501.9985, L500.4100 #### [facility] [address] [place], [address] Platelet mean volume (Bld) [Entitic vol] 9.2 fL Normal 6.2-12.0 [facility] Comment on above: Performed By: #### L 100.0100, L500.4050, L501.9520, L501.9985, L500.4100 #### [facility] [address] [place], [address] Platelets (Bld) [#/Vol] 233 10*3/uL Normal 150-450 [facility] Comment on above: Performed By: #### L 100.0100, L500.4050, L501.9520, L501.9985, L500.4100 #### [facility] [address] [place], [address] RBC (Bld) [#/Vol] 5.34 10*6/uL Normal 4.6-6.2 [facility] Comment on above: Performed By: #### L 100.0100, L500.4050, L501.9520, L501.9985, L500.4100 #### [facility] [address] [place], [address] RDW SD 44.5 fl High 35.1-43.9 [facility] Comment on above: Performed By: #### L 100.0100, L500.4050, L501.9520, L501.9985, L500.4100 #### [facility] [address] [place], [address] WBC (Bld) [#/Vol] 11.4 10*3/uL High 4.4-11.0 [facility] Comment on above: Performed By: #### L 100.0100, L500.4050, L501.9520, L501.9985, L500.4100 #### [facility] [address] [place], [address] Carbon dioxide measurementOr dered By: Kellie Beam on 06-03-2024 CO2 [Moles/Vol] 31.0 mmol/L 21.0-32.0 [facility] Chloride measurementOrdered By: Kellie Gudino on 06-03-2024 Chloride [Moles/Vol] 101 mmol/L 98-107 [facility] Comprehensive Metabolic Prof ilon 06-03-2024 Albumin [Mass/Vol] 3.3 g/dL Normal 3.2-5.0 [facility] Comment on above: Performed By: #### L 100.0100, L500.4050, L501.9520, L501.9985, L500.4100 #### [facility] [address] [place], [address] Albumin/Globulin [Mass ratio] 0.8 {ratio} Low 0.9-2.4 [facility] Comment on above: Performed By: #### L 100.0100, L500.4050, L501.9520, L501.9985, L500.4100 #### [facility] [address] [place], [address] ALK P 93 U/L Normal 45-117 [facility] Comment on above: Performed By: #### L 100.0100, L500.4050, L501.9520, L501.9985, L500.4100 #### [facility] [address] [place], [address] ALT [Catalytic activity/Vol] 46 U/L Normal 16-61 [facility] Comment on above: Performed By: #### L 100.0100, L500.4050, L501.9520, L501.9985, L500.4100 #### [facility] [address] [place], [address] AST [Catalytic activity/Vol] 29 U/L Normal 15-37 [facility] Comment on above: Performed By: #### L 100.0100, L500.4050, L501.9520, L501.9985, L500.4100 #### [facility] [address] [place], [address] Bilirubin [Mass/Vol] 0.30 mg/dL Normal 0.20-1.00 [facility] Comment on above: Result Comment: For patients on eltrombopag therapy, use of Dimension [place] TBIL is not recommended. Performed By: #### L 100.0100, L500.4050, L501.9520, L501.9985, L500.4100 #### [facility] [address] [place], [address] BUN/CRE 12.8 RATIO Normal 10-20 [facility] Comment on above: Performed By: #### L 100.0100, L500.4050, L501.9520, L501.9985, L500.4100 #### [facility] [address] [place], [address] CA,Total 9.3 mg/dL Normal 8.5-10.1 [facility] Comment on above: Performed By: #### L 100.0100, L500.4050, L501.9520, L501.9985, L500.4100 #### [facility] [address] [place], [address] Chloride [Moles/Vol] 101 mmol/L Normal 98-107 [facility] Comment on above: Performed By: #### L 100.0100, L500.4050, L501.9520, L501.9985, L500.4100 #### [facility] [address] [place], [address] CO2 [Moles/Vol] 31.0 mmol/L Normal 21.0-32.0 [facility] Comment on above: Performed By: #### L 100.0100, L500.4050, L501.9520, L501.9985, L500.4100 #### [facility] [address] [place], [address] Creatinine [Mass/Vol] 0.94 mg/dL Normal 0.70-1.30 [facility] Comment on above: Result Comment: The validity of the calculated GFR GFRAA in patients over 70 years has not been determined. Clinical correlation is essential. Performed By: #### L 100.0100, L500.4050, L501.9520, L501.9985, L500.4100 #### [facility] [address] [place], [address] EST GFR - AA 113 mL/min Normal >60 [facility] Comment on above: Result Comment: Afri can Slovenian GFR Calc Performed By: #### L 100.0100, L500.4050, L501.9520, L501.9985, L500.4100 #### [facility] [address] [place], [address] GAP 5 Normal 5-15 [facility] Comment on above: Performed By: #### L 100.0100, L500.4050, L501.9520, L501.9985, L500.4100 #### [facility] [address] [place], [address] GFR/1.73 sq M.predicted among non-blacks MDRD (S/P/Bld) [Vol rate/Area] 94 mL/min/{1.73_m2} Normal >60 [facility] Comment on above: Result Comment: Non- GFR Calc Performed By: #### L 100.0100, L500.4050, L501.9520, L501.9985, L500.4100 #### [facility] [address] [place], [address] Globulin (S) [Mass/Vol] 4.1 g/dL Normal 2.2-4.[address] [facility] Comment on above: Performed By: #### L 100.0100, L500.4050, L501.9520, L501.9985, L500.4100 #### [facility] [address] [place], [address] Glucose [Mass/Vol] 123 mg/dL High 74-106 [facility] Comment on above: Result Comment: Fast ing Glucose result from 100 to 125 mg/dL suggests IMPAIRED HOMEOSTASIS per A.D.A. criteria. Performed By: #### L 100.0100, L500.4050, L501.9520, L501.9985, L500.4100 #### [facility] [address] [place], [address] Potassium [Moles/Vol] 4.3 mmol/L Normal 3.5-5.1 [facility] Comment on above: Performed By: #### L 100.0100, L500.4050, L501.9520, L501.9985, L500.4100 #### [facility] [address] [place], [address] Sodium [Moles/Vol] 137 mmol/L Normal 136-145 [facility] Comment on above: Performed By: #### L 100.0100, L500.4050, L501.9520, L501.9985, L500.4100 #### [facility] [address] [place], [address] T PROT 7.4 g/dL Normal 6.4-8.2 [facility] Comment on above: Performed By: #### L 100.0100, L500.4050, L501.9520, L501.9985, L500.4100 #### [facility] [address] [place], [address] Urea nitrogen [Mass/Vol] 12 mg/dL Normal 7-18 [facility] Comment on above: Performed By: #### L 100.0100, L500.4050, L501.9520, L501.9985, L500.4100 #### [facility] [address] [place], [address] Eosinophil percentageOrdered By: lillian Gudino on 06-03-2024 Eosinophils/100 WBC (Bld) 2.9 % 0-5 [facility] Erythrocyte distribution wid th ratioOrdered By: [facility] on 06-03-2024 Erythrocyte distribution width (RBC) [Ratio] 15.1 % High 11.6-14.6 [facility] Erythrocyte distribution wid th standard deviationOrdered By: [facility] on 06-03-2024 Erythrocyte distribution width (RBC) [Entitic vol] 44.5 fL High 35.1-43.9 [facility] Erythrocyte distribution width (RBC) [Ratio] 44.5 fl High 35.1-43.9 [facility] Estimated glomerular filtrat ion rate (GFR) AmericanOrdered By: lillian Gudino on 06-03-2024 Estimated GFR (MDRD) Amer 113 mL/min >60 [facility] Comment on above: GFR Calc Glomerular filtration rate ( GFR) estimationOrdered By: lillian Gudino on 06-03-2024 Estimated GFR (MDRD) Non-Af Amer 94 mL/min >60 [facility] Comment on above: Non- GFR Calc GFR/1.73 sq M.predicted among non-blacks MDRD (S/P/Bld) [Vol rate/Area] 94 mL/min/{1.73_m2} >60 [facility] Comment on above: Non- GFR Calc Glucose measurementOrdered B y: Kellie Gudino on 06-03-2024 Glucose [Mass/Vol] 123 mg/dL High 74-106 [facility] Comment on above: Fasting Glucose resu lt from 100 to 125 mg/dL suggests IMPAIRED HOMEOSTASIS per A.D.A. criteria. Hematocrit Auto (Bld) [Volum e fraction]Ordered By: lillian Gudino on 06-03-2024 Hematocrit (Bld) [Volume fraction] 43.2 % 40-54 [facility] Hemoglobin A1con 06-03-2024 HbA1c (Bld) [Mass fraction] 6.1 % High 3.8-5.6 [facility] Comment on above: Result Comment: Norm al < 5.7 % Prediabetic 5.7 - 6.4 % Diabetic >or= 6.5 % Please note range changes. Performed By: #### L 100.0100, L500.4050, L501.9520, L501.9985, L500.4100 ####[facility] [address] [place], [address] Hemoglobin A1c percentageOrd ered By: Kellie Gudino on 06-03-2024 HbA1c (Bld) [Mass fraction] 6.1 % High 3.8-5.6 [facility] Comment on above: Normal < 5.7 % Predi abetic 5.7 - 6.4 % Diabetic >or= 6.5 % Please note range changes. Hemoglobin measurementOrdere d By: Kellie Gudino on 06-03-2024 Hemoglobin (Bld) [Mass/Vol] 13.2 g/dL 13.0-16.5 [facility] High density lipoprotein (HD L) measurementOrdered By: Kellie Gudino on 06-03-2024 Cholesterol in HDL [Mass/Vol] 33 mg/dL Low >40 [facility] Comment on above: The drugs N-Acetylcy steine and Metamizole may falsely depress this assay. Reference Range HDL <40 mg/dL Low HDL Cholesterol HDL >or= 60 mg/dL High HDL Cholesterol Immature granulocytes/100 WB C Auto (Bld)Ordered By: Kellie Gudino on 06-03-2024 Immature granulocytes/100 WBC (Bld) 0.400 % 0.0-0.9 [facility] Comment on above: IG% - Immature Granu locytes (promyelocytes, myelocytes and metamyelocytes) > 1% indicates that a LEFT SHIFT is Present. Laboratory - Chemistry and C hemistry - challengeOrdered By: Kellie Gudino on 06-03-2024 AST [Catalytic activity/Vol] 29 U/L 15-37 [facility] Lipid Profileon 06-03-2024 Cholesterol [Mass/Vol] 197 mg/dL Normal 200 [facility] Comment on above: Result Comment: <200 mg/dL Desirable 200-240 mg/dL Borderline >240 mg/dL High Risk Performed By: #### L 100.0100, L500.4050, L501.9520, L501.9985, L500.4100 ####[facility] [address] [place], [address] Cholesterol in HDL [Mass/Vol] 33 mg/dL Low [facility] Comment on above: Result Comment: The drugs N-Acetylcysteine and Metamizole may falsely depress this assay. Reference Range HDL <40 mg/dL Low HDL Cholesterol HDL >or= 60 mg/dL High HDL Cholesterol Performed By: #### L 100.0100, L500.4050, L501.9520, L501.9985, L500.4100 ####[facility] [address] [place], [address] Cholesterol in LDL [Mass/Vol] 134 mg/dL High 0-130 [facility] Comment on above: Performed By: #### L 100.0100, L500.4050, L501.9520, L501.9985, L500.4100 ####[facility] [address] [place], [address] Cholesterol in VLDL [Mass/Vol] 30 mg/dL Normal 5-40 [facility] Comment on above: Performed By: #### L 100.0100, L500.4050, L501.9520, L501.9985, L500.4100 ####[facility] [address] [place], [address] Triglyceride [Mass/Vol] 151 mg/dL Normal [facility] Comment on above: Result Comment: The drugs N-Acetylcysteine and Metamizole may falsely depress this assay. Serum Triglycerides Reference Interval Normal <150 mg/dL Borderline high 150 - 199 mg/dL High 200 - 499 mg/dL Very High > or = 500 mg/dL Performed By: #### L 100.0100, L500.4050, L501.9520, L501.9985, L500.4100 ####[facility] [address] [place], [address] Low density lipoprotein (LDL ) cholesterol measurementOrdered By: Zebulun Beam on 06-03-2024 Cholesterol in LDL [Mass/Vol] 134 mg/dL High 0-130 [facility] Lymphocytes Auto (Unsp spec) [#/Vol]Ordered By: Zebulun Beam on 06-03-2024 Lymphocytes (Bld) [#/Vol] 1.50 10*3/uL 0.83-4.51 [facility] Lymphocytes/100 WBC Auto (Un sp spec)Ordered By: Zebulun Beam on 06-03-2024 Lymphocytes/100 WBC (Bld) 13.2 % Low 19-41 [facility] MCV (mean corpuscular volume ) determinationOrdered By: Zebulun Beam on 06-03-2024 MCV (RBC) [Entitic vol] 80.9 fL 80-[address] [facility] Mean corpuscular hemoglobin (MCH) determinationOrdered By: Zebulun Beam on 06-03-2024 MCH (RBC) [Entitic mass] 24.7 pg Low 27.0-32.0 [facility] Mean corpuscular hemoglobin concentration (MCHC) determinationOrdered By: Zebulun Beam on 06-03-2024 MCHC (RBC) [Mass/Vol] 30.6 g/dL Low 32-36 [facility] Mean platelet volume determi nationOrdered By: Zebulun Beam on 06-03-2024 Platelet mean volume (Bld) [Entitic vol] 9.2 fL 6.2-12.0 [facility] Monocyte percentageOrdered B y: Zebulun Beam on 06-03-2024 Monocytes/100 WBC (Bld) 6.1 % 0-[address] [facility] Neutrophil percentageOrdered By: Zebulun Beam on 06-03-2024 Neutrophils/100 WBC (Bld) 76.4 % High 47-70 [facility] Nucleated red blood cell per centageOrdered By: Zebulun Beam on 06-03-2024 Nucleated RBC/100 WBC (Bld) [Ratio] 0 % 0-5 [facility] Platelet countOrdered By: Praneeth reddyun Beam on 06-03-2024 Platelets (Bld) [#/Vol] 233 10*3/uL 150-450 [facility] Potassium measurementOrdered By: Kellie Gudino on 06-03-2024 Potassium [Moles/Vol] 4.3 mmol/L 3.5-5.1 [facility] RBC Auto (Bld) [#/Vol]Ordere d By: Kellie Gudino on 06-03-2024 RBC (Bld) [#/Vol] 5.34 10*6/uL 4.6-6.2 [facility] Serum anion gap measurementO rdered By: Kellie Gudino on 06-03-2024 Anion gap [Moles/Vol] 5 mmol/L 5-15 [facility] Serum globulin measurementOr dered By: Kellie Gudino on 06-03-2024 Globulin (S) [Mass/Vol] 4.1 g/dL 2.2-4.[address] [facility] Serum or plasma alanine monge otransferase (ALT) measurementOrdered By: Kellie Gudino on 06-03-2024 ALT [Catalytic activity/Vol] 46 U/L 16-61 [facility] Serum or plasma albumin juanjo urement (mass/volume)Ordered By: Kellie Gudnio on 06-03-2024 Albumin [Mass/Vol] 3.3 g/dL 3.2-5.0 [facility] Serum or plasma alkaline solitario sphatase measurementOrdered By: Kellie Gudino on 06-03-2024 ALP [Catalytic activity/Vol] 93 U/L 45-117 [facility] Serum or plasma calcium juanjo urement (mass/volume)Ordered By: Kellie Gudino on 06-03-2024 Calcium [Mass/Vol] 9.3 mg/dL 8.5-10.1 [facility] Serum or plasma cholesterol measurement (mass/volume)Ordered By: Kellie Gudino on 06-03-2024 Cholesterol [Mass/Vol] 197 mg/dL <200 [facility] Comment on above: <200 mg/dL Desirable 200-240 mg/dL Borderline >240 mg/dL High Risk Serum or plasma creatinine m easurement (mass/volume)Ordered By: Kellie Gudino on 06-03-2024 Creatinine [Mass/Vol] 0.94 mg/dL 0.70-1.30 [facility] Comment on above: The validity of the calculated GFR & GFRAA in patients over 70 years has not been determined. Clinical correlation is essential. Serum or plasma thyroid stim ulating hormone (TSH) measurement (units/volume)Ordered By: Kellie Gudino on 06-03-2024 TSH Qn 2.310 uIU/mL 0.358-3.740 [facility] Serum or plasma urea nitroge n measurement (mass/volume)Ordered By: Kellie Gudino on 06-03-2024 Urea nitrogen [Mass/Vol] 12 mg/dL 7-18 [facility] Sodium levelOrdered By: Vinicius Gudino on 06-03-2024 Sodium [Moles/Vol] 137 mmol/L 136-145 [facility] TSH QnOrdered By: Kellie Be am on 06-03-2024 Thyroid Stimulating Hormone (TSH) 2.310 uIU/mL 0.358-3.740 [facility] Thyroid Stim Hormone (TSH)on 06-03-2024 TSH 2.310 uIU/mL Normal 0.358-3.740 [facility] Comment on above: Performed By: #### L 100.0100, L500.4050, L501.9520, L501.9985, L500.4100 ####[facility] [address] [place], [address] Total proteinOrdered By: Jay Gudino on 06-03-2024 Protein [Mass/Vol] 7.4 g/dL 6.4-8.2 [facility] Triglycerides measurementOrd ered By: Kellie Gudino on 06-03-2024 Triglyceride [Mass/Vol] 151 mg/dL <[address] [facility] Comment on above: The drugs N-Acetylcy steine and Metamizole may falsely depress this assay.Serum Triglycerides Reference Interval Normal <150 mg/dL Borderline high 150 - 199 mg/dL High 200 - 499 mg/dL Very High > or = 500 mg/dL Very low density lipoprotein (VLDL) cholesterol measurementOrdered By: Kellie Gudino on 06-03-2024 Very low density lipoprotein (VLDL) cholesterol measurement 30 mg/dL 5-40 [facility] VLDL Cholesterol 30 mg/dL 5-40 [facility] White blood cell (WBC) count Ordered By: Kellie Gudino on 06-03-2024 WBC (Bld) [#/Vol] 11.4 10*3/uL High 4.4-11.0 [facility] 12 Lead EKGon 05-03-2024 12 Lead EKG [facility] [address] [place] [address] 12 Lead EKG 05/03/24 1354 MR#: [id number] Acct: [id number] Name: BILLY LOWERY Rep #: [id number] : 1980 44 From: Kenneth Ruiz MD Attending Dr: Status: DEP ER Ordering Dr: Genesis Brown Date: 05/03/24 Location: ED Sex: M C Admitted: Test Reason : EDEMA Blood Pressure : */* mmHG Vent. Rate : 93 BPM Atrial Rate : 93 BPM P-R Int : 198 ms QRS Dur : 84 ms QT Int : 344 ms P-R-T Axes : 56 22 62 degrees QTcB Int : 427 ms Normal sinus rhythm Septal infarct , age undetermined Abnormal ECG Confirmed by KENNETH RUIZ MD ([id number]), business editor TEMITPOE PEREIRA ([id number]) on 05/05/2024 8:37:17 AM Referred By: Confirmed By: KENNETH RUIZ MD 05/05/24 0837 Date Kenneth Ruiz MD CC: Dr. Maria M Tomlin DO; ALEENA Sullivan; No Primary Care Physician Signed Normal [facility] Absolute neutrophil countOrd ered By: Genesis Brown on 05-03-2024 Neutrophils (Bld) [#/Vol] 5.6 10*3/uL 2.0-7.7 [facility] BNP (brain natriuretic pepti de measurement)Ordered By: Genesis Brown on 05-03-2024 Natriuretic peptide B (Bld) [Mass/Vol] 24.5 pg/mL 0-100 [facility] BNP,B-Type NATRIURETIC PEPTI Lois 05-03-2024 Natriuretic peptide B (Bld) [Mass/Vol] 24.5 pg/mL Normal 0-100 [facility] Comment on above: Performed By: #### L 503.6620 #### [facility] [address] [place], [address] Basic Metabolic Profile (BMP )on 05-03-2024 BUN/CRE 19.1 RATIO Normal 10-20 [facility] Comment on above: Order Comment: 'TROP ' Serial specimen #1, #2 or #3: 1 Performed By: #### L 501.4020, L500.2500 ####[facility] [address] [place], [address] CA,Total 9.2 mg/dL Normal 8.5-10.1 [facility] Comment on above: Order Comment: 'TROP ' Serial specimen #1, #2 or #3: 1 Performed By: #### L 501.4020, L500.2500 ####[facility] [address] [place], [address] Chloride [Moles/Vol] 103 mmol/L Normal 98-107 [facility] Comment on above: Order Comment: 'TROP ' Serial specimen #1, #2 or #3: 1 Performed By: #### L 501.4020, L500.2500 ####[facility] [address] [place], [address] CO2 [Moles/Vol] 32.0 mmol/L Normal 21.0-32.0 [facility] Comment on above: Order Comment: 'TROP ' Serial specimen #1, #2 or #3: 1 Performed By: #### L 501.4020, L500.2500 ####[facility] [address] [place], [address] Creatinine [Mass/Vol] 0.94 mg/dL Normal 0.70-1.30 [facility] Comment on above: Order Comment: 'TROP ' Serial specimen #1, #2 or #3: 1 Result Comment: The validity of the calculated GFR GFRAA in patients over 70 years has not been determined. Clinical correlation is essential. Performed By: #### L 501.4020, L500.2500 ####[facility] [address] [place], [address] ECRCL 172.19 ml/min Normal [facility] Comment on above: Order Comment: 'TROP ' Serial specimen #1, #2 or #3: 1 Performed By: #### L 501.4020, L500.2500 ####[facility] [address] [place], [address] EST GFR - AA 113 mL/min Normal >60 [facility] Comment on above: Order Comment: 'TROP ' Serial specimen #1, #2 or #3: 1 Result Comment: Afri can Slovenian GFR Calc Performed By: #### L 501.4020, L500.2500 ####[facility] [address] [place], [address] GAP 3 Low 5-15 [facility] Comment on above: Order Comment: 'TROP ' Serial specimen #1, #2 or #3: 1 Performed By: #### L 501.4020, L500.2500 ####[facility] [address] [place], [address] GFR/1.73 sq M.predicted among non-blacks MDRD (S/P/Bld) [Vol rate/Area] 93 mL/min/{1.73_m2} Normal >60 [facility] Comment on above: Order Comment: 'TROP ' Serial specimen #1, #2 or #3: 1 Result Comment: Non- GFR Calc Performed By: #### L 501.4020, L500.2500 ####[facility] [address] [place], [address] Glucose [Mass/Vol] 150 mg/dL High 74-106 [facility] Comment on above: Order Comment: 'TROP ' Serial specimen #1, #2 or #3: 1 Result Comment: Fast ing Glucose result greater than or equal to 126 mg/dL suggests DIABETES MELLITUS per A.D.A. criteria. Performed By: #### L 501.4020, L500.2500 ####[facility] [address] [place], [address] Potassium [Moles/Vol] 3.9 mmol/L Normal 3.5-5.1 [facility] Comment on above: Order Comment: 'TROP ' Serial specimen #1, #2 or #3: 1 Performed By: #### L 501.4020, L500.2500 ####[facility] [address] [place], [address] Sodium [Moles/Vol] 138 mmol/L Normal 136-145 [facility] Comment on above: Order Comment: 'TROP ' Serial specimen #1, #2 or #3: 1 Performed By: #### L 501.4020, L500.2500 ####[facility] [address] [place], [address] Urea nitrogen [Mass/Vol] 18 mg/dL Normal 7-18 [facility] Comment on above: Order Comment: 'TROP ' Serial specimen #1, #2 or #3: 1 Performed By: #### L 501.4020, L500.2500 ####[facility] [address] [place], [address] Basophil percentageOrdered B y: Genesis Brown on 05-03-2024 Basophils/100 WBC (Bld) 0.7 % 0-[address] [facility] Blood urea nitrogen (BUN)/cr eatinine ratioOrdered By: Genesis Brown on 05-03-2024 Urea nitrogen/Creatinine [Mass ratio] 19.1 mg/mg 10-20 [facility] CBC W/Diff, Automatedon 04-07 Absolute Lymph 1.36 X10 3/uL Normal 0.83-4.51 [facility] Comment on above: Performed By: #### L 100.0100 ####[facility] [address] [place], [address] Absolute Neut 5.6 X10 3/uL Normal 2.0-7.7 [facility] Comment on above: Performed By: #### L 100.0100 ####[facility] [address] [place], [address] Basophils/100 WBC (Bld) 0.7 % Normal 0-[address] [facility] Comment on above: Performed By: #### L 100.0100 ####[facility] [address] [place], [address] Eosinophils/100 WBC (Bld) 4.7 % Normal 0-5 [facility] Comment on above: Performed By: #### L 100.0100 ####[facility] [address] [place], [address] Erythrocyte distribution width (RBC) [Ratio] 14.8 % High 11.6-14.6 [facility] Comment on above: Performed By: #### L 100.0100 ####[facility] [address] [place], [address] Hematocrit (Bld) [Volume fraction] 41.3 % Normal 40-54 [facility] Comment on above: Performed By: #### L 100.0100 ####[facility] [address] [place], [address] Hemoglobin (Bld) [Mass/Vol] 12.8 g/dL Low 13.0-16.5 [facility] Comment on above: Performed By: #### L 100.0100 ####[facility] [address] [place], [address] IG% 0.400 Normal 0.0-0.9 [facility] Comment on above: Result Comment: IG% - Immature Granulocytes (promyelocytes, myelocytes and metamyelocytes) > 1% indicates that a LEFT SHIFT is Present. Performed By: #### L 100.0100 ####[facility] [address] [place], [address] Lymphocytes/100 WBC (Bld) 16.5 % Low 19-41 [facility] Comment on above: Performed By: #### L 100.0100 ####[facility] [address] [place], [address] MCH (RBC) [Entitic mass] 25.9 pg Low 27.0-32.0 [facility] Comment on above: Performed By: #### L 100.0100 ####[facility] [address] [place], [address] MCHC (RBC) [Mass/Vol] 31.0 g/dL Low 32-36 [facility] Comment on above: Performed By: #### L 100.0100 ####[facility] [address] [place], [address] MCV (RBC) [Entitic vol] 83.6 fL Normal 80-[address] [facility] Comment on above: Performed By: #### L 100.0100 ####[facility] [address] [place], [address] Monocytes/100 WBC (Bld) 10.3 % High 0-[address] [facility] Comment on above: Performed By: #### L 100.0100 ####[facility] [address] [place], [address] Neutrophils/100 WBC (Bld) 67.4 % Normal 47-70 [facility] Comment on above: Performed By: #### L 100.0100 ####[facility] [address] [place], [address] Nucleated RBC (Bld) [#/Vol] 0 10*3/uL Normal 0-5 [facility] Comment on above: Performed By: #### L 100.0100 ####[facility] [address] [place], [address] Platelet mean volume (Bld) [Entitic vol] 9.5 fL Normal 6.2-12.0 [facility] Comment on above: Performed By: #### L 100.0100 ####[facility] [address] [place], [address] Platelets (Bld) [#/Vol] 226 10*3/uL Normal 150-450 [facility] Comment on above: Performed By: #### L 100.0100 ####[facility] [address] [place], [address] RBC (Bld) [#/Vol] 4.94 10*6/uL Normal 4.6-6.2 [facility] Comment on above: Performed By: #### L 100.0100 ####[facility] [address] [place], [address] RDW SD 44.7 fl High 35.1-43.9 [facility] Comment on above: Performed By: #### L 100.0100 ####[facility] [address] [place], [address] WBC (Bld) [#/Vol] 8.2 10*3/uL Normal 4.4-11.0 [facility] Comment on above: Performed By: #### L 100.0100 ####[facility] [address] [place], [address] Carbon dioxide measurementOr dered By: Genesis Brown on 05-03-2024 CO2 [Moles/Vol] 32.0 mmol/L 21.0-32.0 [facility] Chest PA and Lateralon 05-03 Chest PA and Lateral [facility] [address] [place] [address] Chest PA and Lateral MR#: [id number] Acct: [id number] Name: BILLY LOWERY Rep #: [id number] : 1980 M 44 From: Amaury beach MD PCP: Care Physician,No Primary Status: REG ER Study: Chest PA and Lateral Date of Exam: 05/03/24 Exam# [id number] Ordering Dr: Genesis Brown [id number] INDICATION: SOB EXAMINATION/TECHNIQUE: X-RAY - XR Chest 2 Views COMPARISON: None. FINDINGS: Slight increase in interstitial markings. The heart is borderline enlarged. No pleural effusion or pneumothorax. No acute osseous abnormalities. RAD/Chest PA and Lateral IMPRESSION: Slight increase in interstitial markings may represent edema and/or infection. Electronically Signed: Amaury Mueller MD at 16:00 EST , CC: ALEENA Sullivan; No Primary Care Physician Cable Operator: Signed Normal [facility] Chloride measurementOrdered By: Genesis Brown on 05-03-2024 Chloride [Moles/Vol] 103 mmol/L 98-107 [facility] Emergency Department Summary on 05-03-2024 Emergency Department Summary [facility] Medical Records Department [address] [place] [id number] Emergency Department Summary 05/03/24 MR#: [id number] Acct: [id number] Name: BILLY LOWERY Rep #: [id number] : 1980 44 From: Genesis FLOOD PCP: Marilee Physician,No Primary Status:DEP ER Location: ED HPI History of Present Illness Chief Complaint: Edema Narrative Narrative: Patient presenting today due to lower extremity edema and dyspnea on exertion that have both been going on for years. He does not follow with a PCP, he has not seen a doctor in over 2 years, he did take Lasix for this at one time but has been out of it for a few years. He reports that his mom came to visit him today and saw how large his legs were and encouraged that he come in to be seen. He reports that his dyspnea is not any worse than his baseline, he is a smoker. He denies any history of blood clots or recent surgeries/procedures/tr gisela. He denies fevers, chills, and chest pain. [facility] Medical History Depression Hypertension Home Medications ???Medication ???Instructions ???Recorded ???Last Taken ???Type furosemide 40 mg tablet (Lasix) 40 mg PO QODAY #7 tabs 05/03/24 Unknown Rx Allergy/AdvReac Type Severity Reaction Status Date / Time No Known Allergies Allergy Verified 05/03/24 13:22 Family History Brother Asthma Hypertension Sister Asthma Diabetes Mother Asthma Father Asthma Surgical History surgery for undescended testicle Social History Smoking Status: Current every day smoker tobacco type: cigarettes alcohol intake: current alcohol intake frequency: a few times a month substance use type: does not use ROS ROS ED Constitutional Constitutional ED: Denies chills or fever(s) Cardiovascular Cardiovascular: Denies chest pain Respiratory/Chest Respiratory/Chest: Reports dyspnea on exertion; Denies cough Gastrointestinal Gastrointestinal: Denies abdominal pain, nausea or vomiting Musculoskeletal Musculoskeletal: Denies arthralgias or myalgias Integumentary Denies rash Neurologic Neurologic: Denies weakness EXAM Physical Exam Const Vital Signs: 05/03/24 13:22 05/03/24 13:44 05/03/24 13:52 Temperature 98.2 F Temperature Source Oral Pulse Rate 104 H 97 94 Respiratory Rate 24 H 17 12 Blood Pressure 185/102 H 168/85 H 141/94 H Blood Pressure Mean 129 112 109 Pulse Ox 98 96 97 Oxygen Delivery Method Room Air Room Air Room Air 05/03/24 16:32 Temperature 97.6 F L Temperature Source Pulse Rate 78 Respiratory Rate 24 H Blood Pressure 139/80 H Blood Pressure Mean 99 Pulse Ox 96 Oxygen Delivery Method Positive well nourished, well developed and no apparent distress General Appearance ED: well developed HEENT Reports normocephalic and head/scalp atraumatic Mouth ED: Yes moist mucous membranes normal Eyes PERRL and EOMs intact bilaterally Neck full ROM and supple Chest Wall inspection of chest normal Resp normal respiratory effort and clear to auscultation bilaterally Cardio regular rate and regular rhythm GI soft to palpation, non-tender, non-distended and no masses Back/Spine normal ROM and normal to inspection Extremity full ROM Extremity Narrative: 4+ pitting edema to the bilateral lower extremities with chronic venous stasis changes, multiple blisters to the anterior lower extremities, no open wounds, lymphangitic streaking, warmth, or signs of infection/cellulitis. Neuro oriented x3, CN's II-XII intact bilaterally, moves all extremities, no focal motor deficits and no sensory deficits noted Sensorium / Orientation: awake and alert Psych mental status grossly normal and thought process normal Skin no rashes or lesions noted and no wounds Physical Exam Const Vital Signs: 05/03/24 13:22 05/03/24 13:44 05/03/24 13:52 Temperature 98.2 F Temperature Source Oral Pulse Rate 104 H 97 94 Respiratory Rate 24 H 17 12 Blood Pressure 185/102 H 168/85 H 141/94 H Blood Pressure Mean 129 112 109 Pulse Ox 98 96 97 Oxygen Delivery Method Room Air Room Air Room Air 05/03/24 16:32 Temperature 97.6 F L Temperature Source Pulse Rate 78 Respiratory Rate 24 H Blood Pressure 139/80 H Blood Pressure Mean 99 Pulse Ox 96 Oxygen Delivery Method MDM MDM MDM Narrative Medical decision making narrative: Patient presenting today due to bilateral lower extremity edema he has had chronically for years, he has also had chronic dyspnea on exe (more content not included)... Normal [facility] Eosinophil percentageOrdered By: Genesis Brown on 05-03-2024 Eosinophils/100 WBC (Bld) 4.7 % 0-5 [facility] Erythrocyte distribution wid th ratioOrdered By: Genesis Brown on 05-03-2024 Erythrocyte distribution width (RBC) [Ratio] 14.8 % High 11.6-14.6 [facility] Erythrocyte distribution wid th standard deviationOrdered By: Genesis Brown on 05-03-2024 Erythrocyte distribution width (RBC) [Entitic vol] 44.7 fL High 35.1-43.9 [facility] Estimated glomerular filtrat ion rate (GFR) AmericanOrdered By: Genesis Brown on 05-03-2024 Estimated GFR (MDRD) Amer 113 mL/min >60 [facility] Comment on above: GFR Calc Estimation of creatinine marta aranceOrdered By: Genesis Brown on 05-03-2024 Estimated Creatinine Clearance Calc 172.19 ml/min [facility] Glomerular filtration rate ( GFR) estimationOrdered By: Genesis Brown on 05-03-2024 Estimated GFR (MDRD) Non-Af Amer 93 mL/min >60 [facility] Comment on above: Non- GFR Calc Glucose measurementOrdered B y: Genesis Brown on 05-03-2024 Glucose [Mass/Vol] 150 mg/dL High 74-106 [facility] Comment on above: Fasting Glucose resu lt greater than or equal to 126 mg/dL suggests DIABETES MELLITUS per A.D.A. criteria. Hematocrit Auto (Bld) [Volum e fraction]Ordered By: Genesis Brown on 05-03-2024 Hematocrit (Bld) [Volume fraction] 41.3 % 40-54 [facility] Hemoglobin measurementOrdere d By: Genesis Brown on 05-03-2024 Hemoglobin (Bld) [Mass/Vol] 12.8 g/dL Low 13.0-16.5 [facility] Immature granulocytes/100 WB C Auto (Bld)Ordered By: Genesis Brown on 05-03-2024 Immature granulocytes/100 WBC (Bld) 0.400 % 0.0-0.9 [facility] Comment on above: IG% - Immature Granu locytes (promyelocytes, myelocytes and metamyelocytes) > 1% indicates that a LEFT SHIFT is Present. L501.4020on 05-03-2024 TROPONIN-I HS 60 pg/mL Normal 3.0-78.0 [facility] Comment on above: Order Comment: 'TROP ' Serial specimen #1, #2 or #3: 1 Result Comment: Sima jj Note: New Test Units and Gender Specific Reference Ranges. For more information see Policy Stat Procedure [place] High Sensitivity Troponin (TNIH) and attachments. Performed By: #### L 501.4020, L500.2500 ####[facility] [address] [place], [address] Lymphocytes Auto (Unsp spec) [#/Vol]Ordered By: Genesis Brown on 05-03-2024 Lymphocytes (Bld) [#/Vol] 1.36 10*3/uL 0.83-4.51 [facility] Lymphocytes/100 WBC Auto (Un sp spec)Ordered By: Genesis Brown on 05-03-2024 Lymphocytes/100 WBC (Bld) 16.5 % Low 19-41 [facility] MCV (mean corpuscular volume ) determinationOrdered By: Genesis Brown on 05-03-2024 MCV (RBC) [Entitic vol] 83.6 fL 80-[address] [facility] Mean corpuscular hemoglobin (MCH) determinationOrdered By: Genesis Brown on 05-03-2024 MCH (RBC) [Entitic mass] 25.9 pg Low 27.0-32.0 [facility] Mean corpuscular hemoglobin concentration (MCHC) determinationOrdered By: Genesis Brown on 05-03-2024 MCHC (RBC) [Mass/Vol] 31.0 g/dL Low 32-36 [facility] Mean platelet volume determi nationOrdered By: Genesis Brown on 05-03-2024 Platelet mean volume (Bld) [Entitic vol] 9.5 fL 6.2-12.0 [facility] Monocyte percentageOrdered B y: Genesis Brown on 05-03-2024 Monocytes/100 WBC (Bld) 10.3 % High 0-[address] [facility] Neutrophil percentageOrdered By: Genesis Brown on 05-03-2024 Neutrophils/100 WBC (Bld) 67.4 % 47-70 [facility] Nucleated red blood cell per centageOrdered By: Genesis Brown on 05-03-2024 Nucleated RBC/100 WBC (Bld) [Ratio] 0 % 0-5 [facility] Platelet countOrdered By: Cinthya Brown on 05-03-2024 Platelets (Bld) [#/Vol] 226 10*3/uL 150-450 [facility] Potassium measurementOrdered By: Genesis Brown on 05-03-2024 Potassium [Moles/Vol] 3.9 mmol/L 3.5-5.1 [facility] RBC Auto (Bld) [#/Vol]Ordere d By: Genesis Brown on 05-03-2024 RBC (Bld) [#/Vol] 4.94 10*6/uL 4.6-6.2 [facility] Serum anion gap measurementO rdered By: Genesis Brown on 05-03-2024 Anion gap [Moles/Vol] 3 mmol/L Low 5-15 [facility] Serum or plasma calcium juanjo urement (mass/volume)Ordered By: Genesis Brown on 05-03-2024 Calcium [Mass/Vol] 9.2 mg/dL 8.5-10.1 [facility] Serum or plasma creatinine m easurement (mass/volume)Ordered By: Genesis Brown on 05-03-2024 Creatinine [Mass/Vol] 0.94 mg/dL 0.70-1.30 [facility] Comment on above: The validity of the calculated GFR & GFRAA in patients over 70 years has not been determined. Clinical correlation is essential. Serum or plasma urea nitroge n measurement (mass/volume)Ordered By: Genesis Brown on 05-03-2024 Urea nitrogen [Mass/Vol] 18 mg/dL 7-18 [facility] Sodium levelOrdered By: Colton Brown on 05-03-2024 Sodium [Moles/Vol] 138 mmol/L 136-145 [facility] Troponin IOrdered By: Ema Brown on 05-03-2024 Troponin I High Sensitivity 60 pg/mL 3.0-78.0 [facility] Comment on above: Please Note: New Cherise t Units and Gender Specific Reference Ranges. For more information see Policy Stat Procedure [place] High Sensitivity Troponin (TNIH) and attachments. White blood cell (WBC) count Ordered By: Genesis Brown on 05-03-2024 WBC (Bld) [#/Vol] 8.2 10*3/uL 4.4-11.0 [facility] Absolute lymphocyte countOrd ered By: Dr. Silva on 05-19-2022 Lymphocytes Auto (Unsp spec) [#/Vol] 2.00 10*3/uL 0.83-4.51 [facility] Basophil percentageOrdered B y: Dr. Silva on 05-19-2022 Basophils/100 WBC (Bld) 0.9 % 0-[address] [facility] Bilirubin [Mass/Vol] 0.20 mg/dL 0.20-1.00 [facility] Comment on above: For patients on eltr ombopag therapy, use of Dimension [place] TBIL is not recommended. Chloride [Moles/Vol] 105 mmol/L 98-107 [facility] Eosinophils/100 WBC (Bld) 2.8 % 0-5 [facility] Glucose [Mass/Vol] 136 mg/dL 74-106 [facility] Comment on above: Fasting Glucose resu lt greater than or equal to 126 mg/dL suggests DIABETES MELLITUS per A.D.A. criteria. Neutrophils (Bld) [#/Vol] 7.1 10*3/uL 2.0-7.7 [facility] Neutrophils/100 WBC (Bld) 69.3 % 47-70 [facility] Potassium [Moles/Vol] 3.9 mmol/L 3.5-5.1 [facility] Protein [Mass/Vol] 7.1 g/dL 6.4-8.2 [facility] Sodium [Moles/Vol] 139 mmol/L 136-145 [facility] WBC (Bld) [#/Vol] 10.2 10*3/uL 4.4-11.0 [facility] Blood erythrocytes count (nu mber/volume)Ordered By: Dr. Silva on 05-19-2022 RBC (Bld) [#/Vol] 5.23 10*6/uL 4.6-6.2 [facility] Blood hemoglobin measurement (mass/volume)Ordered By: Dr. Silva on 05-19-2022 Hemoglobin (Bld) [Mass/Vol] 15.0 g/dL 13.0-16.5 [facility] Blood lymphocytes/100 leukoc ytesOrdered By: Dr. Silva on 05-19-2022 Lymphocytes/100 WBC (Bld) 19.6 % 19-41 [facility] Blood monocytes/100 leukocyt esOrdered By: Dr. Silva on 05-19-2022 Monocytes/100 WBC (Bld) 7.1 % 0-[address] [facility] Blood platelet mean volumeOr dered By: Dr. Silva on 05-19-2022 Platelet mean volume (Bld) [Entitic vol] 10.0 fL 6.2-12.0 [facility] Determination of erythrocyte mean corpuscular volume (MCV)Ordered By: Dr. Silva on 05-19-2022 MCV (RBC) [Entitic vol] 87.6 fL 80-[address] [facility] Hematocrit Auto (Bld) [Volum e fraction]Ordered By: Dr. Silva on 05-19-2022 Hematocrit (Bld) [Volume fraction] 45.8 % 40-54 [facility] Laboratory - Chemistry and C hemistry - challengeOrdered By: Dr. Silva on 05-19-2022 ALP [Catalytic activity/Vol] 91 U/L 45-117 [facility] ALT [Catalytic activity/Vol] 45 U/L 16-61 [facility] CO2 [Moles/Vol] 28.0 mmol/L 21.0-32.0 [facility] Globulin (S) [Mass/Vol] 3.7 g/dL 2.2-4.2 [facility] Lipase [Catalytic activity/Vol] 179 U/L 73-393 [facility] Urea nitrogen/Creatinine [Mass ratio] 18.4 mg/mg 10-20 [facility] Laboratory - Hematology and Cell countsOrdered By: Dr. Silva on 05-19-2022 Erythrocyte distribution width (RBC) [Entitic vol] 42.6 fL 35.1-43.9 [facility] Erythrocyte distribution width (RBC) [Ratio] 13.2 % 11.6-14.6 [facility] Immature granulocytes/100 WBC (Bld) 0.300 % 0.0-0.9 [facility] Comment on above: IG% - Immature Granu locytes (promyelocytes, myelocytes and metamyelocytes) > 1% indicates that a LEFT SHIFT is Present. MCH (RBC) [Entitic mass] 28.7 pg 27.0-32.0 [facility] Nucleated RBC/100 WBC (Bld) [Ratio] 0 % 0-5 [facility] MCHC Auto (RBC) [Mass/Vol]Or dered By: Dr. Silva on 05-19-2022 MCHC (RBC) [Mass/Vol] 32.8 g/dL 32-36 [facility] No Panel InformationOrdered By: Dr. Silva on 05-19-2022 Estimated Creatinine Clearance Calc 123.64 ml/min [facility] Estimated GFR (MDRD) Amer 135 mL/min >60 [facility] Comment on above: GFR Calc Estimated GFR (MDRD) Non-Af Amer 111 mL/min >60 [facility] Comment on above: Non- GFR Calc Troponin I High Sensitivity 15 pg/mL 3.0-78.0 [facility] Comment on above: Please Note: New Cherise t Units and Gender Specific Reference Ranges. For more information see Policy Stat Procedure [place] High Sensitivity Troponin (TNIH) and attachments. Platelets bldOrdered By: Dr. Silva on 05-19-2022 Platelets (Bld) [#/Vol] 218 10*3/uL 150-450 [facility] Serum or plasma albumin juanjo urement (mass/volume)Ordered By: Dr. Silva on 05-19-2022 Albumin [Mass/Vol] 3.4 g/dL 3.2-5.0 [facility] Serum or plasma albumin/glob ulin mass ratioOrdered By: Dr. Silva on 05-19-2022 Albumin/Globulin [Mass ratio] 0.9 {ratio} 0.9-2.4 [facility] Serum or plasma calcium juanjo urement (mass/volume)Ordered By: Dr. Silva on 05-19-2022 Calcium [Mass/Vol] 8.6 mg/dL 8.5-10.1 [facility] Serum or plasma creatinine m easurement (mass/volume)Ordered By: Dr. Silva on 05-19-2022 Creatinine [Mass/Vol] 0.82 mg/dL 0.70-1.30 [facility] Comment on above: The validity of the calculated GFR & GFRAA in patients over 70 years has not been determined. Clinical correlation is essential. Serum or plasma urea nitroge n measurement (mass/volume)Ordered By: Dr. Silva on 05-19-2022 Urea nitrogen [Mass/Vol] 15 mg/dL 7-18 [facility] Thin prep Papanicolaou smear with manual screeningOrdered By: Dr. Silva on 05-19-2022 Thin prep Papanicolaou smear with manual screening 19 U/L 15-37 [facility] Thin prep Papanicolaou smear with manual screening 6 5-15 [facility] Vital Signs Date Time Vital Sign Value Performing Clinician Faci glynny 02-11-2025 19:53-0400 Body temperature 98.3 [degF] No Primary Care Physician [facility] 02-11-2025 19:53-0400 Diastolic blood pressure 89 mm[Hg] No Primary Care Physician [facility] 02-11-2025 19:53-0400 Heart rate 99 /min No Primary Care Physician [facility] 02-11-2025 19:53-0400 Respiratory rate 22 /min No Primary Care Physician [facility] 02-11-2025 19:53-0400 SaO2% (BldA) [Mass fraction] 98 % No Primary Care Physician [facility] 02-11-2025 19:53-0400 Systolic blood pressure 159 mm[Hg] No Primary Care Physician [facility] 02-11-2025 18:23-0400 Body height 177.8 cm No Primary Care Physician [facility] 02-11-2025 18:23-0400 Body mass index (BMI) [Ratio] 57.3 kg/m2 No Primary Care Physician [facility] 02-11-2025 18:23-0400 Body weight 181.16 kg No Primary Care Physician [facility] 02-04-2025 00:10-0400 Body temperature 98 [degF] No Primary Care Physician [facility] 02-04-2025 00:10-0400 Diastolic blood pressure 89 mm[Hg] No Primary Care Physician [facility] 02-04-2025 00:10-0400 Heart rate 90 /min No Primary Care Physician [facility] 02-04-2025 00:10-0400 Respiratory rate 18 /min No Primary Care Physician [facility] 02-04-2025 00:10-0400 SaO2% (BldA) [Mass fraction] 97 % No Primary Care Physician [facility] 02-04-2025 00:10-0400 Systolic blood pressure 131 mm[Hg] No Primary Care Physician [facility] 02-03-2025 23:30-0400 Body height 177.8 cm No Primary Care Physician [facility] 02-03-2025 23:30-0400 Body mass index (BMI) [Ratio] 58.6 kg/m2 No Primary Care Physician [facility] 02-03-2025 23:30-0400 Body weight 185.2 kg No Primary Care Physician [facility] 01-13-2025 05:29-0400 Body height 177.8 cm No Primary Care Physician [facility] 01-13-2025 05:29-0400 Body mass index (BMI) [Ratio] 57.4 kg/m2 No Primary Care Physician [facility] 01-13-2025 05:29-0400 Body temperature 96.6 [degF] No Primary Care Physician [facility] 01-13-2025 05:29-0400 Body weight 181.43 kg No Primary Care Physician [facility] 01-13-2025 05:29-0400 Diastolic blood pressure 79 mm[Hg] No Primary Care Physician [facility] 01-13-2025 05:29-0400 Heart rate 102 /min No Primary Care Physician [facility] 01-13-2025 05:29-0400 Respiratory rate 22 /min No Primary Care Physician [facility] 01-13-2025 05:29-0400 SaO2% (BldA) [Mass fraction] 96 % No Primary Care Physician [facility] 01-13-2025 05:29-0400 Systolic blood pressure 131 mm[Hg] No Primary Care Physician [facility] 10-15-2024 09:53-0400 Body temperature 97.2 [degF] No Primary Care Physician [facility] 10-15-2024 09:53-0400 Diastolic blood pressure 101 mm[Hg] No Primary Care Physician [facility] 10-15-2024 09:53-0400 Heart rate 88 /min No Primary Care Physician [facility] 10-15-2024 09:53-0400 Respiratory rate 18 /min No Primary Care Physician [facility] 10-15-2024 09:53-0400 Systolic blood pressure 171 mm[Hg] No Primary Care Physician [facility] 10-09-2024 10:08-0400 Body height 177.8 cm No Primary Care Physician [facility] 10-09-2024 10:08-0400 Body weight 189.14 kg No Primary Care Physician [facility] 10-01-2024 09:52-0400 Body temperature 97.2 [degF] No Primary Care Physician [facility] 10-01-2024 09:52-0400 Diastolic blood pressure 113 mm[Hg] No Primary Care Physician [facility] 10-01-2024 09:52-0400 Heart rate 94 /min No Primary Care Physician [facility] 10-01-2024 09:52-0400 Respiratory rate 18 /min No Primary Care Physician [facility] 10-01-2024 09:52-0400 Systolic blood pressure 195 mm[Hg] No Primary Care Physician [facility] 09-03-2024 10:06-0400 Body temperature 98 [degF] No Primary Care Physician [facility] 09-03-2024 10:06-0400 Diastolic blood pressure 104 mm[Hg] No Primary Care Physician [facility] 09-03-2024 10:06-0400 Heart rate 95 /min No Primary Care Physician [facility] 09-03-2024 10:06-0400 Respiratory rate 18 /min No Primary Care Physician [facility] 09-03-2024 10:06-0400 Systolic blood pressure 165 mm[Hg] No Primary Care Physician [facility] 07-30-2024 10:22-0400 Body temperature 97.2 [degF] No Primary Care Physician [facility] 07-30-2024 10:22-0400 Diastolic blood pressure 96 mm[Hg] No Primary Care Physician [facility] 07-30-2024 10:22-0400 Heart rate 92 /min No Primary Care Physician [facility] 07-30-2024 10:22-0400 Respiratory rate 18 /min No Primary Care Physician [facility] 07-30-2024 10:22-0400 Systolic blood pressure 180 mm[Hg] No Primary Care Physician [facility] 07-02-2024 12:30-0500 Body temperature 96.2 [degF] No Primary Care Physician [facility] 07-02-2024 12:30-0500 Diastolic blood pressure 100 mm[Hg] No Primary Care Physician [facility] 07-02-2024 12:30-0500 Heart rate 85 /min No Primary Care Physician [facility] 07-02-2024 12:30-0500 Respiratory rate 18 /min No Primary Care Physician [facility] 07-02-2024 12:30-0500 Systolic blood pressure 180 mm[Hg] No Primary Care Physician [facility] 06-04-2024 12:44-0500 Diastolic blood pressure 109 mm[Hg] No Primary Care Physician [facility] 06-04-2024 12:44-0500 Heart rate 96 /min No Primary Care Physician [facility] 06-04-2024 12:44-0500 Respiratory rate 18 /min No Primary Care Physician [facility] 06-04-2024 12:44-0500 Systolic blood pressure 162 mm[Hg] No Primary Care Physician [facility] 05-28-2024 13:04-0500 Body temperature 97 [degF] No Primary Care Physician [facility] 05-03-2024 16:32-0500 Body temperature 97.6 [degF] No Primary Care Physician [facility] 05-03-2024 16:32-0500 Diastolic blood pressure 80 mm[Hg] No Primary Care Physician [facility] 05-03-2024 16:32-0500 Heart rate 78 /min No Primary Care Physician [facility] 05-03-2024 16:32-0500 Respiratory rate 24 /min No Primary Care Physician [facility] 05-03-2024 16:32-0500 SaO2% (BldA) [Mass fraction] 96 % No Primary Care Physician [facility] 05-03-2024 16:32-0500 Systolic blood pressure 139 mm[Hg] No Primary Care Physician [facility] 05-03-2024 13:39-0500 Body mass index (BMI) [Ratio] 59.3 kg/m2 No Primary Care Physician [facility] 05-03-2024 13:39-0500 Body weight 187.78 kg No Primary Care Physician [facility] 05-03-2024 13:22-0500 Body height 177.8 cm No Primary Care Physician [facility] 03-28-2023 14:48-0500 Body height 177.8 cm [facility] 03-28-2023 14:48-0500 Body mass index (BMI) [Ratio] 54.5 kg/m2 [facility] 03-28-2023 14:48-0500 Body temperature 98.6 [degF] [facility] 03-28-2023 14:48-0500 Body weight 172.39 kg [facility] 03-28-2023 14:48-0500 Diastolic blood pressure 116 mm[Hg] [facility] 03-28-2023 14:48-0500 Heart rate 92 /min [facility] 03-28-2023 14:48-0500 Respiratory rate 14 /min [facility] 03-28-2023 14:48-0500 SaO2% (BldA) [Mass fraction] 97 % [facility] 03-28-2023 14:48-0500 Systolic blood pressure 194 mm[Hg] [facility] 09-07-2022 20:27-0400 Body height 177.8 cm [facility] 09-07-2022 20:27-0400 Body mass index (BMI) [Ratio] 54.9 kg/m2 [facility] 09-07-2022 20:27-0400 Body temperature 97.8 [degF] [facility] 09-07-2022 20:27-0400 Body weight 173.7 kg [facility] 09-07-2022 20:27-0400 Diastolic blood pressure 90 mm[Hg] [facility] 09-07-2022 20:27-0400 Heart rate 102 /min [facility] 09-07-2022 20:27-0400 Respiratory rate 18 /min [facility] 09-07-2022 20:27-0400 SaO2% (BldA) [Mass fraction] 96 % [facility] 09-07-2022 20:27-0400 Systolic blood pressure 167 mm[Hg] [facility] 05-19-2022 16:38-0500 Body height 177.8 cm [facility] Work Phone: 05-19-2022 16:38-0500 Body mass index (BMI) [Ratio] 49.9 kg/m2 [facility] 05-19-2022 16:38-0500 Body temperature 98.1 [degF] [facility] 05-19-2022 16:38-0500 Body weight 157.85 kg [facility] 05-19-2022 16:38-0500 Diastolic blood pressure 106 mm[Hg] [facility] 05-19-2022 16:38-0500 Heart rate 97 /min [facility] 05-19-2022 16:38-0500 Respiratory rate 17 /min [facility] 05-19-2022 16:38-0500 SaO2% (BldA) [Mass fraction] 98 % [facility] 05-19-2022 16:38-0500 Systolic blood pressure 175 mm[Hg] [facility] 12-12-2021 09:54-0400 Body height 177.8 cm [facility] Work Phone: 12-12-2021 09:54-0400 Body mass index (BMI) [Ratio] 52.6 kg/m2 [facility] Work Phone: 12-12-2021 09:54-0400 Body temperature 96.6 [degF] [facility] Work Phone: 12-12-2021 09:54-0400 Body weight 166.3 kg [facility] Work Phone: 12-12-2021 09:54-0400 Diastolic blood pressure 108 mm[Hg] [facility] Work Phone: 12-12-2021 09:54-0400 Heart rate 106 /min [facility] Work Phone: 12-12-2021 09:54-0400 Respiratory rate 17 /min [facility] Work Phone: 12-12-2021 09:54-0400 SaO2% (BldA) [Mass fraction] 97 % [facility] Work Phone: 12-12-2021 09:54-0400 Systolic blood pressure 164 mm[Hg] [facility] Work Phone: 10-24-2021 21:37-0400 Body temperature 97.4 [degF] [facility] Work Phone: 10-24-2021 21:37-0400 Heart rate 74 /min [facility] Work Phone: 10-24-2021 21:37-0400 Respiratory rate 17 /min [facility] Work Phone: 10-24-2021 21:37-0400 SaO2% (BldA) [Mass fraction] 98 % [facility] Work Phone: 10-24-2021 20:16-0400 Body height 175.26 cm [facility] Work Phone: 10-24-2021 20:16-0400 Body mass index (BMI) [Ratio] 52.4 kg/m2 [facility] Work Phone: 10-24-2021 20:16-0400 Body weight 161.02 kg [facility] Work Phone: 10-24-2021 20:16-0400 Diastolic blood pressure 119 mm[Hg] [facility] Work Phone: 10-24-2021 20:16-0400 Systolic blood pressure 179 mm[Hg] [facility] Work Phone: Encounters Encounter Date Encounter Type Care Provider Facility Start: 02-23-2025 End: 02-23-2025 Emergency department patient visit Kellie Gudino [facility] Facility:[facility] Start: 02-11-2025 End: 02-11-2025 Emergency department patient visit No Primary Care Physician -Emergency Department Work Phone: Start: 02-03-2025 End: 02-04-2025 Emergency department patient visit No Primary Care Physician -Emergency Department Work Phone: Start: 01-13-2025 End: 01-13-2025 Patient encounter procedure VERONICA Joaquin -[facility] Work Phone: Start: 01-13-2025 End: 01-13-2025 ambulatory No Primary Care Physician -[facility] Start: 11-25-2024 End: 11-25-2024 ambulatory No Primary Care Physician -Sleep Lab Start: 11-25-2024 End: 11-25-2024 Patient encounter procedure Zebulun Beam [employer] -Sleep Lab Work Phone: Start: 11-25-2024 End: 11-25-2024 ambulatory Zebulun Beam VSC Facility:[facility] Start: 11-21-2024 Non-patient / Non-visit Dr. Aliyah moreno MD -[facility] Start: 11-21-2024 End: 11-21-2024 ambulatory No Primary Care Physician -Cardiovascular Services Start: 11-21-2024 End: 11-21-2024 Patient encounter procedure Zebulun Beam [employer] -Cardiovascular Services Work Phone: Start: 11-20-2024 End: 11-21-2024 ambulatory No Primary Care Physician -Pulmonary Services/Neurology Start: 11-20-2024 End: 11-20-2024 Patient encounter procedure Zebulun Beam [employer]C -Pulmonary Services/Neurology Work Phone: Start: 11-20-2024 End: 11-20-2024 ambulatory Zebulun Beam VSC Facility:[facility] Start: 11-14-2024 ambulatory No Primary Car e Physician Facility:[facility] Start: 10-30-2024 End: 10-30-2024 ambulatory No Primary Care Physician -[facility] [place] [facility] Start: 10-30-2024 End: 10-30-2024 Patient encounter procedure Zebulun Beam [employer] -[facility] [place] [facility] Start: 10-30-2024 End: 10-30-2024 ambulatory Zebulun Beam VSC Facility:[facility] Start: 10-15-2024 End: 11-03-2024 ambulatory No Primary Care Physician -[facility] Start: 10-15-2024 End: 11-03-[address] Smith Sommer DPM -[facility] Work Phone: Start: 10-01-2024 End: 10-04-[address] Smith Sommer DPM -[facility] Work Phone: Start: 10-01-2024 End: 10-04-2024 ambulatory No Primary Care Physician [facility] Work Phone: Start: 09-05-2024 Non-patient / Non-visit Dr. Kathy CLIFFORD -[facility] Start: 09-05-2024 End: 09-05-2024 ambulatory No Primary Care Physician [facility] Work Phone: Start: 09-05-2024 End: 09-05-2024 Patient encounter procedure Kellie Gudino [employer] -Cardiovascular Services Work Phone: Start: 09-05-2024 End: 09-05-2024 ambulatory Kellie Gudino [facility] Facility:[facility] Start: 09-03-2024 End: 09-03-2024 ambulatory Smith Moss Facility:[facility] Start: 09-03-2024 End: 09-03-[address] Smith Sommer DPM -[facility] Work Phone: Start: 07-30-2024 End: 08-04-2024 ambulatory No Primary Care Physician [facility] Work Phone: Start: 07-30-2024 End: 08-04-[address] Smith Sommer DPM -[facility]aling [facility] Work Phone: Start: 07-02-2024 End: 07-04-2024 ambulatory Smith Sommer Facility:[facility] Start: 07-02-2024 End: 07-04-[address] Smith Sommer DPM -W[facility] Healing [facility] Work Phone: Start: 06-04-2024 End: 06-06-2024 ambulatory Smith Sommer Facility:[facility] Start: 06-04-2024 End: 06-06-[address] Smith Sommer DPM -[facility] Healing [facility] Work Phone: Start: 06-03-2024 End: 06-03-2024 Patient encounter procedure Kellie Gudino [employer]C -[facility] Start: 06-03-2024 End: 06-03-2024 ambulatory Zebulun Beam VSC Facility:[facility] Start: 05-03-2024 End: 05-03-2024 Emergency department patient visit Dr. Maria M Tomlin DO -Emergency Department Work Phone: Start: 03-28-2023 End: 03-28-2023 Emergency department patient visit [facility]-Emergency Department Work Phone: Start: 09-07-2022 End: 09-07-2022 Emergency department patient visit [facility]-Emergency Department Start: 05-19-2022 End: 05-19-2022 Emergency department patient visit [facility]-Emergency Department Start: 12-12-2021 End: 12-12-2021 Emergency department patient visit [facility]-Emergency Department Start: 10-24-2021 End: 10-24-2021 Emergency department patient visit [facility]-Emergency Department Procedures Date Procedure Procedure Detail Performing Clinician Start: 02-11-2025 Radex foot complete minimum 3 views No Primary Care Physician Start: 02-03-2025 Radex ankle complete minimum 3 views No Primary Care Physician Start: 08-06-2024 Anaerobic microbial culture No Primary Care Physician Start: 08-06-2024 Gram stain microscopy N o Primary Care Physician Start: 08-06-2024 End: 08-06-2024 Microbial culture, routine No Primary Ca re Physician Start: 06-03-2024 Measurement of renal function No Primary Care Physician Comment on above: GFR Calc Start: 05-03-2024 X-ray of chest, PA a nd lateral views No Primary Care Physician Start: 05-19-2022 US scan of gallbladder Start: 10-24-2021 X-ray of chest posteroanterior view Plan of Treatment Date Care Activity Detail Author Start: 02-11-2025 [facility] Start: 02-04-2025 [facility] Start: 11-21-2024 Echo tthrc r-t 2d w/wom-mode compl spec&colr d TTE W/DOPPLER COMPLETE [facility] Start: 09-05-2024 Echo tthrc r-t 2d w/wom-mode compl spec&colr d TTE W/DOPPLER COMPLETE [facility] Start: 05-03-2024 [facility] Patient Education [facility] Work Phone: Patient referral [facility] Work Phone: Immunizations Immunization Date Immunization Notes Care Provider Fa rhea 12-12-2021 tetanus toxoid, redu kennedy diphtheria toxoid, and acellular pertussis vaccine, adsorbed [facility] 04-27-2015 tetanus toxoid, redu kennedy diphtheria toxoid, and acellular pertussis vaccine, adsorbed [facility] Payers Date Payer Category Payer Self-pay [id number] 2014 Unknown [id number] 2014 Unknown [id number] Unknown [id number] 2.16.8 [id number] Unknown [id number] 2.16.8 [id number] Unknown [id number] 2.16.8 40.1.312429.3.579.2.462 Unknown [id number] 2.16.8 40.1.455418.3.579.2.462 Unknown [id number] 2.16.8 40.1.252663.3.579.2.462 Unknown [id number] 2.16.8 40.1.901931.3.579.2.462 Unknown [id number] 2.16.8 40.1.053576.3.579.2.462 Unknown [id number] 2.16.8 40.1.273641.3.579.2.462 Unknown [id number] 2.16.8 40.1.871102.3.579.2.462 Unknown [id number] 2.16.8 40.1.478500.3.579.2.462 Unknown [id number] 2.16.8 40.1.094440.3.579.2.462 Unknown [id number] 2.16.8 40.1.057399.3.579.2.462 Unknown [id number] 2.16.8 40.1.731609.3.579.2.462 Unknown [id number] 2.16.8 40.1.151788.3.579.2.462 Unknown [id number] 2.16.8 40.1.251153.3.579.2.462 Unknown [id number] 2.16.8 40.1.813759.3.579.2.462 Unknown [id number] 2.16.8 40.1.978731.3.579.2.462 Unknown [id number] 2.16.8 40.1.609532.3.579.2.462 Unknown [id number] 2.16.8 40.1.348081.3.579.2.462 Unknown [id number] 2.16.8 40.1.629707.3.579.2.462 Unknown [id number] 2.16.8 [id number] Social History Date Type Detail Facility Start: 10-24-2021 End: 03-28-2023 Tobacco smoking status IAIS Unknown if ever smoked [facility] Start: 03-16-2020 Cigarettes [facility] Start: 1980 Sex Assigned At Male [facility] Start: 05-03-2024 End: 02-11-2025 Tobacco smoking status NHIS Smokes tobacco daily (finding) [facility] Start: 08-05-2024 Sex Male (finding) [facility] Sex Male [facility] Mental Status Date Assessment Result Facility 05-03-2024 Cognitive function Level Of Cons ciousness Awake;Alert;Appropriate;Follow s Commands [facility] Work Phone: Clinical Notes 09-07-2022 to 02-11-2025 Note Date & Type Note Facility 02-11-2025 Radiology Diagnostic study note [facility] [address] [place] [address] Foot min 3 Views MR#: [id number] Acct: [id number] Name: BILLY LOWERY Rep #: [id number] : 1980 M 44 From: Greyson Perry MD PCP: Kellie Gudino [employer] HEL[employer]-C Status: PRE ER Study:Foot min 3 Views Date of Exam: 12/29 Exam# [id number] Ordering Dr: Melisa ,Ed P. PROCEDURE: RIGHT FOOT MIN 3 VIEWS 02/11/2025 REASON FOR EXAM: PAIN TECHNIQUE: Procedure Code: RADFO Modality: DX Procedure: FOOT MIN 3 VIEWS Laterality: Right COMPARISON: None. FINDINGS: No acute fracture or dislocation. Alignment is anatomic. Preserved joint spaces.No aggressive osseous lesion. No marked focal soft tissue swelling or radiopaque foreign body. RAD/Foot min 3 Views IMPRESSION: No acute fracture or dislocation. Reading Location: [id number] CC: ED PHYSICIAN PROVIDER; Kellie LOPEZ [employer]OE REPAIRER HELPER-C Beam ~ Cable Operator: Signed [facility] 02-04-2025 Radiology Diagnostic study note [facility] [address] [place] [address] Ankle min 3 Views MR#: [id number] Acct: [id number] Name: BILLY LOWERY Rep #: [id number] : 1980 M 44 From: Greyson Perry MD PCP: Kellie Gudino [employer] REPA[employer]ER HELPER-C Status: PRE ER Study:Ankle min 3 Views Date of Exam: Exam# [id number] Ordering Dr: Kaur Bustos MD PROCEDURE: RIGHT ANKLE MIN 3 VIEWS 02/03/2025 REASON FOR EXAM: TRAUMA TECHNIQUE: Procedure Code: RADANK Modality: DX Procedure: ANKLE MIN 3 VIEWS Laterality: Right COMPARISON: None. FINDINGS: No acute fracture or dislocation. Alignment is anatomic. Preserved joint spaces.No aggressive osseous lesion. No marked focal soft tissue swelling or radiopaque foreign body. RAD/Ankle min 3 Views IMPRESSION: No acute fracture or dislocation. Reading Location: [id number] CC: Dr. Vladimir Bustos MD; Kellie LOPEZ NP-Linette Gudino ~ Cable Operator: Signed [facility] 02-04-2025 Discharge summary [facility] 02-03-2025 Discharge summary Note Date/Time February 04, 2025 12:04am [facility] Medical Records Department [address] [place] [address] Emergency Department Summary 02/03/25 MR#: [id number] Acct: [id number] Name: BILLY LOWERY Rep #:[id number] : 1980 44 From: Vladimir Bustos MD PCP: Kellie Gudino Status:PRE ER Location: ED HPI History of Present Illness Chief Complaint: Lower Extremity Injury Detail of Chief Complaint: Initial injury to ankle proximal a month ago. Rolledthe ankle today walki Informant: patient Onset/Context/Timing Onset: Hours (Rolled ankle walking on railroad ties) and Month(s) (Initial injury 1 month ago.) Mechanism/Context: Blunt Injury (Plantar inversion mechanism of injury.) Location of pain/injuries: Right ankle Quality of Pain: Dull and Aching Location: Predominately lateral side of the right ankle Current Severity: Mild Maximum Severity: Moderate Worsened by: Weightbearing Relieved by: Nothing Associated Symptoms Associated Symptoms: Negative for Parasthesias, Weakness, Loss of function, Inability to ambulate or Loss of consciousness Narrative Narrative: Patient is a 44-year-old male. He has history of venous stasis dermatitis with bilateral lymphedema, hyperinsomnia, prediabetes, obstructive sleep apnea, hypertension, hypercholesterolemia and a BMI of 58.6. He presents because of reinjury to his right ankle. He complains of pain predominantly laterally. Prior similar symptoms: Yes Recent Illness/Hospitalization: No PFSH PFS Medical History Depression Hypertension Home Medications ?Medication ?Instructions ?Recorded ?Last Taken ?Type albuterol sulfate 90 mcg/actuation 1 puff inhalation 0 01/06/25 Unknown History aerosol inhaler hydrochlorothiazide 12.5 mg capsule 12.5 mg PO DAILY 0 01/06/25 Unknown History lisinopril 40 mg tablet 40 mg PO DAILY 01/06/25 Unkn own History metformin 500 mg tablet,extended 500 mg PO DAILY 01/06 Unknown History release 24 hr rosuvastatin 20 mg tablet 20 mg PO QHS 01/06/25 Unknow n History amlodipine 10 mg tablet 10 mg PO QDAY 01/13/25 Unkno wn History varenicline tartrate 0.5 mg (11)-1 tab PO 01/13/25 Unk nown History mg (42) tablets in a dose pack hydrocodone-acetaminophen 5-325mg 1 tab PO Q6H PRN PRN Pain 3 days 02/04/25 Unknown Rx 5mg-325mg #10 TABLETS Allergy/AdvReac Type Severity Reaction Status Date / Time No Known Allergies Allergy Verified 02/03/25 23:31 Family History Brother Asthma Hypertension Sister Asthma Diabetes Hypertension Mother Asthma Cancer Myocardial infarction Father Asthma Surgical History surgery for undescended testicle Social History household members: family current occupational status: unemployed sexually active: Yes Smoking Status: Current every day smoker tobacco type: cigarettes alcohol intake: current alcohol intake frequency: a few times a month substance use type: does not use caffeine: Yes Type: coffee Number of servings: 2 seatbelt use: always ROS ROS ED Constitutional Constitutional ED: Denies chills, fever(s), subjective or sweats Musculoskeletal Musculoskeletal: Denies arthralgias or myalgias Integumentary Denies Abrasions or rash Neurologic Neurologic: Denies paresthesias or weakness EXAM Physical Exam Const Vital Signs: 02/03/25 23:30 Temperature 98.1 F Temperature Source Temporal Pulse Rate 100 Respiratory Rate 18 Blood Pressure 159/94 H Blood Pressure Mean 115 Pulse Ox 97 Oxygen Delivery Method Room Air Positive well nourished and well developed General Appearance ED: well developed and NAD HEENT HEENT Narrative: HEENT exam is grossly unremarkable. Resp normal respiratory effort Cardio regular rhythm Rate: regular rate Extremity full ROM; Negative for normal to inspection Extremity Narrative: Patient does have some swelling noted. There is evidence of dry skin. There ispain palpation over the anterior talofibular ligament and distal fibula. There is minimal tenderness over the deltoid ligament. There is no laxity with anterior drawer testing. There is no pain no patient over the base of the fifthmetatarsal. There is no neurovascular compromise. Psych mental status grossly normal and thought process normal Skin no rashes or lesions noted and no wounds MDM MDM MDM Narrative Medical decision making narrative: Per ankle auto will rule per the [place] ankle rule imaging is required to rule out fracture versus sprain. Radiography Chest X-Ray - ED: Read by ED Physician (Three-view x-ray of the ankle was independently interpreted by me at midnight. There is significant soft tissue edema noted. There is no fracture, subluxation dislocation. There is no asymmetry of the mortise. The base of the fifth metatarsal appears normal.) Treatment and Re-Evaluation Narrative: Will treat as a stable ankle sprain of the anterior talofibular ligament. Discharge Plan Triage Chief Complaint: Lower Extremity Injury ED Provider: Vladimir Bustos Dx/Rx/DC Orders Clinical Impression: Sprain of anterior talofibular ligament of right ankle, Hypertension, Body massindex (BMI) greater than 50, Obstructive sleep apnea Instructions: Ankle Inversion (Strength), ED Ankle Sprain (Adult) Prescriptions: New hydrocodone-acetaminophen 5-325 mg tablet 1 tab PO Q6H PRN PRN (Reason: Pain) 3 Days Qty: 10 0RF No Action rosuvastatin 20 mg tablet 20 mg PO QHS metformin 500 mg tablet extended release 24 hr 500 mg PO DAILY lisinopril 40 mg tablet 40 mg PO DAILY hydrochlorothiazide 12.5 mg capsule 12.5 mg PO DAILY albuterol sulfate 90 mcg/actuation HFA aerosol inhaler 1 puff inhalation varenicline tartrate 0.5 mg (11)- 1 mg (42) tablets,dose pack PO amlodipine 10 mg tablet 10 mg PO QDAY Primary Care Provider: Kellie Gudino Referrals: Kellie Gudino, SHOE REPAIRER HELPER-C [Primary Care Provider, Family Practice] - 1 Week if not improving Print Language: Kyrgyz Disposition Disposition: Home, Self Care What to do if you have Problems For any increased pain, shortness of breath, bleeding, nausea or vomiting, chestpain, or any unexpected problems, contact your Primary Care Provider. Call [facility] ([phone]) or report to the closest Emergency Room. Call 911 if necessary. 02/04/25 0004 <Electronically signed by Vladimir Bustos MD> Cosigner Signature (if applicable): CC: Kellie LOPEZ SHOE REPAIRER HELPER-C Terese ~ Signed [facility] Work Phone: 1(881) 378-303906-11-2025 Progress note Author Smith Sommer [facility] Note Date/Time October 15, 2024 1:17 pm [facility] [address] [place] [address] Progress Note - Wound Care 10/15/24 1316 MR#: [id number] Acct: [id number] Name: BILLY LOWERY Rep #:[id number] : 1980 44 From: Smith Roque PM PCP: Kellie Gudino SHOE REPAIRER HELPER-C Status:REG RCR Location: History of Present Illness Date of Service: 10/15/24 Chief Complaint: Bilateral leg swelling and ulceration. History of Wound: Bilateral leg swelling and ulceration chronic Progress of Wound: Full-thickness wound left leg Subjective Subjective Mr. Lowery is a 44-year-old male presented wound care center today for follow-upevaluation of full-thickness wound to the left leg. Patient is left his multilayer compression bandage clean dry and intact. He did find an appointmentwith a primary doctor and will be seeing them on the of this month. He hasbeen very grateful for his care. Denies trauma. Denies constitutional symptoms. No other pedal complaints at this time. Objective Data Objective Data Vital Signs: Vital Signs Temp Pulse Resp BP O2 Del Method 97.2 F L 88 18 171/101 H Room Air 10/15/24 09:53 10/15/24 09:53 10/15/24 09:53 10/15/24 09:53 10/15/24 09:53 Oxygen Delivery Method Room Air Weight: 189.148 kg Lab / Micro Data Micro: Microbiology 08/06/24 10:33 Ulcer, Decubitus - Other Gram Stain - Final 08/06/24 10:33 Ulcer, Decubitus - Other Wound Culture - Final Streptococcus agalactiae (B) Staphylococcus aureus 08/06/24 10:33 Ulcer, Decubitus - Other Anaerobic Culture - Final Anaerobic cocci Physical Exam Narrative Vascular: DP and PT pulses are faintly palpable due to edema. CFT is brisk. +1pitting edema appreciated bilateral lower extremity. Skin temperature gradient is warm to warm from proximal ankles to distal digits bilateral. No erythema isappreciated. Neurological: Light touch intact. Patient does respond to painful stimuli. Dermatological: Full-thickness wound to left leg is now healed. Musculoskeletal: Muscle strength is 5 out of 5 in all quadrants bilateral. Mildpain to palp patient to the full-thickness wound to left leg. No pain with calfpressure. Debridement Note Debridement Note Debridement Free Text: Excisional debridement down to including subcutaneous tissue with a number 3 mm dermal curette to the left leg full-thickness wound and without incident. Predebridement measurement was callus. Postdebridement measurement was 0.3 x 0.3 x 0.1 cm. Post-Debridement Measurements and Additional Note: Post-Debridement Measurements/Treatment - Nurse 1 - General Ulcer Assessment Start: 10/08/24 10:12 Freq: Status: Active Protocol: WC.LOWNATALIO Activity Type Activity Date Activity User E-sign Co-sign Detail Recorded Client Recorded Date Recorded By Document 10/08/24 10:12 [id number] 10/08/24 10:38 KW Document 10/15/24 09:53 KW [id number] 10/15/24 09:55 KW 10/08/24 10/15/24 10:12 09:53 - Today's Visit Information Type of service Nurse-only Follow-up Visit Visit (Physician/PREP MANAGER ) Arrival Mode Ambulatory Ambulatory Patient Identification Verified (Name & Yes Yes ) Vital Signs Temperature (97.8 F-99.1 F) 97.2 F L Temperature Source Temporal Temporal Pulse Rate (60-100) 101 H 88 Pulse Location Monitor Monitor Respiratory Rate (12-18) 16 18 Respiratory rate source Observation Observation Oxygen Delivery Method Room Air Room Air Blood Pressure (90/60-120/80) 225/114 H 171/101 H Blood Pressure Mean (mm Hg) 151 124 Source Monitor Monitor Position Semi-Fowlers Semi-Fowlers Blood Pressure Location Left Forearm Left Arm History Since Last Visit- (Skip if this is Patient's initial visit) Have you changed medications since your No No last visit? Any new allergies or adverse reactions No No Had a fall/change in ADL's that may No No increase risk of falls Signs or symptoms of abuse and/or No No neglect since last visit Have you been in the hospital since your No No last visit? Has dressing in place as prescribed Yes Yes Has compression in place as prescribed Yes Yes Has offloadiing in place as prescribed N/A N/A Experienced any changes in pain level or No No management Left Footwear Regular Shoe Regular Shoe Right Footwear Regular Shoe Regular Shoe Pain Scale: 0-10 Numeric Is Patient Pain Free? Yes Yes - Nurse 1 - General Ulcer Measurement Start: 10/08/24 10:12 Freq: Status: Active Protocol: Activity Type Activity Date Activity User E-sign Co-sign Detail Recorded Client Recorded Date Recorded By Document 10/15/24 09:53 ESPERANZA [id number] 10/15/24 09:55 ESPERANZA 10/15/24 09:53 Wound Center Nurse 1 4-left leg cluster -Current Size (cm) - Length 0.1 -Current Size (cm) - Width 0.1 -Current Size (cm) - Depth 0 -Total Square Cm 0.01 -Date of Last Picture (Recall this 10/15/24 field) -Texture (Lety-wound Skin Appearance) Assessed -Moisture (Lety-wound Skin Appearance) Assessed,Dry/ Scaly -Color (Lety-wound Skin Appearance) Assessed -Ulcer Cleansing Soap and Water -Wound Comment(s) poss. healed Right Calf (cm) 65 Right Ankle (cm) 32 Left Calf (cm) 73.5 Left Ankle (cm) 35 - Nurse 2 - General Ulcer CM Notes Start: 10/08/24 10:12 Freq: Status: Active Protocol: Activity Type Activity Date Activity User E-sign Co-sign Detail Recorded Client Recorded Date Recorded By Document 10/15/24 10:40 SHELLIE [id number] 10/15/24 10:41 SHELLIE 10/15/24 10:40 Wound Center Nurse 2 4-left leg cluster -Correct Patient Yes -Correct Side, Site, Position No -Correct Procedure No -Procedure Performed No -Post Debridement (cm) - Length 0 -Post Debridement (cm) - Width 0 -Post Debridement (cm) - Depth 0 -Total Square (Post) (cm) 0 -Area of Debridement (cm) - Length 0 -Area of Debridement (cm) - Width 0 -Total Square (Area) (cm) 0 -Wound/Ulcer Outcome Healed- Epithelialized Pain Scale: 0-10 Numeric Is Patient Pain Free? Yes - Nurse 3 - General Ulcer D/C NN Start: 10/08/24 10:12 Freq: Status: Active Protocol: Activity Type Activity Date Activity User E-sign Co-sign Detail Recorded Client Recorded Date Recorded By Document 10/08/24 10:12 KW [id number] 10/08/24 10:38 KW Document 10/15/24 10:49 JF [id number] 10/15/24 10:49 JF 10/08/24 10/15/24 10:12 10:49 Pain Scale: 0-10 Numeric Is Patient Pain Free? 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 All findings were discussed with the patient. All questions were answered to the patient's satisfaction. At this time the patient's left lower extremity full-thickness wound is now healed. Patient will be placed in bilateral Nilesh wrap's for continued edema control while he washes his CircAid's and dons them later on today. I educated the patient that if he has any breakdown of skin he is to return to the wound care center as needed. He is grateful for his care be discharged today. (2) Morbid obesity: CODE(S): E66.01 - Morbid (severe) obesity due to excess calories 10/15/24 1317 <Electronically signed by Smith Sommer DPM> Cosigner Signature (if applicable): CC: ~ Signed [facility] Work Phone: 1(915) 676-804906-11-2025 Progress note [facility] [address] [place] [address] Progress Note - Wound Care 10/15/24 1316 MR#: [id number] Acct: [id number] Name: BILLY LOWERY Rep #:[id number] : 1980 44 From: Smith Roque PM PCP: Kellie Gudino [facility] SHOE REPAIRER HELPER-C Status:REG RCR Location: History of Present Illness Date of Service: 10/15/24 Chief Complaint: Bilateral leg swelling and ulceration. History of Wound: Bilateral leg swelling and ulceration chronic Progress of Wound: Full-thickness wound left leg Subjective Subjective Mr. Lowery is a 44-year-old male presented wound care center today for follow- upevaluation of full-thickness wound to the left leg. Patient is left his multilayer compression bandage clean dry and intact. He did find an appointmentwith a primary doctor and will be seeing them on the of this sun. He hasbeen very grateful for his care. Denies trauma. Denies constitutional symptoms. No other pedal complaints at this time. Objective Data Objective Data Vital Signs: Vital Signs Temp Pulse Resp BP O2 Del Method 97.2 F L 88 18 171/101 H Room Air 10/15/24 09:53 10/15/24 09:53 10/15/24 09:53 10/15/24 09:53 10/15/24 09:53 Oxygen Delivery Method Room Air Weight: 189.148 kg Lab / Micro Data Micro: Microbiology 08/06/24 10:33 Ulcer, Decubitus - Other Gram Stain - Final 08/06/24 10:33 Ulcer, Decubitus - Other Wound Culture - Final Streptococcus agalactiae (B) Staphylococcus aureus 08/06/24 10:33 Ulcer, Decubitus - Other Anaerobic Culture - Final Anaerobic cocci Physical Exam Narrative Vascular: DP and PT pulses are faintly palpable due to edema. CFT is brisk. +1pitting edema appreciated bilateral lower extremity. Skin temperature gradient is warm to warm from proximal ankles to distal digits bilateral. No erythema isappreciated. Neurological: Light touch intact. Patient does respond to painful stimuli. Dermatological: Full-thickness wound to left leg is now healed. Musculoskeletal: Muscle strength is 5 out of 5 in all quadrants bilateral. Mildpain to palp patientto the full-thickness wound to left leg. No pain with calfpressure. Debridement Note Debridement Note Debridement Free Text: Excisional debridement down to including subcutaneous tissue with a number 3mm dermal curette to the left leg full-thickness wound and without incident. Predebridement measurement was callus. Postdebridement measurement was 0.3 x 0.3 x 0.1 cm. Post-Debridement Measurements and Additional Note: Post-Debridement Measurements/Treatment - Nurse 1 - General Ulcer Assessment Start: 10/08/24 10:12 Freq: Status: Active Protocol: DAVID Activity Type Activity Date Activity User E-sign Co-sign Detail Recorded Client Recorded Date Recorded By Document 10/08/24 10:12 KW [id number] 10/08/24 10:38 KW Document 10/15/24 09:53 [id number] 10/15/24 09:55 KW 10/08/24 10/15/24 10:12 09:53 - Today's Visit Information Type of service Nurse-only Follow-up Visit Visit (Physician/PREP MANAGER ) Arrival Mode Ambulatory Ambulatory Patient Identification Verified (Name & Yes Yes ) Vital Signs Temperature (97.8 F-99.1 F) 97.2 F L Temperature Source Temporal Temporal Pulse Rate (60-100) 101 H 88 Pulse Location Monitor Monitor Respiratory Rate (12-18) 16 18 Respiratory rate source Observation Observation Oxygen Delivery Method Room Air Room Air Blood Pressure (90/60-120/80) 225/114 H 171/101 H Blood Pressure Mean (mm Hg) 151 124 Source Monitor Monitor Position Semi-Fowlers Semi-Fowlers Blood Pressure Location Left Forearm Left Arm History Since Last Visit- (Skip if this is Patient's initial visit) Have you changed medications since your No No last visit? Any new allergies or adverse reactions No No Had a fall/change in ADL's that may No No increase risk of falls Signs or symptoms of abuse and/or No No neglect since last visit Have you been in the hospital since your No No last visit? Has dressing in place as prescribed Yes Yes Has compression in place as prescribed Yes Yes Has offloadiing in place as prescribed N/A N/A Experienced any changes in pain level or No No management Left Footwear Regular Shoe Regular Shoe Right Footwear Regular Shoe Regular Shoe Pain Scale: 0-10 Numeric Is Patient Pain Free? Yes Yes WOLFGANG - Nurse 1 - General Ulcer Measurement Start: 10/08/24 10:12 Freq: Status: Active Protocol: Activity Type Activity Date Activity User E-sign Co-sign Detail Recorded Client Recorded Date Recorded By Document 10/15/24 09:53 ESPERANZA [id number] 10/15/24 09:55 10/15/24 09:53 Wound Center Nurse 1 4-left leg cluster -Current Size (cm) - Length 0.1 -Current Size (cm) - Width 0.1 -Current Size (cm) - Depth 0 -Total Square Cm 0.01 -Date of Last Picture (Recall this 10/15/24 field) -Texture (Lety-wound Skin Appearance) Assessed -Moisture (Lety-wound Skin Appearance) Assessed,Dry/ Scaly -Color (Lety-wound Skin Appearance) Assessed -Ulcer Cleansing Soap and Water -Wound Comment(s) poss. healed Right Calf (cm) 65 Right Ankle (cm) 32 Left Calf (cm) 73.5 Left Ankle (cm) 35 WOLFGANG - Nurse 2 - General Ulcer CM Notes Start: 10/08/24 10:12 Freq: Status: Active Protocol: Activity Type Activity Date Activity User E-sign Co-sign Detail Recorded Client Recorded Date Recorded By Document 10/15/24 10:40 SHELLIE [id number] 10/15/24 10:41 10/15/24 10:40 Wound Center Nurse 2 4-left leg cluster -Correct Patient Yes -Correct Side, Site, Position No -Correct Procedure No -Procedure Performed No -Post Debridement (cm) - Length 0 -Post Debridement (cm) - Width 0 -Post Debridement (cm) - Depth 0 -Total Square (Post) (cm) 0 -Area of Debridement (cm) - Length 0 -Area of Debridement (cm) - Width 0 -Total Square (Area) (cm) 0 -Wound/Ulcer Outcome Healed- Epithelialized Pain Scale: 0-10 Numeric Is Patient Pain Free? Yes WOLFGANG - Nurse 3 - General Ulcer D/C NN Start: 10/08/24 10:12 Freq: Status: Active Protocol: Activity Type Activity Date Activity User E-sign Co-sign Detail Recorded Client Recorded Date Recorded By Document 10/08/24 10:12 KW [id number] 10/08/24 10:38 KW Document 10/15/24 10:49 JF [id number] 10/15/24 10:49 JF 10/08/24 10/15/24 10:12 10:49 Pain Scale: 0-10 Numeric Is Patient Pain Free? 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 All findings were discussed with the patient. All questions were answered to the patient's satisfaction. At this time the patient's left lower extremity full-thickness wound is now healed. Patient will beplaced in bilateral Nilesh wrap's for continued edema control while he washes his CircAid's and dons them later on today. I educated the patient that if he has any breakdown of skin he is to return to the wound care center as needed. He is grateful for his care be discharged today. (2) Morbid obesity: CODE(S): E66.01 - Morbid (severe) obesity due to excess calories 10/15/24 1317 Cosigner Signature (if applicable): CC: ~ Signed [facility]06-11-2025 Evaluation note* Diagnosis Onset Date Resolution Status Admit Date Morbid obesity acute October 15, 2024 10:00am Non-pressure chronic ulcer o f other part of left lower leg with fat layer chronic October 15, 2024 10:00am Obstructive sleep apnea acute S eptember 2024 2:50pm [facility] Work Phone: 1(977) 698-227405-28-2025 Progress note Author Smith Sommer [facility] Note Date/Time October 01, 2024 6:27p m [facility] [address] [place] [address] Progress Note - Wound Care 10/01/24 1823 MR#: [id number] Acct: [id number] Name: BILLY LOWERY Rep #:[id number] : 1980 44 From: Smith BOWIE 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 History of Wound: Bilateral leg swelling and ulceration chronic Progress of Wound: Bilateral swelling and chronic ulceration stable with no sign of infection. Subjective Subjective Patient is a 44-year-old male presenting to wound care center today for follow- up evaluation of bilateral leg swelling and full-thickness wound to the left leg. Excisional debridement down to and including subcutaneous tissue, fascia and muscle with a number 3 mm dermal curette to the left anterior leg without incident. Predebridement measurement was 0.5 x 0.1 x 0.8 cm. Postdebridement measurement is 0.7 x 0.2 x 1.2 cm. Objective Data Objective Data Vital Signs: Vital Signs Temp Pulse Resp BP 97.2 F L 94 18 195/113 H 10/01/24 09:52 10/01/24 09:52 10/01/24 09:52 10/01/24 09:52 Lab / Micro Data Micro: Microbiology 08/06/24 10:33 Ulcer, Decubitus - Other Gram Stain - Final 08/06/24 10:33 Ulcer, Decubitus - Other Wound Culture - Final Streptococcus agalactiae (B) Staphylococcus aureus 08/06/24 10:33 Ulcer, Decubitus - Other Anaerobic Culture - Final Anaerobic cocci Physical Exam Narrative Vascular: DP and PT pulses are faintly palpable due to edema. CFT is brisk. +1pitting edema appreciated bilateral lower extremity. Skin temperature gradient is warm to warm from proximal ankles to distal digits bilateral. No erythema isappreciated. Neurological: Light touch intact. Patient does respond to painful stimuli. Dermatological: Full-thickness ulceration cluster to the left leg measuring 0.3 x 0.3 x 0.1 cm. Wound base is granular with no drainage or sign of infection. Excisional debridement down to including subcutaneous tissue with a number 3 mm dermal curette to the left leg full-thickness wound and without incident. Predebridement measurement was callus. Postdebridement measurement was 0.3 x 0.3 x 0.1 cm. Musculoskeletal: Muscle strength is 5 out of 5 in all quadrants bilateral. Mildpain to palp patient to the full-thickness wound to left leg. No pain with calfpressure. Debridement Note Debridement Note Debridement Free Text: Excisional debridement down to including subcutaneous tissue with a number 3 mm dermal curette to the left leg full-thickness wound and without incident. Predebridement measurement was callus. Postdebridement measurement was 0.3 x 0.3 x 0.1 cm. Post-Debridement Measurements and Additional Note: Post-Debridement Measurements/Treatment - Nurse 1 - General Ulcer Assessment Start: 10/01/24 09:51 Freq: Status: Active Protocol: HUMPHREYEXT Activity Type Activity Date Activity User E-sign Co-sign Detail Recorded Client Recorded Date Recorded By Document 10/01/24 09:52 ANIL [id number] 10/01/24 09:56 DL 10/01/24 09:52 WC - Today's Visit Information Type of service Follow-up Visit (Physician/PREP MANAGER ) Arrival Mode Ambulatory Transfer Assistance None Patient Identification Verified (Name & Yes ) Vital Signs Temperature (97.8 F-99.1 F) 97.2 F L Temperature Source Temporal Pulse Rate (60-100) 94 Pulse Location Monitor Respiratory Rate (12-18) 18 Blood Pressure (90/60-120/80) 195/113 H Blood Pressure Mean (mm Hg) 140 Source Monitor History Since Last Visit- (Skip if this is Patient's initial visit) Have you changed medications since your No last visit? Any new allergies or adverse reactions No Had a fall/change in ADL's that may No increase risk of falls Signs or symptoms of abuse and/or No neglect since last visit Have you been in the hospital since your No last visit? Has dressing in place as prescribed Yes Has compression in place as prescribed Yes Has offloadiing in place as prescribed Yes Experienced any changes in pain level or No management Pain Scale: 0-10 Numeric Is Patient Pain Free? Yes - Nurse 1 - General Ulcer Measurement Start: 10/01/24 09:51 Freq: Status: Active Protocol: Activity Type Activity Date Activity User E-sign Co-sign Detail Recorded Client Recorded Date Recorded By Document 10/01/24 09:52 ANIL [id number] 10/01/24 09:56 DL 10/01/24 09:52 Wound Center Nurse 1 4-left leg cluster -Current Size (cm) - Length 0.1 -Current Size (cm) - Width 0.1 -Current Size (cm) - Depth 0.1 -Total Square Cm 0.01 -Photo Taken Yes -Exudate Amt None Present -Wound Margin Flat & Intact -Granulation Amt Small (1-33%) -Granulation Quality [place] -Necrosis Amt Small (1-33%) -Necrotic Tissue Type Eschar -Structure Exposed N/A -Texture (Lety-wound Skin Appearance) Scarring -Moisture (Lety-wound Skin Appearance) Dry/Scaly -Color (Lety-wound Skin Appearance) No Abnormality -Temperature (Lety-wound Skin No Abnormality Appearance) (Pt Warm) -Ulcer Cleansing Rinsed/ Irrigated with Saline -Foul Odor after Cleansing No -Anesthetic Used 5% Lidocaine Gel Right Calf (cm) 58.5 Right Ankle (cm) 41 Left Calf (cm) 64.5 Left Ankle (cm) 45.5 WC - Nurse 2 - General Ulcer CM Notes Start: 10/01/24 09:51 Freq: Status: Active Protocol: Activity Type Activity Date Activity User E-sign Co-sign Detail Recorded Client Recorded Date Recorded By Document 10/01/24 10:14 JF [id number] 10/01/24 10:15 SHELLIE 10/01/24 10:14 Wound Center Nurse 2 4-left leg cluster -Time 10:14 -Correct Patient Yes -Correct Side, Site, Position Yes -Correct Procedure Yes -Procedure Performed Yes -Type of Procedure Debridement -Clinical Debridement Subcutaneous -Tissue Removed Subcutaneous -Post Debridement (cm) - Length 0.3 -Post Debridement (cm) - Width 0.3 -Post Debridement (cm) - Depth 0.1 -Total Square (Post) (cm) 0.09 -Area of Debridement (cm) - Length 0.3 -Area of Debridement (cm) - Width 0.3 -Total Square (Area) (cm) 0.09 -Tunneling No -Undermining/Tunneling No -Circular Undermining No -Wound/Ulcer Outcome Not Healed -Ulcer Cleansing Rinsed/ Irrigated with Saline -Foul Odor after Cleansing No -Bioengineered Tissue No -Bleeding Controlled with Pressure -Treatment Response Procedure Tolerated Well -Offloading No -Debridement - Subq, 1st 20sq cm Yes Pain Scale: 0-10 Numeric Is Patient Pain Free? Yes WC - Nurse 3 - General Ulcer D/C NN Start: 10/01/24 09:51 Freq: Status: Active Protocol: Activity Type Activity Date Activity User E-sign Co-sign Detail Recorded Client Recorded Date Recorded By Document 10/01/24 10:31 DL [id number] 10/01/24 10:34 DL 10/01/24 10:31 Wound Care Center Nurse 3 4-left leg cluster -Ulcer Cleansing Soap and Water -Foul Odor after Cleansing No -Other Dressing Bacitracin/ABD -Primary Dressing Covered/Secured with Dry Gauze & Roll Gauze, Secured with Tape -Wound Comment(s) Dressing applied per Ngoc Barron today. BLE -Multi-Layered Wrap Application Multi-Layer Comp - Bilat ($ ) -Multi-Layer Compression Bilat (Qty 1 applied) Treatment Response Procedure Tolerated Well Pain Scale: 0-10 Numeric Is Patient Pain Free? Yes WC - Visit Discharge Discharge Condition Stable Ambulatory Status Ambulatory Transportation Private Auto Assessment/Plan Assessment/Plan (1) Non-pressure chronic ulcer of other part of left lower leg with fat layer exposed: CODE(S): L97.822 - Non-pressure chronic ulcer of other 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 All findings were discussed with the patient. All questions were answered to the patient's satisfaction. Excisional debridement down to including subcutaneous tissue with a number 3 mm dermal curette to the left leg full-thickness wound and without incident. Predebridement measurement was callus. Postdebridement measurement was 0.3 x 0.3 x 0.1 cm. Left lower extremities were cleaned and patted dry. Due to the patient's uncontrolled edema he will be placed in bilateral 3M multilayer compression wraps with nursing changes in between his next follow-up. Educated the patient to follow-up with a primary doctor at his next scheduled appointment which will be next month. Educated the patient on the importance ofwatching his caloric intake as well as to stop drinking soda which she was understanding of. We will send a referral over due to the patient's uncontrolled weight gain I will screen a hospital, program why weight. Follow-up at the wound care center with Dr. Sommer in 3 week. 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 History of Wound: Bilateral leg swelling and ulceration chronic Progress of Wound: Bilateral swelling and chronic ulceration stable with no sign of infection. Subjective Subjective Patient is a 44-year-old male presenting to wound care center today for follow- up evaluation of bilateral leg swelling and full-thickness wound to the left leg. Excisional debridement down to and including subcutaneous tissue, fascia and muscle with a number 3 mm dermal curette to the left anteriorleg without incident. Predebridement measurement was 0.5 x 0.1 x 0.8 cm. Postdebridement measurement is 0.7 x 0.2 x 1.2 cm. Objective Data Objective Data Vital Signs: Vital Signs Temp Pulse Resp BP 97.2 F L 94 18 195/113 H 10/01/24 09:52 10/01/24 09:52 10/01/24 09:52 10/01/24 09:52 Lab / Micro Data Micro: Microbiology 08/06/24 10:33 Ulcer, Decubitus - Other Gram Stain - Final 08/06/24 10:33 Ulcer, Decubitus - Other Wound Culture - Final Streptococcus agalactiae (B) Staphylococcus aureus 08/06/24 10:33 Ulcer, Decubitus - Other Anaerobic Culture - Final Anaerobic cocci Physical Exam Narrative Vascular: DP and PT pulses are faintly palpable due to edema. CFT is brisk. +1pitting edema appreciated bilateral lower extremity. Skin temperature gradient is warm to warm from proximal ankles to distal digits bilateral. No erythema isappreciated. Neurological: Light touch intact. Patient does respond to painful stimuli. Dermatological: Full-thickness ulceration cluster to the left leg measuring 0.3 x 0.3 x 0.1 cm. Wound base is granular with no drainage or sign of infection. Excisional debridement down to including subcutaneous tissue with a number 3 mm dermal curette to the left leg full-thickness wound and without incident. Predebridement measurement was callus. Postdebridement measurement was 0.3 x 0.3 x 0.1 cm. Musculoskeletal: Muscle strength is 5 out of 5 in all quadrants bilateral. Mildpain to palp patientto the full-thickness wound to left leg. No pain with calfpressure. Debridement Note Debridement Note Debridement Free Text: Excisional debridement down to including subcutaneous tissue with a number 3mm dermal curette to the left leg full-thickness wound and without incident. Predebridement measurement was callus. Postdebridement measurement was 0.3 x 0.3 x 0.1 cm. Post-Debridement Measurements and Additional Note: Post-Debridement Measurements/Treatment - Nurse 1 - General Ulcer Assessment Start: 10/01/24 09:51 Freq: Status: Active Protocol: WOLFGANG.LOWEXT Activity Type Activity Date Activity User E-sign Co-sign Detail Recorded Client Recorded Date Recorded By Document 10/01/24 09:52 DL [id number] 10/01/24 09:56 DL 10/01/24 09:52 - Today's Visit Information Type of service Follow-up Visit (Physician/PREP MANAGER ) Arrival Mode Ambulatory Transfer Assistance None Patient Identification Verified (Name & Yes ) Vital Signs Temperature (97.8 F-99.1 F) 97.2 F L Temperature Source Temporal Pulse Rate (60-100) 94 Pulse Location Monitor Respiratory Rate (12-18) 18 Blood Pressure (90/60-120/80) 195/113 H Blood Pressure Mean (mm Hg) 140 Source Monitor History Since Last Visit- (Skip if this is Patient's initial visit) Have you changed medications since your No last visit? Any new allergies or adverse reactions No Had a fall/change in ADL's that may No increase risk of falls Signs or symptoms of abuse and/or No neglect since last visit Have you been in the hospital since your No last visit? Has dressing in place as prescribed Yes Has compression in place as prescribed Yes Has offloadiing in place as prescribed Yes Experienced any changes in pain level or No management Pain Scale: 0-10 Numeric Is Patient Pain Free? Yes WC - Nurse 1 - General Ulcer Measurement Start: 10/01/24 09:51 Freq: Status: Active Protocol: Activity Type Activity Date Activity User E-sign Co-sign Detail Recorded Client Recorded Date Recorded By Document 10/01/24 09:52 ANIL [id number] 10/01/24 09:56 DL 10/01/24 09:52 Wound Center Nurse 1 4-left leg cluster -Current Size (cm) - Length 0.1 -Current Size (cm) - Width 0.1 -Current Size (cm) - Depth 0.1 -Total Square Cm 0.01 -Photo Taken Yes -Exudate Amt None Present -Wound Margin Flat & Intact -Granulation Amt Small (1-33%) -Granulation Quality [place] -Necrosis Amt Small (1-33%) -Necrotic Tissue Type Eschar -Structure Exposed N/A -Texture (Lety-wound Skin Appearance) Scarring -Moisture (Lety-wound Skin Appearance) Dry/Scaly -Color (Lety-wound Skin Appearance) No Abnormality -Temperature (Lety-wound Skin No Abnormality Appearance) (Pt Warm) -Ulcer Cleansing Rinsed/ Irrigated with Saline -Foul Odor after Cleansing No -Anesthetic Used 5% Lidocaine Gel Right Calf (cm) 58.5 Right Ankle (cm) 41 Left Calf (cm) 64.5 Left Ankle (cm) 45.5 WC - Nurse 2 - General Ulcer CM Notes Start: 10/01/24 09:51 Freq: Status: Active Protocol: Activity Type Activity Date Activity User E-sign Co-sign Detail Recorded Client Recorded Date Recorded By Document 10/01/24 10:14 SHELLIE [id number] 10/01/24 10:15 SHELLIE 10/01/24 10:14 Wound Center Nurse 2 4-left leg cluster -Time 10:14 -Correct Patient Yes -Correct Side, Site, Position Yes -Correct Procedure Yes -Procedure Performed Yes -Type of Procedure Debridement -Clinical Debridement Subcutaneous -Tissue Removed Subcutaneous -Post Debridement (cm) - Length 0.3 -Post Debridement (cm) - Width 0.3 -Post Debridement (cm) - Depth 0.1 -Total Square (Post) (cm) 0.09 -Area of Debridement (cm) - Length 0.3 -Area of Debridement (cm) - Width 0.3 -Total Square (Area) (cm) 0.09 -Tunneling No -Undermining/Tunneling No -Circular Undermining No -Wound/Ulcer Outcome Not Healed -Ulcer Cleansing Rinsed/ Irrigated with Saline -Foul Odor after Cleansing No -Bioengineered Tissue No -Bleeding Controlled with Pressure -Treatment Response Procedure Tolerated Well -Offloading No -Debridement - Subq, 1st 20sq cm Yes Pain Scale: 0-10 Numeric Is Patient Pain Free? Yes - Nurse 3 - General Ulcer D/C NN Start: 10/01/24 09:51 Freq: Status: Active Protocol: Activity Type Activity Date Activity User E-sign Co-sign Detail Recorded Client Recorded Date Recorded By Document 10/01/24 10:31 DL [id number] 10/01/24 10:34 DL 10/01/24 10:31 Wound Care Center Nurse 3 4-left leg cluster -Ulcer Cleansing Soap and Water -Foul Odor after Cleansing No -Other Dressing Bacitracin/ABD -Primary Dressing Covered/Secured with Dry Gauze & Roll Gauze, Secured with Tape -Wound Comment(s) Dressing applied per Ngoc Barron today. BLE -Multi-Layered Wrap Application Multi-Layer Comp - Bilat ($ ) -Multi-Layer Compression Bilat (Qty 1 applied) Treatment Response Procedure Tolerated Well Pain Scale: 0-10 Numeric Is Patient Pain Free? Yes - Visit Discharge Discharge Condition Stable Ambulatory Status Ambulatory Transportation Private Auto Assessment/Plan Assessment/Plan (1) Non-pressure chronic ulcer of other part of left lower leg with fat layer exposed: CODE(S): L97.822 - Non-pressure chronic ulcer of other 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 All findings were discussed with the patient. All questions were answered to the patient's satisfaction. Excisional debridement down to including subcutaneous tissue with a number 3 mm dermal curette to the left leg full-thickness wound and without incident. Predebridement measurement was callus. Postdebridement measurement was 0.3 x 0.3 x 0.1 cm. Left lower extremities were cleaned and patted dry. Due to the patient's uncontrolled edema he willbe placed in bilateral 3M multilayer compression wraps with nursing changes in between his next follow-up. Educated the patient to follow-up with a primary doctor at his next scheduled appointment which will be next month. Educated the patient on the importance ofwatching his caloric intake as well as to stop drinking soda which she was understanding of. We will send a referral over due to the patient's uncontrolled weight gain I will screen a hospital, program why weight. Follow-up at the wound care center with Dr. Sommer in 3 week. (2) Morbid obesity: CODE(S): E66.01 - Morbid (severe) obesity due to excess calories 10/01/241826 Cosigner Signature (if applicable): CC: ~ Signed [facility]05-28-2025 Evaluation note* Diagnosis Onset Date Resolution Status Admit Date Morbid obesity acute October 01, 2024 9:49am Non-pressure chronic ulcer o f other part of left lower leg with fat layer chronic October 01, 2024 9 :49am Morbid obesity acute October 15, 2024 10:00am Non-pressure chronic ulcer o f other part of left lower leg with fat layer chronic October 15, 2024 10:00am Obstructive sleep apnea acute S [facility] 2024 2:50pm [facility] Work Phone: 1(769) 775-196004-30-2025 Evaluation note* Diagnosis Onset Date Resolution Status Admit Date Tinea pedis acute September 03, 10:00am Non-pressure chronic ulcer o f other part of left lower leg with fat layer chronic September 03, 2024 10:00am Non-pressure chronic ulcer o f other part of right lower leg with fat layer chronic September 03, 2024 10:00am Morbid obesity acute October 01, 2024 9:49am Non-pressure chronic ulcer o f other part of left lower leg with fat layer chronic October 01, 2024 9 :49am Morbid obesity acute October 15, 2024 10:00am Non-pressure chronic ulcer o f other part of left lower leg with fat layer chronic October 15, 2024 10:00am [facility] Work Phone: 1(383) 858-123903-26-2025 Progress note Author Smith Sommer [facility] Note Date/Time July 30, 2024 2:1 3pm [facility] [address] [place] [address] Progress Note - Wound Care 07/30/24 1410 MR#: [id number] Acct: [id number] Name: BILLY LOWERY Rep #:[id number] : 1980 44 From: Smith Roque PM PCP: Care Physician,No Primary Status :REG RCR Location: History of Present Illness Date of Service: 07/30/24 Chief Complaint: Bilateral leg swelling and ulceration. History of Wound: Bilateral leg swelling and ulceration chronic Progress of Wound: Bilateral leg swelling with full-thickness wound to the right leg stable no signof infection. Subjective Subjective Mr. Lowery is a 44-year-old male presented wound care center today for follow-upevaluation of bilateral leg swelling and full-thickness wound to the right leg. He has been compliant with his multilayer compression bandage to the left lower extremity. He is also been compliant with the 3M multilayer compression bandageto the right leg. Patient does not elevate is much as he should. He has not secured a dwelling when he leaves his sister's house in the next few weeks to few months. He denies trauma. Denies constitutional symptoms. No other pedal complaints at this time. Objective Data Objective Data Vital Signs: Vital Signs Temp Pulse Resp BP O2 Del Method 97.2 F L 92 18 180/96 H Room Air 07/30/24 10:22 07/30/24 10:22 07/30/24 10:22 07/30/24 10:22 07/30/24 10:22 Oxygen Delivery Method Room Air Physical Exam Narrative Vascular: DP and PT pulses are faintly palpable due to edema. CFT is brisk. +1pitting edema appreciated bilateral lower extremity. Skin temperature gradient is warm to warm from proximal ankles to distal digits bilateral. No erythema isappreciated. Neurological: Light touch intact. Patient does respond to painful stimuli. Dermatological: Full-thickness ulceration cluster to the right leg measuring 6.0x 2.0 x 0.1 cm. Wound base is granular in nature to the right lower extremity. No drainage appreciated. No malodor or probe to bone. No sign of infection. Excisional debridement down to and including subcutaneous tissue with a number 5mm dermal curette to the left [place] full-thickness wound without incident. Predebridement measurement is 5.0 x 1.5 x 0.1 cm. Postdebridement measurement is 6.0 x 2.0 x 0.1 cm. Musculoskeletal: Muscle strength is 5 out of 5 in all quadrants bilateral. Mildto moderate palpatory tenderness appreciated bilateral lower extremity full- thickness wound. No pain with calf pressure. Debridement Note Debridement Note Debridement Free Text: Excisional debridement down to and including subcutaneoustissue with a number 5 mm dermal curette to the left [place] full- thickness wound without incident. Predebridement measurement is 5.0 x 1.5 x 0.1 cm. Postdebridement measurement is 6.0 x 2.0 x 0.1 cm. Post-Debridement Measurements and Additional Note: Post-Debridement Measurements/Treatment - Nurse 1 - General Ulcer Assessment Start: 07/09/24 12:11 Freq: Status: Active Protocol: DAVID Activity Type Activity Date Activity User E-sign Co-sign Detail Recorded Client Recorded Date Recorded By Document 07/16/24 10:08 DL [id number] 07/16/24 10:13 DL Document 07/23/24 09:50 CP [id number] 07/23/24 10:04 CP Document 07/30/24 10:22 KW [id number] 07/30/24 10:34 KW 07/16/24 07/23/24 07/30/24 10:08 09:50 10:22 - Today's Visit Information Type of service Nurse-only Follow-up Visit Follow-up Visit Visit (Physician/PREP MANAGER (Physician/PREP MANAGER ) ) Arrival Mode Ambulatory Ambulatory Ambulatory Transfer Assistance None Patient Identification Verified (Name & Yes Yes Yes ) Patient Requires Transmission-Based No No Precautions Vital Signs Temperature (97.8 F-99.1 F) 97 F L 98 F 97.2 F L Temperature Source Temporal Temporal Temporal Pulse Rate (60-100) 111 H 87 92 Pulse Location Monitor Monitor Monitor Respiratory Rate (12-18) 22 H 18 18 Respiratory rate source Observation Observation Observation Oxygen Delivery Method Room Air Room Air Blood Pressure (90/60-120/80) 157/85 H 165/105 H 180/96 H Blood Pressure Mean (mm Hg) 109 125 124 Source Monitor Monitor Monitor Position Sitting Semi-Fowlers Blood Pressure Location Right Forearm Right Forearm History Since Last Visit- (Skip if this is Patient's initial visit) Have you changed medications since your No No No last visit? Any new allergies or adverse reactions No No No Had a fall/change in ADL's that may No No No increase risk of falls Signs or symptoms of abuse and/or No No No neglect since last visit Have you been in the hospital since your No No No last visit? Has dressing in place as prescribed No Yes Yes Has compression in place as prescribed Yes Yes Yes Has offloadiing in place as prescribed N/A N/A N/A Experienced any changes in pain level or No No No management Left Footwear Regular Shoe Right Footwear Regular Shoe Pain Scale: 0-10 Numeric Is Patient Pain Free? Yes Yes Yes WC - Nurse 1 - General Ulcer Measurement Start: 07/09/24 12:11 Freq: Status: Active Protocol: Activity Type Activity Date Activity User E-sign Co-sign Detail Recorded Client Recorded Date Recorded By Document 07/16/24 10:08 DL [id number] 07/16/24 10:13 DL Document 07/23/24 09:50 CP [id number] 07/23/24 10:04 CP Document 07/30/24 10:22 KW [id number] 07/30/24 10:34 KW 07/16/24 07/23/24 07/30/24 10:08 09:50 10:22 Wound Center Nurse 1 #2 Left [place] Cluster -Current Size (cm) - Length 0 0 -Current Size (cm) - Width 0 0 -Current Size (cm) - Depth 0 0 -Total Square Cm 0 0 -Epithelialization Large 67-100% -Exudate Amt None Present -Wound Margin Flat & Intact -Granulation Amt None Present (0 %) -Necrosis Amt None Present (0 %) -Texture (Lety-wound Skin Appearance) Scarring No Abnormality -Moisture (Lety-wound Skin Appearance) Dry/Scaly No Abnormality -Color (Lety-wound Skin Appearance) No Abnormality No Abnormality -Temperature (Lety-wound Skin No Abnormality Appearance) (Pt Warm) -Tenderness on Palpation (Lety-wound No Skin Appearance) -Ulcer Cleansing Soap and Water Soap and Water -Foul Odor after Cleansing No #3 Right [place] Cluster -Current Size (cm) - Length 0.1 -Current Size (cm) - Width 0.1 -Current Size (cm) - Depth 0.1 -Total Square Cm 0.01 -Date of Last Picture (Recall this 07/30/24 field) -Exudate Amt Medium -Exudate Type Serosanguineous -Wound Margin Distinct, Outline Attached -Granulation Amt Large (67-100%) -Granulation Quality [place],Red -Necrosis Amt Small (1-33%) -Necrotic Tissue Type Adherent Slough -Texture (Lety-wound Skin Appearance) Assessed -Moisture (Lety-wound Skin Appearance) Assessed, Maceration -Color (Lety-wound Skin Appearance) Assessed, Erythema -Temperature (Lety-wound Skin No Abnormality Appearance) (Pt Warm) -Tenderness on Palpation (Lety-wound No Skin Appearance) -Ulcer Cleansing Soap and Water -Foul Odor after Cleansing No -Anesthetic Used 5% Lidocaine Gel -Wound Comment(s) not measured during nurse 1 Right Calf (cm) 54 58.5 Right Ankle (cm) 38 36 Left Calf (cm) 59 63 Left Ankle (cm) 37.5 41 WC - Nurse 2 - General Ulcer CM Notes Start: 07/09/24 12:11 Freq: Status: Active Protocol: Activity Type Activity Date Activity User E-sign Co-sign Detail Recorded Client Recorded Date Recorded By Document 07/23/24 10:18 [id number] 07/23/24 10:22 Document 07/30/24 10:56 [id number] 07/30/24 10:58 07/23/24 07/30/24 10:18 10:56 Wound Center Nurse 2 #3 Right [place] Cluster -Time 10:20 -Correct Patient Yes Yes -Correct Side, Site, Position Yes Yes -Correct Procedure Yes Yes -Procedure Performed Yes Yes -Type of Procedure Debridement Debridement -Clinical Debridement Subcutaneous Subcutaneous -Tissue Removed Subcutaneous Subcutaneous -Post Debridement (cm) - Length 3.0 6 -Post Debridement (cm) - Width 2.8 2 -Post Debridement (cm) - Depth 0.1 0.1 -Total Square (Post) (cm) 8.40 12 -Area of Debridement (cm) - Length 3.0 6.0 -Area of Debridement (cm) - Width 2.8 2 -Total Square (Area) (cm) 8.40 12.0 -Tunneling No No -Undermining/Tunneling No No -Circular Undermining No No -Wound/Ulcer Outcome Not Healed Not Healed -Ulcer Cleansing Rinsed/ Rinsed/ Irrigated with Irrigated with Saline Saline -Foul Odor after Cleansing No No -Bioengineered Tissue No No -Bleeding Controlled with Pressure Pressure -Treatment Response Procedure Procedure Tolerated Well Tolerated Well -Offloading No No -Debridement - Subq, 1st 20sq cm Yes Yes Pain Scale: 0-10 Numeric Is Patient Pain Free? Yes Yes WC - Nurse 3 - General Ulcer D/C NN Start: 07/09/24 12:11 Freq: Status: Active Protocol: Activity Type Activity Date Activity User E-sign Co-sign Detail Recorded Client Recorded Date Recorded By Document 07/09/24 12:11 ML [id number] 07/09/24 12:12 ML Edit Result 07/09/24 12:11 ML (1) [id number] 07/15/24 10:37 ML Document 07/16/24 10:08 DL [id number] 07/16/24 10:13 DL Document 07/23/24 10:39 GM [id number] 07/23/24 10:40 GM Document 07/30/24 11:53 JF [id number] 07/30/24 11:54 JF (1) LEFT LEG - Multi-Layer Compression Left (Qty 2 => 1 applied) 07/09/24 07/16/24 07/23/24 12:11 10:08 10:39 Wound Care Center Nurse 3 #2 Left [place] Cluster -Ulcer Cleansing Soap and Water -Foul Odor after Cleansing No -Other Dressing betadine betadine #3 Right [place] Cluster -Ulcer Cleansing Not Cleansed -Foul Odor after Cleansing No -Primary Dressing Applied Aquacel AG 4x4, Optilok 8x12 -Other Dressing -Primary Dressing Covered/Secured with Dry Gauze & Roll Gauze, Secured with Tape -Aquacel AG 4x4 1 -Optilok 8x12 1 RLE -Lotion applied to leg before No compression wrap -Multi-Layered Wrap Application Multi-Layer Comp - Right ($ ) -Multi-Layer Compression Right (Qty 1 applied) LEFT LEG -Lotion applied to leg before No compression wrap -Multi-Layered Wrap Application Multi-Layer Comp - Left ($) -Compression Wrap Nilesh Wrap -Stockings Yes -Multi-Layer Compression Left (Qty 1 1 applied) Treatment Response Procedure Tolerated Well Pain Scale: 0-10 Numeric Is Patient Pain Free? Yes Yes Yes WC - Visit Discharge Discharge Condition Stable Stable Ambulatory Status Ambulatory Ambulatory Transportation [facility] Auto Medication Reconcilliation completed & provided to patient/care provider Clinical Summary of Care Provided Notes: Applied 3M to LLE only today, pt has obtained CircAid for RLE . Pt Did not wear CircAid this morning, instructed to apply this as soon has he gets home. Pt confused on when he was supposed to wear them, was educated on when to apply his CircAid. Waiting on another pair for LLE. 07/30/24 11:53 Wound Care Center Nurse 3 #2 Left [place] Cluster -Ulcer Cleansing -Foul Odor after Cleansing -Other Dressing #3 Right [place] Cluster -Ulcer Cleansing Rinsed/ Irrigated with Saline -Foul Odor after Cleansing No -Primary Dressing Applied -Other Dressing bacitracin -Primary Dressing Covered/Secured with -Aquacel AG 4x4 -Optilok 8x12 RLE -Lotion applied to leg before compression wrap -Multi-Layered Wrap Application Multi-Layer Comp - Right ($ ) -Multi-Layer Compression Right (Qty 2 applied) LEFT LEG -Lotion applied to leg before compression wrap -Multi-Layered Wrap Application Multi-Layer Comp - Left ($) -Compression Wrap -Stockings -Multi-Layer Compression Left (Qty 1 applied) Treatment Response Pain Scale: 0-10 Numeric Is Patient Pain Free? Yes WC - Visit Discharge Discharge Condition Stable Ambulatory Status Ambulatory Transportation [facility] Auto Medication Reconcilliation completed & Yes provided to patient/care provider Clinical Summary of Care Provided Yes Notes: Assessment/Plan Assessment/Plan (1) Non-pressure chronic ulcer of other part of right lower leg with fat layer exposed: CODE(S): L97.812 - Non-pressure chronic ulcer of other part of right lowerleg with fat layer exposed PLAN: Patient was examined and evaluated. All findings were discussed with the patient. All questions were answered to the patient's satisfaction. Excisional debridement down to and including subcutaneous tissue with a number 5mm dermal curette to the left [place] full-thickness wound without incident. Predebridement measurement is 5.0 x 1.5 x 0.1 cm. Postdebridement measurement is 6.0 x 2.0 x 0.1 cm. The right lower extremities are clean and patted dry. Triple antibiotic was applied to the full-thickness wound followed by dry sterile dressing and 3M compression wrap to right lower extremity. Left lower extremity was dressed with 3M multilayer compression wrap. He is leaving clean dry and intact. Follow-up at the wound care center with Dr. Sommer in 1 week. (2) Other specified peripheral vascular diseases: CODE(S): I73.89 - Other specified peripheral vascular diseases 07/30/24 1413 <Electronically signed by Smith Sommer DPChristina> Cosigner Signature (if applicable): CC: ~ Signed [facility] Work Phone: 1(429) 545-436503-26-2025 Progress note [facility] [address] [place] [address] Progress Note - Wound Care 07/30/24 1410 MR#: [id number] Acct: [id number] Name: BILLY LOWERY Rep #:[id number] : 1980 44 From: Smith BOWIE PCP: Care Physician,No Primary Status :REG RCR Location: History of Present Illness Date of Service: 07/30/24 Chief Complaint: Bilateral leg swelling and ulceration. History of Wound: Bilateral leg swelling and ulceration chronic Progress of Wound: Bilateral leg swelling with full-thickness wound to the right leg stable no signof infection. Subjective Subjective Mr. Lowery is a 44-year-old male presented wound care center today for follow- upevaluation of bilateral leg swelling and full-thickness wound to the right leg. He has been compliant with his multilayer compression bandage to the left lower extremity. He is also been compliant with the 3M multilayercompression bandageto the right leg. Patient does not elevate is much as he should. He has not secured a dwelling when he leaves his sister's house in the next few weeks to few months. He denies trauma. Denies constitutional symptoms. No other pedal complaints at this time. Objective Data Objective Data Vital Signs: Vital Signs Temp Pulse Resp BP O2 Del Method 97.2 F L 92 18 180/96 H Room Air 07/30/24 10:22 07/30/24 10:22 07/30/24 10:22 07/30/24 10:22 07/30/24 10:22 Oxygen Delivery Method Room Air Physical Exam Narrative Vascular: DP and PT pulses are faintly palpable due to edema. CFT is brisk. +1pitting edema appreciated bilateral lower extremity. Skin temperature gradient is warm to warm from proximal ankles to distal digits bilateral. No erythema isappreciated. Neurological: Light touch intact. Patient does respond to painful stimuli. Dermatological: Full-thickness ulceration cluster to the right leg measuring 6.0x 2.0 x 0.1 cm. Wound base is granular in nature to the right lower extremity. No drainage appreciated. No malodor or probe to bone. No sign of infection. Excisional debridement down to and including subcutaneous tissue with a number 5mm dermal curette to the left [place] full-thickness wound without incident. Predebridement measurement is 5.0 x 1.5 x 0.1cm. Postdebridement measurement is 6.0 x 2.0 x 0.1 cm. Musculoskeletal: Muscle strength is 5 out of 5 in all quadrants bilateral. Mildto moderate palpatory tenderness appreciated bilateral lower extremity full- thickness wound. No pain with calf pressure. Debridement Note Debridement Note Debridement Free Text: Excisional debridement down to and including subcutaneoustissue with a number 5 mm dermal curette to the left tijer[place] full- thickness wound without incident. Predebridement measurement is 5.0 x 1.5 x 0.1 cm. Postdebridement measurement is 6.0 x 2.0 x 0.1 cm. Post-Debridement Measurements and Additional Note: Post-Debridement Measurements/Treatment - Nurse 1 - General Ulcer Assessment Start: 07/09/24 12:11 Freq: Status: Active Protocol: DAVID Activity Type Activity Date Activity User E-sign Co-sign Detail Recorded Client Recorded Date Recorded By Document 07/16/24 10:08 DL [id number] 07/16/24 10:13 DL Document 07/23/24 09:50 CP [id number] 07/23/24 10:04 CP Document 07/30/24 10:22 KW [id number] 07/30/24 10:34 KW 07/16/24 07/23/24 07/30/24 10:08 09:50 10:22 - Today's Visit Information Type of service Nurse-only Follow-up Visit Follow-up Visit Visit (Physician/PREP MANAGER (Physician/PREP MANAGER ) ) Arrival Mode Ambulatory Ambulatory Ambulatory Transfer Assistance None Patient Identification Verified (Name & Yes Yes Yes ) Patient Requires Transmission-Based No No Precautions Vital Signs Temperature (97.8 F-99.1 F) 97 F L 98 F 97.2 F L Temperature Source Temporal Temporal Temporal Pulse Rate (60-100) 111 H 87 92 Pulse Location Monitor Monitor Monitor Respiratory Rate (12-18) 22 H 18 18 Respiratory rate source Observation Observation Observation Oxygen Delivery Method Room Air Room Air Blood Pressure (90/60-120/80) 157/85 H 165/105 H 180/96 H Blood Pressure Mean (mm Hg) 109 125 124 Source Monitor Monitor Monitor Position Sitting Semi-Fowlers Blood Pressure Location Right Forearm Right Forearm History Since Last Visit- (Skip if this is Patient's initial visit) Have you changed medications since your No No No last visit? Any new allergies or adverse reactions No No No Had a fall/change in ADL's that may No No No increase risk of falls Signs or symptoms of abuse and/or No No No neglect since last visit Have you been in the hospital since your No No No last visit? Has dressing in place as prescribed No Yes Yes Has compression in place as prescribed Yes Yes Yes Has offloadiing in place as prescribed N/A N/A N/A Experienced any changes in pain level or No No No management Left Footwear Regular Shoe Right Footwear Regular Shoe Pain Scale: 0-10 Numeric Is Patient Pain Free? Yes Yes Yes WC - Nurse 1 - General Ulcer Measurement Start: 07/09/24 12:11 Freq: Status: Active Protocol: Activity Type Activity Date Activity User E-sign Co-sign Detail Recorded Client Recorded Date Recorded By Document 07/16/24 10:08 DL [id number] 07/16/24 10:13 DL Document 07/23/24 09:50 CP [id number] 07/23/24 10:04 CP Document 07/30/24 10:22 KW [id number] 07/30/24 10:34 KW 07/16/24 07/23/24 07/30/24 10:08 09:50 10:22 Wound Center Nurse 1 #2 Left [place] Cluster -Current Size (cm) - Length 0 0 -Current Size (cm) - Width 0 0 -Current Size (cm) - Depth 0 0 -Total Square Cm 0 0 -Epithelialization Large 67-100% -Exudate Amt None Present -Wound Margin Flat & Intact -Granulation Amt None Present (0 %) -Necrosis Amt None Present (0 %) -Texture (Lety-wound Skin Appearance) Scarring No Abnormality -Moisture (Lety-wound Skin Appearance) Dry/Scaly No Abnormality -Color (Lety-wound Skin Appearance) No Abnormality No Abnormality -Temperature (Lety-wound Skin No Abnormality Appearance) (Pt Warm) -Tenderness on Palpation (Lety-wound No Skin Appearance) -Ulcer Cleansing Soap and Water Soap and Water -Foul Odor after Cleansing No #3 Right [place] Cluster -Current Size (cm) - Length 0.1 -Current Size (cm) - Width 0.1 -Current Size (cm) - Depth 0.1 -Total Square Cm 0.01 -Date of Last Picture (Recall this 07/30/24 field) -Exudate Amt Medium -Exudate Type Serosanguineous -Wound Margin Distinct, Outline Attached -Granulation Amt Large (67-100%) -Granulation Quality [place],Red -Necrosis Amt Small (1-33%) -Necrotic Tissue Type Adherent Slough -Texture (Lety-wound Skin Appearance) Assessed -Moisture (Lety-wound Skin Appearance) Assessed, Maceration -Color (Lety-wound Skin Appearance) Assessed, Erythema -Temperature (Lety-wound Skin No Abnormality Appearance) (Pt Warm) -Tenderness on Palpation (Lety-wound No Skin Appearance) -Ulcer Cleansing Soap and Water -Foul Odor after Cleansing No -Anesthetic Used 5% Lidocaine Gel -Wound Comment(s) not measured during nurse 1 Right Calf (cm) 54 58.5 Right Ankle (cm) 38 36 Left Calf (cm) 59 63 Left Ankle (cm) 37.5 41 WC - Nurse 2 - General Ulcer CM Notes Start: 07/09/24 12:11 Freq: Status: Active Protocol: Activity Type Activity Date Activity User E-sign Co-sign Detail Recorded Client Recorded Date Recorded By Document 07/23/24 10:18 SHELLIE [id number] 07/23/24 10:22 Document 07/30/24 10:56 SHELLIE [id number] 07/30/24 10:58 JF 07/23/24 07/30/24 10:18 10:56 Wound Center Nurse 2 #3 Right [place] Cluster -Time 10:20 -Correct Patient Yes Yes -Correct Side, Site, Position Yes Yes -Correct Procedure Yes Yes -Procedure Performed Yes Yes -Type of Procedure Debridement Debridement -Clinical Debridement Subcutaneous Subcutaneous -Tissue Removed Subcutaneous Subcutaneous -Post Debridement (cm) - Length 3.0 6 -Post Debridement (cm) - Width 2.8 2 -Post Debridement (cm) - Depth 0.1 0.1 -Total Square (Post) (cm) 8.40 12 -Area of Debridement (cm) - Length 3.0 6.0 -Area of Debridement (cm) - Width 2.8 2 -Total Square (Area) (cm) 8.40 12.0 -Tunneling No No -Undermining/Tunneling No No -Circular Undermining No No -Wound/Ulcer Outcome Not Healed Not Healed -Ulcer Cleansing Rinsed/ Rinsed/ Irrigated with Irrigated with Saline Saline -Foul Odor after Cleansing No No -Bioengineered Tissue No No -Bleeding Controlled with Pressure Pressure -Treatment Response Procedure Procedure Tolerated Well Tolerated Well -Offloading No No -Debridement - Subq, 1st 20sq cm Yes Yes Pain Scale: 0-10 Numeric Is Patient Pain Free? Yes Yes - Nurse 3 - General Ulcer D/C NN Start: 07/09/24 12:11 Freq: Status: Active Protocol: Activity Type Activity Date Activity User E-sign Co-sign Detail Recorded Client Recorded Date Recorded By Document 07/09/24 12:11 ML [id number] 07/09/24 12:12 ML Edit Result 07/09/24 12:11 ML (1) [id number] 07/15/24 10:37 ML Document 07/16/24 10:08 DL [id number] 07/16/24 10:13 DL Document 07/23/24 10:39 GM [id number] 07/23/24 10:40 GM Document 07/30/24 11:53 JF [id number] 07/30/24 11:54 JF (1) LEFT LEG - Multi-Layer Compression Left (Qty 2 => 1 applied) 07/09/24 07/16/24 07/23/24 12:11 10:08 10:39 Wound Care Center Nurse 3 #2 Left [place] Cluster -Ulcer Cleansing Soap and Water -Foul Odor after Cleansing No -Other Dressing betadine betadine #3 Right [place] Cluster -Ulcer Cleansing Not Cleansed -Foul Odor after Cleansing No -Primary Dressing Applied Aquacel AG 4x4, Optilok 8x12 -Other Dressing -Primary Dressing Covered/Secured with Dry Gauze & Roll Gauze, Secured with Tape -Aquacel AG 4x4 1 -Optilok 8x12 1 RLE -Lotion applied to leg before No compression wrap -Multi-Layered Wrap Application Multi-Layer Comp - Right ($ ) -Multi-Layer Compression Right (Qty 1 applied) LEFT LEG -Lotion applied to leg before No compression wrap -Multi-Layered Wrap Application Multi-Layer Comp - Left ($) -Compression Wrap Nilesh Wrap -Stockings Yes -Multi-Layer Compression Left (Qty 1 1 applied) Treatment Response Procedure Tolerated Well Pain Scale: 0-10 Numeric Is Patient Pain Free? Yes Yes Yes WC - Visit Discharge Discharge Condition Stable Stable Ambulatory Status Ambulatory Ambulatory Transportation [facility] Private Auto Medication Reconcilliation completed & provided to patient/care provider Clinical Summary of Care Provided Notes: Applied 3M to LLE only today, pt has obtained CircAid for RLE . Pt Did not wear CircAid this morning, instructed to apply this as soon has he gets home. Pt confused on when he was supposed to wear them, was educated on when to apply his CircAid. Waiting on another pair for LLE. 07/30/24 11:53 Wound Care Center Nurse 3 #2 Left [place] Cluster -Ulcer Cleansing -Foul Odor after Cleansing -Other Dressing #3 Right [place] Cluster -Ulcer Cleansing Rinsed/ Irrigated with Saline -Foul Odor after Cleansing No -Primary Dressing Applied -Other Dressing bacitracin -Primary Dressing Covered/Secured with -Aquacel AG 4x4 -Optilok 8x12 RLE -Lotion applied to leg before compression wrap -Multi-Layered Wrap Application Multi-Layer Comp - Right ($ ) -Multi-Layer Compression Right (Qty 2 applied) LEFT LEG -Lotion applied to leg before compression wrap -Multi-Layered Wrap Application Multi-Layer Comp - Left ($) -Compression Wrap -Stockings -Multi-Layer Compression Left (Qty 1 applied) Treatment Response Pain Scale: 0-10 Numeric Is Patient Pain Free? Yes WC - Visit Discharge Discharge Condition Stable Ambulatory Status Ambulatory Transportation Private Auto Medication Reconcilliation completed & Yes provided to patient/care provider Clinical Summary of Care Provided Yes Notes: Assessment/Plan Assessment/Plan (1) Non-pressure chronic ulcer of other part of right lower leg with fat layer exposed: CODE(S): L97.812 - Non-pressure chronic ulcer of other part of right lowerleg with fat layer exposed PLAN: Patient was examined and evaluated. All findings were discussed with the patient. All questions were answered to the patient's satisfaction. Excisional debridement down to and including subcutaneous tissue with a number 5mm dermal curette to the left [place] full-thickness wound without incident. Predebridement measurement is 5.0 x 1.5 x 0.1cm. Postdebridement measurement is 6.0 x 2.0 x 0.1 cm. The right lower extremities are clean and patted dry. Triple antibiotic was applied to the full-thickness wound followed by dry sterile dressingand 3M compression wrap to right lower extremity. Left lower extremity was dressed with 3M multilayer compression wrap. He is leaving clean dry and intact. Follow-up at the wound care center with Dr. Sommer in 1 week. (2) Other specified peripheral vascular diseases: CODE(S): I73.89 - Other specified peripheral vascular diseases 07/30/24 1413 Cosigner Signature (if applicable): CC: ~ Signed [facility]03-26-2025 Evaluation note* Diagnosis Onset Date Resolution Status Admit Date Other specified peripheral vascular diseases acute July 30 10:30am Non-pressure chronic ulcer o f other part of right lower leg with fat layer chronic July 30, 2024 10:30am Tinea pedis acute September 03, 10:00am Non-pressure chronic ulcer o f other part of left lower leg with fat layer chronic September 03, 2024 10:00am Non-pressure chronic ulcer o f other part of right lower leg with fat layer chronic September 03, 2024 10:00am Morbid obesity acute October 01, 2024 9:49am Non-pressure chronic ulcer o f other part of left lower leg with fat layer chronic October 01, 2024 9 :49am Morbid obesity acute October 15, 2024 10:00am Non-pressure chronic ulcer o f other part of left lower leg with fat layer chronic October 15, 2024 10:00am [facility] Work Phone: 1(242) 940-380003-19-2025 Progress note Author Smith Sommer [facility] Note Date/Time July 23, 2024 11: 35am [facility] [address] [facility] [place] [address] Progress Note - Wound Care 07/23/24 1129 MR#: [id number] Acct: [id number] Name: BILLY LOWERY Rep #:[id number] : 1980 44 From: Smith Roque PM PCP: Care Physician,No Primary Status :REG RCR Location: History of Present Illness Date of Service: 07/23/24 Chief Complaint: Bilateral leg swelling and ulceration. History of Wound: Bilateral leg swelling and ulceration chronic Subjective Subjective Mr. Lowery is a 44-year-old male presenting the wound care center today for follow-up evaluation of bilateral edema and full-thickness wound to the right lower extremity. Patient has been compliant with his multilayer compression bandage to left lower extremity. He was wearing his CircAid on the right which should be for the left leg. Patient states that he has some breakdown of skin and new wounds that needs to be treated today. [facility] is still residing in his sister's house but will most likely be released in the next 30 days or sooner. He denies trauma. Denies constitutional symptoms. No other pedal complaints at this time. Objective Data Objective Data Vital Signs: Vital Signs Temp Pulse Resp BP O2 Del Method 98 F 87 18 165/105 H Room Air 07/23/24 09:50 07/23/24 09:50 07/23/24 09:50 07/23/24 09:50 07/23/24 09:50 Oxygen Delivery Method Room Air Physical Exam Narrative Vascular: DP and PT pulses are faintly palpable due to edema. CFT is brisk. +1pitting edema appreciated bilateral lower extremity. Skin temperature gradient is warm to warm from proximal ankles to distal digits bilateral. No erythema isappreciated. Neurological: Light touch intact. Patient does respond to painful stimuli. Dermatological: Full-thickness ulceration cluster to the right leg measuring 3.0x 2.8 x 0.1 cm wound is fibrogranular nature to bilateral lower extremity. No drainage appreciated. No malodor or probe to bone. No sign of infection. Excisional debridement down to and including subcutaneous tissue with a number 5mm dermal curette to the left [place] full-thickness wound without incident. Predebridement measurement is 1.5 x 1.0 x 0.1 cm. Postdebridement measurement is 3.0 x 2.8 x 0.1 cm. Musculoskeletal: Muscle strength is 5 out of 5 in all quadrants bilateral. Mildto moderate palpatory tenderness appreciated bilateral lower extremity full- thickness wound. No pain with calf pressure. Debridement Note Debridement Note Debridement Free Text: Excisional debridement down to and including subcutaneoustissue with a number 5 mm dermal curette to the left [place] full- thickness wound without incident. Predebridement measurement is 1.5 x 1.0 x 0.1 cm. Postdebridement measurement is 3.0 x 2.8 x 0.1 cm. Post-Debridement Measurements and Additional Note: Post-Debridement Measurements/Treatment WC - Nurse 1 - General Ulcer Assessment Start: 07/09/24 12:11 Freq: Status: Active Protocol: [email or web address].[email or web address] Activity Type Activity Date Activity User E-sign Co-sign Detail Recorded Client Recorded Date Recorded By Document 07/16/24 10:08 DL [id number] 07/16/24 10:13 DL Document 07/23/24 09:50 CP [id number] 07/23/24 10:04 CP 07/16/24 07/23/24 10:08 09:50 WC - Today's Visit Information Type of service Nurse-only Follow-up Visit Visit (Physician/PREP MANAGER ) Arrival Mode Ambulatory Ambulatory Transfer Assistance None Patient Identification Verified (Name & Yes Yes ) Patient Requires Transmission-Based No No Precautions Vital Signs Temperature (97.8 F-99.1 F) 97 F L 98 F Temperature Source Temporal Temporal Pulse Rate (60-100) 111 H 87 Pulse Location Monitor Monitor Respiratory Rate (12-18) 22 H 18 Respiratory rate source Observation Observation Oxygen Delivery Method Room Air Blood Pressure (90/60-120/80) 157/85 H 165/105 H Blood Pressure Mean (mm Hg) 109 125 Source Monitor Monitor Position Sitting Blood Pressure Location Right Forearm History Since Last Visit- (Skip if this is Patient's initial visit) Have you changed medications since your No No last visit? Any new allergies or adverse reactions No No Had a fall/change in ADL's that may No No increase risk of falls Signs or symptoms of abuse and/or No No neglect since last visit Have you been in the hospital since your No No last visit? Has dressing in place as prescribed No Yes Has compression in place as prescribed Yes Yes Has offloadiing in place as prescribed N/A N/A Experienced any changes in pain level or No No management Pain Scale: 0-10 Numeric Is Patient Pain Free? Yes Yes - Nurse 1 - General Ulcer Measurement Start: 07/09/24 12:11 Freq: Status: Active Protocol: Activity Type Activity Date Activity User E-sign Co-sign Detail Recorded Client Recorded Date Recorded By Document 07/16/24 10:08 DL [id number] 07/16/24 10:13 DL Document 07/23/24 09:50 CP [id number] 07/23/24 10:04 CP 07/16/24 07/23/24 10:08 09:50 Wound Center Nurse 1 #2 Left [place] Cluster -Current Size (cm) - Length 0 0 -Current Size (cm) - Width 0 0 -Current Size (cm) - Depth 0 0 -Total Square Cm 0 0 -Epithelialization Large 67-100% -Exudate Amt None Present -Wound Margin Flat & Intact -Granulation Amt None Present (0 %) -Necrosis Amt None Present (0 %) -Texture (Lety-wound Skin Appearance) Scarring No Abnormality -Moisture (Lety-wound Skin Appearance) Dry/Scaly No Abnormality -Color (Lety-wound Skin Appearance) No Abnormality No Abnormality -Temperature (Lety-wound Skin No Abnormality Appearance) (Pt Warm) -Tenderness on Palpation (Lety-wound No Skin Appearance) -Ulcer Cleansing Soap and Water Soap and Water -Foul Odor after Cleansing No Right Calf (cm) 54 Right Ankle (cm) 38 Left Calf (cm) 59 Left Ankle (cm) 37.5 - Nurse 2 - General Ulcer CM Notes Start: 07/09/24 12:11 Freq: Status: Active Protocol: Activity Type Activity Date Activity User E-sign Co-sign Detail Recorded Client Recorded Date Recorded By Document 07/23/24 10:18 SHELLIE [id number] 07/23/24 10:22 SHELLIE 07/23/24 10:18 Wound Center Nurse 2 #3 Right [place] Cluster -Time 10:20 -Correct Patient Yes -Correct Side, Site, Position Yes -Correct Procedure Yes -Procedure Performed Yes -Type of Procedure Debridement -Clinical Debridement Subcutaneous -Tissue Removed Subcutaneous -Post Debridement (cm) - Length 3.0 -Post Debridement (cm) - Width 2.8 -Post Debridement (cm) - Depth 0.1 -Total Square (Post) (cm) 8.40 -Area of Debridement (cm) - Length 3.0 -Area of Debridement (cm) - Width 2.8 -Total Square (Area) (cm) 8.40 -Tunneling No -Undermining/Tunneling No -Circular Undermining No -Wound/Ulcer Outcome Not Healed -Ulcer Cleansing Rinsed/ Irrigated with Saline -Foul Odor after Cleansing No -Bioengineered Tissue No -Bleeding Controlled with Pressure -Treatment Response Procedure Tolerated Well -Offloading No -Debridement - Subq, 1st 20sq cm Yes Pain Scale: 0-10 Numeric Is Patient Pain Free? Yes WC - Nurse 3 - General Ulcer D/C NN Start: 07/09/24 12:11 Freq: Status: Active Protocol: Activity Type Activity Date Activity User E-sign Co-sign Detail Recorded Client Recorded Date Recorded By Document 07/09/24 12:11 ML [id number] 07/09/24 12:12 ML Edit Result 07/09/24 12:11 ML (1) [id number] 07/15/24 10:37 ML Document 07/16/24 10:08 DL [id number] 07/16/24 10:13 DL Document 07/23/24 10:39 GM [id number] 07/23/24 10:40 GM (1) LEFT LEG - Multi-Layer Compression Left (Qty 2 => 1 applied) 07/09/24 07/16/24 07/23/24 12:11 10:08 10:39 Wound Care Center Nurse 3 #2 Left [place] Cluster -Ulcer Cleansing Soap and Water -Foul Odor after Cleansing No -Other Dressing betadine betadine #3 Right [place] Cluster -Ulcer Cleansing Not Cleansed -Foul Odor after Cleansing No -Primary Dressing Applied Aquacel AG 4x4, Optilok 8x12 -Primary Dressing Covered/Secured with Dry Gauze & Roll Gauze, Secured with Tape -Aquacel AG 4x4 1 -Optilok 8x12 1 RLE -Lotion applied to leg before No compression wrap -Multi-Layered Wrap Application Multi-Layer Comp - Right ($ ) -Multi-Layer Compression Right (Qty 1 applied) LEFT LEG -Lotion applied to leg before No compression wrap -Multi-Layered Wrap Application Multi-Layer Comp - Left ($) -Compression Wrap Nilesh Wrap -Stockings Yes -Multi-Layer Compression Left (Qty 1 1 applied) Treatment Response Procedure Tolerated Well Pain Scale: 0-10 Numeric Is Patient Pain Free? Yes Yes Yes WC - Visit Discharge Discharge Condition Stable Stable Ambulatory Status Ambulatory Ambulatory Transportation [facility] Trans Private Auto Notes: Applied 3M to LLE only today, pt has obtained CircAid for RLE . Pt Did not wear CircAid this morning, instructed to apply this as soon has he gets home. Pt confused on when he was supposed to wear them, was educated on when to apply his CircAid. Waiting on another pair for LLE. Assessment/Plan Assessment/Plan (1) Non-pressure chronic ulcer of other part of right lower leg with fat layer exposed: CODE(S): L97.812 - Non-pressure chronic ulcer of other part of right lowerleg with fat layer exposed PLAN: Patient was examined and evaluated. All findings were discussed with the patient. All questions were answered to the patient's satisfaction. Excisional debridement down to and including subcutaneous tissue with a number 5mm dermal curette to the left [place] full-thickness wound without incident. Predebridement measurement is 1.5 x 1.0 x 0.1 cm. Postdebridement measurement is 3.0 x 2.8 x 0.1 cm. Right lower extremities are clean and patted dry. The patient ulceration were dressed with Aquacel Ag, superabsorber and a 3M multilayer compression bandage donned to right lower extremity. CircAid was donned to left lower extremity. Will begin authorization to the patient insurance for a new CircAid to the rightlower extremity. Follow-up at the wound care center with Dr. Sommer in 1 week. 07/23/24 1135 <Electronically signed by Smith Sommer DPM> Cosigner Signature (if applicable): CC: ~ Signed [facility] Work Phone: [phone]) 317-830203-19-2025 Progress note [facility] [address] [place] [address] Progress Note - Wound Care 07/23/24 1129 MR#: [id number] Acct: [id number] Name: BILLY LOWERY Rep #:[id number] : 1980 44 From: Smith BOWIE PCP: Care Physician,No Primary Status :REG RCR Location: History of Present Illness Date of Service: 07/23/24 Chief Complaint: Bilateral leg swelling and ulceration. History of Wound: Bilateral leg swelling and ulceration chronic Subjective Subjective Mr. Lowery is a 44-year-old male presenting the wound care center today for follow-up evaluation ofbilateral edema and full-thickness wound to the right lower extremity. Patient has been compliant with his multilayer compression bandage to left lower extremity. He was wearing his CircAid on the right which should be for the left leg. Patient states that he has some breakdown of skin and new wounds that needs to be treated today. Patient has not found a place tolive and [facility] will most likely be released in the next 30 days or sooner. He denies trauma. Denies constitutional symptoms. No other pedal complaints at this time. Objective Data Objective Data Vital Signs: Vital Signs Temp Pulse Resp BP O2 Del Method 98 F 87 18 165/105 H Room Air 07/23/24 09:50 07/23/24 09:50 07/23/24 09:50 07/23/24 09:50 07/23/24 09:50 Oxygen Delivery Method Room Air Physical Exam Narrative Vascular: DP and PT pulses are faintly palpable due to edema. CFT is brisk. +1pitting edema appreciated bilateral lower extremity. Skin temperature gradient is warm to warm from proximal ankles to distal digits bilateral. No erythema isappreciated. Neurological: Light touch intact. Patient does respond to painful stimuli. Dermatological: Full-thickness ulceration cluster to the right leg measuring 3.0x 2.8 x 0.1 cm wound is fibrogranular nature to bilateral lower extremity. No drainage appreciated. No malodor or probeto bone. No sign of infection. Excisional debridement down to and including subcutaneous tissue with a number 5mm dermal curette to the left tijer[place] full-thickness wound without incident. Predebridement measurement is 1.5 x 1.0 x 0.1cm. Postdebridement measurement is 3.0 x 2.8 x 0.1 cm. Musculoskeletal: Muscle strength is 5 out of 5 in all quadrants bilateral. Mildto moderate palpatory tenderness appreciated bilateral lower extremity full- thickness wound. No pain with calf pressure. Debridement Note Debridement Note Debridement Free Text: Excisional debridement down to and including subcutaneoustissue with a number 5 mm dermal curette to the left tijerina full- thickness wound without incident. Predebridement measurement is 1.5 x 1.0 x 0.1 cm. Postdebridement measurement is 3.0 x 2.8 x 0.1 cm. Post-Debridement Measurements and Additional Note: Post-Debridement Measurements/Treatment - Nurse 1 - General Ulcer Assessment Start: 07/09/24 12:11 Freq: Status: Active Protocol: [email or web address].[email or web address] Activity Type Activity Date Activity User E-sign Co-sign Detail Recorded Client Recorded Date Recorded By Document 07/16/24 10:08 DL [id number] 07/16/24 10:13 DL Document 07/23/24 09:50 CP [id number] 07/23/24 10:04 CP 07/16/24 07/23/24 10:08 09:50 WC - Today's Visit Information Type of service Nurse-only Follow-up Visit Visit (Physician/PREP MANAGER ) Arrival Mode Ambulatory Ambulatory Transfer Assistance None Patient Identification Verified (Name & Yes Yes ) Patient Requires Transmission-Based No No Precautions Vital Signs Temperature (97.8 F-99.1 F) 97 F L 98 F Temperature Source Temporal Temporal Pulse Rate (60-100) 111 H 87 Pulse Location Monitor Monitor Respiratory Rate (12-18) 22 H 18 Respiratory rate source Observation Observation Oxygen Delivery Method Room Air Blood Pressure (90/60-120/80) 157/85 H 165/105 H Blood Pressure Mean (mm Hg) 109 125 Source Monitor Monitor Position Sitting Blood Pressure Location Right Forearm History Since Last Visit- (Skip if this is Patient's initial visit) Have you changed medications since your No No last visit? Any new allergies or adverse reactions No No Had a fall/change in ADL's that may No No increase risk of falls Signs or symptoms of abuse and/or No No neglect since last visit Have you been in the hospital since your No No last visit? Has dressing in place as prescribed No Yes Has compression in place as prescribed Yes Yes Has offloadiing in place as prescribed N/A N/A Experienced any changes in pain level or No No management Pain Scale: 0-10 Numeric Is Patient Pain Free? Yes Yes - Nurse 1 - General Ulcer Measurement Start: 07/09/24 12:11 Freq: Status: Active Protocol: Activity Type Activity Date Activity User E-sign Co-sign Detail Recorded Client Recorded Date Recorded By Document 07/16/24 10:08 DL [id number] 07/16/24 10:13 DL Document 07/23/24 09:50 CP [id number] 07/23/24 10:04 CP 07/16/24 07/23/24 10:08 09:50 Wound Center Nurse 1 #2 Left [place] Cluster -Current Size (cm) - Length 0 0 -Current Size (cm) - Width 0 0 -Current Size (cm) - Depth 0 0 -Total Square Cm 0 0 -Epithelialization Large 67-100% -Exudate Amt None Present -Wound Margin Flat & Intact -Granulation Amt None Present (0 %) -Necrosis Amt None Present (0 %) -Texture (Lety-wound Skin Appearance) Scarring No Abnormality -Moisture (Lety-wound Skin Appearance) Dry/Scaly No Abnormality -Color (Lety-wound Skin Appearance) No Abnormality No Abnormality -Temperature (Lety-wound Skin No Abnormality Appearance) (Pt Warm) -Tenderness on Palpation (Lety-wound No Skin Appearance) -Ulcer Cleansing Soap and Water Soap and Water -Foul Odor after Cleansing No Right Calf (cm) 54 Right Ankle (cm) 38 Left Calf (cm) 59 Left Ankle (cm) 37.5 WC - Nurse 2 - General Ulcer CM Notes Start: 07/09/24 12:11 Freq: Status: Active Protocol: Activity Type Activity Date Activity User E-sign Co-sign Detail Recorded Client Recorded Date Recorded By Document 07/23/24 10:18 SHELLIE [id number] 07/23/24 10:22 SHELLIE 07/23/24 10:18 Wound Center Nurse 2 #3 Right [place] Cluster -Time 10:20 -Correct Patient Yes -Correct Side, Site, Position Yes -Correct Procedure Yes -Procedure Performed Yes -Type of Procedure Debridement -Clinical Debridement Subcutaneous -Tissue Removed Subcutaneous -Post Debridement (cm) - Length 3.0 -Post Debridement (cm) - Width 2.8 -Post Debridement (cm) - Depth 0.1 -Total Square (Post) (cm) 8.40 -Area of Debridement (cm) - Length 3.0 -Area of Debridement (cm) - Width 2.8 -Total Square (Area) (cm) 8.40 -Tunneling No -Undermining/Tunneling No -Circular Undermining No -Wound/Ulcer Outcome Not Healed -Ulcer Cleansing Rinsed/ Irrigated with Saline -Foul Odor after Cleansing No -Bioengineered Tissue No -Bleeding Controlled with Pressure -Treatment Response Procedure Tolerated Well -Offloading No -Debridement - Subq, 1st 20sq cm Yes Pain Scale: 0-10 Numeric Is Patient Pain Free? Yes - Nurse 3 - General Ulcer D/C NN Start: 07/09/24 12:11 Freq: Status: Active Protocol: Activity Type Activity Date Activity User E-sign Co-sign Detail Recorded Client Recorded Date Recorded By Document 07/09/24 12:11 ML [id number] 07/09/24 12:12 ML Edit Result 07/09/24 12:11 ML (1) [id number] 07/15/24 10:37 ML Document 07/16/24 10:08 DL [id number] 07/16/24 10:13 DL Document 07/23/24 10:39 GM [id number] 07/23/24 10:40 GM (1) LEFT LEG - Multi-Layer Compression Left (Qty 2 => 1 applied) 07/09/24 07/16/24 07/23/24 12:11 10:08 10:39 Wound Care Center Nurse 3 #2 Left [place] Cluster -Ulcer Cleansing Soap and Water -Foul Odor after Cleansing No -Other Dressing betadine betadine #3 Right [place] Cluster -Ulcer Cleansing Not Cleansed -Foul Odor after Cleansing No -Primary Dressing Applied Aquacel AG 4x4, Optilok 8x12 -Primary Dressing Covered/Secured with Dry Gauze & Roll Gauze, Secured with Tape -Aquacel AG 4x4 1 -Optilok 8x12 1 RLE -Lotion applied to leg before No compression wrap -Multi-Layered Wrap Application Multi-Layer Comp - Right ($ ) -Multi-Layer Compression Right (Qty 1 applied) LEFT LEG -Lotion applied to leg before No compression wrap -Multi-Layered Wrap Application Multi-Layer Comp - Left ($) -Compression Wrap Nilesh Wrap -Stockings Yes -Multi-Layer Compression Left (Qty 1 1 applied) Treatment Response Procedure Tolerated Well Pain Scale: 0-10 Numeric Is Patient Pain Free? Yes Yes Yes WC - Visit Discharge Discharge Condition Stable Stable Ambulatory Status Ambulatory Ambulatory Transportation [facility] Trans Private Auto Notes: Applied 3M to LLE only today, pt has obtained CircAid for RLE . Pt Did not wear CircAid this morning, instructed to apply this as soon has he gets home. Pt confused on when he was supposed to wear them, was educated on when to apply his CircAid. Waiting on another pair for LLE. Assessment/Plan Assessment/Plan (1) Non-pressure chronic ulcer of other part of right lower leg with fat layer exposed: CODE(S): L97.812 - Non-pressure chronic ulcer of other part of right lowerleg with fat layer exposed PLAN: Patient was examined and evaluated. All findings were discussed with the patient. All questions were answered to the patient's satisfaction. Excisional debridement down to and including subcutaneous tissue with a number 5mm dermal curette to the left tijer[place] full-thickness wound without incident. Predebridement measurement is 1.5 x 1.0 x 0.1cm. Postdebridement measurement is 3.0 x 2.8 x 0.1 cm. Right lower extremities are clean and patteddry. The patient ulceration were dressed with Aquacel Ag, superabsorber and a 3M multilayer compression bandage donned to right lower extremity. CircAid was donned to left lower extremity. Will begin authorization to the patient insurance for a new CircAid to the rightlower extremity. Follow-up at the wound care center with Dr. Sommer in 1 week. 07/23/24 1135 Cosigner Signature (if applicable): CC: ~ Signed [facility]02-26-2025 Evaluation note* Diagnosis Onset Date Resolution Status Admit Date Non-pressure chronic ulcer o f other part of left lower leg with fat layer chronic July 02 12:45pm Other specified peripheral vascular diseases acute July 30 10:30am Non-pressure chronic ulcer o f other part of right lower leg with fat layer chronic July 30, 2024 10:30am Tinea pedis acute September 03 025 10:00am Non-pressure chronic ulcer o f other part of left lower leg with fat layer chronic September 03, 2024 10:00am Non-pressure chronic ulcer o f other part of right lower leg with fat layer chronic September 03, 2024 10:00am Morbid obesity acute October 01, 2024 9:49am Non-pressure chronic ulcer o f other part of left lower leg with fat layer chronic October 01, 2024 9 :49am [facility] Work Phone: 1(644) 301-448001-29-2025 Evaluation note* Diagnosis Onset Date Resolution Status Admit Date Other specified peripheral vascular diseases acute June 04, 2024 12:45pm 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 chronic June 04 12:45pm Non-pressure chronic ulcer o f other part of left lower leg with fat layer chronic June 04 12:45pm Non-pressure chronic ulcer o f other part of right lower leg with fat layer chronic June 04 12:45pm Non-pressure chronic ulcer o f other part of left lower leg with fat layer chronic July 02 12:45pm Other specified peripheral vascular diseases acute July 30 10:30am Non-pressure chronic ulcer o f other part of right lower leg with fat layer chronic July 30, 2024 10:30am [facility] Work Phone: 1(264) 522-903401-29-2025 Evaluation note* Diagnosis Onset Date Resolution Status Admit Date Other specified peripheral vascular diseases acute June 04, 2024 12:45pm 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 chronic June 04 12:45pm Non-pressure chronic ulcer o f other part of left lower leg with fat layer chronic June 04 12:45pm Non-pressure chronic ulcer o f other part of right lower leg with fat layer chronic June 04 12:45pm Non-pressure chronic ulcer o f other part of left lower leg with fat layer chronic July 02 025 12:45pm Other specified peripheral vascular diseases acute July 30 10:30am Non-pressure chronic ulcer o f other part of right lower leg with fat layer chronic July 30, 2024 10:30am Tinea pedis acute September 03 025 10:00am Non-pressure chronic ulcer o f other part of left lower leg with fat layer chronic September 03, 2024 10:00am Non-pressure chronic ulcer o f other part of right lower leg with fat layer chronic September 03, 2024 10:00am [facility] Work Phone: 1(801) 149-192405-04-[address] Silva [facility] September 07, 2022 9:43pm Note Date/Time September 07, 2022 8:51pm [facility] Medical Records Department [address] [place] [address] Emergency Department Summary 09/07/22 MR#: [id number] Acct: [id number] Name: BILLY LOWERY Rep #:[id number] : 1980 42 From: Demetrius Silva MD PCP: Care Physician,No Primary Status :REG ER Location: ED HPI History of Present Illness Chief Complaint: Laceration Informant: patient Narrative Narrative: Patient presents with a laceration of the dorsum of his right dominant hand and ring finger. He got this while washing some dishes and accidentally cut it on the edge of a knife. Tetanus is up-to-date as of the end of 2021. He has no numbness tingling or loss of function with this. Had mild bleeding but that is now stopped. He is not on blood thinners. He has no other injury. PFSH [facility] Medical History Depression Hypertension Home Medications cyclobenzaprine 10 mg tablet 10 mg PO BID PRN muscle spasm #14 tabs 10/24/21 [Rx Last Taken Unknown] naproxen 500 mg tablet (Naprosyn) 500 mg PO BID PRN pain #20 tabs 10/24/21 [Rx Last Taken Unknown] lisinopril 20 mg-hydrochlorothiazide 12.5 mg tablet 1 tab PO DAILY #30 tabs 05/19/22 [Rx Last Taken Unknown] Allergy/AdvReac Type Severity Reaction Status Date / Time No Known Allergies Allergy Verified 09/07/22 20:29 Family History Brother Asthma Hypertension Sister Asthma Diabetes Mother Asthma Father Asthma Surgical History surgery for undescended testicle Social History Smoking Status: Current every day smoker tobacco type: cigarettes alcohol intake: current alcohol intake frequency: a few times a month substance use type: does not use ROS ROS ED Constitutional Constitutional ED: Denies chills or fever(s) Gastrointestinal Gastrointestinal: Denies nausea or vomiting Integumentary Reports other Details: Laceration right ring finger as in history of present illness. Neurologic Neurologic: Denies paresthesias or weakness Hematologic/Lymphatic Hematologic/Lymphatic: Denies easy bleeding or easy bruising EXAM Physical Exam Narrative Exam Narrative: Patient is awake alert sitting quietly in bed. No acute distress carries on normal conversation. HEENT shows no sign of trauma Cardiorespiratory shows easy unlabored breathing. Abdomen is obese but not benign. Aches extremities examination of his right hand shows a laceration really right across the dorsal aspect of his right ring finger overlying the proximal interphalangeal joint. But his extensor is fully intact. Capillary refill is normal and sensation is all normal. There is no bleeding. But this laceration is about 1.5 cm wide. It does open up when he contracts his fingers. I cannot see any tendon but this will be looked at more closely after we anesthetize and irrigate the area. Const Vital Signs: 09/07/22 20:27 Temperature 97.8 F Temperature Source Temporal Pulse Rate 102 H Respiratory Rate 18 Blood Pressure 167/90 H Blood Pressure Mean 115 Pulse Ox 96 Oxygen Delivery Method Room Air MDM MDM MDM Narrative Medical decision making narrative: Procedure note: Suture laceration right ring finger: Discussed risk benefits and options with the patient. I explained that suturingwould be better in this area than tissue adhesive which I do not think would hold. The area was soaked. It was cleansed. I then anesthetized it with 1.5 cc of 1% lidocaine without epi locally. Good anesthesia was achieved. I then thoroughly scrubbed it. I irrigated it with about 70 cc of saline. It was clean. We examined it clean and bloodless. I do not see any extensor tendon involvement. It was then sutured with 4 interrupted 4-0 Ethilon watching each pass of the stool suture to avoid attachment of tendon or or deeper tissues. Hetolerated this well. He had excellent range of motion afterwards. I explained signs of infection and reasons to return as well as timing of suture removal. I do not think any blood work or x-rays are needed. This was cut on the edge of a sharp knife and there is no concern for foreign body. Discharge Plan Triage Chief Complaint: Laceration ED Provider: Demetrius Silva Dx/Rx/DC Orders Clinical Impression: Laceration of right ring finger Instructions: ED Laceration, Hand: All Closures Prescriptions: No Action naproxen [Naprosyn] 500 mg tablet 500 mg PO BID PRN (Reason: pain) Qty: 20 0RF cyclobenzaprine 10 mg tablet 10 mg PO BID PRN (Reason: muscle spasm) Qty: 14 0RF lisinopril-hydrochlorothiazide 20-12.5 mg tablet 1 tab PO DAILY Qty: 30 1RF Primary Care Provider: Care Physician,No Primary Referrals: Nhan Garcia MD [Med Staff - [employer]] - 10-14 Days suture removal Care Physician,No Primary [Primary Care Provider] - Disposition Disposition: Home, Self Care What to do if you have Problems For any increased pain, shortness of breath, bleeding, nausea or vomiting, chestpain, or any unexpected problems, contact your Primary Care Provider. Call [facility] ([phone]) or report to the closest Emergency Room. Call 911 if necessary. 09/07/222142 <Electronically signed by Demetrius Silva MD> Cosigner Signature (if applicable): CC: No Primary Care Physician ~ Signed [facility] Work Phone: Evaluation noteNo assessment information available [facility] Work Phone: Hospital Discharge instructions Additional Instructions See a dentist at earliest possible time.[facility] Work Phone: Hospital Discharge instructionsAdditional Instructions Refer to the RICE therapy for pain and swelling at home. Wear the postop shoe to help with your pain. I provided follow-up with a foot doctor below. Your evaluation in the Emergency Department did not reveal any acute reason for admission. However, I want to emphasize that you may be early in the course of a disease process or illness even if it is not present. For this reason you should follow-up within 24 hours for reevaluation with either your primary care physician or if necessary back here in the Emergency Department. You should return to the Emergency Department immediately if your symptoms worsen or new symptoms develop.[facility] Work Phone: Reason for referral (narrative)No reason for referral information availableWMount St. 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 June 04, 2024 12:45pm Non-pressure chronic ulcer o f other part of left lower leg with fat layer June 04, 2024 12:45pm Non-pressure chronic ulcer o f other part of right lower leg with fat layer June 04, 2024 12:45pm Non-pressure chronic ulcer o f other part of left lower leg with fat layer July 02, 2024 12:45pm Other specified peripheral vascular dise ases July 30, 2024 10:30am Non-pressure chronic ulcer o f other part of right lower leg with fat layer July 30, 2024 10:30am Chief Complaint Admit Date wound June 04, 2024 1 2:45pm wound July 02, 2024 12:45pm wound July 30, 2024 10: 30am wound September 03, 2024 10: 00am DYSPENEA September 05, 2024 10:40a m Reason for Visit Admit Date Other specified peripheral vascular dise ases June 04, 2024 12:45pm 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 June 04, 2024 12:45pm Non-pressure chronic ulcer o f other part of left lower leg with fat layer June 04, 2024 12:45pm Non-pressure chronic ulcer o f other part of right lower leg with fat layer June 04, 2024 12:45pm Non-pressure chronic ulcer o f other part of left lower leg with fat layer July 02, 2024 12:45pm Other specified peripheral vascular dise ases July 30, 2024 10:30am Non-pressure chronic ulcer o f other part of right lower leg with fat layer July 30, 2024 10:30am Tinea pedis September 03, 2024 10: 00am Non-pressure chronic ulcer o f other part of left lower leg with fat layer September 03, 2024 10:00am Non-pressure chronic ulcer o f other part of right lower leg with fat layer September 03, 2024 10:00am Chief Complaint Admit Date wound July 02, 2024 12:45pm wound July 30, 2024 10: 30am wound September 03, 2024 10: 00am DYSPENEA September 05, 2024 10:40a m wound October 01, 2024 9:49a m Reason for Visit Admit Date Non-pressure chronic ulcer o f other part of left lower leg with fat layer July 02, 2024 12:45pm Other specified peripheral vascular dise ases July 30, 2024 10:30am Non-pressure chronic ulcer o f other part of right lower leg with fat layer July 30, 2024 10:30am Tinea pedis September 03, 2024 10: 00am Non-pressure chronic ulcer o f other part of left lower leg with fat layer September 03, 2024 10:00am Non-pressure chronic ulcer o f other part of right lower leg with fat layer September 03, 2024 10:00am Morbid obesity October 01, 2024 9:49a m Non-pressure chronic ulcer o f other part of left lower leg with fat layer October 01, 2024 9:49am Chief Complaint Admit Date wound July 30, 2024 10: 30am wound September 03, 2024 10: 00am DYSPENEA September 05, 2024 10:40a m wound October 01, 2024 9:49a m wound October 15, 2024 10:0 0am Reason for Visit Admit Date Other specified peripheral vascular dise ases July 30, 2024 10:30am Non-pressure chronic ulcer o f other part of right lower leg with fat layer July 30, 2024 10:30am Tinea pedis September 03, 2024 10: 00am Non-pressure chronic ulcer o f other part of left lower leg with fat layer September 03, 2024 10:00am Non-pressure chronic ulcer o f other part of right lower leg with fat layer September 03, 2024 10:00am Morbid obesity October 01, 2024 9:49a m Non-pressure chronic ulcer o f other part of left lower leg with fat layer October 01, 2024 9:49am Morbid obesity October 15, 2024 10:0 0am Non-pressure chronic ulcer o f other part of left lower leg with fat layer October 15, 2024 10:00am Chief Complaint Admit Date wound July 30, 2024 10: 30am wound September 03, 2024 10: 00am DYSPENEA September 05, 2024 10:40a m wound October 01, 2024 9:49a m wound October 15, 2024 10:0 0am DYSPNEA November 20, 2024 11:0 4am DYSPNEA November 21, 2024 3:41 pm HYPERSOMNIA November 25, 2024 2:04 pm Chief Complaint Admit Date wound September 03, 2024 10: 00am DYSPENEA September 05, 2024 10:40a m wound October 01, 2024 9:49a m wound October 15, 2024 10:0 0am DYSPNEA November 20, 2024 11:0 4am DYSPNEA November 21, 2024 3:41 pm HYPERSOMNIA November 25, 2024 2:04 pm Reason for Visit Admit Date Tinea pedis September 03, 2024 10: 00am Non-pressure chronic ulcer o f other part of left lower leg with fat layer September 03, 2024 10:00am Non-pressure chronic ulcer o f other part of right lower leg with fat layer September 03, 2024 10:00am Morbid obesity October 01, 2024 9:49a m Non-pressure chronic ulcer o f other part of left lower leg with fat layer October 01, 2024 9:49am Morbid obesity October 15, 2024 10:0 0am Non-pressure chronic ulcer o f other part of left lower leg with fat layer October 15, 2024 10:00am Chief Complaint Admit Date wound October 01, 2024 9:49a m wound October 15, 2024 10:0 0am DYSPNEA November 20, 2024 11:0 4am DYSPNEA November 21, 2024 3:41 pm HYPERSOMNIA November 25, 2024 2:04 pm Sleep problems January 13, 2025 2:50pm Reason for Visit Admit Date Morbid obesity October 01, 2024 9:49a m Non-pressure chronic ulcer o f other part of left lower leg with fat layer October 01, 2024 9:49am Morbid obesity October 15, 2024 10:0 0am Non-pressure chronic ulcer o f other part of left lower leg with fat layer October 15, 2024 10:00am Obstructive sleep apnea January 13 025 2:50pm Chief Complaint Admit Date wound October 15, 2024 10:0 0am DYSPNEA November 20, 2024 11:0 4am DYSPNEA November 21, 2024 3:41 pm HYPERSOMNIA November 25, 2024 2:04 pm Sleep problems January 13, 2025 2:50pm rt ankle February 03, 2025 11:30pm Reason for Visit Admit Date Morbid obesity October 15, 2024 10:0 0am Non-pressure chronic ulcer o f other part of left lower leg with fat layer October 15, 2024 10:00am Obstructive sleep apnea January 13 025 2:50pm Chief Complaint Admit Date wound October 15, 2024 10:0 0am DYSPNEA November 20, 2024 11:0 4am DYSPNEA November 21, 2024 3:41 pm HYPERSOMNIA November 25, 2024 2:04 pm Sleep problems January 13, 2025 2:50pm rt ankle February 03, 2025 11:30pm RIGHT FOOT PAIN February 11, 2025 6: 22pm Family History No Family History Records Found Relationship Condition Age at Onset Recorded Date/T foster brother Asthma Unknown Hypertension Unknown sister Asthma Unknown Diabetes mellitus Unknown mother Asthma Unknown father Asthma Unknown Relationship Condition Age at Onset Recorded Date/T foster brother Asthma Unknown Hypertension Unknown sister Asthma Unknown Diabetes mellitus Unknown mother Asthma Unknown Malignant neoplasm Unknown Myocardial infarction Unknown father Asthma Unknown Advance Directives No Advanced Directives Records Found Advance Directive Response Recorded Date/ Time Advance Directives No April 07, 2016 12:43pm Living Will No October 24, 2021 8:39pm Power of Promotion Manager No October 24 8:39pm Advance Directive Response Recorded Date/ Time Advance Directives No April 07, 2016 12:43pm Living Will No December 12, 2021 11:09am Power of Promotion Manager No December 12 11:09am Advance Directive Response Recorded Date/ Time Advance Directives No April 07, 2016 11:43am Living Will No May 19 5:34pm Power of Promotion Manager No May 19, 2022 5:34pm Advance Directive Response Recorded Date/ Time Advance Directives No April 07, 2016 12:43pm Living Will No September 07, 2022 8: 42pm Power of Promotion Manager No September 07, 2022 8:42pm Advance Directive Response Recorded Date/ Time Advance Directives No April 07, 2016 11:43am Living Will No March 28, 2 023 3:12pm Power of Promotion Manager No March 28, 2023 3:12pm Advance Directive Response Recorded Date/ Time Living Will No May 03, 2 024 2:41pm Do you have a Healthcare Power of Promotion Manager? No May 03, 2024 2:41pm Advance Directives No April 07, 2016 12:43pm Advance Directive Response Recorded Date/ Time Advance Directives No April 07, 2016 12:43pm Advance Directive Response Recorded Date/ Time Do you have a Healthcare Power of Promotion Manager? No February 03, 2025 11:30pm Advance Directives No April 07, 2016 12:43pm Advance Directive Response Recorded Date/ Time Do you have a Healthcare Power of Promotion Manager? No February 11, 2025 7:22pm Do you have a Healthcare Power of Promotion Manager? No February 03, 2025 11:30pm Advance Directives No April 07, 2016 12:43pm Summary Purpose Additional Source Comments Goals (unrecognized section and content) Goals may be documented in a n alternate sectionGoals may be documented in an alternate sectionGoals may be documented in an alternate sectionGoals may be documented in an alternate sectionGoals may be documented in an alternate sectionGoals may be documented in an alternate sectionGoals may be documented in an alternate sectionGoals may be documented in an alternate sectionGoals may be documented in an alternate sectionGoals may be documented in an alternate sectionGoals may be documented in an alternate sectionGoals may be documented in an alternate sectionGoals may be documented in an alternate sectionGoals may be documented in an alternate sectionGoals may be documented in an alternate sectionGoals may be documented in an alternate section Care Teams (unrecognized sec tion and content) Team Status: Active Member Role Status Dates No Primary Care Physician Family Provider Active No Primary Care Physician Primary Care Provider Active Team Status: Inactive Member Role Status Dates No Primary Care Physician Primary Care Provider Active Dr. Demetrius Silva MD Attending Provider, Emergency Provider Active Team Status: Inactive Member Role Status Dates No Primary Care Physician Primary Care Provider Active Dr. Demetrius Silva MD Emergency Provider Active Team Status: Inactive Member Role Status Dates No Primary Care Physician Primary Care Provider Active Dr. Malcolm Bennett DO Emergency Provider Active Team Status: Active Member Role Status Dates Zebulun Beam VSC, SHOE REPAIRER HELPER-C Primary Care Provider Active Team Status: Inactive Member Role Status Dates No Primary Care Physician Primary Care Provider Active Start: May 03, 2024 End: May 03, 2024 Dr. Maria M Tomlin DO Attending Provider Active Start: May 03, 2024 End: May 03, 2024 Dr. Maria M Tomlin DO Emergency Provider Active Start: May 03, 2024 End: May 03, 2024 Team Status: Inactive Member Role Status Dates No Primary Care Physician Primary Care Provider Active Start: June 03, 2024 End: June 03, 2024 Zebulun Beam VSC, SHOE REPAIRER HELPER-C Attending Provider Active Start: June 03, 2024 End: June 03, 2024 Team Status: Inactive Member Role Status Dates No Primary Care Physician Primary Care Provider Active Start: June 04, 2024 End: June 06, 2024 No Primary Care Physician Referring Provider Active Start: June 04, 2024 End: June 06, 2024 Dr. Smith Sommer DPM Attending Provider Active Start: June 04, 2024 End: June 06, 2024 Team Status: Inactive Member Role Status Dates No Primary Care Physician Primary Care Provider Active Start: July 02, 2024 End: July 04, 2024 No Primary Care Physician Referring Provider Active Start: July 02, 2024 End: July 04, 2024 Dr. Smith Sommer DPM Attending Provider Active Start: July 02, 2024 End: July 04, 2024 Team Status: Inactive Member Role Status Dates No Primary Care Physician Primary Care Provider Active Start: July 30, 2024 End: August 04, 2024 No Primary Care Physician Referring Provider Active Start: July 30, 2024 End: August 04, 2024 Dr. Smith Sommer DPM Attending Provider Active Start: July 30, 2024 End: August 04, 2024 Team Status: Inactive Member Role Status Dates No Primary Care Physician Referring Provider Active Start: September 03, 2024 End: September 03, 2024 Dr. Smith Sommer DPM Attending Provider Active Start: September 03, 2024 End: September 03, 2024 Zebulun Beam VSC, SHOE REPAIRER HELPER-C Primary Care Provider Active Start: September 03, 2024 End: September 03, 2024 Team Status: Inactive Member Role Status Dates Zebulun Beam VSC, SHOE REPAIRER HELPER-C Primary Care Provider Active Start: September 05, 2024 End: September 05, 2024 Zebulun Beam VSC, SHOE REPAIRER HELPER-C Attending Provider Active Start: September 05, 2024 End: September 05, 2024 Zebulun Beam VSC, SHOE REPAIRER HELPER-C Referring Provider Active Start: September 05, 2024 End: September 05, 2024 Team Status: Active Member Role Status Dates Zebulun Beam VSC, SHOE REPAIRER HELPER-C Primary Care Provider Active Start: September 05, 2024 Dr. Kenneth Ruiz MD Attending Provider Active S tart: September 05, 2024 Team Status: Inactive Member Role Status Dates No Primary Care Physician Referring Provider Active Start: October 01, 2024 End: October 04, 2024 Dr. Smith Sommer DPM Attending Provider Active Start: October 01, 2024 End: October 04, 2024 Zebulun Beam VSC, SHOE REPAIRER HELPER-C Primary Care Provider Active Start: October 01, 2024 End: October 04, 2024 Team Status: Active Member Role/Relationship Status Dates Zebulun Beam VSC, SHOE REPAIRER HELPER-C Primary Care Provider Active Team Status: Inactive Member Role/Relationship Status Dates No Primary Care Physician Primary Care Provider Active Start: July 30, 2024 End: August 04, 2024 No Primary Care Physician Referring Provider Active Start: July 30, 2024 End: August 04, 2024 Dr. Smith Sommer DPM Attending Provider Active Start: July 30, 2024 End: August 04, 2024 Team Status: Inactive Member Role/Relationship Status Dates No Primary Care Physician Referring Provider Active Start: September 03, 2024 End: September 03, 2024 Dr. Smith Sommer DPM Attending Provider Active Start: September 03, 2024 End: September 03, 2024 Zebulun Beam VSC, SHOE REPAIRER HELPER-C Primary Care Provider Active Start: September 03, 2024 End: September 03, 2024 Team Status: Inactive Member Role/Relationship Status Dates Zebulun Beam VSC, SHOE REPAIRER HELPER-C Primary Care Provider Active Start: September 05, 2024 End: September 05, 2024 Zebulun Beam VSC, SHOE REPAIRER HELPER-C Attending Provider Active Start: September 05, 2024 End: September 05, 2024 Zebulun Beam VSC, SHOE REPAIRER HELPER-C Referring Provider Active Start: September 05, 2024 End: September 05, 2024 Team Status: Active Member Role/Relationship Status Dates Zebulun Beam VSC, SHOE REPAIRER HELPER-C Primary Care Provider Active Start: September 05, 2024 Dr. Kenneth Ruiz MD Attending Provider Active S tart: September 05, 2024 Team Status: Inactive Member Role/Relationship Status Dates No Primary Care Physician Referring Provider Active Start: October 01, 2024 End: October 04, 2024 Dr. Smith Sommer DPM Attending Provider Active Start: October 01, 2024 End: October 04, 2024 Zebulun Beam VSC, SHOE REPAIRER HELPER-C Primary Care Provider Active Start: October 01, 2024 End: October 04, 2024 Team Status: Inactive Member Role/Relationship Status Dates No Primary Care Physician Referring Provider Active Start: October 15, 2024 End: November 03, 2024 Dr. Smith Sommer DPM Attending Provider Active Start: October 15, 2024 End: November 03, 2024 Zebulun Beam VSC, SHOE REPAIRER HELPER-C Primary Care Provider Active Start: October 15, 2024 End: November 03, 2024 Team Status: Active Member Role/Relationship Status Dates Zebulun Beam VSC, SHOE REPAIRER HELPER-C Primary Care Provider Active Start: October 30, 2024 Zebulun Beam VSC, SHOE REPAIRER HELPER-C Attending Provider Active Start: October 30, 2024 Team Status: Inactive Member Role/Relationship Status Dates Zebulun Beam VSC, SHOE REPAIRER HELPER-C Primary Care Provider Active Start: October 30, 2024 End: October 30, 2024 Zebulun Beam VSC, SHOE REPAIRER HELPER-C Attending Provider Active Start: October 30, 2024 End: October 30, 2024 Team Status: Inactive Member Role/Relationship Status Dates Zebulun Beam VSC, SHOE REPAIRER HELPER-C Primary Care Provider Active Start: November 20, 2024 End: November 20, 2024 Zebulun Beam VSC, SHOE REPAIRER HELPER-C Attending Provider Active Start: November 20, 2024 End: November 20, 2024 Zebulun Beam VSC, SHOE REPAIRER HELPER-C Referring Provider Active Start: November 20, 2024 End: November 20, 2024 Team Status: Active Member Role/Relationship Status Dates Zebulun Beam VSC, SHOE REPAIRER HELPER-C Primary Care Provider Active Start: November 21, 2024 Zebulun Beam VSC, SHOE REPAIRER HELPER-C Attending Provider Active Start: November 21, 2024 Zebulun Beam VSC, SHOE REPAIRER HELPER-C Referring Provider Active Start: November 21, 2024 Team Status: Active Member Role/Relationship Status Dates Zebulun Beam VSC, SHOE REPAIRER HELPER-C Primary Care Provider Active Start: November 21, 2024 Dr. Aliyah Damon MD Attending Provider Active Start: November 21, 2024 Team Status: Active Member Role/Relationship Status Dates Zebulun Beam VSC, SHOE REPAIRER HELPER-C Primary Care Provider Active Start: November 25, 2024 Zebulun Beam VSC, SHOE REPAIRER HELPER-C Attending Provider Active Start: November 25, 2024 Zebulun Beam VSC, SHOE REPAIRER HELPER-C Referring Provider Active Start: November 25, 2024 Team Status: Inactive Member Role/Relationship Status Dates No Primary Care Physician Referring Provider Active Start: September 03, 2024 End: September 03, 2024 Dr. Smith Sommer DPM Attending Provider Active Start: September 03, 2024 End: September 03, 2024 Zebulun Beam VSC, SHOE REPAIRER HELPER-C Primary Care Provider Active Start: September 03, 2024 End: September 03, 2024 Team Status: Inactive Member Role/Relationship Status Dates Zebulun Beam VSC, SHOE REPAIRER HELPER-C Primary Care Provider Active Start: September 05, 2024 End: September 05, 2024 Zebulun Beam VSC, SHOE REPAIRER HELPER-C Attending Provider Active Start: September 05, 2024 End: September 05, 2024 Zebulun Beam VSC, SHOE REPAIRER HELPER-C Referring Provider Active Start: September 05, 2024 End: September 05, 2024 Team Status: Active Member Role/Relationship Status Dates Zebulun Beam VSC, SHOE REPAIRER HELPER-C Primary Care Provider Active Start: September 05, 2024 Dr. Kenneth Ruiz MD Attending Provider Active S tart: September 05, 2024 Team Status: Inactive Member Role/Relationship Status Dates No Primary Care Physician Referring Provider Active Start: October 01, 2024 End: October 04, 2024 Dr. Smith Sommer DPM Attending Provider Active Start: October 01, 2024 End: October 04, 2024 Zebulun Beam VSC, SHOE REPAIRER HELPER-C Primary Care Provider Active Start: October 01, 2024 End: October 04, 2024 Team Status: Inactive Member Role/Relationship Status Dates No Primary Care Physician Referring Provider Active Start: October 15, 2024 End: November 03, 2024 Dr. Smith Sommer DPM Attending Provider Active Start: October 15, 2024 End: November 03, 2024 Zebulun Beam VSC, SHOE REPAIRER HELPER-C Primary Care Provider Active Start: October 15, 2024 End: November 03, 2024 Team Status: Inactive Member Role/Relationship Status Dates Zebulun Beam VSC, SHOE REPAIRER HELPER-C Primary Care Provider Active Start: October 30, 2024 End: October 30, 2024 Zebulun Beam VSC, SHOE REPAIRER HELPER-C Attending Provider Active Start: October 30, 2024 End: October 30, 2024 Team Status: Inactive Member Role/Relationship Status Dates Zebulun Beam VSC, SHOE REPAIRER HELPER-C Primary Care Provider Active Start: November 20, 2024 End: November 20, 2024 Zebulun Beam VSC, SHOE REPAIRER HELPER-C Attending Provider Active Start: November 20, 2024 End: November 20, 2024 Zebulun Beam VSC, SHOE REPAIRER HELPER-C Referring Provider Active Start: November 20, 2024 End: November 20, 2024 Team Status: Inactive Member Role/Relationship Status Dates Zebulun Beam VSC, SHOE REPAIRER HELPER-C Primary Care Provider Active Start: November 21, 2024 End: November 21, 2024 Zebulun Beam VSC, SHOE REPAIRER HELPER-C Attending Provider Active Start: November 21, 2024 End: November 21, 2024 Zebulun Beam VSC, SHOE REPAIRER HELPER-C Referring Provider Active Start: November 21, 2024 End: November 21, 2024 Team Status: Active Member Role/Relationship Status Dates Zebulun Beam VSC, SHOE REPAIRER HELPER-C Primary Care Provider Active Start: November 21, 2024 Dr. Aliyah Damon MD Attending Provider Active Start: November 21, 2024 Team Status: Active Member Role/Relationship Status Dates Zebulun Beam VSC, SHOE REPAIRER HELPER-C Primary Care Provider Active Start: November 25, 2024 Zebulun Beam VSC, SHOE REPAIRER HELPER-C Attending Provider Active Start: November 25, 2024 Zebulun Beam VSC, SHOE REPAIRER HELPER-C Referring Provider Active Start: November 25, 2024 Team Status: Inactive Member Role/Relationship Status Dates Zebulun Beam VSC, SHOE REPAIRER HELPER-C Primary Care Provider Active Start: November 25, 2024 End: November 25, 2024 Zebulun Beam VSC, SHOE REPAIRER HELPER-C Attending Provider Active Start: November 25, 2024 End: November 25, 2024 Zebulun Beam VSC, SHOE REPAIRER HELPER-C Referring Provider Active Start: November 25, 2024 End: November 25, 2024 Team Status: Inactive Member Role/Relationship Status Dates No Primary Care Physician Referring Provider Active Start: October 01, 2024 End: October 04, 2024 Dr. Smith Sommer DPM Attending Provider Active Start: October 01, 2024 End: October 04, 2024 Zebulun Beam VSC, SHOE REPAIRER HELPER-C Primary Care Provider Active Start: October 01, 2024 End: October 04, 2024 Team Status: Inactive Member Role/Relationship Status Dates No Primary Care Physician Referring Provider Active Start: October 15, 2024 End: November 03, 2024 Dr. Smith Sommer DPM Attending Provider Active Start: October 15, 2024 End: November 03, 2024 Zebulun Beam VSC, SHOE REPAIRER HELPER-C Primary Care Provider Active Start: October 15, 2024 End: November 03, 2024 Team Status: Inactive Member Role/Relationship Status Dates Zebulun Beam VSC, SHOE REPAIRER HELPER-C Primary Care Provider Active Start: October 30, 2024 End: October 30, 2024 Zebulun Beam VSC, SHOE REPAIRER HELPER-C Attending Provider Active Start: October 30, 2024 End: October 30, 2024 Team Status: Inactive Member Role/Relationship Status Dates Zebulun Beam VSC, SHOE REPAIRER HELPER-C Primary Care Provider Active Start: November 20, 2024 End: November 20, 2024 Zebulun Beam VSC, SHOE REPAIRER HELPER-C Attending Provider Active Start: November 20, 2024 End: November 20, 2024 Zebulun Beam VSC, SHOE REPAIRER HELPER-C Referring Provider Active Start: November 20, 2024 End: November 20, 2024 Team Status: Inactive Member Role/Relationship Status Dates Zebulun Beam VSC, SHOE REPAIRER HELPER-C Primary Care Provider Active Start: November 21, 2024 End: November 21, 2024 Zebulun Beam VSC, SHOE REPAIRER HELPER-C Attending Provider Active Start: November 21, 2024 End: November 21, 2024 Zebulun Beam VSC, SHOE REPAIRER HELPER-C Referring Provider Active Start: November 21, 2024 End: November 21, 2024 Team Status: Active Member Role/Relationship Status Dates Zebulun Beam VSC, SHOE REPAIRER HELPER-C Primary Care Provider Active Start: November 21, 2024 Dr. Aliyah Damon MD Attending Provider Active Start: November 21, 2024 Team Status: Inactive Member Role/Relationship Status Dates Zebulun Beam VSC, SHOE REPAIRER HELPER-C Primary Care Provider Active Start: November 25, 2024 End: November 25, 2024 Zebulun Beam VSC, SHOE REPAIRER HELPER-C Attending Provider Active Start: November 25, 2024 End: November 25, 2024 Zebulun Beam VSC, SHOE REPAIRER HELPER-C Referring Provider Active Start: November 25, 2024 End: November 25, 2024 Team Status: Inactive Member Role/Relationship Status Dates Zebulun Beam VSC, SHOE REPAIRER HELPER-C Primary Care Provider Active Start: January 13, 2025 End: January 13, 2025 Zebulun Beam VSC, SHOE REPAIRER HELPER-C Referring Provider Active Start: January 13, 2025 End: January 13, 2025 Asmita Joaquin SHOE REPAIRER HELPER-C Attending Provider Active Start: January 13, 2025 End: January 13, 2025 Team Status: Active Member Role/Relationship Status Dates Zebulun Beam VSC, SHOE REPAIRER HELPER-C Primary care physician Active Team Status: Inactive Member Role/Relationship Status Dates No Primary Care Physician Referring Provider Active Start: October 15, 2024 End: November 03, 2024 Dr. Smith Sommer DPM Attending physician Active Start: October 15, 2024 End: November 03, 2024 Zebulun Beam VSC, SHOE REPAIRER HELPER-C Primary care physician Active Start: October 15, 2024 End: November 03, 2024 Team Status: Inactive Member Role/Relationship Status Dates Zebulun Beam VSC, SHOE REPAIRER HELPER-C Primary care physician Active Start: October 30, 2024 End: October 30, 2024 Zebulun Beam VSC, SHOE REPAIRER HELPER-C Attending physician Active Start: October 30, 2024 End: October 30, 2024 Team Status: Inactive Member Role/Relationship Status Dates Zebulun Beam VSC, SHOE REPAIRER HELPER-C Primary care physician Active Start: November 20, 2024 End: November 20, 2024 Zebulun Beam VSC, SHOE REPAIRER HELPER-C Attending physician Active Start: November 20, 2024 End: November 20, 2024 Zebulun Beam VSC, SHOE REPAIRER HELPER-C Referring Provider Active Start: November 20, 2024 End: November 20, 2024 Team Status: Inactive Member Role/Relationship Status Dates Zebulun Beam VSC, SHOE REPAIRER HELPER-C Primary care physician Active Start: November 21, 2024 End: November 21, 2024 Zebulun Beam VSC, SHOE REPAIRER HELPER-C Attending physician Active Start: November 21, 2024 End: November 21, 2024 Zebulun Beam VSC, SHOE REPAIRER HELPER-C Referring Provider Active Start: November 21, 2024 End: November 21, 2024 Team Status: Active Member Role/Relationship Status Dates Zebulun Beam VSC, SHOE REPAIRER HELPER-C Primary care physician Active Start: November 21, 2024 Dr. Aliyah Damon MD Attending physician Active Start: November 21, 2024 Team Status: Inactive Member Role/Relationship Status Dates Zebulun Beam VSC, SHOE REPAIRER HELPER-C Primary care physician Active Start: November 25, 2024 End: November 25, 2024 Zebulun Beam VSC, SHOE REPAIRER HELPER-C Attending physician Active Start: November 25, 2024 End: November 25, 2024 Zebulun Beam VSC, SHOE REPAIRER HELPER-C Referring Provider Active Start: November 25, 2024 End: November 25, 2024 Team Status: Inactive Member Role/Relationship Status Dates Zebulun Beam VSC, SHOE REPAIRER HELPER-C Primary care physician Active Start: January 13, 2025 End: January 13, 2025 Kellie Gudino VSC, SHOE REPAIRER HELPER-C Referring Provider Active Start: January 13, 2025 End: January 13, 2025 MICHAELA Albright Attending physician Active Start: January 13, 2025 End: January 13, 2025 Team Status: Inactive Member Role/Relationship Status Dates Kellie Gudino VSLinette, SHOE REPAIRER HELPER-C Primary care physician Active Start: February 03, 2025 End: February 04, 2025 Dr. Vladimir Bustos MD Emergency Department Physician Active Start: February 03, 2025 End: February 04, 2025 Team Status: Inactive Member Role/Relationship Status Dates Kellie Gudino VSLinette, SHOE REPAIRER HELPER-C Primary care physician Active Start: February 11, 2025 End: February 11, 2025 Dr. Rosangela Quezada MD Emergency Department Physician Ac tive Start: February 11, 2025 End: February 11, 2025 (unrecognized sect ion and content) No Status Records Found INFORMATION SOURCE (unrecogn ized section and content) DATE CREATED AUTHOR 02/24/2025 [facility] FOR RECORDS PERTAINING TO PATIENTS WHO ARE OR HAVE BEEN ENROLLED IN A CHEMICAL DEPENDENCY/SUBSTANCEABUSE PROGRAM, SOME INFORMATION MAY BE OMITTED. This clinical summary was aggregated from multiple sources. Caution should be exercised in using it in the provision of clinical care. This summary normalizes information from multiple sources, and as a consequence, information in this document may materially change the coding, format and clinical context of patient data. In addition, data may be omitted in some cases. CLINICAL DECISIONS SHOULD BE BASED ON THE PRIMARY CLINICAL RECORDS. [employer] provides no warranty or guarantee of the accuracy or completeness of information in this document.
[2025-03-01 13:25] VITALS: BP 146/99; PULSE 98; RESP 18; TEMP 36.6; O2SAT 97
== END 2025-03-01 14:05 | disposition home or self-care (01) ==
PROVIDERS: Emergency Provider Emergency Medicine; Visit Provider Emergency Medicine
DX: M79.671 Pain in right foot (principal); I89.0 Lymphedema, not elsewhere classified; I10 Essential (primary) hypertension; F17.200 Nicotine dependence, unspecified, uncomplicated; Z79.84 Long term (current) use of oral hypoglycemic drugs; Z79.899 Other long term (current) drug therapy; S92.351D Displaced fracture of fifth metatarsal bone, right foot, subsequent encounter for fracture with routine healing; X58.XXXD Exposure to other specified factors, subsequent encounter
CPT/HCPCS: 29515; 99282

== ENCOUNTER → 2025-04-06 | Outpatient (CLI) | payer MEDICAID, SELFPAY ==
[2025-04-06 11:49] LABS: Hematocrit 45.7 % (40-54); Hemoglobin 14.8 g/dL (13.0-16.5); Immature Granulocytes Count 0.030 X10^3/uL (0.0-0.0); Mean Corp Hgb Conc 32.4 g/dL (32-36); Mean Corpuscular Volume 86.4 fL (80-94); Mean Platelet Vol. 9.8 fl (6.2-12.0); NRBC Flagged by Analyzer 0 % (0-5); Platelet Count 209 K/mm3 (150-450); RBC Distribution Width CV 14.2 % (11.6-14.6); RBC Distribution Width SD 45.1 fl (35.1-43.9); Red Blood Count 5.29 M/mm3 (4.6-6.2); White Blood Count 8.6 K/mm3 (4.4-11.0)
[2025-04-06 13:29] LABS: AST(SGOT) 18 U/L (<=37); Alanine Aminotransfer ALT/SGPT 24 U/L (<=46); Albumin, Serum 4.2 g/dL (3.5-5.0); Alkaline Phosphatase 88 U/L (40-129); Anion Gap 11 (5-15); BUN 20 mg/dL (4-19); BUN/Creat Ratio 25.4 RATIO (10-20); Calcium,Total 9.4 mg/dL (7.6-11.0); Carbon Dioxide 27.4 mmol/L (21.0-32.0); Chloride 101 mmol/L (98-108); Cholesterol 201 mg/dL (<=200); Globulin 3.3 g/dL (2.2-4.2); Glucose 111 mg/dL (70-99); Low Density Lipoprotein Calc. 133 mg/dL; Potassium 4.3 mmol/L (3.3-5.1); Triglycerides 174 mg/dL; Very Low Density Lipoprotein 35 mg/dL (5-40); Vitamin D,25 Hydroxy 18.7 ng/mL (30-100); cholesterol:hdl ratio screen 5.52
== END | disposition home or self-care (01) ==
LOC: LAB 10:36
DX: Z01.818 Encounter for other preprocedural examination (principal); R73.03 Prediabetes; E78.5 Hyperlipidemia, unspecified
CPT/HCPCS: 36415; 80053; 80061; 80323; 82306; 83036; 84443; 85025; G0480

== ENCOUNTER 2025-04-10 10:03 | Day surgery (SDC) | payer MEDICAID, SELFPAY ==
--- NOTE | 2025-04-08 14:35 | PAT.ANE_ITS ---
Pre-Assessment Diagnosis/Proposed Procedure Planned Operative Procedure(s): (R) [place] of Bone marrow aspirate concentrate and Open reduction and internal fixation of the right fifth metatarsal fracture. Anesthesia History Anesthesia History - property developer: Anesthesia History - property developer Hx Hospitalization No 04/08/25 13:48 Any Problems With Anesthesia No 04/08/25 13:48 Cholinesterase deficiency No 04/08/25 13:48 You/Your Family Experience No 04/08/25 13:48 fever (hyperthermia) with Relationship Recent Exposure to Contagious Disease Does patient have nerve No 04/08/25 13:48 stimulator Patient instructed to have device shut off --Does patient have Pacemaker or ICD? When Was Last Pacemaker Check QUESTION #4 FULL TEXT: You/Your Family Experience fever (hyperthermia) with Anesthesia Last Oral Intake Last Oral intake: Last Oral Intake NPO since Meds taken in AM with sips of water? Meds patient instructed to take am of surgery PONV PONV - property developer: PONV - property developer Female No 04/08/25 13:48 HX of Motion Sickness No 04/08/25 13:48 HX of N/V After Surgery No 04/08/25 13:48 Non-Smoker No 04/08/25 13:48 Duration of Surgery greater Yes 04/08/25 13:48 than 60 minutes Number of Risk Factors 1 04/08/25 13:48 PONV Score Low Risk 04/08/25 13:48 Height & Weight Height & Weight: Anesthesia: Height & Weight Height 5 ft 10 in 03/01/25 12:25 Respiratory Assessment Respiratory Assessment - property developer: Respiratory Tract Infection Hx - property developer Hx Respiratory Tract Infection No 04/08/25 13:48 STOP Sleep Apnea STOP Sleep Apnea - property developer: STOP Sleep Apnea - property developer Hx Hypertension Yes: CONTROLLED WITH MED 04/08/25 13:48 Hx Sleep Apnea Yes 04/08/25 13:48 CPAP Yes: NON COMPLIANT 04/08/25 13:48 BIPAP No 04/08/25 13:48 Do you snore loudly (louder than talking or can be heard Do you often feel tired/ fatigued/ sleepy during daytime? Has anyone observed you stop breathing during sleep? STOP Results Positive 04/08/25 13:48 QUESTION #5 FULL TEXT : Do you snore loudly (louder than talking or can be heard through closed doors)? 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 Specify any problems Hx of Preganancy in last 3 N/A 04/08/25 13:48 Months Nurse Filling Out Transfusion NBUCHER 04/08/25 13:48 & Questions: Date: 04/08/25 04/08/25 13:48 Time: 13:51 04/08/25 13:48 Patient unable to answer at this time (ie. confused, unrespo /Reproduction History /Reproductive History - property developer: /Reproductive Hx- property developer Hx Now No 04/08/25 13:48 Gestational Age (in weeks): EDC: Hx Hx Para Hx Section SAB No 04/08/25 13:48 Does the father of the baby or his family experience fever w Father of the baby Malignant Hypertension history comment [facility] Medical History (Updated 04/08/25 @ 13:59 by Ema Gunn) Wears glasses Bipolar disorder Diabetes Ambulates with cane Migraine headache COPD (chronic obstructive pulmonary disease) CPAP (continuous positive airway pressure) dependence Sleep apnea Shortness of breath on exertion History of edema History of echocardiogram Depression Hypertension Home Medications ?Medication ?Instructions ?Recorded ?Last Taken ?Type albuterol sulfate 90 mcg/actuation 1 puff inhalation Q 6H PRN 01/06/25 Unknown History aerosol inhaler shortness of breath or wheez ing hydrochlorothiazide 12.5 mg capsule 12.5 mg PO DAILY 0 01/06/25 Unknown History lisinopril 40 mg tablet 40 mg PO DAILY 01/06/25 Unkn own History metformin 500 mg tablet,extended 500 mg PO DAILY 01/06 Unknown History release 24 hr rosuvastatin 20 mg tablet 20 mg PO QHS 01/06/25 Unknow n History amlodipine 10 mg tablet 10 mg PO QDAY 01/13/25 Unkno wn History Allergy/AdvReac Type Severity Reaction Status Date / Time No Known Allergies Allergy Verified 04/08/25 13:45 Family History Brother Asthma Hypertension Sister Asthma Diabetes Hypertension Mother Asthma Cancer Myocardial infarction Father Asthma Surgical History surgery for undescended testicle Social History household members: family current occupational status: unemployed sexually active: Yes Smoking Status: Current every day smoker tobacco type: cigarettes alcohol intake: current alcohol intake frequency: a few times a month substance use type: does not use caffeine: Yes Type: coffee Number of servings: 2 seatbelt use: always Audit: Pertinent Findings Pertinent Findings EKG Perinent findings: 05/03/2024. Normal sinus rhythm 93 bpm. Septal infarct, age undetermined. Echo (EF%) pertinent findings: 11/21/2024. EF 60% technically difficult study with suboptimal images. Recommendation Anesthesia Recommendation Anesthesia recommendation: OPTIMIZED for anesthesia
[2025-04-10] VITALS (7 sets, daily range): BP systolic 146–159; BP diastolic 88–105; PULSE 80–85; RESP 16–18; TEMP 36.2–36.6; O2SAT 93–98; BMI 59.1
--- NOTE | 2025-04-10 10:16 | OP.PCM_ITS ---
Operative Report (Standard) Operative Information Date of Procedure: 04/10/25 Pre-Operative Diagnosis: 1. Pain, right foot 2. Displaced fifth metatarsal fracture, right foot Post-Operative Diagnosis: Same as preoperative diagnosis Surgery/Procedure Performed: Procedure #1: [place] of bone marrow aspirate concentrate, right foot Procedure #2: Open reduction internal fixation of fifth metatarsal fracture, right foot active directory systems administrator: Yes Transportation Supervisor: Angi Foster PGY2 Tasks completed by press assistant: Closing Additional assistant manager quality management?: No Type of Anesthesia: General/Regional RN Documented Start/Stop Times: Operation Date: 04/10/25 12:00 Case Time Into Pre-Op 04/10/25 10:35 Anesthesia Start 04/10/25 13:29 Into Room 04/10/25 13:29 Out of Pre-Op 04/10/25 13:30 Procedure Start 04/10/25 13:47 Procedure End 04/10/25 15:27 Anesthesia End 04/10/25 15:28 Out of Room 04/10/25 15:28 Procedure Start Time: 13:47 Procedure Stop Time: 15:27 Select all DRAINS/GRAFTS/IMPLANTS that apply: Implanted device Implanted device details: Arthrex hook plate, 2.4 mm locking and nonlocking screws Special Medications: Per anesthesia Estimated Blood Loss: 50 mL Fluids Replaced: Per anesthesia Specimen collected: No Description of surgery: Indications For Operation: Mr. Saini is a 45-year-old diabetic male who was admitted to [facility] for right foot surgery secondary to a Trimble fracture to right lower extremity. Patient has been seen in the office to visit since his fracture was identified at the emergency room at [facility]. Patient has been ambulating in a cam boot with some discomfort but controlled with oral pain medication. Patient is diabetic with controlled numbers. Due to the delayed healing we deemed necessary to take patient operating room to perform blood procedure. Patient was seen and private office for surgical consultation with all risk and benefit discussed with the patient great detail. Chart review and consent signed. Due to nonhealing fracture at the level of the fifth metatarsal it was deemed necessary at this time to take patient to the operating room performed above procedure to help heal his fracture and decrease his constant pain. The nature of the problem, anticipated procedures, postop recovery /convalences and risk/complications include but not limited to infection, wound healing complications, digital amputation, hypertrophic scarring, numbness, tingling, chronic pain, CRPS, over and under correction, recurrence of deformity, DVT and or PE and the need for further surgery have been discussed in great detail with the patient. All questions have been answered to the patient's satisfaction. There are no guarantees given as to the outcome of the procedure. Description of Procedure: Under mild sedation, the patient was brought into the operating room and placed on the operating table in supine position. Once the patient was under monitored anesthesia care, the right lower extremity was blocked using approximately 20 cc 0.5% Marcaine plain patient also received a popliteal block prior to procedure in PACU from anesthesia. Please see anesthesia notes for further detail. No tourniquet was used for this case. Next, the right lower extremity was prepped and draped in normal aseptic manner. Next, a timeout was then undertaken verifying the correct patient, extremity, visibility of preoperative markings, availability of the equipment. Procedure #1: [place] of bone marrow aspirate concentrate, right foot (CPT code: 10677) Next, attention was directed to the lateral aspect of the calcaneus. He using a Jamshidi needle and mallet the trocar was penetrated on the lateral wall of the calcaneus without incident. Once secured in place approximately 60 cc of bone marrow aspirate concentrate was harvested and passed back table to be spun down to be used later in the case. The incision was flushed with copious normal saline and closed with 3-0 nylon in simple up to suture technique. Next, attention was directed to the right lower extremity. Using a foreign Esmarch, right lower extremity was exsanguinated and elevated to 60 degrees for 1 minute. Procedure #2: Open reduction internal fixation of fifth metatarsal fracture, right foot (CPT code: 58017) Next, attempt for percutaneous solid screw fixation was made. After 3 attempts without success with good placement opted to move forward with a hook plate. Next, a skin incision was marked out equidistant to the shaft of the fifth metatarsal. Using a #15 blade a full-thickness tissue down to subcutaneous tissue was performed. Continued blunt dissection carried down to the level of the fifth metatarsal. The fracture was identified and freed up using a #15 blade and pickup. Next, a right foot hook plate was placed along the base and shaft of the fifth metatarsal and secured in place with a BB tack. Once optimal position was identified the hook plate was secured in place with a combination of locking and nonlocking screws per the manufactures recommendation with the rep in the room. Next, the incision was flushed with copious normal saline. The deep layer was reapproximated closed with 2-0 Vicryl in running locking suture technique. The subcutaneous layer was reapproximate closed with 2-0 V icryl in running suture technique. The skin was reapproximated closed with a combination of simple interrupted and horizontal mattress suture technique using 2-0 nylon. Next, 4 cc of bone marrow aspirate concentrate were injected at the level of the fracture to the fifth metatarsal right foot. The right lower extremity was wiped clean and patted dry. Platelet poor plasma sprayed across all incisions. Next, the incisions were dressed with Betadine soaked Adaptic dry sterile dressing and double layer Trimble AO splint at 90 degrees was donned to the right lower extremity. The patient tolerated the procedure and anesthesia well and apparent satisfactory condition and was transported to the PACU for further monitoring prior to discharge home. Vital signs stable and vascular status intact to all digits bilateral. Post Operative Plan: Weightbearing: Patient will be nonweightbearing to the right lower extremity with assistive knee scooter and or crutches. Full weightbearing left lower extremity. Antibiotics: 3 g Ancef through the IV DVT Prophylaxis: 81 mg aspirin Salazar: None Dressing: Platelet poor plasma, Betadine soaked Adaptic dry sterile dressing double layer Trimble AO splint at 90 degrees to the right lower extremity. X-Rays: Post-operative films taken on the operating room. Pain Medication: Oxycodone 5 mg, Tylenol 650 mg, cyclobenzaprine 10 mg Follow-up: Patient will follow-up with postoperative appointment as already scheduled. Surgical Findings: 1. Good apposition of the fracture site with compression through the hook plate to the fifth metatarsal. Complications Complications: No Admit VTE Documentation VTE Present on Admission: No VTE Mechan Device Prophylaxis: SCD's VTE Pharm Prophylaxis ordered?: Yes
--- NOTE | 2025-04-10 10:20 | PRE.ANES_ITS ---
ASA Classification* ASA Classification ASA Classification: 2 Assessment & Plan Anesthesia* Anesthesia Assessment Anesthesia Assessment: Discussed sedation and/or anesthesia options, risks, benefits, and alternatives with patient/parents/legal guardian/POA. Questions invited. The patient/parents/legal guardian/POA seems to understand and agrees to proceed with anesthesia plan. Reviewed the physical assessment, medical history, allergy history and patient home medications list prior to surgery/procedure/anesthetic and documented any changes. Performed airway and anesthesia risk assessments. Anesthesia Type Anesthesia Type: General and Block Anesthesia Focused Assessment* Airway Assessment Mouth opens: >3 cm Mallampati Score: II Labs Anesthesia Preop lab: CBC WBC, (4.4-11.0) 8.6 K/mm3 04/06/25, 10:52 RBC, (4.6-6.2) 5.29 M/mm3 04/06/25, 10:52 Hgb, (13.0-16.5) 14.8 g/dL 04/06/25, 10:52 Hct, (40-54) 45.7 % 04/06/25, 10:52 Plt Count, (150-450) 209 K/mm3 04/06/25, 10:52 CHEMISTRY Potassium, (3.3-5.1) 4.3 mmol/L 04/06/25, 10:52 Sodium, (133-145) 139 mmol/L 04/06/25, 10:52 BUN, (4-19) 20 mg/dL H 04/06/25, 10:52 Creatinine, (0.70-1.20) 0.78 mg/dL 04/06/25, 10:52 Glucose, (70-99) 111 mg/dL H 04/06/25, 10:52 TSH, (0.300-4.200) 2.700 uIU/mL 04/06/25, 10:52 COAG PT, (11.7-14.9) 12.8 SECONDS 08/18/18, 00:35 Pre-Assessment Diagnosis/Proposed Procedure Planned Operative Procedure(s): (R) Norden of Bone marrow aspirate concentrate and Open reduction and internal fixation of the right fifth metatarsal fracture. 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 When Was Last Pacemaker Check QUESTION #4 FULL TEXT: You/Your Family Experience fever (hyperthermia) with Anesthesia Last Oral Intake Last Oral intake: Last Oral Intake NPO since Meds taken in AM with sips of water? Meds patient instructed to take am of surgery PONV PONV - fruit farmer: PONV - fruit farmer Female No 04/08/25 13:48 HX of Motion Sickness No 04/08/25 13:48 HX of N/V After Surgery No 04/08/25 13:48 Non-Smoker No 04/08/25 13:48 Duration of Surgery greater Yes 04/08/25 13:48 than 60 minutes Number of Risk Factors 1 04/08/25 13:48 PONV Score Low Risk 04/08/25 13:48 Height & Weight Height & Weight: Anesthesia: Height & Weight Height 5 ft 10 in 04/09/25 09:29 Weight: 188.694 kg 04/09/25 09:29 Respiratory Assessment Respiratory Assessment - fruit farmer: Respiratory Tract Infection Hx - fruit farmer Hx Respiratory Tract Infection No 04/08/25 13:48 STOP Sleep Apnea STOP Sleep Apnea - fruit farmer: STOP Sleep Apnea - fruit farmer Hx Hypertension Yes: CONTROLLED WITH MED 04/08/25 13:48 Hx Sleep Apnea Yes 04/08/25 13:48 CPAP Yes: NON COMPLIANT 04/08/25 13:48 BIPAP No 04/08/25 13:48 Do you snore loudly (louder than talking or can be heard Do you often feel tired/ fatigued/ sleepy during daytime? Has anyone observed you stop breathing during sleep? STOP Results Positive 04/08/25 13:48 QUESTION #5 FULL TEXT : Do you snore loudly (louder than talking or can be heard through closed doors)? Tobacco Use History Tobacco Use History - fruit farmer: Tobacco Use History - fruit farmer Tobacco Use Smoking Status Current every day smoker 04/08/25 13:48 Hx Tobacco Use Yes 04/08/25 13:48 Years Smoking Packs Smoked per Day 0.5 04/08/25 13:48 Smoking Cessation Date was within the last 15 years Hx Smoking Cessation Date Hx Smoking Cessation Counseling Hematologic Medial History Hematologic Hx - fruit farmer: Hematologic Medical Hx - office support specialist Hx of Blood Transfusion No 04/08/25 13:48 Hx of Transfusion in last 3 No 04/08/25 13:48 Months Date of Last Transfusion (if within last 3 months) Ever experience any problems No 04/08/25 13:48 with transfusion(s)? Specify any problems Hx of Preganancy in last 3 N/A 04/08/25 13:48 Months Nurse Filling Out Transfusion NBUCHER 04/08/25 13:48 & Questions: Date: 04/08/25 04/08/25 13:48 Time: 13:51 04/08/25 13:48 Patient unable to answer at this time (ie. confused, unrespo /Reproduction History /Reproductive History - fruit farmer: /Reproductive Hx- fruit farmer Hx Now No 04/08/25 13:48 Gestational Age (in weeks): EDC: Hx Hx Para Hx Section SAB No 04/08/25 13:48 Does the father of the baby or his family experience fever w Father of the baby Malignant Hypertension history comment Active Medications Active Medications: Current Medications Generic Name Dose Route Start Last Admin Trade Name Freq PRN Reason Stop Dose Admin Cefazolin Sodium 3 gm/ Sodium 115 mls @ 200 mls/hr 04/10/25 13:15 Chloride IV 04/10/25 13:49 INTRAOP ONE [facility] Medical History Wears glasses Bipolar disorder Diabetes Ambulates with cane Migraine headache COPD (chronic obstructive pulmonary disease) CPAP (continuous positive airway pressure) dependence Sleep apnea Shortness of breath on exertion History of edema History of echocardiogram Depression Hypertension Home Medications ?Medication ?Instructions ?Recorded ?Last Taken ?Type albuterol sulfate 90 mcg/actuation 1 puff inhalation Q 6H PRN 01/06/25 Unknown History aerosol inhaler shortness of breath or wheez ing hydrochlorothiazide 12.5 mg capsule 12.5 mg PO DAILY 0 01/06/25 Unknown History lisinopril 40 mg tablet 40 mg PO DAILY 01/06/25 Unkn own History metformin 500 mg tablet,extended 500 mg PO DAILY 01/06 Unknown History release 24 hr rosuvastatin 20 mg tablet 20 mg PO QHS 01/06/25 Unknow n History amlodipine 10 mg tablet 10 mg PO QDAY 01/13/25 Unkno wn History Allergy/AdvReac Type Severity Reaction Status Date / Time No Known Allergies Allergy Verified 04/08/25 13:45 Family History Brother Asthma Hypertension Sister Asthma Diabetes Hypertension Mother Asthma Cancer Myocardial infarction Father Asthma Surgical History surgery for undescended testicle Social History household members: family current occupational status: unemployed sexually active: Yes Smoking Status: Current every day smoker tobacco type: cigarettes alcohol intake: current alcohol intake frequency: a few times a month substance use type: does not use caffeine: Yes Type: coffee Number of servings: 2 seatbelt use: always Review of Systems (Anesthesia) ROS Narrative System reviewed and no additional complaints, except as documented.
[2025-04-10] MEDS: Lactated Ringers 1,000 ML 15 ML IV (10:55)
--- NOTE | 2025-04-10 13:30 | RAD_ITS ---
PROCEDURE: FOOT 2 VIEWS 04/10/2025 REASON FOR EXAM: HARVEST BONE MARROW, ORIF OF THE FIFTH TECHNIQUE: Procedure Code: RADFO2 Modality: DX Procedure: FOOT 2 VIEWS Laterality: Right COMPARISON: None. FINDINGS: Intraoperative fluoroscopy was performed. Multiple spot fluoroscopic views were obtained in the operating room by the referring physician and submitted for interpretation. The total fluoroscopy time was 226.3 seconds. Total dose was 7.03 mGy. RAD/Foot 2 Views IMPRESSION: Intraoperative fluoroscopic views were performed. Please see clinical note for further details. Reading [facility]
[2025-04-10] MEDS: Cefazolin 1 GM/5 ML Vial 3 GM IV (13:38)
[2025-04-10] MEDS: Midazolam 2 MG/2 ML Syringe 4 MG IV (13:48)
[2025-04-10] MEDS: Lactated Ringers 1,000 ML 1000 ML IV (13:53)
[2025-04-10] MEDS: Thrombin 5,000 IU Kit (PSA) 5,000 IU Vial 5000 IU TOPICAL (14:00)
[2025-04-10] MEDS: dexMEDEtomidine 200 MCG/2 ML ML 30 MCG IV (14:30)
--- NOTE | 2025-04-10 15:35 | PCM.POST.ANE ---
Anesthesia: Postop Eval I Current Vital Signs Temperature: 97.7 F Pulse Rate: 81 Blood Pressure: 148/94 Respiratory Rate: 18 Pulse Ox: 93 Oxygen Delivery Method: Room Air Assessment Airway patent: Yes Spontaneous unlabored respirations: Yes Mental status: Awake nausea: No Vomiting: No Anesthesia Complication: No Fluid Hydration Crystalloid volume administer (ml): 1,000 Total IV fluid infused: 1,000 Progress Note Anesthesia document: Postop Eval 1 completed: Yes
--- NOTE | 2025-04-10 15:50 | POSTOPAN2_ITS ---
Anesthesia Postop Eval I Sum Postop Eval Completion status Anesthesia document: Postop Eval 1 completed: Yes Anesthesia Postop Eval I Summary Anesthesia Postop Eval I Summary: Anesthesia Postop Eval I: Assessment Summary Airway patent Yes 04/10/25 15:36 COPIER OPERATOR.ACAR Spontaneous unlabored Yes 04/10/25 15:36 COPIER OPERATOR.ACAR respirations Mental status Awake 04/10/25 15:36 COPIER OPERATOR.ACAR nausea No 04/10/25 15:36 COPIER OPERATOR.ACAR Vomiting No 04/10/25 15:36 COPIER OPERATOR.ACAR Anesthesia Postop Eval I: Fluid Summary Crystalloid volume administer 1,000 04/10/25 15:36 COPIER OPERATOR.ACAR (ml) Colloids volume administered ( ml) Blood Product volume administered (ml) Total IV fluid infused 1,000 04/10/25 15:36 COPIER OPERATOR.ACAR Anesthesia Postop Eval I: Summary Notes Anesthesia Complication No 04/10/25 15:36 COPIER OPERATOR.ACAR Anesthesia Complication Comment: Post-operative progress note Anesthesia: Postop Eval II Evaluation Mental status: Awake Pain Level: 1 nausea: No Vomiting: No
--- NOTE | 2025-04-10 15:50 | PCM.POSTANE2 ---
Anesthesia Postop Eval I Sum Postop Eval Completion status Anesthesia document: Postop Eval 1 completed: Yes Anesthesia Postop Eval I Summary Anesthesia Postop Eval I Summary: Anesthesia Postop Eval I: Assessment Summary Airway patent Yes 04/10/25 15:36 PANEL EDGE PAINTER.ACAR Spontaneous unlabored Yes 04/10/25 15:36 PANEL EDGE PAINTER.ACAR respirations Mental status Awake 04/10/25 15:36 PANEL EDGE PAINTER.ACAR nausea No 04/10/25 15:36 PANEL EDGE PAINTER.ACAR Vomiting No 04/10/25 15:36 PANEL EDGE PAINTER.ACAR Anesthesia Postop Eval I: Fluid Summary Crystalloid volume administer 1,000 04/10/25 15:36 PANEL EDGE PAINTER.ACAR (ml) Colloids volume administered ( ml) Blood Product volume administered (ml) Total IV fluid infused 1,000 04/10/25 15:36 PANEL EDGE PAINTER.ACAR Anesthesia Postop Eval I: Summary Notes Anesthesia Complication No 04/10/25 15:36 PANEL EDGE PAINTER.ACAR Anesthesia Complication Comment: Post-operative progress note Anesthesia: Postop Eval II Evaluation Mental status: Awake Pain Level: 1 nausea: No Vomiting: No
== END 2025-04-10 16:26 | disposition home or self-care (01) ==
LOC: SDC 10:04 → AC 10:15
PROVIDERS: Referring Provider Podiatrist Foot & Ankle Surgery; Visit Provider Podiatrist Foot & Ankle Surgery
PROC: (CPT 28485; principal; 2025-04-10 11:45)
DX: S92.351A Displaced fracture of fifth metatarsal bone, right foot, initial encounter for closed fracture (principal); E11.9 Type 2 diabetes mellitus without complications; I10 Essential (primary) hypertension; E55.9 Vitamin D deficiency, unspecified; Z79.51 Long term (current) use of inhaled steroids; Z79.899 Other long term (current) drug therapy; Z79.84 Long term (current) use of oral hypoglycemic drugs; X58.XXXA Exposure to other specified factors, initial encounter
CPT/HCPCS: 28485; 38206; 64447; 01480; 73620; 76000; 82962